=== PATIENT | male | born 1990 | race Caucasian/White ===

== ENCOUNTER → 2016-11-02 | Outpatient (CLI) | payer OTHER ==
[~2016-11-02] MED LIST: CHOL100010 PO; CHOL2000 PO; CLOB1SUS PO; DIVA125C PO; GLYC1TAB5 PO; MTR500 PO; NUTR-25 PO; RBN1 PO; [UNRECOGNIZED DRUG - CODE] PO; miralax PO
[2016-11-02 13:30] LABS: BASO % 0.3 %; BASO ABS # 0.02 K/uL (0-0.2); COMPLETE YES; HEMATOCRIT 46.8 % (42-52); IG% 0.2 %; LYMPH % 39.1 %; LYMPH ABS # 2.28 K/uL (1.2-3.4); MEAN CELL VOLUME 96.5 fL (80-100); MEAN CORPUSCULAR HGB CONC 33.1 g/dl (32-36); MONO % 7.5 %; NEUT % 46.9 %; PLATELET COUNT 151 K/uL (130-400); RED BLOOD COUNT 4.85 M/uL (4.7-6.1); WHITE BLOOD COUNT 5.83 K/uL (4.8-10.8)
[2016-11-02 13:53] LABS: ALB/GLOB RATIO 1.3 (0.9-2); ALKALINE PHOSPHATASE 92 U/L (45-117); ALT/SGPT 23 U/L (12-78); AST/SGOT 11 U/L (15-37); BLOOD UREA NITROGEN 9 mg/dl (7-18); CALCIUM 9.7 mg/dl (8.5-10.1); CARBON DIOXIDE 33 mmol/L (21-32); CHLORIDE 107 mmol/L (98-107); CREATININE 0.66 mg/dl (0.60-1.40); GLUCOSE 91 mg/dl (70-99); POTASSIUM 3.9 mmol/L (3.5-5.1); SODIUM 145 mmol/L (136-145)
== END | disposition home or self-care (01) ==
LOC: C.LABBC 11:57
PROVIDERS: ATTEND Psychiatry & Neurology Neurology
DX: G40.209 Localization-related (focal) (partial) symptomatic epilepsy and epileptic syndromes with complex partial seizures, not intractable, without status epilepticus (principal); G40.211 Localization-related (focal) (partial) symptomatic epilepsy and epileptic syndromes with complex partial seizures, intractable, with status epilepticus

== ENCOUNTER 2016-11-29 17:53 | Inpatient (IN) | payer OTHER ==
[~2016-11-29] VITALS: Ht 167.6 cm; Wt 43.0 kg
[~2016-11-29 17:53] MED LIST changes: -CHOL2000 PO; -CLOB1SUS PO; -MTR500 PO; -RBN1 PO
[2016-11-29] MEDS ORDERED: CLOB1SUS PO (18:19)
[2016-11-29] MEDS ORDERED: RBN1 PO (18:19)
[2016-11-29] MEDS ORDERED: CHOL2000 PO (18:19)
[2016-11-29] MEDS ORDERED: ACETAMINOPHEN 650 MG SUPP PR STA (18:28)
[2016-11-29] MEDS ORDERED: SODIUM CHLORIDE 0.9% 1000ML 1,000 ML IV ONE (18:28)
[2016-11-29] MEDS ORDERED: VANCOMYCIN 1GM/270ML NSS IV STA (18:28)
[2016-11-29] MEDS ORDERED: SODIUM CHLORIDE 0.9% 1000ML 1,000 ML IV SCH (18:30)
[2016-11-29] MEDS ORDERED: ONDANSETRON INJ 2 MG/ML 2 ML VIAL IV STA (18:46)
[2016-11-29 19:26] LABS: BASO % 0.1 %; BASO ABS # 0.01 K/uL (0-0.2); EOS % 0.4 %; HEMATOCRIT 55.8 % (42-52); IG% 0.2 %; LYMPH % 8.8 %; LYMPH ABS # 0.74 K/uL (1.2-3.4); MEAN PLATELET VOLUME 12.9 fL (7.4-10.4); MONO % 19.6 %; NEUT % 70.9 %; PLATELET COUNT 115 K/uL (130-400); RED BLOOD COUNT 5.75 M/uL (4.7-6.1); WHITE BLOOD COUNT 8.45 K/uL (4.8-10.8)
[2016-11-29 19:33] LABS: INR 1.1 (0.9-1.1)
--- NOTE | 2016-11-29 19:42 | DIAGNOSTIC IMAGING REPORT ---
CHEST ONE VIEW PORTABLE CLINICAL HISTORY: Sepsis COMPARISON STUDY: 10/05/2014 FINDINGS: There is a thoracolumbar scoliosis. Spinal rods are visualized. There is a prior stimulator projected over the left medial shoulder region. There is no focal pulmonary consolidation. There are no pleural effusions. There is no failure.[ IMPRESSION: No acute findings. Electronically signed by: Reuben Scott M.D. 11/29/2016 7:41 PM Dictated Date/Time: 11/29/2016 7:40 PM
[2016-11-29] MEDS ORDERED: OPTIRAY 320 IV PRN (19:45)
[2016-11-29 20:01] LABS: ALKALINE PHOSPHATASE 109 U/L (45-117); ALT/SGPT 23 U/L (12-78); BLOOD UREA NITROGEN 18 mg/dl (7-18); BUN/CREATININE RATIO 19.7 (10-20); CALCIUM 9.5 mg/dl (8.5-10.1); CARBON DIOXIDE 30 mmol/L (21-32); CHLORIDE 108 mmol/L (98-107); GLUCOSE 119 mg/dl (70-99); SODIUM 144 mmol/L (136-145)
[2016-11-29] MEDS ORDERED: RASPBERRY SYRUP 5 ML UDP PO STA (20:08)
[2016-11-29] MEDS ORDERED: VANCOMYCIN HCL 250 MG/5 ML SOLN PO STA (20:08)
[2016-11-29 20:17] LABS: COMPLETE YES
[2016-11-29 20:38] LABS: POTASSIUM 4.4 mmol/L (3.5-5.1)
[2016-11-29] MEDS ORDERED: ONDANSETRON INJ 2 MG/ML 2 ML VIAL ONE (21:00)
[2016-11-29] MEDS ORDERED: ONDANSETRON 8 MG/54 ML D5W IV ONE (21:15)
--- NOTE | 2016-11-29 21:26 | DIAGNOSTIC IMAGING REPORT ---
CT ABD/PELVIS IV CONTRAST ONLY CLINICAL HISTORY: Abdominal distention, diarrhea, vomiting, history of cerebral palsy. COMPARISON STUDY: 10/05/2014 TECHNIQUE: Following the IV administration of 71 mL of Optiray-320, CT scan of the abdomen and pelvis was performed from the lung bases to the proximal femurs. Images are reviewed in the axial, sagittal, and coronal planes. IV contrast was administered without complication. A dose lowering technique was utilized adhering to the principles of ALARA. CT DOSE: 420.56 mGy.cm FINDINGS: Lower chest: There are minimal left basilar airspace opacities, infectious/inflammatory versus atelectatic. Liver: The contrast-enhanced liver is normal in size, contour, and attenuation. There is no intrahepatic biliary ductal dilatation. The hepatic veins and portal veins are patent. Gallbladder: Surgically absent Spleen: Normal in size and attenuation. Pancreas: Unremarkable. Adrenal glands: Unremarkable. Kidneys: There is symmetric renal cortical enhancement. The kidneys are normal in size without hydronephrosis. Bowel: There is extensive fecal retention. The rectum is dilated measuring 10 cm in diameter. There is minimal rectal wall thickening. There is extensive stool present throughout the colon. The stomach is distended. Peritoneum: There is no intraperitoneal free air or abdominal ascites. Vasculature: The abdominal aorta is normal in course and caliber. Adenopathy: None. Pelvic viscera: There is undescended right testis. The left testis is not visualized. Skeletal structures: There is a scoliosis. There are posterior spinal rods present. The hips are dysmorphic. There is chronic right-sided hip subluxation. IMPRESSION: 1. Extensive fecal impaction. The rectum is dilated to 10 cm. There is mild associated rectal wall thickening 2. Minimal left basal airspace opacities, atelectatic versus infectious/inflammatory Electronically signed by: Reuben Scott M.D. 11/29/2016 9:25 PM Dictated Date/Time: 11/29/2016 9:18 PM
[2016-11-29 21:59] LABS: MAGNESIUM 2.7 mg/dl (1.8-2.4); THYROID STIMULATING HORMONE 2.64 uIu/ml (0.300-4.500)
[2016-11-29] MEDS ORDERED: HYDROmorphone INJ 0.5 MG/0.5 ML SYR IV PRN (22:30)
[2016-11-29] MEDS ORDERED: ACETAMINOPHEN 325 MG TAB PO PRN (22:30)
[2016-11-29] MEDS ORDERED: KETOROLAC TROMETHAMINE 15 MG/ML VIAL IV. PRN (22:30)
[2016-11-29] MEDS ORDERED: OXYCODONE/ACETAMINOPHEN 5-325 TAB PO PRN (22:30)
[2016-11-29] MEDS ORDERED: ONDANSETRON INJ 2 MG/ML 2 ML VIAL IV PRN (22:30)
[2016-11-29] MEDS ORDERED: PROMETHAZINE HCL INJ 12.5 MG in SODIUM CHLORIDE 0.9% 50ML 50 ML IV PRN (22:30)
[2016-11-29] MEDS ORDERED: ACETAMINOPHEN IV 650 MG in EMPTY BAG 0 ML IV PRN (22:30)
[2016-11-29] MEDS ORDERED: PROMETHAZINE HCL INJ 12.5 MG in SODIUM CHLORIDE 0.9% 50ML 50 ML IV ONE (23:00)
[2016-11-29] MEDS ORDERED: PATIENT'S HEIGHT AND/OR WEIGHT NEEDED SCH (23:15)
[2016-11-29] MEDS: ONFI~ORDER AWAITING ACTION SCH (23:15)
[2016-11-29 23:22] VITALS: BP 98/66; PULSE 124; TEMP 37.3; O2SAT 95; Ht 167.6 cm; Wt 43.0 kg
[2016-11-29] MEDS: METRONIDAZOLE / NSS 500 MG in PREMIXED NSS 100 ML IV SCH (23:42)
[2016-11-29] MEDS: SODIUM CHLORIDE 0.45% 1000ML 1,000 ML IV SCH (23:53)
[2016-11-30] MEDS ORDERED: VALPROATE SOD IV 500 MG in DEXTROSE 5% 50ML 50 ML IV STA (00:07)
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
[2016-11-30] MEDS: SODIUM CHLORIDE 0.45% 1000ML 1,000 ML IV SCH ×5 (05:32→22:14)
[2016-11-30] MEDS: METRONIDAZOLE / NSS 500 MG in PREMIXED NSS 100 ML IV SCH ×3 (05:55→22:14)
[2016-11-30 06:34] LABS: HEMATOCRIT 51.4 % (42-52); MEAN CELL VOLUME 96.3 fL (80-100); MEAN CORPUSCULAR HEMOGLOBIN 30.3 pg (25-34); MEAN CORPUSCULAR HGB CONC 31.5 g/dl (32-36); MEAN PLATELET VOLUME 12.1 fL (7.4-10.4); PLATELET COUNT 127 K/uL (130-400); RED BLOOD COUNT 5.34 M/uL (4.7-6.1); WHITE BLOOD COUNT 6.37 K/uL (4.8-10.8)
[2016-11-30] MEDS ORDERED: ACETAMINOPHEN IV 650 MG in EMPTY BAG 0 ML IV ONE (07:00)
[2016-11-30 07:16] LABS: BASO % 0.2 %; BASO ABS # 0.01 K/uL (0-0.2); COMPLETE YES; EOS % 5.3 %; MONO % 21.8 %; NEUT % 50.7 %
[2016-11-30 07:26] LABS: BLOOD UREA NITROGEN 13 mg/dl (7-18); BUN/CREATININE RATIO 19.1 (10-20); CALCIUM 8.5 mg/dl (8.5-10.1); CARBON DIOXIDE 31 mmol/L (21-32); CHLORIDE 110 mmol/L (98-107); CREATININE 0.67 mg/dl (0.60-1.40); GLUCOSE 102 mg/dl (70-99); POTASSIUM 3.6 mmol/L (3.5-5.1); SODIUM 147 mmol/L (136-145)
[2016-11-30 07:29] VITALS: BP 120/67; PULSE 131; TEMP 37.1; O2SAT 93
[2016-11-30] MEDS: ONFI~ORDER AWAITING ACTION SCH ×2 (08:00)
[2016-11-30] MEDS: DIVALPROEX SODIUM SPRINKLE 125 MG CAP PO SCH (09:00)
[2016-11-30] MEDS: ONDANSETRON INJ 2 MG/ML 2 ML VIAL IV. SCH ×2 (09:00→22:14)
[2016-11-30] MEDS ORDERED: DOCUSATE SODIUM/SENNA 50/8.6MG TAB PO PRN (09:30)
[2016-11-30] MEDS: VALPROATE SOD IV 500 MG in DEXTROSE 5% 50ML 50 ML IV SCH ×2 (10:43→20:28)
[2016-11-30 12:16] LABS: MANUAL MICROSCOPIC REQUIRED? NO; REVIEW REQ? NO; URINE APPEARANCE CLEAR (CLEAR); URINE COLOR ORANGE; URINE EPITHELIAL CELL AUTO >30 /lpf (0-5); URINE NITRITE POS (NEG); URINE PH 5.5 (4.5-7.5); URINE SPECIFIC GRAVITY > 1.045 (1.000-1.030); UROBILINOGEN NEG (NEG); ZZUR CULT IF INDIC CLEAN CATCH NO
[2016-11-30 12:19] LABS: URINE BILIRUBIN NEG (NEG)
--- NOTE | 2016-11-30 13:36 | Progress Note ---
Internal Med Progress Note Date of Service: Nov 30, 2016. Provider Documentation: SUBJECTIVE: Seen and examined at bedside. Could not obtain any information, patient non verbal No family member at bedside. Sleeping comfortably Nausea improving per staff. Has Urinary retention. Afebrile today OBJECTIVE: Vital Signs-as noted below Physical Exam: General Appearance:chronic ill appearing, no apparent distress Head: normocephalic, Atraumatic Eyes: normal inspection, EOMI, PERRL Neck: supple, Trachea midline Respiratory/Chest: Normal breath sounds, CTA Cardiovascular: S1, S2, +Tachycardia, No murmur Abdomen/GI:Soft, +distended, mild tender, Bowel sounds present Extremities/Musculoskelatal:normal inspection, no edema Neurologic/Psych:could not perform neurological exam Skin: normal color, warm Lab data as noted below. ASSESSMENT & PLAN: Sepsis secondary to C.diff colitis Fecal Impaction on CT abd First occurrence of c.diff per family Continue IV fluids Continue IV flagyl. Will switch to PO when tolerates PO Seizure disorder Cerebral palsy/MR Continue home medications Will switch to PO Depakote when able Seizure precautions Urinary Retention: Continue asif for now Plan for voiding trial prior to DC Malnutrition: BMI:15.3 Service Department Manager consulted Thrombocytopenia: Likely secondary to medications No bleeding issues Monitor DVT Px: SCDs. RE thrombocytopenia Code Status: Full code Vital Signs: Date Time Temp Pulse Resp B/P (MAP) Pulse Ox O2 Delivery O2 Flow Rate FiO2 11/30/16 08:00 Room Air 11/30/16 07:29 37.1 131 20 120/67 (84) 93 11/29/16 23:22 37.3 124 18 98/66 95 Room Air 11/29/16 22:12 122 20 108/77 96 11/29/16 20:31 94 Room Air 11/29/16 20:20 37.6 130 22 108/70 94 Room Air 11/29/16 18:17 38.4 11/29/16 17:55 146 26 95/71 90 Room Air Lab Results: Results Past 24 Hours Test 11/29/16 18:25 11/29/16 19:05 11/29/16 20:19 11/29/16 20:24 Range/Units White Blood Count 8.45 4.8-10.8 K/uL Red Blood Count 5.75 4.7-6.1 M/uL Hemoglobin 18.4 14.0-18.0 g/dL Hematocrit 55.8 42-52 % Mean Corpuscular Volume 97.0 80-100 fL Mean Corpuscular Hemoglobin 32.0 25-34 pg Mean Corpuscular Hemoglobin Concent 33.0 32-36 g/dl Platelet Count 115 130-400 K/uL Mean Platelet Volume 12.9 7.4-10.4 fL Neutrophils (%) (Auto) 70.9 % Lymphocytes (%) (Auto) 8.8 % Monocytes (%) (Auto) 19.6 % Eosinophils (%) (Auto) 0.4 % Basophils (%) (Auto) 0.1 % Neutrophils # (Auto) 5.99 1.4-6.5 K/uL Lymphocytes # (Auto) 0.74 1.2-3.4 K/uL Monocytes # (Auto) 1.66 0.11-0.59 K/uL Eosinophils # (Auto) 0.03 0-0.5 K/uL Basophils # (Auto) 0.01 0-0.2 K/uL RDW Standard Deviation 46.3 36.4-46.3 fL RDW Coefficient of Variation 13.0 11.5-14.5 % Immature Granulocyte % (Auto) 0.2 % Immature Granulocyte # (Auto) 0.02 0.00-0.02 K/uL Prothrombin Time 12.0 9.0-12.0 SECONDS Prothromb Time International Ratio 1.1 0.9-1.1 Activated Partial Thromboplast Time 25.4 21.0-31.0 SECONDS Partial Thromboplastin Ratio 1.0 Sodium Level 144 136-145 mmol/L Potassium Level 4.4 3.5-5.1 mmol/L Chloride Level 108 98-107 mmol/L Carbon Dioxide Level 30 21-32 mmol/L Anion Gap 6.0 3-11 mmol/L Blood Urea Nitrogen 18 7-18 mg/dl Creatinine 0.90 0.60-1.40 mg/dl Estimated GFR () 138.1 Estimated GFR (Non- 119.1 BUN/Creatinine Ratio 19.7 10-20 Random Glucose 119 70-99 mg/dl Calcium Level 9.5 8.5-10.1 mg/dl Total Bilirubin 0.4 0.2-1 mg/dl Direct Bilirubin 0.1 0-0.2 mg/dl Aspartate Amino Transf (AST/SGOT) 17 15-37 U/L Alanine Aminotransferase (ALT/SGPT) 23 12-78 U/L Alkaline Phosphatase 109 45-117 U/L Total Protein 7.1 6.4-8.2 gm/dl Albumin 3.7 3.4-5.0 gm/dl Lipase 56 73-393 U/L Procalcitonin 0.23 0-0.5 ng/ml Chemistry Specimen Hemolysis Magnesium Level 2.7 1.8-2.4 mg/dl Thyroid Stimulating Hormone (TSH) 2.640 0.300-4.500 uIu/ml Bedside Lactic Acid Venous 1.97 0.90-1.70 mmol/L Test 11/29/16 22:01 11/30/16 00:00 11/30/16 00:00 11/30/16 06:16 Range/Units Lactic Acid Level 1.9 0.4-2.0 mmol/L Valproic Acid (Depakene) Level 41 67 50-100 mcg/ml Urine Color ORANGE Urine Appearance CLEAR CLEAR Urine pH 5.5 4.5-7.5 Urine Specific [place] > 1.045 1.000-1.030 Urine Protein NEG NEG Urine Glucose (UA) NEG NEG Urine Ketones NEG NEG Urine Occult Blood NEG NEG Urine Nitrite POS NEG Urine Bilirubin NEG NEG Urine Urobilinogen NEG NEG Urine Leukocyte Esterase SMALL NEG Urine WBC (Auto) 1-5 0-5 /hpf Urine RBC (Auto) 0-4 0-4 /hpf Urine Hyaline Casts (Auto) 1-5 0-5 /lpf Urine Epithelial Cells (Auto) >30 0-5 /lpf Urine Bacteria (Auto) NEG NEG White Blood Count 6.37 4.8-10.8 K/uL Red Blood Count 5.34 4.7-6.1 M/uL Hemoglobin 16.2 14.0-18.0 g/dL Hematocrit 51.4 42-52 % Mean Corpuscular Volume 96.3 80-100 fL Mean Corpuscular Hemoglobin 30.3 25-34 pg Mean Corpuscular Hemoglobin Concent 31.5 32-36 g/dl Platelet Count 127 130-400 K/uL Mean Platelet Volume 12.1 7.4-10.4 fL Neutrophils (%) (Auto) 50.7 % Lymphocytes (%) (Auto) 22.0 % Monocytes (%) (Auto) 21.8 % Eosinophils (%) (Auto) 5.3 % Basophils (%) (Auto) 0.2 % Neutrophils # (Auto) 3.23 1.4-6.5 K/uL Lymphocytes # (Auto) 1.40 1.2-3.4 K/uL Monocytes # (Auto) 1.39 0.11-0.59 K/uL Eosinophils # (Auto) 0.34 0-0.5 K/uL Basophils # (Auto) 0.01 0-0.2 K/uL RDW Standard Deviation 46.9 36.4-46.3 fL RDW Coefficient of Variation 13.2 11.5-14.5 % Immature Granulocyte % (Auto) 0.0 % Immature Granulocyte # (Auto) 0.00 0.00-0.02 K/uL Sodium Level 147 136-145 mmol/L Potassium Level 3.6 3.5-5.1 mmol/L Chloride Level 110 98-107 mmol/L Carbon Dioxide Level 31 21-32 mmol/L Anion Gap 6.0 3-11 mmol/L Blood Urea Nitrogen 13 7-18 mg/dl Creatinine 0.67 0.60-1.40 mg/dl Est Creatinine Clear Calc Drug Dose 103.4 ml/min Estimated GFR () > 150.0 Estimated GFR (Non- 134.5 BUN/Creatinine Ratio 19.1 10-20 Random Glucose 102 70-99 mg/dl Calcium Level 8.5 8.5-10.1 mg/dl Microbiology Results 11/29/16 Blood Culture, Received Pending 11/29/16 Blood Culture, Received Pending 11/29/16 C.difficile Toxin B Gene (PCR) - Final, Complete Positive for C. difficile toxin B gene 11/29/16 Shiga Toxin Test - Preliminary, Resulted No E. Coli shiga toxin 1 or shiga tox... 11/29/16 Stool Culture - Preliminary, Resulted NO SALMONELLA ISOLATED TO DATE,...
[2016-11-30 17:17] VITALS: BP 121/74; PULSE 98; TEMP 36.6; O2SAT 94
[2016-11-30] MEDS: CLOBAZAM 2.5 MG/ML PO SCH (20:30)
[2016-11-30] MEDS: RUFINAMIDE 40 MG/ML PO SCH (20:36)
[2016-11-30] MEDS ORDERED: RUFINAMIDE 40 MG/ML PO SCH (21:00)
[2016-11-30 23:53] VITALS: BP 117/72; PULSE 107; TEMP 37.8; O2SAT 93
[2016-12-01 02:00] VITALS: TEMP 37.5
[2016-12-01] MEDS: METRONIDAZOLE / NSS 500 MG in PREMIXED NSS 100 ML IV SCH ×3 (05:49→21:56)
[2016-12-01] MEDS: SODIUM CHLORIDE 0.45% 1000ML 1,000 ML IV SCH ×2 (05:49→16:12)
[2016-12-01 07:24] VITALS: BP 110/64; PULSE 97; TEMP 37.4; O2SAT 95
[2016-12-01] MEDS: VALPROATE SOD IV 500 MG in DEXTROSE 5% 50ML 50 ML IV SCH ×2 (08:28→20:36)
[2016-12-01] MEDS: RUFINAMIDE 40 MG/ML PO SCH ×2 (08:28→19:24)
[2016-12-01] MEDS: CLOBAZAM 2.5 MG/ML PO SCH ×2 (08:28→19:24)
[2016-12-01 08:46] LABS: BLOOD UREA NITROGEN 6 mg/dl (7-18); BUN/CREATININE RATIO 13.3 (10-20); CALCIUM 8.4 mg/dl (8.5-10.1); CARBON DIOXIDE 28 mmol/L (21-32); CHLORIDE 106 mmol/L (98-107); CREATININE 0.46 mg/dl (0.60-1.40); GLUCOSE 82 mg/dl (70-99); MAGNESIUM 1.7 mg/dl (1.8-2.4); POTASSIUM 3.6 mmol/L (3.5-5.1); SODIUM 141 mmol/L (136-145)
[2016-12-01] MEDS ORDERED: RUFINAMIDE 40 MG/ML PO SCH (09:00)
--- NOTE | 2016-12-01 10:48 | Progress Note ---
Internal Med Progress Note Date of Service: Dec 01, 2016. Provider Documentation: SUBJECTIVE: Seen and examined at bedside. Could not obtain any information, patient non verbal No family member at bedside. Alert, awake, lying comfortably Has intermittent fever Takes medication and food only when given by his mother OBJECTIVE: Vital Signs-as noted below Physical Exam: General Appearance:chronic ill appearing, no apparent distress Head: normocephalic, Atraumatic Eyes: normal inspection, EOMI, PERRL Neck: supple, Trachea midline Respiratory/Chest: Normal breath sounds, CTA Cardiovascular: S1, S2, +Tachycardia, No murmur Abdomen/GI:Soft, +distended, non tender, Bowel sounds present Extremities/Musculoskelatal:normal inspection, no edema Neurologic/Psych:could not perform neurological exam Skin: normal color, warm Lab data as noted below. ASSESSMENT & PLAN: Sepsis secondary to C.diff colitis Fecal Impaction on CT abd First occurrence of c.diff per family Continue IV fluids at decreased rate to 75ml/hr Continue IV flagyl. Will switch to PO when tolerates PO better Blood culture: no growth to date Seizure disorder Cerebral palsy/MR Continue home medications Will switch to PO Depakote when able Seizure precautions stable Urinary Retention: Continue asif for now Plan for voiding trial prior to DC Hypomagnesemia: Replace and monitor Malnutrition: BMI:15.3 State Patrol Officer consulted Thrombocytopenia: Likely secondary to medications No bleeding issues Monitor DVT Px: SCDs. RE thrombocytopenia Code Status: Full code Vital Signs: Date Time Temp Pulse Resp B/P (MAP) Pulse Ox O2 Delivery O2 Flow Rate FiO2 12/01/16 08:00 Room Air 12/01/16 07:24 37.4 97 16 110/64 (79) 95 Room Air 12/01/16 02:00 37.5 11/30/16 23:59 Room Air 11/30/16 23:53 37.8 107 18 117/72 (87) 93 Room Air 11/30/16 17:17 36.6 98 18 121/74 (90) 94 Room Air 11/30/16 16:00 Room Air Lab Results: Results Past 24 Hours Test 12/01/16 07:17 Range/Units Sodium Level 141 136-145 mmol/L Potassium Level 3.6 3.5-5.1 mmol/L Chloride Level 106 98-107 mmol/L Carbon Dioxide Level 28 21-32 mmol/L Anion Gap 7.0 3-11 mmol/L Blood Urea Nitrogen 6 7-18 mg/dl Creatinine 0.46 0.60-1.40 mg/dl Est Creatinine Clear Calc Drug Dose 150.6 ml/min Estimated GFR () > 150.0 Estimated GFR (Non- > 150.0 BUN/Creatinine Ratio 13.3 10-20 Random Glucose 82 70-99 mg/dl Calcium Level 8.4 8.5-10.1 mg/dl Magnesium Level 1.7 1.8-2.4 mg/dl
[2016-12-01] MEDS ORDERED: MAGNESIUM SULFATE 1GM / D5W 1 GM in PREMIXED IN D5W 100 ML IV ONE (11:00)
--- NOTE | 2016-12-01 17:26 | EMERGENCY ROOM VISIT NOTE ---
History Report prepared by Mari: René Bob Under the Supervision of: Dr. Alex Heart M.D. First contact with patient: 18:00 Chief Complaint: VOMITING Stated Complaint: VOMITING,DIARRHEA, STOMACH VERY DISTENDED History of Present Illness The patient is a 26 year old white male who presents to the ED with a cc of vomiting and diarrhea. History obtained from the patient's mother. History of MR. Symptoms began today and have persisted. Positive abdominal distension. Negative cough. No known sick contacts. No recent travel. Takes Depakote and Clobazam for seizures, and a medication to control drooling. Vaccinations are up to date. No recent antibiotic usage. Source of History: parent (mother) Onset: Today Quality: other (vomiting and diarrhea) Timing: other (persistent) Associated Symptoms: No cough Note: Positive abdominal distension. Review of Systems ROS limited secondary to MR. Past Medical & Surgical Medical Problems: (1) Cerebral palsy (2) Fecal impaction (3) Hypokalemia (4) Hypomagnesemia (5) MR (mental retardation), severe (6) Pneumonia (7) Seizures (8) Sepsis (9) Vomiting Surgical Problems: (1) History of spinal fusion (2) Status post VNS (vagus nerve stimulator) placement Family History No pertinent family history stated. Social History Smoking Status: Never Smoker Alcohol Use: none Drug Use: none Marital Status: single Housing Status: lives with family Occupation Status: disabled Current/Historical Medications Scheduled Cholecalciferol (Vitamin D3), 1 CAP PO DAILY Clobazam (Onfi), 1 ML PO BID Divalproex Sodium (Depakote Sprinkle), 4 CAP PO BID Enteral Nutrition Formula (Boost Plus), 1 CAN PO TIDM Glycopyrrolate (Glycopyrrolate), 1 TAB PO BID Rufinamide (Banzel), 1,000 MG PO BID Scheduled PRN [miralax], 255 GM PO DAILY PRN for Constipation Allergies Coded Allergies: Fentanyl (Verified Adverse Reaction, Intermediate, Difficulty to awaken, ) Physical Exam Vital Signs Date Time Temp Pulse Resp B/P (MAP) Pulse Ox O2 Delivery O2 Flow Rate FiO2 11/29/16 20:31 94 Room Air 11/29/16 20:20 37.6 130 22 108/70 94 Room Air 11/29/16 18:17 38.4 11/29/16 17:55 146 26 95/71 90 Room Air Physical Exam GENERAL: Non-verbal at baseline. Awake, well-appearing, NAD HENT: Normocephalic, atraumatic. EYES: Normal conjunctiva. Sclera non-icteric. NECK: Supple. No nuchal rigidity. FROM. RESPIRATORY: CTAB, no rhonchi, wheezing, crackles CARDIAC: RRR, no MRG ABDOMEN: Soft, NT, BS+. Distended. MSK: No chest wall TTP, no LE edema. Contractures of the bilateral upper and lower extremities. NEURO: Baseline MR. AO x0. Non-verbal. SKIN: No rash or jaundice noted. Scarring on the back and abdomen consistent with prior surgeries. Medical Decision & Procedures Laboratory Results Test 11/29/16 18:25 11/29/16 19:05 11/29/16 20:19 11/29/16 20:24 Prothrombin Time 12.0 SECONDS (9.0-12.0) Prothromb Time International Ratio 1.1 (0.9-1.1) Activated Partial Thromboplast Time 25.4 SECONDS (21.0-31.0) Partial Thromboplastin Ratio 1.0 Total Bilirubin 0.4 mg/dl (0.2-1) Alanine Aminotransferase (ALT/SGPT) 23 U/L (12-78) Alkaline Phosphatase 109 U/L (45-117) Total Protein 7.1 gm/dl (6.4-8.2) Albumin 3.7 gm/dl (3.4-5.0) Lipase 56 U/L (73-393) Procalcitonin 0.23 ng/ml (0-0.5) Chemistry Specimen Hemolysis Direct Bilirubin 0.1 mg/dl (0-0.2) Aspartate Amino Transf (AST/SGOT) 17 U/L (15-37) Thyroid Stimulating Hormone (TSH) 2.640 uIu/ml (0.300-4.500) Bedside Lactic Acid Venous 1.97 mmol/L (0.90-1.70) Date/Time Source Procedure Growth Status 11/29/16 18:25 Stool C.difficile Toxin B Gene (PCR) - Final Positive for C. difficile toxin B gene Complete Medications Administered Medications (Trade) Dose Ordered Sig/Vy Route Start Time Stop Time Status Last Admin Dose Admin Sodium Chloride 1,000 ml @ 999 mls/hr Q1H1M ONCE IV 11/29/16 18:28 11/29/16 19:28 DC 11/29/16 19:54 999 MLS/HR Vancomycin HCl (Vancomycin 1gm/ 270ml Nss) 1 gm ONE STAT IV 11/29/16 18:28 11/29/16 21:36 DC 11/29/16 18:28 1 GM Sodium Chloride 1,000 ml @ 999 mls/hr Q1H1M IV 11/29/16 18:30 11/29/16 22:55 DC 11/29/16 18:30 999 MLS/HR Acetaminophen (Tylenol Supp) 650 mg NOW STAT IN 11/29/16 18:28 11/29/16 18:38 DC 11/29/16 19:54 650 MG Ondansetron HCl (Zofran Inj) 4 mg NOW STAT IV 11/29/16 18:46 11/29/16 18:50 DC 11/29/16 19:54 4 MG Vancomycin HCl (Vancomycin Oral Soln) 250 mg NOW STAT PO 11/29/16 20:08 11/29/16 20:09 DC 11/29/16 20:57 250 MG Raspberry (Raspberry Syrup 5ml Cup) 5 ml NOW STAT PO 11/29/16 20:08 11/29/16 20:09 DC 11/29/16 20:56 5 ML Ondansetron HCl (Zofran Inj) 4 mg STK-MED ONCE .ROUTE 11/29/16 21:00 11/29/16 21:01 DC 11/29/16 21:00 4 MG ED Course 1807: The patient was evaluated in room B12B. A complete history and physical exam was performed. Medical Decision The patient is a 26 year old white male who presents to the ED with a cc of vomiting and diarrhea. Differential diagnosis includes but is not limited to: UTI, gastroenteritis, pneumonia, and C Diff. Patient was tachycardic with mild hypotension. Patient was ordered 2 L of fluid in addition to broad-spectrum antibiotics empirically. Patient's white count really unremarkable lactate less than 2. Patient likely suffering from dehydration secondary to C. difficile as his C. difficile was positive. Patient was ordered oral vancomycin. I spoke with the hospitalist service who agreed the patient would benefit from further treatment and management as an inpatient. Patient was admitted to the medicine service. Impression Primary Impression: Sepsis Additional Impressions: Tachycardia Dehydration C. difficile diarrhea Scribe Attestation The scribe's documentation has been prepared under my direction and personally reviewed by me in its entirety. I confirm that the note above accurately reflects all work, treatment, procedures, and medical decision making performed by me. Departure Information Referrals No Doctor, Assigned (PCP) Patient Instructions [facility] Problem Qualifiers
[2016-12-01] MEDS ORDERED: NURSING VERBAL MED ORDER ONE (19:15)
[2016-12-02] VITALS: TEMP 36.8
[2016-12-02] MEDS: METRONIDAZOLE / NSS 500 MG in PREMIXED NSS 100 ML IV SCH ×3 (05:46→22:03)
[2016-12-02] MEDS: SODIUM CHLORIDE 0.45% 1000ML 1,000 ML IV SCH ×2 (05:46→18:15)
[2016-12-02 07:27] LABS: COMPLETE YES; EOS % 1.7 %; HEMATOCRIT 42.2 % (42-52); IG% 0.2 %; LYMPH % 29.2 %; LYMPH ABS # 1.91 K/uL (1.2-3.4); MEAN CELL VOLUME 93.2 fL (80-100); MEAN CORPUSCULAR HEMOGLOBIN 29.6 pg (25-34); MEAN CORPUSCULAR HGB CONC 31.8 g/dl (32-36); MEAN PLATELET VOLUME 11.3 fL (7.4-10.4); MONO % 15.5 %; NEUT % 53.4 %; PLATELET COUNT 103 K/uL (130-400); RED BLOOD COUNT 4.53 M/uL (4.7-6.1); WHITE BLOOD COUNT 6.53 K/uL (4.8-10.8)
[2016-12-02 07:39] VITALS: BP 99/59; PULSE 101; TEMP 37.2; O2SAT 95
[2016-12-02 07:51] LABS: BLOOD UREA NITROGEN 4 mg/dl (7-18); BUN/CREATININE RATIO 7.6 (10-20); CALCIUM 8.7 mg/dl (8.5-10.1); CARBON DIOXIDE 29 mmol/L (21-32); CHLORIDE 105 mmol/L (98-107); GLUCOSE 84 mg/dl (70-99); MAGNESIUM 1.7 mg/dl (1.8-2.4); POTASSIUM 3.3 mmol/L (3.5-5.1); SODIUM 140 mmol/L (136-145)
[2016-12-02] MEDS ORDERED: BOOST VANILLA PO SCH ×2 (08:00)
[2016-12-02] MEDS: CLOBAZAM 2.5 MG/ML PO SCH ×2 (08:14→19:18)
[2016-12-02] MEDS: RUFINAMIDE 40 MG/ML PO SCH ×2 (08:14→19:18)
[2016-12-02] MEDS: VALPROATE SOD IV 500 MG in DEXTROSE 5% 50ML 50 ML IV SCH ×2 (08:29→20:46)
[2016-12-02] MEDS: BOOST PLUS VANILLA PO SCH ×4 (11:30→16:14)
[2016-12-02] MEDS ORDERED: POTASSIUM CHLORIDE 10 MEQ TABCR PO ONE (13:00)
--- NOTE | 2016-12-02 13:07 | Progress Note ---
Internal Med Progress Note Date of Service: Dec 02, 2016. Provider Documentation: SUBJECTIVE: Seen and examined at bedside. Could not obtain any information, patient non verbal Seemed to be more comfortable today family at bedside. Fever resolved Abdomen is less distended OBJECTIVE: Vital Signs-as noted below Physical Exam: General Appearance:chronic ill appearing, no apparent distress Head: normocephalic, Atraumatic Eyes: normal inspection, EOMI, PERRL Neck: supple, Trachea midline Respiratory/Chest: Normal breath sounds, CTA Cardiovascular: S1, S2, +Tachycardia, No murmur Abdomen/GI:Soft, non tender, Bowel sounds present Extremities/Musculoskelatal:normal inspection, no edema Neurologic/Psych:could not perform neurological exam Skin: normal color, warm Lab data as noted below. ASSESSMENT & PLAN: Sepsis secondary to C.diff colitis Fecal Impaction on CT abd First occurrence of c.diff per family Continue IV fluids at decreased rate to 75ml/hr Continue IV flagyl. Day 3 Will switch to PO meds tomorrow Blood culture: no growth to date DC rectal tube today Seizure disorder Cerebral palsy/MR Continue home medications Will switch to PO Depakote tomorrow Seizure precautions stable Urinary Retention: Continue asif for now Plan for voiding trial prior to DC Hypomagnesemia/Hypokalemia: Replace and monitor Malnutrition: BMI:15.3 Librarian [employer] consulted Thrombocytopenia: Likely secondary to medications No bleeding issues Monitor DVT Px: SCDs. RE thrombocytopenia Code Status: Full code Vital Signs: Date Time Temp Pulse Resp B/P (MAP) Pulse Ox O2 Delivery O2 Flow Rate FiO2 12/02/16 08:00 Room Air 12/02/16 07:39 37.2 101 20 99/59 (72) 95 12/02/16 00:00 36.8 12/01/16 23:59 Room Air 12/01/16 20:00 Room Air 12/01/16 16:00 Room Air Lab Results: Results Past 24 Hours Test 12/02/16 07:04 Range/Units White Blood Count 6.53 4.8-10.8 K/uL Red Blood Count 4.53 4.7-6.1 M/uL Hemoglobin 13.4 14.0-18.0 g/dL Hematocrit 42.2 42-52 % Mean Corpuscular Volume 93.2 80-100 fL Mean Corpuscular Hemoglobin 29.6 25-34 pg Mean Corpuscular Hemoglobin Concent 31.8 32-36 g/dl Platelet Count 103 130-400 K/uL Mean Platelet Volume 11.3 7.4-10.4 fL Neutrophils (%) (Auto) 53.4 % Lymphocytes (%) (Auto) 29.2 % Monocytes (%) (Auto) 15.5 % Eosinophils (%) (Auto) 1.7 % Basophils (%) (Auto) 0.0 % Neutrophils # (Auto) 3.49 1.4-6.5 K/uL Lymphocytes # (Auto) 1.91 1.2-3.4 K/uL Monocytes # (Auto) 1.01 0.11-0.59 K/uL Eosinophils # (Auto) 0.11 0-0.5 K/uL Basophils # (Auto) 0.00 0-0.2 K/uL RDW Standard Deviation 43.3 36.4-46.3 fL RDW Coefficient of Variation 12.7 11.5-14.5 % Immature Granulocyte % (Auto) 0.2 % Immature Granulocyte # (Auto) 0.01 0.00-0.02 K/uL Sodium Level 140 136-145 mmol/L Potassium Level 3.3 3.5-5.1 mmol/L Chloride Level 105 98-107 mmol/L Carbon Dioxide Level 29 21-32 mmol/L Anion Gap 6.0 3-11 mmol/L Blood Urea Nitrogen 4 7-18 mg/dl Creatinine 0.50 0.60-1.40 mg/dl Est Creatinine Clear Calc Drug Dose 138.6 ml/min Estimated GFR () > 150.0 Estimated GFR (Non- > 150.0 BUN/Creatinine Ratio 7.6 10-20 Random Glucose 84 70-99 mg/dl Calcium Level 8.7 8.5-10.1 mg/dl Magnesium Level 1.7 1.8-2.4 mg/dl
[2016-12-02] MEDS ORDERED: MAGNESIUM SULFATE 1GM / D5W 1 GM in PREMIXED IN D5W 100 ML IV ONE (13:30)
[2016-12-02 14:17] VITALS: BP 112/64; PULSE 67; TEMP 36.9; O2SAT 99
[2016-12-02 22:39] VITALS: BP 91/58; PULSE 91; TEMP 36.9; O2SAT 95
[2016-12-03] MEDS: METRONIDAZOLE / NSS 500 MG in PREMIXED NSS 100 ML IV SCH ×2 (05:45→13:30)
[2016-12-03 07:46] VITALS: BP 99/61; TEMP 36.9; O2SAT 96
[2016-12-03 08:13] LABS: BASO % 0.2 %; BASO ABS # 0.01 K/uL (0-0.2); COMPLETE YES; EOS % 3.8 %; HEMATOCRIT 39.6 % (42-52); IG% 0.2 %; LYMPH % 37.5 %; LYMPH ABS # 2.05 K/uL (1.2-3.4); MEAN CELL VOLUME 93.4 fL (80-100); MEAN CORPUSCULAR HEMOGLOBIN 31.8 pg (25-34); MEAN CORPUSCULAR HGB CONC 34.1 g/dl (32-36); MEAN PLATELET VOLUME 10.9 fL (7.4-10.4); MONO % 9.3 %; PLATELET COUNT 104 K/uL (130-400); RED BLOOD COUNT 4.24 M/uL (4.7-6.1); WHITE BLOOD COUNT 5.47 K/uL (4.8-10.8)
[2016-12-03] MEDS: BOOST PLUS VANILLA PO SCH ×6 (08:19→19:06)
[2016-12-03] MEDS: SODIUM CHLORIDE 0.45% 1000ML 1,000 ML IV SCH (08:19)
[2016-12-03] MEDS: VALPROATE SOD IV 500 MG in DEXTROSE 5% 50ML 50 ML IV SCH (08:20)
[2016-12-03 08:50] LABS: BLOOD UREA NITROGEN 4 mg/dl (7-18); BUN/CREATININE RATIO 8.6 (10-20); CALCIUM 8.6 mg/dl (8.5-10.1); CARBON DIOXIDE 28 mmol/L (21-32); CHLORIDE 108 mmol/L (98-107); CREATININE 0.43 mg/dl (0.60-1.40); GLUCOSE 87 mg/dl (70-99); MAGNESIUM 1.8 mg/dl (1.8-2.4); POTASSIUM 3.3 mmol/L (3.5-5.1); SODIUM 143 mmol/L (136-145)
[2016-12-03] MEDS: RUFINAMIDE 40 MG/ML PO SCH ×2 (09:11→19:07)
[2016-12-03] MEDS: CLOBAZAM 2.5 MG/ML PO SCH ×2 (09:16→19:08)
[2016-12-03] MEDS ORDERED: POTASSIUM CHLORIDE 10 MEQ TABCR PO ONE (15:00)
--- NOTE | 2016-12-03 15:03 | Progress Note ---
Internal Med Progress Note Date of Service: Dec 03, 2016. Provider Documentation: SUBJECTIVE: Seen and examined at bedside. Patient non verbal at baseline comfortably lying in bed Abdomen is less distended OBJECTIVE: Vital Signs-as noted below Physical Exam: General Appearance:chronic ill appearing, no apparent distress Head: normocephalic, Atraumatic Eyes: normal inspection, EOMI, PERRL Neck: supple, Trachea midline Respiratory/Chest: Normal breath sounds, CTA Cardiovascular: S1, S2, +Tachycardia, No murmur Abdomen/GI:Soft, non tender, Bowel sounds present Extremities/Musculoskelatal:normal inspection, no edema Neurologic/Psych:could not perform neurological exam Skin: normal color, warm Lab data as noted below. ASSESSMENT & PLAN: Sepsis secondary to C.diff colitis Fecal Impaction on CT abd First occurrence of c.diff per family DC IV fluids Continue IV flagyl. Day 4 >>.PO flagyl Blood culture: no growth to date Seizure disorder Cerebral palsy/MR Continue home medications Seizure precautions stable Urinary Retention: DC asif voiding trial today Hypomagnesemia/Hypokalemia: Replace and monitor Malnutrition: BMI:15.3 [employer] Application Consultant consulted Chronic Thrombocytopenia: No bleeding issues Monitor Stable DVT Px: SCDs. RE thrombocytopenia Code Status: Full code Disposition: Plan to discharge home tomorrow if stable Vital Signs: Date Time Temp Pulse Resp B/P (MAP) Pulse Ox O2 Delivery O2 Flow Rate FiO2 12/03/16 08:00 Room Air 12/03/16 07:46 36.9 16 99/61 (74) 96 12/02/16 23:59 Room Air 12/02/16 22:39 36.9 91 18 91/58 (69) 95 Nasal Cannula 12/02/16 20:00 Room Air 12/02/16 15:30 Room Air Lab Results: Results Past 24 Hours Test 12/03/16 08:02 Range/Units White Blood Count 5.47 4.8-10.8 K/uL Red Blood Count 4.24 4.7-6.1 M/uL Hemoglobin 13.5 14.0-18.0 g/dL Hematocrit 39.6 42-52 % Mean Corpuscular Volume 93.4 80-100 fL Mean Corpuscular Hemoglobin 31.8 25-34 pg Mean Corpuscular Hemoglobin Concent 34.1 32-36 g/dl Platelet Count 104 130-400 K/uL Mean Platelet Volume 10.9 7.4-10.4 fL Neutrophils (%) (Auto) 49.0 % Lymphocytes (%) (Auto) 37.5 % Monocytes (%) (Auto) 9.3 % Eosinophils (%) (Auto) 3.8 % Basophils (%) (Auto) 0.2 % Neutrophils # (Auto) 2.68 1.4-6.5 K/uL Lymphocytes # (Auto) 2.05 1.2-3.4 K/uL Monocytes # (Auto) 0.51 0.11-0.59 K/uL Eosinophils # (Auto) 0.21 0-0.5 K/uL Basophils # (Auto) 0.01 0-0.2 K/uL RDW Standard Deviation 43.4 36.4-46.3 fL RDW Coefficient of Variation 12.7 11.5-14.5 % Immature Granulocyte % (Auto) 0.2 % Immature Granulocyte # (Auto) 0.01 0.00-0.02 K/uL Sodium Level 143 136-145 mmol/L Potassium Level 3.3 3.5-5.1 mmol/L Chloride Level 108 98-107 mmol/L Carbon Dioxide Level 28 21-32 mmol/L Anion Gap 7.0 3-11 mmol/L Blood Urea Nitrogen 4 7-18 mg/dl Creatinine 0.43 0.60-1.40 mg/dl Est Creatinine Clear Calc Drug Dose 161.1 ml/min Estimated GFR () > 150.0 Estimated GFR (Non- > 150.0 BUN/Creatinine Ratio 8.6 10-20 Random Glucose 87 70-99 mg/dl Calcium Level 8.6 8.5-10.1 mg/dl Magnesium Level 1.8 1.8-2.4 mg/dl
[2016-12-03 15:48] LABS: O&P GIARDIA AG NOT DETECTED (NOT DETECTED)
[2016-12-03] MEDS: METRONIDAZOLE 500 MG TAB PO SCH (19:06)
[2016-12-03] MEDS: DIVALPROEX SODIUM SPRINKLE 125 MG CAP PO SCH (19:08)
[2016-12-04] VITALS: BP 94/67; PULSE 97; TEMP 37.1; O2SAT 91
[2016-12-04 07:42] VITALS: BP 88/55; PULSE 80; TEMP 36.3; O2SAT 91
[2016-12-04] MEDS: METRONIDAZOLE 500 MG TAB PO SCH ×2 (09:27→13:10)
[2016-12-04] MEDS: RUFINAMIDE 40 MG/ML PO SCH (09:27)
[2016-12-04] MEDS: BOOST PLUS VANILLA PO SCH ×4 (09:27→11:28)
[2016-12-04] MEDS: DIVALPROEX SODIUM SPRINKLE 125 MG CAP PO SCH (09:28)
[2016-12-04] MEDS: CLOBAZAM 2.5 MG/ML PO SCH (09:28)
--- NOTE | 2016-12-04 13:44 | Progress Note ---
Internal Med Progress Note Date of Service: Dec 04, 2016. Provider Documentation: SUBJECTIVE: Seen and examined at bedside. Patient non verbal at baseline Doing well Family at bedside comfortably lying in bed no abdominal tenderness Urinary retention resolved No diarrhea OBJECTIVE: Vital Signs-as noted below Physical Exam: General Appearance:chronic ill appearing, no apparent distress Head: normocephalic, Atraumatic Eyes: normal inspection, EOMI, PERRL Neck: supple, Trachea midline Respiratory/Chest: Normal breath sounds, CTA Cardiovascular: S1, S2, No murmur Abdomen/GI:Soft, non tender, Bowel sounds present Extremities/Musculoskelatal:normal inspection, no edema Neurologic/Psych:could not perform neurological exam Skin: normal color, warm Lab data as noted below. ASSESSMENT & PLAN: Sepsis secondary to C.diff colitis Fecal Impaction on CT abd First occurrence of c.diff per family DC IV fluids Continue IV flagyl. Day 4 >>.PO flagyl Blood culture: no growth to date Seizure disorder Cerebral palsy/MR Continue home medications Seizure precautions stable Urinary Retention: DC asif Resolved Hypomagnesemia/Hypokalemia: Replace and monitor Malnutrition: BMI:15.3 [employer]andy Vendor consulted Chronic Thrombocytopenia: No bleeding issues Monitor Stable DVT Px: SCDs. RE thrombocytopenia Code Status: Full code Disposition: Plan to discharge home today Follow up with on 12/06/16 at 11:15AM Complete the antibiotic course as prescribed Seek immediate medical attention if your symptoms reoccur or worsen Vital Signs: Date Time Temp Pulse Resp B/P (MAP) Pulse Ox O2 Delivery O2 Flow Rate FiO2 12/04/16 08:00 Room Air 12/04/16 07:42 36.3 80 16 88/55 (66) 91 Room Air 12/04/16 00:00 37.1 97 18 94/67 (76) 91 Room Air 12/04/16 00:00 Room Air 12/03/16 16:10 Room Air
[2016-12-04] MEDS ORDERED: MTR500 PO (13:48)
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
[2016-12-04 13:56] VITALS: BP 88/55; PULSE 80; TEMP 36.3; O2SAT 91
== END 2016-12-04 15:43 | disposition home or self-care (01) | DRG 872 ==
LOC: C.EDB 17:54 → C.MS2W 21:30 → ENRESERV 21:44 → C.MS2W 12-02 12:22
PROVIDERS: ADMIT Internal Medicine; ATTEND Internal Medicine
DX: A41.89 Other specified sepsis (principal); E46 Unspecified protein-calorie malnutrition; Z68.1 Body mass index [BMI] 19.9 or less, adult; A04.7 Enterocolitis due to Clostridium difficile; G80.1 Spastic diplegic cerebral palsy; K56.41 Fecal impaction; E86.0 Dehydration; R11.2 Nausea with vomiting, unspecified; R33.9 Retention of urine, unspecified; E87.6 Hypokalemia; E83.42 Hypomagnesemia; Y08.89XS Assault by other specified means, sequela; D69.59 Other secondary thrombocytopenia; T50.905A Adverse effect of unspecified drugs, medicaments and biological substances, initial encounter; G40.909 Epilepsy, unspecified, not intractable, without status epilepticus; F79 Unspecified intellectual disabilities; Z98.1 Arthrodesis status; Z62.810 Personal history of physical and sexual abuse in childhood; Z96.89 Presence of other specified functional implants; Z79.899 Other long term (current) drug therapy

== ENCOUNTER 2022-11-07 11:17 | Inpatient (IN) ==
--- NOTE | 2022-11-07 11:31 | Emergency Department Note ---
History of Present Illness General Chief complaint: Constipation Stated complaint: CONSTIPATION Time Seen by Provider: 11/07/22 11:30 History of Present Illness This 32-year-old male patient with a history of CP presents to the emergency department with his mother and brother for evaluation of constipation. The patient is wheelchair-bound, non-verbal, and has a history of constipation. His last BM was about 1 week ago and had only been going small amounts for the past couple of weeks per mom. He was given 1 capful of MiraLAX, Senokot, and a Fleet enema last night without improvement. He is usually on a regimen of MiraLAX and Senokot titrated as needed, but mom does not like to give him a lot of medication. Mom has also been giving him juice to try to get him to go as well. He is still drinking, but not eating much because of the constipation. No nausea or vomiting. Does not seem to be having abdominal pain. No hematochezia or melena when he was still having BMs. Urinating well without pr oblems. No apparent chest pain or SOB. Follows with his family doctor for his constipation and is usually able to control his constipation well. Home Medications Medication Instructions Recorded Confirmed Type glycopyrrolate 1 mg tablet 1 mg PO BID PRN Secretions #60 tabs 01/08/19 11/07/22 History clobazam 2.5 mg/mL oral suspension 2.5 mg PO DAILY 11/07/22 11/07/22 History clobazam 2.5 mg/mL oral suspension 5 mg PO PM 11/07/22 11/07/22 History divalproex 125 mg capsule,delayed See Rx Instructions .Route .COMPLEX 11/07/22 11/07/22 History release sprinkle nutritional supplements 0.09 1 ea PO QID 11/07/22 11/07/22 History gram-0.5 kcal/mL oral liquid (Boost Max) polyethylene glycol 3350 17 4.25 g PO DIRECTED PRN 11/07/22 11/07/22 History gram/dose oral powder (Miralax) Constipation sennosides 8.8 mg/5 mL oral syrup 8.8 mg PO DIRECTED PRN 11/07/22 11/07/22 History Constipation Allergies Allergy/AdvReac Type Severity Reaction Status Date / Time fentanyl AdvReac Intermediate Difficulty Verified 11/07/22 15:22 to awaken Past Med/Surg History Medical History Cerebral palsy MR (mental retardation), severe Quadriplegic cerebral palsy Seizures Surgical History History of spinal fusion Status post VNS (vagus nerve stimulator) placement Social History Smoking Status: Never smoker Hx Alcohol Use: No Hx Substance Use: No Preferred Language: Qatari Communication Ability: Unable Communication Ability Comment: mother as caregiver Beliefs That Will Affect Care: None Current Living Situation: Parent Current Living Situation Comment: adopted current occupational status: disabled Other Information That Helps Us Care for You: No Feels Safe at Home: Yes Assistive Devices: Wheelchair Review of Systems See HPI for pertinent positives & negatives. Physical Exam Vital Signs Vital Signs - 24 hr 11/07/22 11:20 11/07/22 14:29 Temperature 36.8 C Temperature Source Temporal Artery Scan Pulse Rate 96 H Pulse Rate [Finger] 79 Respiratory Rate 20 20 Respiratory Effort / Characteristics Accessory Muscle Use Blood Pressure 100/72 Blood Pressure [Right Arm] 96/50 L Blood Pressure Mean 81 Blood Pressure Mean [Right Arm] 65 Blood Pressure Position [Right Arm] Semi-fowlers Pulse Oximetry 96 94 Oxygen Delivery Method Room Air Room Air Sepsis Recent Fever Within 48 Hours No Sepsis New/Unexplained Change in Mental Status N/A Sepsis Action Taken by Nursing No Action Required VITALS: Vitals are noted on the nurse's note and reviewed by myself. GENERAL: Exam findings consistent with his CP. He is nonverbal. He does respond to stimuli. Non toxic, no acute distress, non-diaphoretic. SKIN: Capillary refill <2 sec. EYES: PERRLA. EOMI. Conjunctivae without injection, sclerae without icterus. NOSE: Patent without discharge. MOUTH: Mucous membranes moist. Uvula midline. Airway patent. NECK: Supple without nuchal rigidity. HEART: Regular rate and rhythm without murmurs gallops or rubs. LUNGS: Clear to auscultation bilaterally without wheezes, rales or rhonchi. No retractions or accessory muscle use. ABDOMEN: Positive bowel sounds x 4 without borborygmi. Abdominal distention present. The patient has a hard masslike lesion in the right side of the abdomen. Difficult to determine whether this is all stool or other type of mass. Dullness to percussion over this area. No hepatosplenomegaly. The patient does not appear tender to palpation on exam on exam. No masses or stool felt in the left side of the abdomen. Mendoza sign negative. No guarding or rebound tenderness. RECTAL EXAM: Permission to perform the exam from mom. Perioperative Educator and mom present for exam. No external lesions noted. No external hemorrhoids. Decreased sphincter tone. Internal hemorrhoids are not enlarged. No masses, tears, fistulas, fissures, abscess, or other lesion noted. Soft to firm stool is felt in the upper portion of the rectal vault. The patient also has leakage of soft loose stool around the large amount of formed stool in the upper portion of the rectal vault. Unable to perform a fecal disimpaction due to how high the stool was in the rectal vault. Stool is brown and Hemoccult negative. Course Administered Medications Ceftriaxone Sodium 1,000 mg/ (Dextrose) 50 mls @ 100 mls/hr IV Q24H [facility]; Protocol Stop: 11/17/22 18:29 Last Admin: 11/07/22 19:49 Dose: 100 mls/hr Documented By: MICHELL Sodium Chloride (Nss 1000ml) 1,000 mls @ 80 mls/hr IV .[id number] SHAHIDA Stop: 11/08/22 06:54 Last Admin: 11/07/22 18:39 Dose: 80 mls/hr Documented By: ESTUARDO Magnesium Hydroxide (Magnesium Hydroxide Susp 30 Ml Udc) 30 ml PO BID SHAHIDA Stop: 12/07/22 20:59 Last Admin: 11/07/22 19:49 Dose: 30 ml Documented By: MICHELL Discontinued Medications Sodium Chloride (Nss 1000ml) 1,000 mls @ 999 mls/hr IV .[id number] STA Stop: 11/07/22 12:39 Last Infusion: 11/07/22 13:43 Dose: 0 mls/hr Documented By: Admin: 11/07/22 12:14 Dose: 999 mls/hr Documented By: KAMLESH Ioversol (Optiray 320 100ml) 94 ml IV ONCE ONE Stop: 11/07/22 13:45 Last Admin: 11/07/22 13:44 Dose: 94 ml Documented By: PHIL Non-Formulary Medication (Nutritional Supplements [Boost Max]) 1 each PO QID SHAHIDA Stop: 12/07/22 18:24 Last Admin: 11/07/22 19:19 Dose: Not Given Documented By: MICHELL Medical Decision Making Differential Diagnosis Differential diagnosis includes functional constipation, fecal impaction, obstruction, volvulus, metabolic abnormality, infection, neurologic, as well as other pathologies. Laboratory Data Attestation: I reviewed the patient's lab results. 11/07/22 11:55 11/07/22 11:55 Lab Results 11/07/22 11/07/22 11/07/22 Range/Units 11:55 11:55 11:55 WBC 8.17 (4.8-10.8) K/ul RBC 4.81 (4.70-6.10) M/uL Hgb 15.6 (14.0-18.0) g/dl Hct 45.3 (42.0-52.0) % MCV 94.2 (80.0-100.0) fL MCH 32.4 (25.0-34.0) pg MCHC 34.4 (32.0-36.0) g/dL RDW Std Deviation 42.4 (36.4-46.3) fL RDW Coeff of Leo 12.2 (11.5-14.5) % Plt Count 111 L (130-400) K/uL MPV 13.0 H (9.4-12.4) fL Immature Gran % (Auto) 0.4 % Neut % (Auto) 67.5 % Lymph % (Auto) 21.2 % [place] % (Auto) 8.3 % Eos % (Auto) 2.1 % Baso % (Auto) 0.5 % Neut # (Auto) 5.52 (1.40-6.50) K/uL Lymph # (Auto) 1.73 (1.2-3.4) K/uL [place] # (Auto) 0.68 H (0.11-0.59) K/uL Eos # (Auto) 0.17 (0-0.50) K/uL Baso # (Auto) 0.04 (0-0.2) K/uL Immature Gran # (Auto) 0.03 (0.01-0.20) K/uL Sodium 142 (136-145) mmol/L Potassium 3.8 (3.5-5.1) mmol/L Chloride 105 (98-107) mmol/L Carbon Dioxide 31 (21-32) mmol/L Anion Gap 6 (3-11) BUN 18 (6-23) mg/dl Creatinine 0.58 L (0.6-1.4) mg/dl Est Cr Clr Drug Dosing Not Reportable Est GFR ( Amer) > 150.0 ml/min Est GFR (Non-Af Amer) 136.8 ml/min BUN/Creatinine Ratio 31.0 H (10-20) Glucose 93 (70-99(Fasting)) mg/dl Calcium 9.4 (8.6-10.3) mg/dl Magnesium 2.1 (1.7-2.4) mg/dl Total Bilirubin 0.4 (0.2-1.0) mg/dl AST 23 (13-39) U/L ALT 26 (7-52) U/L Alkaline Phosphatase 102 (34-104) U/L Total Protein 6.2 (6.0-8.3) gm/dl Albumin 4.2 (3.4-5.0) gm/dl Globulin 2.0 L (2.5-4.0) gm/dl Albumin/Globulin Ratio 2.1 H (0.9-2) Lipase 11 (11-82) U/L TSH 4.359 (0.300-4.500) uIu/ml Urine Color Urine Appearance (Clear) Urine pH (4.5-7.5) Ur Specific [place] (1.000-1.030) Urine Protein (Negative) Urine Glucose (UA) (Negative) Urine Ketones (Negative) Urine Blood (Negative) Urine Nitrite (Negative) Urine Bilirubin (Negative) Urine Urobilinogen (Negative) Ur Leukocyte Esterase (Negative) Urine WBC (Auto) (0-5) /hpf Urine RBC (Auto) (0-4) /hpf U Hyaline Cast (Auto) (0-5) /lpf U Epithel Cells (Auto) (0-5) /lpf Urine Bacteria (Auto) (Negative) Valproic Acid (50-100) mcg/ml SARS-CoV-2, RNA, NAAT (NEGATIVE) 11/07/22 11/07/22 11/07/22 Range/Units 11:55 13:36 13:36 WBC (4.8-10.8) K/ul RBC (4.70-6.10) M/uL Hgb (14.0-18.0) g/dl Hct (42.0-52.0) % MCV (80.0-100.0) fL MCH (25.0-34.0) pg MCHC (32.0-36.0) g/dL RDW Std Deviation (36.4-46.3) fL RDW Coeff of Leo (11.5-14.5) % Plt Count (130-400) K/uL MPV (9.4-12.4) fL Immature Gran % (Auto) % Neut % (Auto) % Lymph % (Auto) % [place] % (Auto) % Eos % (Auto) % Baso % (Auto) % Neut # (Auto) (1.40-6.50) K/uL Lymph # (Auto) (1.2-3.4) K/uL [place] # (Auto) (0.11-0.59) K/uL Eos # (Auto) (0-0.50) K/uL Baso # (Auto) (0-0.2) K/uL Immature Gran # (Auto) (0.01-0.20) K/uL Sodium (136-145) mmol/L Potassium (3.5-5.1) mmol/L Chloride (98-107) mmol/L Carbon Dioxide (21-32) mmol/L Anion Gap (3-11) BUN (6-23) mg/dl Creatinine (0.6-1.4) mg/dl Est Cr Clr Drug Dosing Est GFR ( Amer) ml/min Est GFR (Non-Af Amer) ml/min BUN/Creatinine Ratio (10-20) Glucose (70-99(Fasting)) mg/dl Calcium (8.6-10.3) mg/dl Magnesium (1.7-2.4) mg/dl Total Bilirubin (0.2-1.0) mg/dl AST (13-39) U/L ALT (7-52) U/L Alkaline Phosphatase (34-104) U/L Total Protein (6.0-8.3) gm/dl Albumin (3.4-5.0) gm/dl Globulin (2.5-4.0) gm/dl Albumin/Globulin Ratio (0.9-2) Lipase (11-82) U/L TSH (0.300-4.500) uIu/ml Urine Color Dark Yellow Urine Appearance Cloudy A (Clear) Urine pH 6.5 (4.5-7.5) Ur Specific [place] 1.021 (1.000-1.030) Urine Protein Negative (Negative) Urine Glucose (UA) Negative (Negative) Urine Ketones Negative (Negative) Urine Blood Negative (Negative) Urine Nitrite Negative (Negative) Urine Bilirubin Negative (Negative) Urine Urobilinogen Positive H (Negative) Ur Leukocyte Esterase Trace H (Negative) Urine WBC (Auto) 0 (0-5) /hpf Urine RBC (Auto) 0-4 (0-4) /hpf U Hyaline Cast (Auto) 0 (0-5) /lpf U Epithel Cells (Auto) 0-5 (0-5) /lpf Urine Bacteria (Auto) Negative (Negative) Valproic Acid 55 (50-100) mcg/ml SARS-CoV-2, RNA, NAAT NEGATIVE (NEGATIVE) Imaging Data Radiologist's Impression: Abdomen/Pelvis CT 11/07/22 11:[address] WITH IV CONTRAST CT DOSE: 623.79 mGy.cm HISTORY: right sided abdominal pain/mass, constipation TECHNIQUE: Multiaxial CT images of the abdomen and pelvis were performed following the use of intravenous contrast. A dose lowering technique was utilized adhering to the principles of ALARA. COMPARISON STUDY: Abdomen and pelvis CT 11/29/2016. FINDINGS: The lung bases are clear. No pneumoperitoneum. No pneumatosis. Chronic deformity/subluxation within the right hip. There is also chronic left hip deformity. No acute fractures identified. Extensive posterior fusion hardware seen throughout the thoracic/lumbar spine with bilateral iliac screws. Severe dextroscoliosis of the thoracolumbar spine again noted. There is again noted an undescended right testis located within the right inguinal canal. A normal left testis is not identified with certainty. Cholecystectomy. The liver, pancreas, spleen, and adrenal glands are unremarkable. Normal left kidney. There is mild right hydronephrosis. No ureteral stones identified. This may be secondary to extrinsic compression from the distended rectum. There are few punctate right renal calculi. No definite left renal calculi. Normal caliber abdominal aorta. No retroperitoneal lymphadenopathy. The bladder is displaced along the left side of the pelvis due to the distended rectum. The bladder is mildly distended. Large stool ball seen within the distal sigmoid colon/rectum. This measures 11 cm in diameter and approximately 24 cm in length. This is increased in size from the prior study. There is associated mild to moderate thickening of the distal sigmoid colon and rectum with mild surrounding edema. Therefore, these findings are concerning for a stercoral colitis/proctitis. The remaining colon is filled with gas and a moderate amount well-formed stool is mildly distended. This likely represents an obstructive type pattern from the large rectal stool ball. The small bowel is normal in course and caliber. IMPRESSION: 1. Interval increase in size in the large stool ball within the distal sigmoid colon and rectum which measures 11 cm in diameter and 24 cm in length. There is associated mild to moderate thickening of the distal sigmoid colon and rectal wall which is concerning for a stercoral colitis/proctitis. 2. The remaining colon is filled with gas and a moderate amount of well-formed stool and is mildly dilated. Therefore, this likely represents an obstructive type pattern from the large rectal stool ball. 3. Mild right hydronephrosis. No ureteral stones. This may be secondary to extri nsic compression from the distended rectum. 4. The bladder is distended and displaced to the left side of the pelvis from the distended rectum. 5. Right-sided nephrolithiasis. 6. Undescended right testis located within the right inguinal canal. A normal left testis not identified. This remains unchanged. ACT 112: Negative or not required by law. Electronically signed by: Valerio Darby M.D. 11/07/2022 2:38 PM Chest X-Ray 11/07/22 11:40 XR chest 1V portable CLINICAL HISTORY: adominal pain TECHNIQUE: Single frontal radiograph of the chest was obtained. Comparison: Comparison is made to chest radiograph 11/29/2016 FINDINGS: Neurostimulator is seen. Posterior thoracolumbar fixation hardware is seen with scoliosis. The cardiomediastinal silhouette is normal. The lungs are clear. No evidence of pleural effusion or pneumothorax. IMPRESSION: No acute chest disease. ACT 112: Negative or not required by law. Electronically signed by: Gerardo Young M.D. 11/07/2022 1:07 PM MDM Narrative I examined the patient with the patient's mother at bedside. All history was obtained from the patient's mother due to the patient's intellectual disability and nonverbal status. The patient has a history of chronic constipation, but has not had a bowel movement in the past week. His mom states his abdomen is now distended and feels hard. He is still drinking well, but not really eating much. No nausea or vomiting. No apparent abdominal pain. No fevers or urinary symptoms. The patient has a hard masslike lesion to the right side of the abdomen on exam. Stool felt in the rectal vault, but too high up to perform a fecal disimpaction. There is leakage of soft stool around the fecal impaction. Hemoccult is negative. An IV lock was placed and labs were drawn. He was given 1 L normal saline solution bolus. CBC without leukocytosis or anemia. CMP without significant abnormalities. Lipase was normal. TSH was normal. Magnesium was normal. Cath urine sample negative for UTI. COVID-negative. Valproic acid level 55. Chest x-ray was interpreted by myself and read by radiology as above and showed no acute cardiopulmonary etiology. CT scan of the abdomen and pelvis with IV contrast was reviewed by myself and read by radiology as above and shows interval increase in the size of the large stool ball within the distal sigmoid colon and rectum which measures 11 cm in diameter and 24 cm in length. There is associated mild to moderate thickening of the distal sigmoid colon and rectal wall which is concerning for stercoral or colitis/proctitis. The remaining colon is filled with gas and a moderate amount of well-formed stool and is mildly dilated. Therefore, this likely represents an obstructive type pattern for the large rectal stool ball. Mild right hydronephrosis. No ureteral stones. This may be secondary to extrinsic compression from the distended rectum. The bladder is distended and displaced to the left side of the pelvis from the distended rectum. I had a meaningful discussion about this patient with Dr. Grewal who agrees with my assessment and the treatment plan. The patient was given a milk and molasses enema in the ER. We feel the patient requires admission to confirm the patient has a complete and successful cleanout due to the large size of the ball of stool as well as the associated stercoral proctitis/colitis and hydronephrosis. I spoke with the on-call hospitalist who agreed to admit the patient for further evaluation and treatment. Please refer to their dictation for further details. The patient's care was transferred in stable condition. Impression & Plan Constipation, Quadriplegic cerebral palsy, Seizures, Hydronephrosis, Colitis, MR (mental retardation), severe Discharge Plan Visit Data Chief Complaint: Constipation Stated Complaint: CONSTIPATION ED Provider: Thad Grewal ED Midlevel Provider: Vilma Adams Discharge Problem: Constipation, Quadriplegic cerebral palsy, Seizures, Hydronephrosis, Colitis, MR (mental retardation), severe Patient Disposition: Admitted As Inpatient Condition: Good Discharge Instructions Interventions: ED Discharge Assessment Last Done: 11/07/22 17:56
[2022-11-07] MEDS ORDERED: SODIUM CHLORIDE 0.9% 1000ML 1,000 ML IV STA (11:39)
[2022-11-07 12:18] LABS: Basophils # (auto) 0.04 K/uL (0-0.2); Basophils % (auto) 0.5 %; Eosinophils # (auto) 0.17 K/uL (0-0.50); Eosinophils % (auto) 2.1 %; Hematocrit (blood only) 45.3 % (42.0-52.0); Hemoglobin 15.6 g/dl (14.0-18.0); Immature Granulocytes # (auto) 0.03 K/uL (0.01-0.20); Immature Granulocytes % (auto) 0.4 %; Lymphocytes # (auto) 1.73 K/uL (1.2-3.4); Lymphocytes % (auto) 21.2 %; Mean Corpuscular Hemoglobin 32.4 pg (25.0-34.0); Mean Corpuscular Hgb Conc 34.4 g/dL (32.0-36.0); Mean Corpuscular Volume 94.2 fL (80.0-100.0); Monocytes # (auto) 0.68 K/uL (0.11-0.59); Monocytes % (auto) 8.3 %; Neutrophils # (auto) 5.52 K/uL (1.40-6.50); Neutrophils % (auto) 67.5 %; Platelet Count 111 K/uL (130-400); RDW Coefficient of Variation 12.2 % (11.5-14.5); RDW Standard Deviation 42.4 fL (36.4-46.3); Red Blood Count 4.81 M/uL (4.70-6.10); White Blood Count 8.17 K/ul (4.8-10.8)
[2022-11-07 12:31] LABS: Alanine Aminotransferase 26 U/L (7-52); Albumin Globulin Ratio 2.1 (0.9-2); Albumin Level 4.2 gm/dl (3.4-5.0); Alkaline Phosphatase 102 U/L (34-104); Anion Gap 6 (3-11); Aspartate Aminotransferase 23 U/L (13-39); Bilirubin,Total 0.4 mg/dl (0.2-1.0); Blood Urea Nitrogen 18 mg/dl (6-23); Calcium 9.4 mg/dl (8.6-10.3); Carbon Dioxide 31 mmol/L (21-32); Chloride 105 mmol/L (98-107); Est GFR (African American) > 150.0 ml/min; Est GFR (Non-African American) 136.8 ml/min; Glucose 93 mg/dl (70-99(Fasting)); Lipase 11 U/L (11-82); Magnesium 2.1 mg/dl (1.7-2.4); Potassium 3.8 mmol/L (3.5-5.1); Sodium 142 mmol/L (136-145); Total Protein 6.2 gm/dl (6.0-8.3)
--- NOTE | 2022-11-07 13:09 | XRay Report ---
XR chest 1V portable CLINICAL HISTORY: adominal pain TECHNIQUE: Single frontal radiograph of the chest was obtained. Comparison: Comparison is made to chest radiograph 11/29/2016 FINDINGS: Neurostimulator is seen. Posterior thoracolumbar fixation hardware is seen with scoliosis. The cardio mediastinal silhouette is normal. The lungs are clear. No evidence of pleural effusion or pneumothora x. IMPRESSION: No acute chest disease. ACT 112: Negative or not required by law. Electronically signed by: Gerardo Young M.D. 11/07/2022 1:07 PM
[2022-11-07] MEDS ORDERED: OPTIRAY 320 100ml IV ONE (13:44)
[2022-11-07 13:51] LABS: Appearance Urine Cloudy (Clear); Bacteria Urine Automated Negative (Negative); Bilirubin Urine Negative (Negative); Blood Urine Negative (Negative); Cast Urine Automated 0 /lpf (0-5); Color Urine Dark Yellow; Epithelial Cell Urine Auto 0-5 /lpf (0-5); Glucose Urine UA Negative (Negative); Ketones Urine Negative (Negative); Leukocyte Esterase Urine Trace (Negative); Nitrite Urine Negative (Negative); Protein Urine Negative (Negative); RBC Urine Automated 0-4 /hpf (0-4); Specific Gravity Urine 1.021 (1.000-1.030); Urobilinogen Urine Positive (Negative); WBC Urine Automated 0 /hpf (0-5); pH Urine 6.5 (4.5-7.5)
--- NOTE | 2022-11-07 14:40 | CT Scan Report ---
ABDOMEN AND PELVIS CT WITH IV CONTRAST CT DOSE: 623.79 mGy.cm HISTORY: right sided abdominal pain/mass, constipation TECHNIQUE: Multiaxial CT images of the abdomen and pelvis were performed following the use of intrave nous contrast. A dose lowering technique was utilized adhering to the principles of ALARA. COMPARISON STUDY: Abdomen and pelvis CT 11/29/2016. FINDINGS: The lung bases are clear. No pneumoperitoneum. No pneumatosis. Chronic deformity/subluxatio n within the right hip. There is also chronic left hip deformity. No acute fractures identified. Exte nsive posterior fusion hardware seen throughout the thoracic/lumbar spine with bilateral iliac screws . Severe dextroscoliosis of the thoracolumbar spine again noted. There is again noted an undescended right testis located within the right inguinal canal. A normal left testis is not identified with cer tainty. Cholecystectomy. The liver, pancreas, spleen, and adrenal glands are unremarkable. Normal lef t kidney. There is mild right hydronephrosis. No ureteral stones identified. This may be secondary to extrinsic compression from the distended rectum. There are few punctate right renal calculi. No defi nite left renal calculi. Normal caliber abdominal aorta. No retroperitoneal lymphadenopathy. The blad josi is displaced along the left side of the pelvis due to the distended rectum. The bladder is mildly distended. Large stool ball seen within the distal sigmoid colon/rectum. This measures 11 cm in diam eter and approximately 24 cm in length. This is increased in size from the prior study. There is asso ciated mild to moderate thickening of the distal sigmoid colon and rectum with mild surrounding edema . Therefore, these findings are concerning for a stercoral colitis/proctitis. The remaining colon is filled with gas and a moderate amount well-formed stool is mildly distended. This likely represents a n obstructive type pattern from the large rectal stool ball. The small bowel is normal in course and caliber. IMPRESSION: 1. Interval increase in size in the large stool ball within the distal sigmoid colon and rectum which measures 11 cm in diameter and 24 cm in length. There is associated mild to moderate thickening of t he distal sigmoid colon and rectal wall which is concerning for a stercoral colitis/proctitis. 2. The remaining colon is filled with gas and a moderate amount of well-formed stool and is mildly di lated. Therefore, this likely represents an obstructive type pattern from the large rectal stool ball . 3. Mild right hydronephrosis. No ureteral stones. This may be secondary to extrinsic compression from the distended rectum. 4. The bladder is distended and displaced to the left side of the pelvis from the distended rectum. 5. Right-sided nephrolithiasis. 6. Undescended right testis located within the right inguinal canal. A normal left testis not identif ied. This remains unchanged. ACT 112: Negative or not required by law. Electronically signed by: Valerio Darby M.D. 11/07/2022 2:38 PM
--- NOTE | 2022-11-07 17:00 | History & Physical Report ---
Date of Service November 07, 2022 Assessment & Plan (1) Fecal impaction: (2) Constipation: (3) Colitis: (4) Hydronephrosis: Plan: Patient is 32 y/o M with PMH cerebral palsy, intellectual disability, seizure disorder s/p vagus nerve stimulator presented to ER with mother with complaint of constipation with no BM x [address] abdomen pelvis: 1. Interval increase in size in the large stool ball within the distal sigmoid colon and rectum which measures 11 cm in diameter and 24 cm in length. There is associated mild to moderate thickening of the distal sigmoid colon and rectal wall which is concerning for a stercoral colitis/proctitis. 2. The remaining colon is filled with gas and a moderate amount of well-formed stool and is mildly dilated. Therefore, this likely represents an obstructive type pattern from the large rectal stool ball. 3. Mild right hydronephrosis. No ureteral stones. This may be secondary to extrinsic compression from the distended rectum. 4. The bladder is distended and displaced to the left side of the pelvis from the distended rectum. 5. Right-sided nephrolithiasis. In ER given 1L NSS Will start Rocephin, Flagyl for possible colitis IVF Milk of magnesia twice daily, MiraLAX twice daily, soapsuds enema 3 times daily General surgery consult CBC, BMP in a.m. (5) Quadriplegic cerebral palsy: (6) MR (mental retardation), severe: (7) Seizures: (8) Status post VNS (vagus nerve stimulator) placement: Plan: Seizure precautions Continue home Depakote, clobazam DVT Prophylaxis SCDs Full Code as per discussion with pt's mother Follows with Dr Verdugo for routine care Pt was seen and care coordinated with Dr Patel. See addendum I spent a total of 60 minutes reviewing notes, outpatient records, labs, medication, coordinating, documenting and providing care for this patient excluding time spent in the performance of separately billed services. History of Present Illness Chief Complaint: Constipation Primary Care Provider: Jen Verdugo DO Patient is 32 y/o M with PMH cerebral palsy, intellectual disability, seizure disorder s/p vagus nerve stimulator presented to ER with mother with complaint of constipation. History obtained from mother secondary to patient's underlying intellectual disability. Mother reports chronic constipation. Reports last BM 1 week ago. Recently been trying apple juice, Senokot, Miralax. Yesterday tried 1/3 bottle of magnesium citrate and Fleet enema. Reports very small amount liquid stool with Fleet enema. She has noticed patient's abdomen seems to be larger. At baseline patient with poor oral intake. Needs to be fed with spoon and only drinks out of sippy cup. She reports seems like has had less oral intake past several days. Drinks boost 3-4 times a day. Nonverbal. States patient at baseline mental status. Does not appear more uncomfortable and without noted moaning or crying. States normal amount of wet sanitary pads/briefs. Reports history of fecal impaction several years ago. States has seizures couple of times a week. "Small seizure" symptoms reported as increased blinking and downward turning of head. Also reports intermittent generalized jerking type seizures that are less frequent. Denies noted fever, chills, diaphoresis, melena, hematochezia, noted SOB or cough, rashes, hematuria. Allergies Allergy/AdvReac Type Severity Reaction Status Date / Time fentanyl AdvReac Intermediate Difficulty Verified 11/07/22 15:22 to awaken Home Medications Medication Instructions Recorded Confirmed Type glycopyrrolate 1 mg tablet 1 mg PO BID PRN Secretions #60 tabs 01/08/19 11/07/22 History clobazam 2.5 mg/mL oral suspension 2.5 mg PO DAILY 11/07/22 11/07/22 History clobazam 2.5 mg/mL oral suspension 5 mg PO PM 11/07/22 11/07/22 History divalproex 125 mg capsule,delayed See Rx Instructions .Route .COMPLEX 11/07/22 11/07/22 History release sprinkle nutritional supplements 0.09 1 ea PO QID 11/07/22 11/07/22 History gram-0.5 kcal/mL oral liquid (Boost Max) polyethylene glycol 3350 17 4.25 g PO DIRECTED PRN 11/07/22 11/07/22 History gram/dose oral powder (Miralax) Constipation sennosides 8.8 mg/5 mL oral syrup 8.8 mg PO DIRECTED PRN 11/07/22 11/07/22 History Constipation Past Med/Surg History Medical History Cerebral palsy MR (mental retardation), severe Quadriplegic cerebral palsy Seizures Surgical History History of spinal fusion Status post VNS (vagus nerve stimulator) placement Social History Smoking Status: Never smoker Hx Alcohol Use: No Hx Substance Use: No Preferred Language: Belizean Communication Ability: Unable Communication Ability Comment: mother as caregiver Beliefs That Will Affect Care: None Current Living Situation: Parent Current Living Situation Comment: adopted current occupational status: disabled Other Information That Helps Us Care for You: No Feels Safe at Home: Yes Assistive Devices: Wheelchair Review of Systems Review of Systems: Unobtainable due to cognitive status Physical Exam Physical Exam: General: chronic ill appearing, thin male, currently sleeping in no apparent distress Head: normocephalic, atraumatic Eyes: PERRL, EOM's intact, conjunctiva non-injected, anicteric ENT: normal inspection external ears, nose, mucous membranes moist Neck: supple, trachea midline Lungs: clear, no respiratory distress, no wheezing/rhonchi/rales CV: RRR, no murmur, no pretibial edema Abd: +distended normal BS, +palpable mass right side of abdomen, No apparent tenderness to palpation Ext: no cyanosis, no calf tenderness Neuro: Sleeping upon initial exam, arouses to touch and opens eyes and looks at examiner. +quadriplegia, +bilateral hands, arms, legs contracted, non-verbal Skin: warm, dry Results & Data Results & Data Vital Signs (Past 12 Hours) Vital Signs Temp Pulse Pulse Resp BP BP Pulse Ox 11/07/22 16:58 80 11/07/22 16:50 85 92/65 L 95 11/07/22 14:29 79 20 96/50 L 94 11/07/22 11:20 36.8 C 96 H 20 100/72 96 O2 Del Method 11/07/22 16:58 11/07/22 16:50 Room Air 11/07/22 14:29 Room Air 11/07/22 11:20 Room Air Laboratory Results Short CBC 11/07/22 Range/Units 11:55 WBC 8.17 (4.8-10.8) K/ul Hgb 15.6 (14.0-18.0) g/dl Hct 45.3 (42.0-52.0) % Plt Count 111 L (130-400) K/uL BMP 11/07/22 11:55 Sodium 142 Potassium 3.8 Chloride 105 Carbon Dioxide 31 BUN 18 Creatinine 0.58 L Glucose 93 Calcium 9.4 Liver Function 11/07/22 Range/Units 11:55 Total Bilirubin 0.4 (0.2-1.0) mg/dl AST 23 (13-39) U/L ALT 26 (7-52) U/L Alkaline Phosphatase 102 (34-104) U/L Albumin 4.2 (3.4-5.0) gm/dl Urine 11/07/22 Range/Units 13:36 Urine Color Dark Yellow Urine Appearance Cloudy A (Clear) Urine pH 6.5 (4.5-7.5) Ur Specific [place] 1.021 (1.000-1.030) Urine Protein Negative (Negative) Urine Glucose (UA) Negative (Negative) Diagnostic Findings Abdomen/Pelvis CT 11/07/22 11:[address] WITH IV CONTRAST CT DOSE: 623.79 mGy.cm HISTORY: right sided abdominal pain/mass, constipation TECHNIQUE: Multiaxial CT images of the abdomen and pelvis were performed follo wing the use of intravenous contrast. A dose lowering technique was utilized adhering to the principles of ALARA. COMPARISON STUDY: Abdomen and pelvis CT 11/29/2016. FINDINGS: The lung bases are clear. No pneumoperitoneum. No pneumatosis. Chronic deformity/subluxation within the right hip. There is also chronic left hip deformity. No acute fractures identified. Extensive posterior fusion hardware seen throughout the thoracic/lumbar spine with bilateral iliac screws. Severe dextroscoliosis of the thoracolumbar spine again noted. There is again noted an undescended right testis located within the right inguinal canal. A normal left testis is not identified with certainty. Cholecystectomy. The liver, pancreas, spleen, and adrenal glands are unremarkable. Normal left kidney. There is mild r ight hydronephrosis. No ureteral stones identified. This may be secondary to extrinsic compression from the distended rectum. There are few punctate right renal calculi. No definite left renal calculi. Normal caliber abdominal aorta. No retroperitoneal lymphadenopathy. The bladder is displaced along the left side of the pelvis due to the distended rectum. The bladder is mildly distended. Large stool ball seen within the distal sigmoid colon/rectum. This measures 11 cm in diameter and approximately 24 cm in length. This is increased in size from the prior study. There is associated mild to moderate thickening of the distal sigmoid colon and rectum with mild surrounding edema. Therefore, these findings are concerning for a stercoral colitis/proctitis. The remaining colon is filled with gas and a moderate amount well-formed stool is mildly distended. This likely represents an obstructive type pattern from the large rectal stool ball. The small bowel is normal in course and caliber. IMPRESSION: 1. Interval increase in size in the large stool ball within the distal sigmoid colon and rectum which measures 11 cm in diameter and 24 cm in length. There is associated mild to moderate thickening of the distal sigmoid colon and rectal wall which is concerning for a stercoral colitis/proctitis. 2. The remaining colon is filled with gas and a moderate amount of well-formed stool and is mildly dilated. Therefore, this likely represents an obstructive type pattern from the large rectal stool ball. 3. Mild right hydronephrosis. No ureteral stones. This may be secondary to extrinsic compression from the distended rectum. 4. The bladder is distended and displaced to the left side of the pelvis from the distended rectum. 5. Right-sided nephrolithiasis. 6. Undescended right testis located within the right inguinal canal. A normal left testis not identified. This remains unchanged. ACT 112: Negative or not required by law. Electronically signed by: Valerio Darby M.D. 11/07/2022 2:38 PM Chest X-Ray 11/07/22 11:40 XR chest 1V portable CLINICAL HISTORY: adominal pain TECHNIQUE: Single frontal radiograph of the chest was obtained. Comparison: Comparison is made to chest radiograph 11/29/2016 FINDINGS: Neurostimulator is seen. Posterior thoracolumbar fixation hardware is seen with scoliosis. The cardiomediastinal silhouette is normal. The lungs are clear. No evidence of pleural effusion or pneumothorax. IMPRESSION: No acute chest disease. ACT 112: Negative or not required by law. Electronically signed by: Gerardo Young M.D. 11/07/2022 1:07 PM Supervising Physician Co-Signing Physician Notes Patient seen and examined independently. Discussed with above provider. Patient is a 32-year-old male with past medical history of cerebral palsy, intellectual disability, seizure disorder presented to the ED with constipation for [address] abdomen and pelvis shows increased in size of large stool ball within the distal sigmoid colon and rectum. Also, has finding of stercoral colitis/proctitis. Start aggressive bowel regimen with enema 3 times a day, milk of magnesia and MiraLAX Surgery consulted for possible manual disimpaction. Continue seizure medications.
[2022-11-07] MEDS ORDERED: NUTRITIONAL SUPPLEMENTS PO SCH (18:25)
[2022-11-07] MEDS ORDERED: SODIUM CHLORIDE 0.9% 1000ML 1,000 ML IV SCH (18:25)
[2022-11-07] MEDS ORDERED: ACETAMINOPHEN 325 MG TAB PO PRN (18:25)
[2022-11-07] MEDS ORDERED: [UNRECOGNIZED DRUG - OTHER] PO SCH (18:25)
[2022-11-07] MEDS: MAGNESIUM HYDROXIDE SUSP 30 ML UDC PO SCH (19:49)
[2022-11-07] MEDS: cefTRIAXone SODIUM 1,000 MG in DEXTROSE 5% AD-VAN 50 ML IV SCH (19:49)
--- NOTE | 2022-11-07 20:12 | Surgery Consultation ---
Date of Consultation November 07, 2022 Assessment & Plan (1) Constipation: Patient has been admitted on the hospitalist service. We recommend the following from a surgical perspective: I discussed with the patient's mother the amount of stool burden noted on CT scan. I explained to her that we could continue attempts with enemas. I also discussed with her that the medical service has consulted gastroenterology for further recommendations. I did explain to her that we could attempt manual disimpaction at the bedside as this could potentially relieve some of the stool burden and also cause some stimulation that may assist the patient in having a bowel movement. With the mother's permission and the assistance of nursing staff the patient was placed in a left lateral decubitus position and I attempted to manually disimpact the patient at bedside using appropriate lubrication. As noted on the rectal exam the patient did appear to have decreased sphincter tone and I could palpate a large amount of stool burden in the rectum. I was able to disimpact a moderate amount of stool that was slightly smaller than the size of a baseball. Despite this effort I could still feel a considerable amount of stool in the rectum that I could not reach manually. It should also be noted that there was some blood in the stool that was disimpacted. Following this procedure with the assistance of nursing staff the patient was cleaned and bedding was changed. I explained to the patient's mother that the blood in the stool could be from irritation of his colon from the large stool burden. The patient appeared comfortable and was in no distress at the conclusion of this procedure. We would recommend continued stimulation per rectum with enemas The primary service has counseled gastroenterology we will await their recommendations particular that if they feel that an endoscopic decompression may be required During the entirety of my encounter with the patient he did not have signs of an acute abdomen therefore an emergent surgical procedure is not required Additional recommendations be forthcoming based on his clinical course as unfolds Supervising Physician Co-Signing Physician Notes Patient discussed with WILL Santo, labs and imaging reviewed. Neurogenic constiation with stercoral proctitis, no perforation. Partially disimpacted by WILL, recommend enemas, awati GI recs. History of Present Illness Reason for Consultation: Constipation Attending Physician: Wily Patel MD History of Present Illness This is a 32-year-old male with an underlying history of intellectual disability secondary to cerebral palsy along with seizure disorder who presented to the emergency department with his mother secondary to constipation. It should be noted that due to the previously noted medical problems patient could not provide his history and the history is obtained from discussion with the patient's mother at bedside, nursing staff, and review of records. The patient reportedly has a history of chronic constipation and his last bowel movement was approximately 1 week ago. They have been trying home remedies such as apple juice, Senokot, and MiraLAX. They even tried taking a partial bottle of magnesium citrate along with a fleets enema. Very small amount of liquid stool was able to be obtained with the fleets enema but despite these modalities the patient has not had a significant bowel movement in the above-noted timeframe. Patient's family noted that his abdominal girth seems to be somewhat larger. According to reports the patient did not appear to be un comfortable and was not moaning or crying in pain. As noted above, the patient has a history of chronic constipation. His mother does report however, that he has only been hospitalized 1 time for this issue which was in 2017 had hospitalization in 2017. She notes that during this hospitalization his constipation was relieved with enemas alone. Since arrival to the hospital the patient has had labs and imaging which I independently reviewed. Patient did have a chest x-ray that showed no evidence of pneumonia. A CT scan of the abdomen and pelvis showed the patient had a large stool burden in the distal sigmoid colon measuring approximate 11 cm in diameter and 24 cm in length. This resulted in moderate thickening of the distal sigmoid colon and rectal wall concerning for sterile coral colitis. Proximal to this stool burden the colon was filled with gas and well formed stool and was felt to potentially represent a obstruction type pattern from the stool burden noted in the sigmoid colon. Labs include a CBC her white blood cell count, hemoglobin, and hematocrit were within normal range. Platelet count was 111,000. Chemistry profile showed sodium, potassium, and BUN were normal. Creatinine was nonelevated at 0.58. While in the emergency department and enema was attempted, however nursing reports that only half of the enema could be administered due to the burden of stool in the sigmoid colon/rectum. No manual disimpaction attempts were made. At the time of my encounter with the patient he was resting in bed he did not appear to be uncomfortable or in any distress. Allergies Allergy/AdvReac Type Severity Reaction Status Date / Time fentanyl AdvReac Intermediate Difficulty Verified 11/07/22 15:22 to awaken Home Medications Medication Instructions Recorded Confirmed Type glycopyrrolate 1 mg tablet 1 mg PO BID PRN Secretions #60 tabs 01/08/19 11/07/22 History clobazam 2.5 mg/mL oral suspension 2.5 mg PO DAILY 11/07/22 11/07/22 History clobazam 2.5 mg/mL oral suspension 5 mg PO PM 11/07/22 11/07/22 History divalproex 125 mg capsule,delayed See Rx Instructions .Route .COMPLEX 11/07/22 11/07/22 History release sprinkle nutritional supplements 0.09 1 ea PO QID 11/07/22 11/07/22 History gram-0.5 kcal/mL oral liquid (Boost Max) polyethylene glycol 3350 17 4.25 g PO DIRECTED PRN 11/07/22 11/07/22 History gram/dose oral powder (Miralax) Constipation rufinamide 40 mg/mL oral See Rx Instructions .Route .COMPLEX 11/07/22 11/07/22 History suspension (Banzel) sennosides 8.8 mg/5 mL oral syrup 8.8 mg PO DIRECTED PRN 11/07/22 11/07/22 History Constipation Patient History Medical History Cerebral palsy MR (mental retardation), severe Quadriplegic cerebral palsy Seizures Surgical History History of spinal fusion Status post VNS (vagus nerve stimulator) placement Social History Smoking Status: Never smoker Hx Alcohol Use: No Hx Substance Use: No Preferred Language: Macedonian Communication Ability: Unable Communication Ability Comment: mother as caregiver Beliefs That Will Affect Care: None Current Living Situation: Parent Current Living Situation Comment: adopted current occupational status: disabled Other Information That Helps Us Care for You: No Feels Safe at Home: Yes Assistive Devices: Wheelchair Review of Systems Review of Systems: Unobtainable due to cognitive status Physical Exam Physical Exam: With the mother's permission and nursing commercial fisherman present I performed a rectal exam. The patient appeared to have decreased sphincter tone in the rectum. On digital rectal exam I was able to palpate a large amount of stool. Constitutional: no acute distress Eyes: no conjunctival abnormality Respiratory: Patient's breathing appeared comfortable and was without wheezing. He was not using accessory muscles to aid in respiration. Cardiovascular: Rate/Rhythm: regular rate and regular rhythm Gastrointestinal (Abdomen): Abdomen is soft and nonrigid. Bowel sounds are present. Palpation of the patient's abdomen did not appear to elicit a painful response Results & Data Vital Signs (Past 12 Hours) Vital Signs Temp Pulse Pulse Resp BP BP Pulse Ox 11/07/22 18:26 36.8 C 80 14 97/65 L 95 11/07/22 17:56 11/07/22 16:58 80 11/07/22 16:50 85 92/65 L 95 11/07/22 14:29 79 20 96/50 L 94 11/07/22 11:20 36.8 C 96 H 20 100/72 96 O2 Del Method 11/07/22 18:26 Room Air 11/07/22 17:56 Room Air 11/07/22 16:58 11/07/22 16:50 Room Air 11/07/22 14:29 Room Air 11/07/22 11:20 Room Air PG Care Time/CCT Total # of Minutes Spent Total Time Spent with Patient: Total time spent is greater than 50% in coordination of care (as documented) at patient's floor/unit and/or counseling patient: Coding Level of Care Code 10425 IN/OBS CONSULT LVL 4,60M Diagnoses Constipation K59.00
[2022-11-07] MEDS: metroNIDAZOLE 500 MG/100 ML BAG IV SCH (20:19)
[2022-11-07] MEDS ORDERED: NON-FORMULARY MEDICATION (Clobazam 2.5 mg/mL suspension) PO SCH (21:00)
[2022-11-07] MEDS: DIVALPROEX SODIUM SPRINKLE/DEL-REL 125 MG CAP PO SCH (22:25)
[2022-11-07] MEDS: POLYETHYLENE (MIRALAX) 17 GM PACK PO SCH (22:25)
[2022-11-07] MEDS: RUFINAMIDE 40 MG/ML PO SCH (23:51)
[2022-11-08] MEDS: metroNIDAZOLE 500 MG/100 ML BAG IV SCH ×3 (03:52→20:11)
[2022-11-08 08:32] LABS: Anion Gap 6 (3-11); Calcium 8.6 mg/dl (8.6-10.3); Carbon Dioxide 25 mmol/L (21-32); Chloride 108 mmol/L (98-107); Potassium 3.7 mmol/L (3.5-5.1); Sodium 139 mmol/L (136-145)
[2022-11-08 08:38] LABS: Blood Urea Nitrogen 11 mg/dl (6-23); Creatinine Clr Calc Pharmacy 137.5 ml/min; Est GFR (African American) > 150.0 ml/min; Est GFR (Non-African American) 145.4 ml/min; Glucose 88 mg/dl (70-99(Fasting))
[2022-11-08 08:42] LABS: Hematocrit (blood only) 40.9 % (42.0-52.0); Hemoglobin 13.7 g/dl (14.0-18.0); Mean Corpuscular Hemoglobin 32.4 pg (25.0-34.0); Mean Corpuscular Hgb Conc 33.5 g/dL (32.0-36.0); Mean Corpuscular Volume 96.7 fL (80.0-100.0); Mean Platelet Volume 13.7 fL (9.4-12.4); Platelet Count 94 K/uL (130-400); Platelet Estimate Decreased (Normal); RDW Coefficient of Variation 12.2 % (11.5-14.5); RDW Standard Deviation 43.1 fL (36.4-46.3); Red Blood Count 4.23 M/uL (4.70-6.10); White Blood Count 7.58 K/ul (4.8-10.8)
[2022-11-08] MEDS ORDERED: NON-FORMULARY MEDICATION (Clobazam 2.5 mg/mL suspension) PO SCH (09:00)
[2022-11-08] MEDS: SODIUM CHLORIDE 0.9% 1000ML 1,000 ML IV SCH ×2 (09:11→17:01)
[2022-11-08] MEDS: DIVALPROEX SODIUM SPRINKLE/DEL-REL 125 MG CAP PO SCH ×2 (09:38→20:10)
[2022-11-08] MEDS: RUFINAMIDE 40 MG/ML PO SCH ×2 (09:38→20:08)
[2022-11-08] MEDS: MAGNESIUM HYDROXIDE SUSP 30 ML UDC PO SCH ×2 (09:39→20:13)
[2022-11-08] MEDS: POLYETHYLENE (MIRALAX) 17 GM PACK PO SCH ×2 (09:39→20:09)
--- NOTE | 2022-11-08 11:08 | Gastrointestinal Consultation ---
Date of Consultation November 08, 2022 Assessment & Plan (1) Quadriplegic cerebral palsy: (2) Constipation: Pt is a 32yo male patient w CP, non-verbal who presented w severe constipation and stool impaction concerning for stercoral colitis & proctitis. Small amt of stool were able to be disimpacted by Surgery last night. Lower abd still quite distended and firm on exam. No guarding or signs that he's in pain/discomfort on my exam w palpation today - KUB today - Miralax 17g BID, Milk of Mg 30mL BID - Fleet enema q6hr OK - Unfortunately endoscopic decompression and disimpaction would not be feasible given the large stool ball Supervising Physician Co-Signing Physician Notes Patient seen and examined on 11/08/2022 with STEVO Wick and I agree with her findings and plan of care. Patient is non-verbal with history of cerebral palsy. He has a history of chronic constipation and was admitted with constipation found to have an impacted stool ball on imaging with some stercoral colitis and the remainder of the colon was mildly dilated with stool as well. he was partially disimpacted by general surgery. On exam this afternoon he was laying in an extremely large amount of stool probably equivalent to about 6-7 softballs. He seems to have passed this stool ball after enemas and milk of magnesia was given. His abdomen is soft and non-tender. KUB ordered this AM prior to patient passing large amount of stool this afternoon. Continue with miralax BID and fleets enemas q6 hrs. He has passed an extremely large amount of stool so hopefully things will continue to move now. He may need enemas at home as well to prevent recurrent constipation and fecal impaction. Chio Mejia, DO Gastroenterology and Hepatology History of Present Illness Reason for Consultation: Severe constipation Requesting Physician: Dr. Faizan Leung Attending Physician: Dr. Chio Mejia History of Present Illness Pt is a 32 yo male w PMHx of cerebral palsy, intellectual disability, seizure disorder s/p vagus nerve stimulator who was brought to ED yesterday for constipation. Pt is non verbal, history obtained from chart review as no family are in his room at time of evaluation. Mother reports pt has chronic constipation, last BM 1 week ago. Tried giving him apple juice, Senokot, Miralax, 1/3 bottle of Mg Citrate and Fleet enema. Very small amt of liquid stool w Fleets enema. Abd getting more distended and having poor PO intake. CT abd/pelvis w IV contrast yesterday showed large stool ball in distal sigmoid colon and rectum measuring 11 x 24cm w mild to mod thickening of distal sigmoid and rectal wall concerning for stercoral colitis/proctitis. Remaining colon filled w gas and mod amt of well formed stools, mildly dilated. Bladder distended, displaced to L side of pelvis from distended rectum. Seen by Surgery team last night, stool disimpaction done, and able to get stool smaller than baseball size. Allergies Allergy/AdvReac Type Severity Reaction Status Date / Time fentanyl AdvReac Intermediate Difficulty Verified 11/07/22 15:22 to awaken Home Medications Medication Instructions Recorded Confirmed Type glycopyrrolate 1 mg tablet 1 mg PO BID PRN Secretions #60 tabs 01/08/19 11/07/22 History clobazam 2.5 mg/mL oral suspension 2.5 mg PO DAILY 11/07/22 11/07/22 History clobazam 2.5 mg/mL oral suspension 5 mg PO PM 11/07/22 11/07/22 History divalproex 125 mg capsule,delayed See Rx Instructions .Route .COMPLEX 11/07/22 11/07/22 History release sprinkle nutritional supplements 0.09 1 ea PO QID 11/07/22 11/07/22 History gram-0.5 kcal/mL oral liquid (Boost Max) polyethylene glycol 3350 17 4.25 g PO DIRECTED PRN 11/07/22 11/07/22 History gram/dose oral powder (Miralax) Constipation rufinamide 40 mg/mL oral See Rx Instructions .Route .COMPLEX 11/07/22 11/07/22 History suspension (Banzel) sennosides 8.8 mg/5 mL oral syrup 8.8 mg PO DIRECTED PRN 11/07/22 11/07/22 History Constipation Patient History Medical History Cerebral palsy MR (mental retardation), severe Quadriplegic cerebral palsy Seizures Surgical History History of spinal fusion Status post VNS (vagus nerve stimulator) placement Social History Smoking Status: Never smoker Hx Alcohol Use: No Hx Substance Use: No Preferred Language: Macedonian Communication Ability: Unable Communication Ability Comment: mother as caregiver Beliefs That Will Affect Care: None Current Living Situation: Parent Current Living Situation Comment: adopted current occupational status: disabled Other Information That Helps Us Care for You: No Feels Safe at Home: Yes Assistive Devices: Wheelchair Review of Systems Review of Systems: Unobtainable due to cognitive status Physical Exam Constitutional: + thin and comfortable Eyes: PERRL, conjunctivae normal, anicteric sclerae ENMT: external ear and nose normal, oropharynx normal Respiratory: normal respiratory effort, lungs clear to auscultation Cardiovascular: RRR, no murmur, no edema Gastrointestinal (Abdomen): soft upper abd, distended and firm lower quadrants. BS hypoactive Musculoskeletal: limbs contracted Skin: no rashes, warm and dry no jaundice Psychiatric: A+Ox3, euthymic affect Lymphatic: no lymphedema Results & Data Vital Signs (Past 12 Hours) Vital Signs Temp Pulse Resp BP Pulse Ox O2 Del Method 11/08/22 07:08 36.4 C L 96 H 18 99/63 L 93 Room Air 11/08/22 06:27 36.9 C 86 18 97/61 L 94 Room Air (2) Constipation Constipation type: unspecified constipation type Qualified Code(s): K59.00 - Constipation, unspecified
--- NOTE | 2022-11-08 11:54 | Surgery Progress Note ---
Date of Service November 08, 2022 Assessment & Plan (1) Fecal impaction: Plan: Patient here with constipation and large stool ball in distal sigmoid/rectum c/f stercoral colitis Was partially disimpacted yesterday GI saw and evaluated, planning on ongoing enema's along with miralax and milk of magnesia Abdomen is soft and appears to be non tender Agree with aggressive bowel regime and appreciate GI's recs. kub ordered and read pending No plans for surgical intervention indicated at this time (2) Constipation: Admission and Anticipated Discharge Date Admission Date: November 07, 2022 Supervising Physician Co-Signing Physician Notes Patient seen and examined, agree with above. Patient with cerebral palsy multiple medical problems history of constipation, now with large impaction with partial obstruction. Partial disimpaction yesterday by our PA. Undergoing enemas and oral bowel regimen. Abdomen soft, nontender, mildly distended. No guarding. We will continue with aggressive bowel regimen including regular enemas. No indication for surgery at this time. Subjective Patient is resting in bed. He appears in no distress Physical Exam Physical Exam: awake, resting on side in bed Gastrointestinal (Abdomen): Percussion/Palpation: abdomen soft; abdomen nontender (expresses no obvious signs of tenderness upon palpation), no guarding and abdomen not rigid Results & Data Vital Signs (Past 12 Hours) Vital Signs Temp Pulse Resp BP Pulse Ox O2 Del Method 11/08/22 09:35 Room Air 11/08/22 07:08 36.4 C L 96 H 18 99/63 L 93 Room Air 11/08/22 06:27 36.9 C 86 18 97/61 L 94 Room Air PG Care Time/CCT Total # of Minutes Spent Total Time Spent with Patient: Total time spent is greater than 50% in coordination of care (as documented) at patient's floor/unit and/or counseling patient: Coding Level of Care Code 11763 SUB INP/OBS CARE 05/23MIN Diagnoses Fecal impaction K56.41 Constipation K59.00 Constipation type: unspecified constipation type (2) Constipation Constipation type: unspecified constipation type Qualified Code(s): K59.00 - Constipation, unspecified
[2022-11-08] MEDS: SOD PHOSPHATE/SOD BIPHOSPHATE ENEMA 132 ML BTL PR SCH ×2 (12:36→18:16)
--- NOTE | 2022-11-08 13:36 | XRay Report ---
KUB HISTORY: Acute generalized abdominal pain re-eval constipation/stool impaction COMPARISON: CT 11/07/2022 FINDINGS: Nonobstructive bowel gas pattern. Extensive rectosigmoid fecal retention with large stool b all redemonstrated. No renal calculi. No ureteral calculi. No pneumoperitoneum or pneumatosis. Exten sive spinal fusion hardware again noted with SI joint bolts. Cholecystectomy. No fracture. IMPRESSION: Extensive fecal retention of the rectosigmoid is unchanged compared to yesterday's exam. ACT 112: Negative or not required by law. The above report was generated using voice recognition software. It may contain grammatical, syntax o r spelling errors. Electronically signed by: Rod Oliveira M.D. 11/08/2022 1:35 PM
--- NOTE | 2022-11-08 16:59 | Hospitalist Progress Note ---
Date of Service November 08, 2022 Assessment & Plan (1) Fecal impaction: (2) Constipation: (3) Colitis: (4) Hydronephrosis: Plan: Patient is 32 y/o M with PMH cerebral palsy, intellectual disability, seizure disorder s/p vagus nerve stimulator presented to ER with mother with complaint of constipation with no BM x 1 week Constipation Stercoral colitis/proctitis Fecal impaction --CT abdomen pelvis: Interval increase in size in the large stool ball within the distal sigmoid colon and rectum which measures 11 cm in diameter and 24 cm in length. There is associated mild to moderate thickening of the distal sigmoid colon and rectal wall which is concerning for a stercoral colitis/proctitis. The remaining colon is filled with gas and a moderate amount of well-formed stool and is mildly dilated. Therefore, this likely represents an obstructive type pattern from the large rectal stool ball. Mild right hydronephrosis. No ureteral stones. This may be secondary to extrinsic compression from the distended rectum. The bladder is distended and displaced to the left side of the pelvis from the distended rectum. Right-sided nephrolithiasis. -- Continue bowel regimen Continue PT Not a candidate for endoscopic decompression and disimpaction per GI Appreciate GI, surgery input Empirically on ceftriaxone, Flagyl Had large bowel movement today No surgical intervention indicated at this time per surgery Continue IV fluids Replete Eliquis as needed Liquid diet for now Will repeat KUB tomorrow Obstructive uropathy Mild hydronephrosis on CT as above Likely secondary to significant fecal impaction Bladder scan as needed Continue Mayo for now (5) Quadriplegic cerebral palsy: (6) MR (mental retardation), severe: (7) Seizures: (8) Status post VNS (vagus nerve stimulator) placement: Plan: Seizure precautions Continue home Depakote, clobazam DVT Prophylaxis SCDs CODE STATUS Full Code Admission and Anticipated Discharge Date Admission Date: November 07, 2022 Subjective Patient is seen and examined at bedside No distress on exam Nonverbal at baseline Had large bowel movement after enema per RN BP low Review of Systems Review of Systems: All systems reviewed & are unremarkable except as noted in Subjective Physical Exam Physical Exam: Physical Exam: Vitals signs as noted above General Appearance: Thin, frail, chronically appearing, no apparent distress Head: normocephalic, Atraumatic Eyes: normal inspection, EOMI Neck: supple, Trachea midline Respiratory/Chest: Normal breath sounds, CTA, No accessory muscle use Cardiovascular: S1, S2, No murmur Abdomen/GI:Soft, Non tender, Bowel sounds present Extremities/Musculoskeletal:normal inspection, no edema Neurologic/Psych:Alert, awake, could not perform complete neurological exam. + Quadriplegia, contracted extremities, nonverbal Skin: normal color, warm Results & Data Results & Data Vital Signs (Past 12 Hours) Vital Signs Temp Pulse Resp BP Pulse Ox O2 Del Method 11/08/22 15:03 37 C 85 16 98/63 L 94 Room Air 11/08/22 12:01 88 92/59 L 97 Room Air 11/08/22 09:35 Room Air 11/08/22 07:08 36.4 C L 96 H 18 99/63 L 93 Room Air 11/08/22 06:27 36.9 C 86 18 97/61 L 94 Room Air Laboratory Results Short CBC 11/08/22 Range/Units 07:45 WBC 7.58 (4.8-10.8) K/ul Hgb 13.7 L (14.0-18.0) g/dl Hct 40.9 L (42.0-52.0) % Plt Count 94 L (130-400) K/uL BMP 11/08/22 07:45 Sodium 139 Potassium 3.7 Chloride 108 H Carbon Dioxide 25 BUN 11 Creatinine 0.50 L Glucose 88 Calcium 8.6 (2) Constipation Constipation type: unspecified constipation type Qualified Code(s): K59.00 - Constipation, unspecified (4) Hydronephrosis Hydronephrosis type: other Qualified Code(s): N13.39 - Other hydronephrosis
[2022-11-08] MEDS: cefTRIAXone SODIUM 1,000 MG in DEXTROSE 5% AD-VAN 50 ML IV SCH (18:30)
[2022-11-09] MEDS: SOD PHOSPHATE/SOD BIPHOSPHATE ENEMA 132 ML BTL PR SCH ×4 (00:47→21:29)
[2022-11-09] MEDS: SODIUM CHLORIDE 0.9% 1000ML 1,000 ML IV SCH (01:13)
[2022-11-09] MEDS: metroNIDAZOLE 500 MG/100 ML BAG IV SCH ×3 (04:10→21:24)
[2022-11-09 06:41] LABS: Anion Gap 6 (3-11); BUN Creatinine Ratio 12.8 (10-20); Blood Urea Nitrogen 5 mg/dl (6-23); Calcium 8.3 mg/dl (8.6-10.3); Carbon Dioxide 28 mmol/L (21-32); Chloride 108 mmol/L (98-107); Creatinine Clr Calc Pharmacy 176.3 ml/min; Est GFR (African American) > 150.0 ml/min; Est GFR (Non-African American) > 150.0 ml/min; Glucose 83 mg/dl (70-99(Fasting)); Magnesium 1.7 mg/dl (1.7-2.4); Potassium 2.9 mmol/L (3.5-5.1); Sodium 142 mmol/L (136-145)
--- NOTE | 2022-11-09 07:30 | XRay Report ---
KUB HISTORY: Acute onset abdominal pain with constipation constipation COMPARISON: 11/08/2022 FINDINGS: No destructive bowel gas pattern. Extensive fecal retention in the rectosigmoid appears of mildly improved. Suboptimal exam secondary to positioning. Cystectomy. No renal calculi. No ureteral calculi. No pneumoperitoneum or pneumatosis. Extensive spinal fusion hardware again noted. No fractu re. IMPRESSION: Extensive fecal retention of the rectosigmoid is redemonstrated and appears to have mildly improved f rom yesterday's exam. ACT 112: Negative or not required by law. The above report was generated using voice recognition software. It may contain grammatical, syntax o r spelling errors. Electronically signed by: Rod Oliveira M.D. 11/09/2022 7:29 AM
[2022-11-09] MEDS: RUFINAMIDE 40 MG/ML PO SCH ×2 (08:59→21:27)
[2022-11-09] MEDS: MAGNESIUM HYDROXIDE SUSP 30 ML UDC PO SCH ×2 (08:59→21:27)
[2022-11-09] MEDS: DIVALPROEX SODIUM SPRINKLE/DEL-REL 125 MG CAP PO SCH ×2 (09:00→21:26)
[2022-11-09] MEDS: POLYETHYLENE (MIRALAX) 17 GM PACK PO SCH ×2 (09:00→21:27)
[2022-11-09] MEDS ORDERED: SODIUM CHLORIDE 0.9% 1000ML 1,000 ML IV SCH (09:45)
[2022-11-09] MEDS ORDERED: POTASSIUM CHLORIDE 20 MEQ/15 ML UDC PO ONE (09:45)
[2022-11-09] MEDS ORDERED: MAGNESIUM SULFATE / D5W 1 GM/100 ML BAG IV ONE (09:46)
[2022-11-09] MEDS: NSS + 20MEQ KCL 20 MEQ/1,000 ML BAG IV SCH ×2 (10:39→18:21)
[2022-11-09] MEDS: POTASSIUM CHLORIDE / WTR 10 MEQ/100 ML PLCT IV SCH ×3 (10:39→13:11)
--- NOTE | 2022-11-09 13:44 | Surgery Progress Note ---
Date of Service November 09, 2022 Assessment & Plan (1) Fecal impaction: Plan: Resolving constipation and fecal impaction No surgical intervention indicated at this time Continue enemas and aggressive bowel regimen Surgery will follow peripherally, call with questions or concerns Admission and Anticipated Discharge Date Admission Date: November 08, 2022 Subjective Admitted with significant constipation, surgery consult for disimpaction. He has had multiple bowel movements including 1 large bowel movement yesterday, responding to enemas. Abdomen appears flatter and he appears more comfortable per nursing. Physical Exam Constitutional: WD/WN, vitals as above Gastrointestinal (Abdomen): normal bowel sounds, soft, nontender, no hepatosplenomegaly Inspection/Auscultation: abdomen not distended Results & Data Vital Signs (Past 12 Hours) Vital Signs Temp Pulse Resp BP Pulse Ox O2 Del Method 11/09/22 07:35 36.8 C 81 16 96/63 L 97 Room Air Diagnostic Findings KUB personally viewed and interpreted, still with large stool burden, but improving KUB HISTORY: Acute onset abdominal pain with constipation constipation COMPARISON: 11/08/2022 FINDINGS: No destructive bowel gas pattern. Extensive fecal retention in the rectosigmoid appears of mildly improved. Suboptimal exam secondary to positioning. Cystectomy. No renal calculi. No ureteral calculi. No pneumoperitoneum or pneumatosis. Extensive spinal fusion hardware again noted. No fracture. IMPRESSION: Extensive fecal retention of the rectosigmoid is redemonstrated and appears to have mildly improved from yesterday's exam. PG Care Time/CCT Total # of Minutes Spent Total Time Spent with Patient: Total time spent is greater than 50% in coordination of care (as documented) at patient's floor/unit and/or counseling patient: Coding Level of Care Code 72975 SUB INP/OBS CARE 25MIN Diagnoses Fecal impaction K56.41
--- NOTE | 2022-11-09 15:16 | Hospitalist Progress Note ---
Date of Service November 09, 2022 Assessment & Plan (1) Fecal impaction: (2) Constipation: (3) Colitis: (4) Hydronephrosis: Plan: Patient is 32 y/o M with PMH cerebral palsy, intellectual disability, seizure disorder s/p vagus nerve stimulator presented to ER with mother with complaint of constipation with no BM x 1 week Constipation Stercoral colitis/proctitis Fecal impaction --CT abdomen pelvis: Interval increase in size in the large stool ball within the distal sigmoid colon and rectum which measures 11 cm in diameter and 24 cm in length. There is associated mild to moderate thickening of the distal sigmoid colon and rectal wall which is concerning for a stercoral colitis/proctitis. The remaining colon is filled with gas and a moderate amount of well-formed stool and is mildly dilated. Therefore, this likely represents an obstructive type pattern from the large rectal stool ball. Mild right hydronephrosis. No ureteral stones. This may be secondary to extrinsic compression from the distended rectum. The bladder is distended and displaced to the left side of the pelvis from the distended rectum. Right-sided nephrolithiasis. -- Continue bowel regimen Continue PT Not a candidate for endoscopic decompression and disimpaction per GI Appreciate GI, surgery input Empirically on ceftriaxone, Flagyl No surgical intervention indicated at this time per surgery Continue IV fluids Replete electrolytes as needed KUB this morning shows significant stool burden Continue liquid diet for now Obstructive uropathy Mild hydronephrosis on CT as above Likely secondary to significant fecal impaction Bladder scan as needed Continue Mayo for now Voiding trial prior to discharge Hypokalemia Replete electrolytes as needed (5) 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 baseline (6) MR (mental retardation), severe: Plan: Secondary to above (7) Seizures: (8) Status post VNS (vagus nerve stimulator) placement: Plan: Seizure precautions Continue home Depakote, clobazam DVT Prophylaxis SCDs CODE STATUS Full Code Admission and Anticipated Discharge Date Admission Date: November 08, 2022 Subjective Patient is seen and examined at bedside Nonverbal at baseline Had bowel movement overnight Discussed with patient's family at bedside No distress on exam KUB this morning shows significant stool burden Review of Systems Review of Systems: All systems reviewed & are unremarkable except as noted in Subjective Physical Exam Physical Exam: Physical Exam: Vitals signs as noted above General Appearance: Thin, frail, chronically appearing, no apparent distress Head: normocephalic, Atraumatic Eyes: normal inspection, EOMI Neck: supple, Trachea midline Respiratory/Chest: Normal breath sounds, CTA, No accessory muscle use Cardiovascular: S1, S2, No murmur Abdomen/GI:Soft, Non tender, Bowel sounds present Extremities/Musculoskeletal:normal inspection, no edema Neurologic/Psych:Alert, awake, could not perform complete neurological exam. + Quadriplegia, contracted extremities, nonverbal Skin: normal color, warm Results & Data Results & Data Vital Signs (Past 12 Hours) Vital Signs Temp Pulse Resp BP Pulse Ox O2 Del Method 11/09/22 07:35 36.8 C 81 16 96/63 L 97 Room Air Laboratory Results BMP 11/09/22 05:37 Sodium 142 Potassium 2.9 L D Chloride 108 H Carbon Dioxide 28 BUN 5 L Creatinine 0.39 L Glucose 83 Calcium 8.3 L (2) Constipation Constipation type: unspecified constipation type Qualified Code(s): K59.00 - Constipation, unspecified (4) Hydronephrosis Hydronephrosis type: other Qualified Code(s): N13.39 - Other hydronephrosis
[2022-11-09] MEDS: cefTRIAXone SODIUM 1,000 MG in DEXTROSE 5% AD-VAN 50 ML IV SCH (18:20)
[2022-11-09 21:06] LABS: Anion Gap 8 (3-11); BUN Creatinine Ratio 11.6 (10-20); Blood Urea Nitrogen 5 mg/dl (6-23); Calcium 8.8 mg/dl (8.6-10.3); Carbon Dioxide 24 mmol/L (21-32); Chloride 109 mmol/L (98-107); Creatinine Clr Calc Pharmacy 159.9 ml/min; Est GFR (African American) > 150.0 ml/min; Est GFR (Non-African American) > 150.0 ml/min; Glucose 79 mg/dl (70-99(Fasting)); Potassium 3.4 mmol/L (3.5-5.1); Sodium 141 mmol/L (136-145)
[2022-11-10] MEDS: metroNIDAZOLE 500 MG/100 ML BAG IV SCH ×3 (03:54→20:20)
[2022-11-10 06:34] LABS: Hematocrit (blood only) 37.7 % (42.0-52.0); Hemoglobin 13.2 g/dl (14.0-18.0); Mean Corpuscular Hemoglobin 32.4 pg (25.0-34.0); Mean Corpuscular Volume 92.4 fL (80.0-100.0); Mean Platelet Volume 13.5 fL (9.4-12.4); Platelet Count 96 K/uL (130-400); RDW Coefficient of Variation 11.8 % (11.5-14.5); Red Blood Count 4.08 M/uL (4.70-6.10); White Blood Count 4.79 K/ul (4.8-10.8)
[2022-11-10 06:46] LABS: Anion Gap 6 (3-11); BUN Creatinine Ratio 7.7 (10-20); Blood Urea Nitrogen 3 mg/dl (6-23); Calcium 8.3 mg/dl (8.6-10.3); Carbon Dioxide 27 mmol/L (21-32); Chloride 110 mmol/L (98-107); Creatinine Clr Calc Pharmacy 176.3 ml/min; Est GFR (African American) > 150.0 ml/min; Est GFR (Non-African American) > 150.0 ml/min; Glucose 84 mg/dl (70-99(Fasting)); Magnesium 1.7 mg/dl (1.7-2.4); Sodium 143 mmol/L (136-145)
--- NOTE | 2022-11-10 08:49 | XRay Report ---
KUB HISTORY: constipation COMPARISON: KUB 11/09/2022. FINDINGS: The visualized lung bases are clear. Scoliosis and spinal rods are again noted. Prior joby cystectomy. Chronic deformity again noted within the hips. Moderate fecal retention has improved. Mil dly dilated gas-filled loops of large and small bowel persist. No renal calculi. No ureteral calculi . No pneumoperitoneum or pneumatosis. IMPRESSION: 1. Moderate fecal retention has improved. 2. Mildly dilated gas-filled loops of large and small bowel persist. ACT 112: Negative or not required by law. Electronically signed by: Valerio Darby M.D. 11/10/2022 8:47 AM
[2022-11-10] MEDS ORDERED: NSS + 20MEQ KCL 20 MEQ/1,000 ML BAG IV SCH (09:45)
[2022-11-10] MEDS: MAGNESIUM HYDROXIDE SUSP 30 ML UDC PO SCH ×2 (10:00→20:02)
[2022-11-10] MEDS: POLYETHYLENE (MIRALAX) 17 GM PACK PO SCH ×2 (10:01→20:03)
[2022-11-10] MEDS: DIVALPROEX SODIUM SPRINKLE/DEL-REL 125 MG CAP PO SCH ×2 (10:01→20:03)
[2022-11-10] MEDS: SOD PHOSPHATE/SOD BIPHOSPHATE ENEMA 132 ML BTL PR SCH ×2 (10:19→22:25)
[2022-11-10] MEDS: RUFINAMIDE 40 MG/ML PO SCH ×2 (10:19→20:07)
[2022-11-10] MEDS: POTASSIUM CHLORIDE / WTR 10 MEQ/100 ML PLCT IV SCH ×3 (12:01→15:03)
--- NOTE | 2022-11-10 17:54 | Hospitalist Progress Note ---
Date of Service November 10, 2022 Assessment & Plan (1) Fecal impaction: (2) Constipation: (3) Colitis: (4) Hydronephrosis: Plan: Patient is 32 y/o M with PMH cerebral palsy, intellectual disability, seizure disorder s/p vagus nerve stimulator presented to ER with mother with complaint of constipation with no BM x 1 week Constipation Stercoral colitis/proctitis Fecal impaction --CT abdomen pelvis: Interval increase in size in the large stool ball within the distal sigmoid colon and rectum which measures 11 cm in diameter and 24 cm in length. There is associated mild to moderate thickening of the distal sigmoid colon and rectal wall which is concerning for a stercoral colitis/proctitis. The remaining colon is filled with gas and a moderate amount of well-formed stool and is mildly dilated. Therefore, this likely represents an obstructive type pattern from the large rectal stool ball. Mild right hydronephrosis. No ureteral stones. This may be secondary to extrinsic compression from the distended rectum. The bladder is distended and displaced to the left side of the pelvis from the distended rectum. Right-sided nephrolithiasis. -- Continue bowel regimen Continue PT Not a candidate for endoscopic decompression and disimpaction per GI Appreciate GI, surgery input Empirically on ceftriaxone, Flagyl No surgical intervention indicated at this time per surgery Continue IV fluids Replete electrolytes as needed Continue liquid diet for now KUB today showed improving fecal retention Obstructive uropathy Mild hydronephrosis on CT as above Likely secondary to significant fecal impaction Bladder scan as needed Continue Mayo for now Voiding trial prior to discharge Hypokalemia Replete electrolytes as needed (5) 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 baseline (6) MR (mental retardation), severe: Plan: Secondary to above (7) Seizures: (8) Status post VNS (vagus nerve stimulator) placement: Plan: Seizure precautions Continue home Depakote, clobazam DVT Prophylaxis SCDs CODE STATUS Full Code Admission and Anticipated Discharge Date Admission Date: November 08, 2022 Subjective Patient is seen and examined at bedside Nonverbal at baseline Had 2 BMs today per RN No distress on exam KUB fecal retention improving Review of Systems Review of Systems: All systems reviewed & are unremarkable except as noted in Subjective Physical Exam Physical Exam: Physical Exam: Vitals signs as noted above General Appearance: Thin, frail, chronically appearing, no apparent distress Head: normocephalic, Atraumatic Eyes: normal inspection, EOMI Neck: supple, Trachea midline Respiratory/Chest: Normal breath sounds, CTA, No accessory muscle use Cardiovascular: S1, S2, No murmur Abdomen/GI:Soft, Non tender, Bowel sounds present Extremities/Musculoskeletal:normal inspection, no edema Neurologic/Psych:Alert, awake, could not perform complete neurological exam. + Quadriplegia, contracted extremities, nonverbal Skin: normal color, warm Results & Data Results & Data Vital Signs (Past 12 Hours) Vital Signs Temp Pulse Resp BP Pulse Ox O2 Del Method 11/10/22 15:14 36.3 C L 95 H 16 93/63 L 99 Room Air 11/10/22 07:55 Room Air 11/10/22 07:32 37.0 C 77 16 94/53 L 96 Room Air Laboratory Results Short CBC 11/10/22 Range/Units 05:37 WBC 4.79 L (4.8-10.8) K/ul Hgb 13.2 L (14.0-18.0) g/dl Hct 37.7 L (42.0-52.0) % Plt Count 96 L (130-400) K/uL BMP 11/09/22 11/10/22 20:14 05:37 Sodium 141 143 Potassium 3.4 L 3.0 L Chloride 109 H 110 H Carbon Dioxide 24 27 BUN 5 L 3 L Creatinine 0.43 L 0.39 L Glucose 79 84 Calcium 8.8 8.3 L (2) Constipation Constipation type: unspecified constipation type Qualified Code(s): K59.00 - Constipation, unspecified (4) Hydronephrosis Hydronephrosis type: other Qualified Code(s): N13.39 - Other hydronephrosis
[2022-11-10] MEDS: cefTRIAXone SODIUM 1,000 MG in DEXTROSE 5% AD-VAN 50 ML IV SCH (18:09)
[2022-11-10 19:30] LABS: Anion Gap 9 (3-11); BUN Creatinine Ratio 8.9 (10-20); Blood Urea Nitrogen 4 mg/dl (6-23); Carbon Dioxide 28 mmol/L (21-32); Chloride 110 mmol/L (98-107); Creatinine Clr Calc Pharmacy 152.8 ml/min; Est GFR (African American) > 150.0 ml/min; Est GFR (Non-African American) > 150.0 ml/min; Glucose 91 mg/dl (70-99(Fasting)); Potassium 3.2 mmol/L (3.5-5.1); Sodium 147 mmol/L (136-145)
[2022-11-10] MEDS ORDERED: POTASSIUM CHLORIDE PWD 20 MEQ PACK PO STA (19:54)
[2022-11-10] MEDS ORDERED: SODIUM CHLOR 0.45% + 20MEQ KCL 20 MEQ/1,000 ML BAG IV ONE (19:55)
[2022-11-10] MEDS ORDERED: POTASSIUM CHLORIDE 20 MEQ/15 ML UDC PO SCH (21:00)
[2022-11-10 22:13] VITALS: PULSE 98; O2SAT 96
[2022-11-11] MEDS: metroNIDAZOLE 500 MG/100 ML BAG IV SCH ×2 (04:09→12:00)
[2022-11-11 07:18] VITALS: BP 107/64; TEMP 97.9
[2022-11-11] MEDS: DIVALPROEX SODIUM SPRINKLE/DEL-REL 125 MG CAP PO SCH (08:28)
[2022-11-11] MEDS: POLYETHYLENE (MIRALAX) 17 GM PACK PO SCH (08:28)
[2022-11-11] MEDS: MAGNESIUM HYDROXIDE SUSP 30 ML UDC PO SCH (08:28)
[2022-11-11] MEDS: RUFINAMIDE 40 MG/ML PO SCH (08:56)
[2022-11-11 09:24] LABS: Hematocrit (blood only) 40.4 % (42.0-52.0); Hemoglobin 13.9 g/dl (14.0-18.0); Mean Corpuscular Hemoglobin 32.6 pg (25.0-34.0); Mean Corpuscular Hgb Conc 34.4 g/dL (32.0-36.0); Mean Corpuscular Volume 94.6 fL (80.0-100.0); Mean Platelet Volume 12.4 fL (9.4-12.4); Platelet Count 110 K/uL (130-400); RDW Coefficient of Variation 12.1 % (11.5-14.5); RDW Standard Deviation 41.6 fL (36.4-46.3); Red Blood Count 4.27 M/uL (4.70-6.10); White Blood Count 4.72 K/ul (4.8-10.8)
[2022-11-11 09:39] LABS: Anion Gap 7 (3-11); BUN Creatinine Ratio 7.5 (10-20); Blood Urea Nitrogen 3 mg/dl (6-23); Carbon Dioxide 27 mmol/L (21-32); Chloride 108 mmol/L (98-107); Creatinine Clr Calc Pharmacy 171.9 ml/min; Est GFR (African American) > 150.0 ml/min; Est GFR (Non-African American) > 150.0 ml/min; Glucose 81 mg/dl (70-99(Fasting)); Potassium 3.8 mmol/L (3.5-5.1); Sodium 142 mmol/L (136-145)
--- NOTE | 2022-11-11 11:14 | XRay Report ---
XR KUB/Abdomen 1 view CLINICAL HISTORY: Constipation TECHNIQUE: 1 view of the abdomen was obtained. Comparison: Comparison is made to abdomen radiographs 11/10/2022 FINDINGS: Lung bases are unremarkable. Posterior spinal fixation hardware is seen. No fecal impaction is seen. Mild gaseous distention of the large and small bowel again seen. IMPRESSION: Mild gaseous distention of the large and small bowel is again seen. ACT 112: Negative or not required by law. Electronically signed by: Gerardo Young M.D. 11/11/2022 11:13 AM
--- NOTE | 2022-11-11 12:41 | Hospitalist Progress Note ---
Date of Service November 11, 2022 Assessment & Plan (1) Fecal impaction: (2) Constipation: (3) Colitis: (4) Hydronephrosis: Plan: Patient is 32 y/o M with PMH cerebral palsy, intellectual disability, seizure disorder s/p vagus nerve stimulator presented to ER with mother with complaint of constipation with no BM x 1 week Constipation Stercoral colitis/proctitis Fecal impaction --CT abdomen pelvis: Interval increase in size in the large stool ball within the distal sigmoid colon and rectum which measures 11 cm in diameter and 24 cm in length. There is associated mild to moderate thickening of the distal sigmoid colon and rectal wall which is concerning for a stercoral colitis/proctitis. The remaining colon is filled with gas and a moderate amount of well-formed stool and is mildly dilated. Therefore, this likely represents an obstructive type pattern from the large rectal stool ball. Mild right hydronephrosis. No ureteral stones. This may be secondary to extrinsic compression from the distended rectum. The bladder is distended and displaced to the left side of the pelvis from the distended rectum. Right-sided nephrolithiasis. -- Continue bowel regimen Continue PT Not a candidate for endoscopic decompression and disimpaction per GI Appreciate GI, surgery input Empirically on ceftriaxone, Flagyl--plan to discontinue as no signs of infection No surgical intervention indicated at this time per surgery Received IV fluids Replete electrolytes as needed Repeat KUB showed no fecal impaction today Advance to pured diet Plan to discharge home today Obstructive uropathy Mild hydronephrosis on CT as above Likely secondary to significant fecal impaction Bladder scan as needed Discontinue Mayo Voiding trial prior to discharge Hypokalemia Replete electrolytes as needed Resolved (5) 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 baseline (6) MR (mental retardation), severe: Plan: Secondary to above (7) Seizures: (8) Status post VNS (vagus nerve stimulator) placement: Plan: Seizure precautions Continue home Depakote, clobazam DVT Prophylaxis SCDs CODE STATUS Full Code Disposition Home Admission and Anticipated Discharge Date Admission Date: November 08, 2022 Subjective Patient is seen and examined at bedside Nonverbal at baseline No distress on exam KUB today showed no fecal impaction Discussed with patient's family at bedside Plan to be discharged home Review of Systems Review of Systems: All systems reviewed & are unremarkable except as noted in Subjective Physical Exam Physical Exam: Physical Exam: Vitals signs as noted above General Appearance: Thin, frail, chronically appearing, no apparent distress Head: normocephalic, Atraumatic Eyes: normal inspection, EOMI Neck: supple, Trachea midline Respiratory/Chest: Normal breath sounds, CTA, No accessory muscle use Cardiovascular: S1, S2, No murmur Abdomen/GI:Soft, Non tender, Bowel sounds present Extremities/Musculoskeletal:normal inspection, no edema Neurologic/Psych:Alert, awake, could not perform complete neurological exam. + Quadriplegia, contracted extremities, nonverbal Skin: normal color, warm Results & Data Results & Data Vital Signs (Past 12 Hours) Vital Signs Temp Pulse Resp BP Pulse Ox O2 Del Method 11/11/22 07:49 Room Air 11/11/22 07:14 36.6 C 98 H 14 107/64 96 Room Air Laboratory Results Short CBC 11/11/22 Range/Units 08:55 WBC 4.72 L (4.8-10.8) K/ul Hgb 13.9 L (14.0-18.0) g/dl Hct 40.4 L (42.0-52.0) % Plt Count 110 L (130-400) K/uL BMP 11/10/22 11/11/22 18:58 08:55 Sodium 147 H 142 Potassium 3.2 L 3.8 Chloride 110 H 108 H Carbon Dioxide 28 27 BUN 4 L 3 L Creatinine 0.45 L 0.40 L Glucose 91 81 Calcium 9.0 9.0 (2) Constipation Constipation type: unspecified constipation type Qualified Code(s): K59.00 - Constipation, unspecified (4) Hydronephrosis Hydronephrosis type: other Qualified Code(s): N13.39 - Other hydronephrosis
--- NOTE | 2022-11-11 13:26 | Discharge Summary ---
Date of Service November 11, 2022 Admission HPI Per Admitting Provider Patient is 32 y/o M with PMH cerebral palsy, intellectual disability, seizure disorder s/p vagus nerve stimulator presented to ER with mother with complaint of constipation. History obtained from mother secondary to patient's underlying intellectual disability. Mother reports chronic constipation. Reports last BM 1 week ago. Recently been trying apple juice, Senokot, Miralax. Yesterday tried 1/3 bottle of magnesium citrate and Fleet enema. Reports very small amount liquid stool with Fleet enema. She has noticed patient's abdomen seems to be larger. At baseline patient with poor oral intake. Needs to be fed with spoon and only drinks out of sippy cup. She reports seems like has had less oral intake past several days. Drinks boost 3-4 times a day. Nonverbal. States patient at baseline mental status. Does not appear more uncomfortable and without noted moaning or crying. States normal amount of wet sanitary pads/briefs. Reports history of fecal impaction several years ago. States has seizures couple of times a week. "Small seizure" symptoms reported as increased blinking and downward turning of head. Also reports intermittent generalized jerking type seizures that are less frequent. Denies noted fever, chills, diaphoresis, melena, hematochezia, noted SOB or cough, rashes, hematuria. Admission Exam Per Admitting Provider General: chronic ill appearing, thin male, currently sleeping in no apparent distress Head: normocephalic, atraumatic Eyes: PERRL, EOM's intact, conjunctiva non-injected, anicteric ENT: normal inspection external ears, nose, mucous membranes moist Neck: supple, trachea midline Lungs: clear, no respiratory distress, no wheezing/rhonchi/rales CV: RRR, no murmur, no pretibial edema Abd: +distended normal BS, +palpable mass right side of abdomen, No apparent tenderness to palpation Ext: no cyanosis, no calf tenderness Neuro: Sleeping upon initial exam, arouses to touch and opens eyes and looks at examiner. +quadriplegia, +bilateral hands, arms, legs contracted, non-verbal Skin: warm, dry Principal Diagnosis Fecal impaction Hydronephrosis Stercoral colitis/Proctitis Hypokalemia Discharge Data Allergies Allergy/AdvReac Type Severity Reaction Status Date / Time fentanyl AdvReac Intermediate Difficulty Verified 11/07/22 15:22 to awaken Consultations 11/07/22 15:42 ED Decision to Admit Stat 11/07/22 16:32 Consult General Surgery Routine 11/08/22 08:00 Consult Gastroenterology Routine Procedures Performed Laboratory Results WBC 4.72 K/ul (4.8-10.8) L 11/11/22 08:55 RBC 4.27 M/uL (4.70-6.10) L 11/11/22 08:55 Hgb 13.9 g/dl (14.0-18.0) L 11/11/22 08:55 Hct 40.4 % (42.0-52.0) L 11/11/22 08:55 MCV 94.6 fL (80.0-100.0) 11/11/22 08:55 MCH 32.6 pg (25.0-34.0) 11/11/22 08:55 MCHC 34.4 g/dL (32.0-36.0) 11/11/22 08:55 RDW Std Deviation 41.6 fL (36.4-46.3) 11/11/22 08:55 RDW Coeff of Leo 12.1 % (11.5-14.5) 11/11/22 08:55 Plt Count 110 K/uL (130-400) L 11/11/22 08:55 MPV 12.4 fL (9.4-12.4) 11/11/22 08:55 Immature Gran % (Auto) 0.4 % 11/07/22 11:55 Neut % (Auto) 67.5 % 11/07/22 11:55 Lymph % (Auto) 21.2 % 11/07/22 11:55 Trigg % (Auto) 8.3 % 11/07/22 11:55 Eos % (Auto) 2.1 % 11/07/22 11:55 Baso % (Auto) 0.5 % 11/07/22 11:55 Neut # (Auto) 5.52 K/uL (1.40-6.50) 11/07/22 11:55 Lymph # (Auto) 1.73 K/uL (1.2-3.4) 11/07/22 11:55 Trigg # (Auto) 0.68 K/uL (0.11-0.59) H 11/07/22 11:55 Eos # (Auto) 0.17 K/uL (0-0.50) 11/07/22 11:55 Baso # (Auto) 0.04 K/uL (0-0.2) 11/07/22 11:55 Immature Gran # (Auto) 0.03 K/uL (0.01-0.20) 11/07/22 11:55 Platelet Estimate Decreased (Normal) L 11/08/22 07:45 Sodium 142 mmol/L (136-145) 11/11/22 08:55 Potassium 3.8 mmol/L (3.5-5.1) 11/11/22 08:55 Chloride 108 mmol/L (98-107) H 11/11/22 08:55 Carbon Dioxide 27 mmol/L (21-32) 11/11/22 08:55 Anion Gap 7 (3-11) 11/11/22 08:55 BUN 3 mg/dl (6-23) L 11/11/22 08:55 Creatinine 0.40 mg/dl (0.6-1.4) L 11/11/22 08:55 Est Cr Clr Drug Dosing 171.9 ml/min 11/11/22 08:55 Est GFR ( Amer) > 150.0 ml/min 11/11/22 08:55 Est GFR (Non-Af Amer) > 150.0 ml/min 11/11/22 08:55 BUN/Creatinine Ratio 7.5 (10-20) L 11/11/22 08:55 Glucose 81 mg/dl (70-99(Fasting)) 11/11/22 08:55 Calcium 9.0 mg/dl (8.6-10.3) 11/11/22 08:55 Magnesium 2.0 mg/dl (1.7-2.4) 11/11/22 08:55 Total Bilirubin 0.4 mg/dl (0.2-1.0) 11/07/22 11:55 AST 23 U/L (13-39) 11/07/22 11:55 ALT 26 U/L (7-52) 11/07/22 11:55 Alkaline Phosphatase 102 U/L (34-104) 11/07/22 11:55 Total Protein 6.2 gm/dl (6.0-8.3) 11/07/22 11:55 Albumin 4.2 gm/dl (3.4-5.0) 11/07/22 11:55 Globulin 2.0 gm/dl (2.5-4.0) L 11/07/22 11:55 Albumin/Globulin Ratio 2.1 (0.9-2) H 11/07/22 11:55 Lipase 11 U/L (11-82) 11/07/22 11:55 TSH 4.359 uIu/ml (0.300-4.500) 11/07/22 11:55 Urine Color Dark Yellow 11/07/22 13:36 Urine Appearance Cloudy (Clear) A 11/07/22 13:36 Urine pH 6.5 (4.5-7.5) 11/07/22 13:36 Ur Specific [place] 1.021 (1.000-1.030) 11/07/22 13:36 Urine Protein Negative (Negative) 11/07/22 13:36 Urine Glucose (UA) Negative (Negative) 11/07/22 13:36 Urine Ketones Negative (Negative) 11/07/22 13:36 Urine Blood Negative (Negative) 11/07/22 13:36 Urine Nitrite Negative (Negative) 11/07/22 13:36 Urine Bilirubin Negative (Negative) 11/07/22 13:36 Urine Urobilinogen Positive (Negative) H 11/07/22 13:36 Ur Leukocyte Esterase Trace (Negative) H 11/07/22 13:36 Urine WBC (Auto) 0 /hpf (0-5) 11/07/22 13:36 Urine RBC (Auto) 0-4 /hpf (0-4) 11/07/22 13:36 U Hyaline Cast (Auto) 0 /lpf (0-5) 11/07/22 13:36 U Epithel Cells (Auto) 0-5 /lpf (0-5) 11/07/22 13:36 Urine Bacteria (Auto) Negative (Negative) 11/07/22 13:36 Valproic Acid 55 mcg/ml (50-100) 11/07/22 11:55 SARS-CoV-2, RNA, NAAT NEGATIVE (NEGATIVE) 11/07/22 13:36 Impressions Abdomen/Pelvis CT 11/07/22 11:[address] WITH IV CONTRAST CT DOSE: 623.79 mGy.cm HISTORY: right sided abdominal pain/mass, constipation TECHNIQUE: Multiaxial CT images of the abdomen and pelvis were performed following the use of intravenous contrast. A dose lowering technique was utilized adhering to the principles of ALARA. COMPARISON STUDY: Abdomen and pelvis CT 11/29/2016. FINDINGS: The lung bases are clear. No pneumoperitoneum. No pneumatosis. Chronic deformity/subluxation within the right hip. There is also chronic left hip deformity. No acute fractures identified. Extensive posterior fusion hardware seen throughout the thoracic/lumbar spine with bilateral iliac screws. Severe dextroscoliosis of the thoracolumbar spine again noted. There is again noted an undescended right testis located within the right inguinal canal. A normal left testis is not identified with certainty. Cholecystectomy. The liver, pancreas, spleen, and adrenal glands are unremarkable. Normal left kidney. There is mild right hydronephrosis. No ureteral stones identified. This may be secondary to extrinsic compression from the distended rectum. There are few punctate right renal calculi. No definite left renal calculi. Normal caliber abdominal aorta. No retroperitoneal lymphadenopathy. The bladder is displaced along the left side of the pelvis due to the distended rectum. The bladder is mildly distended. Large stool ball seen within the distal sigmoid colon/rectum. This measures 11 cm in diameter and approximately 24 cm in length. This is increased in size from the prior study. There is associated mild to moderate thickening of the distal sigmoid colon and rectum with mild surrounding edema. Therefore, these findings are concerning for a stercoral colitis/proctitis. The remaining colon is filled with gas and a moderate amount well-formed stool is mildly distended. This likely represents an obstructive type pattern from the large rectal stool ball. The small bowel is normal in course and caliber. IMPRESSION: 1. Interval increase in size in the large stool ball within the distal sigmoid colon and rectum which measures 11 cm in diameter and 24 cm in length. There is associated mild to moderate thickening of the distal sigmoid colon and rectal wall which is concerning for a stercoral colitis/proctitis. 2. The remaining colon is filled with gas and a moderate amount of well-formed stool and is mildly dilated. Therefore, this likely represents an obstructive type pattern from the large rectal stool ball. 3. Mild right hydronephrosis. No ureteral stones. This may be secondary to extrinsic compression from the distended rectum. 4. The bladder is distended and displaced to the left side of the pelvis from the distended rectum. 5. Right-sided nephrolithiasis. 6. Undescended right testis located within the right inguinal canal. A normal left testis not identified. This remains unchanged. ACT 112: Negative or not required by law. Electronically signed by: Valerio Darby M.D. 11/07/2022 2:38 PM Chest X-Ray 11/07/22 11:40 XR chest 1V portable CLINICAL HISTORY: adominal pain TECHNIQUE: Single frontal radiograph of the chest was obtained. Comparison: Comparison is made to chest radiograph 11/29/2016 FINDINGS: Neurostimulator is seen. Posterior thoracolumbar fixation hardware is seen with scoliosis. The cardiomediastinal silhouette is normal. The lungs are clear. No evidence of pleural effusion or pneumothorax. IMPRESSION: No acute chest disease. ACT 112: Negative or not required by law. Electronically signed by: Gerardo Young M.D. 11/07/2022 1:07 PM KUB X-Ray 11/11/22 07:00 XR KUB/Abdomen 1 view CLINICAL HISTORY: Constipation TECHNIQUE: 1 view of the abdomen was obtained. Comparison: Comparison is made to abdomen radiographs 11/10/2022 FINDINGS: Lung bases are unremarkable. Posterior spinal fixation hardware is seen. No fecal impaction is seen. Mild gaseous distention of the large and small bowel again seen. IMPRESSION: Mild gaseous distention of the large and small bowel is again seen. ACT 112: Negative or not required by law. Electronically signed by: Gerardo Young M.D. 11/11/2022 11:13 AM Ordered Studies 11/07/22 11:39 CT abd pelvis IV con only Stat Hospital Course (1) Fecal impaction: (2) Constipation: (3) Colitis: (4) Hydronephrosis: Patient is 32 y/o M with H cerebral palsy, intellectual disability, seizure disorder s/p vagus nerve stimulator presented to ER with mother with complaint of constipation with no BM x 1 week Constipation Stercoral colitis/proctitis Fecal impaction --CT abdomen pelvis: Interval increase in size in the large stool ball within the distal sigmoid colon and rectum which measures 11 cm in diameter and 24 cm in length. There is associated mild to moderate thickening of the distal sigmoid colon and rectal wall which is concerning for a stercoral colitis/proctitis. The remaining colon is filled with gas and a moderate amount of well-formed stool and is mildly dilated. Therefore, this likely represents an obstructive type pattern from the large rectal stool ball. Mild right hydronephrosis. No ureteral stones. This may be secondary to extrinsic compression from the distended rectum. The bladder is distended and displaced to the left side of the pelvis from the distended rectum. Right-sided nephrolithiasis. -- Continue bowel regimen Continue PT Not a candidate for endoscopic decompression and disimpaction per GI Appreciate GI, surgery input Empirically on ceftriaxone, Flagyl--plan to discontinue as no signs of infection No surgical intervention indicated at this time per surgery Received IV fluids Replete electrolytes as needed Repeat KUB showed no fecal impaction today Advance to pured diet Plan to discharge home today Obstructive uropathy Mild hydronephrosis on CT as above Likely secondary to significant fecal impaction Bladder scan as needed Discontinue Mayo Voiding trial prior to discharge Hypokalemia Replete electrolytes as needed Resolved (5) Quadriplegic cerebral palsy: Spastic quadriplegic cerebral palsy At baseline (6) MR (mental retardation), severe: Secondary to above (7) Seizures: (8) Status post VNS (vagus nerve stimulator) placement: Seizure precautions Continue home Depakote, clobazam DVT Prophylaxis SCDs CODE STATUS Full Code Disposition Home Total Time Total Time Spent Total Time Spent (In Minutes): 50 minutes Discharge Plan Discharge Items Patient Disposition: Home - Self-Care Reason For Visit: CONSTIPATION Discharge Diagnosis: Fecal impaction Hydronephrosis Stercoral colitis/Proctitis Hypokalemia Condition on Discharge: Good Activity: Per Instructions section Non-emergency contact: Primary Care Provider Call non-emergency contact if: you have any medication questions, your symptoms worsen, your pain is concerning for you and you have a fever Follow-up/Referrals: Jen Verdugo, [Primary Care Provider] - (Date & Time 11/15/2022 10:20 [facility] Diet: Regular Diet Texture: Pureed (blended smooth) Addtl Attending Provider Instructions: Follow-up with your primary care physician on 11/15/2022 10:20 AM as scheduled --Consider following with your urologist if you continue to have urinary incontinence. Seek immediate medical attention if your symptoms reoccur or worsen Please take all medications as instructed on discharge list below. Please call if you have any questions or problems. You can reach a [facility] hospitalist on duty at [facility] 24 hours a day by calling [phone] Pending Studies at Discharge: No Stand-Alone Forms: My [facility], Smoking Cessation Medications and DC Order Prescriptions: Continued glycopyrrolate 1 mg tablet 1 mg PO BID PRN (Reason: Secretions) Qty: 60 sennosides [Senokot] 8.8 mg/5 mL Syrup 8.8 mg PO DIRECTED PRN (Reason: Constipation) polyethylene glycol 3350 [Miralax] 17 gram/dose Powder 4.25 g PO DIRECTED PRN (Reason: Constipation) Rx Instructions: PER PT'S MOTHER "TAKES ALMOST EVERY DAY, 1/4 OF CAP". divalproex 125 mg capsule, delayed rel sprinkle See Rx Instructions .ROUTE .COMPLEX Rx Instructions: TAKES 250 MG QAM, THEN 500 MG QPM. clobazam 2.5 mg/mL suspension 2.5 mg PO DAILY Rx Instructions: GIVE 2.5MG/1ML in the morning and 5 MG/2 mL in the evening Boost Max 0.09 gram- 0.5 kcal/mL Liquid 1 ea PO QID Rx Instructions: Boost High Calorie. 3-4 times daily clobazam 2.5 mg/mL suspension 5 mg PO PM rufinamide [Banzel] 40 mg/mL suspension See Rx Instructions .ROUTE .COMPLEX Rx Instructions: see directions Discharge Orders: Discharge Order (Routine); Ordered 11/11/22 Ordered By: Faizan Leung Admission Data Admit Date/Time: 11/08/22 17:05 Attending Provider: Faizan Leung Admit Provider: Faizan Leung Primary Care Provider: Jen Verdugo Other Providers: Hilton Hutchins ; Wily Patel ; Yaritza Becerra ; Tenzin Gonzáles ; Irena Schmitt ; Cyndy Bond ; Karime Hair ; Jerrica Bowden ; Nam Tadeo ; Rainer Childress ; Charito Das ; Pete Bernal ; Nicolas Goldstein ; Maura Turner ; Moriah Pierre ; Sydnee Gupta ; Aneta Rosado ; Andrew Orta ; Nixon Peralta ; Osbaldo Estevez ; Chio Mejia ; Josiah Carlin Jr
== END 2022-11-11 14:51 | disposition home or self-care (01) | DRG 388 ==
LOC: 3E 11:17 → ED 11:17 → SUATTDRO 16:31 → 3E 17:56

== ENCOUNTER 2023-01-26 09:50 | Inpatient (IN) ==
[2023-01-26] MEDS ORDERED: SODIUM CHLORIDE 0.9% 1,000 ML IV ONE (10:13)
--- NOTE | 2023-01-26 10:18 | Emergency Department Note ---
Impression & Plan Cellulitis, Cerebral palsy, Postoperative infection ED Provider Note NAME: NANNETTE UBRR AGE: 32 SEX: M : 1990 ARRIVES VIA: Walk-In INFORMANT: Patient ED PROVIDER(S): Maico Gu DO CHIEF COMPLAINT: black stuff out of nose HPI: Patient is a 32-year-old male who presents the ER with a past medical history of CP, seizures with both mom and brother at bedside who presents to the ER for black drainage out of the right nare. Mom notes that earlier today he had a temp of 100.4 but has not had any fever since then. She notes that he has been a little congested. No cough. No Tylenol or Motrin. No vomiting. Eating and drinking normally. Entire history is obtained from mother who was present at bedside secondary to patient having CP and mentally delayed. ADDITIONAL HISTORY OBTAINED: Per HPI Chronic Medical/Social Conditions Affecting Care: Per HPI PAST MEDICAL HISTORY:See Below PAST SURGICAL HISTORY:See Below FAMILY HISTORY:See Below SOCIAL HISTORY:See Below HOME MEDICATIONS:See Below ALLERGIES:See Below VITALS:See Below PHYSICAL EXAMINATION: GENERAL: Sitting up in bed, alert, no distress, nontoxic EYE EXAM: normal conjunctiva. PERRL and EOM's grossly intact. OROPHARYNX: Difficult to visualize posterior pharynx but dry mucous membranes NECK: supple, no nuchal rigidity, no adenopathy, non-tender NOSE: Dried black material in the right nare. Left nare is clean. No active bleeding LUNGS: Clear to auscultation. Normal chest wall mechanics HEART: Tachycardic, S1 normal and S2 normal ABDOMEN: abdomen soft, non-tender, normo-active bowel sounds, no masses, no rebound or guarding. UPPER EXTREMITIES: upper extremities are grossly normal. LOWER EXTREMITIES: No pitting edema. NEURO EXAM: Awake alert moving his eyes around with contractures of the upper extremities MEDICAL DECISION MAKING: Patient is a 32-year-old male who is nonverbal with a history of quadriplegic CP who recently had a vagus nerve stimulator placed. Mom brought him in today as he had a fever and had some black stuff coming out of his nose. Upon arrival he was found to be slightly hypotensive and tachycardic. IVs were established blood work was obtained. External records reviewed. Labs show no significant leukocytosis or anemia. BMP along with LFTs bilirubin and lipase was unremarkable. UA was clean. Valproic was normal. Viral panel was negative. Chest x-ray unremarkable. Vagal nerve stimulator pocket appears to be infected as it is erythematous and I discussed case with Dr. Stroud from general surgery who evaluated and recommended admission. Patient was given Rocephin and vancomycin. Updated at bedside and discussed with family. Discussed with [facility] for further evaluation management treatment. Patient's blood pressures generally run low in the low 100s but while here in the ER they were in the lower 80s. He was given 30 cc/kg bolus and pressures came up slightly into the 90s. Heart rate remained fairly tachycardic in the 110s. External Records Reviewed: Patient had a recent visit to neurology Dr. Marcelino Watts as patient has seizure disorder Consults/Care Managements Discussions: Per [facility] Triage Nursing notes reviewed. Limited review of prior medical records performed Vital Signs: reviewed and remarkable for no significant abnormalities Differential diagnosis: Differential diagnosis: Etiologies such as viral syndrome, otitis, pharyngitis, pneumonia, influenza, meningitis, urinary tract infection, sepsis, bacteremia, as well as others were entertained. ER treatment provided: See below Diagnostics interpreted by me include EKG and cardiac monitoring as listed below: -Cardiac Monitoring: An order was placed for continuous cardiac monitoring. The monitor shows a rate of 110 with sinus rhythm. -ECG: none -Laboratory studies:Interpreted by me as stated above in [facility] and shown below. Imaging studies: Xrays: As interpreted by me: Portable AP upright 1 view of the chest shows no focal CTs show: none Procedures:none Critical Care: I have personally spent 33 minutes of critical care time in the direct management of this patient. This includes bedside care, interpretation of diagnostic studies, and testing, discussion with consultants, patient, and family members, and other required patient management activities. This 33 minutes is in excess of all separately billable procedures. Past Med/Surg History Medical History Adopted Back problem MR (mental retardation), severe Quadriplegic cerebral palsy Seizures most recent 12/03/22 Per records- "small seizures" couple times a week (consist of blinking and downward turning of the head); intermittent generalized jerking type seizures less frequent Surgical History History of orchiectomy Left History of spinal fusion Hx of myringotomy w/tubes, multiple times S/P cholecystectomy Status post placement of VNS (vagus nerve stimulation) device (2016) Battery change, Dr. Obrien Status post VNS (vagus nerve stimulator) placement (2004) Status post VNS (vagus nerve stimulator) placement (12/20/22) Vagus Nerve Stimulator Generator Replacement(Left) - Patel Obrien MD, FACS Social History Smoking Status: Never smoker Second Hand Exposure: No; Do You Dip or Chew Tobacco: No; Hx Alcohol Use: No Hx Substance Use: No Preferred Language: Montenegrin Communication Ability: Impaired Communication Ability Comment: pt is nonverbal [employer] Required: No Beliefs That Will Affect Care: None marital status: Single Current Living Situation: Parent and Family Current Living Situation Comment: adopted current occupational status: disabled How many Children do You have: 0 Feels Safe at Home: Yes Diet: regular Diet Comment: Pureed Assistive Devices: Mechanical Lift, Wheelchair and Other Allergies Allergies Allergy/AdvReac Type Severity Reaction Status Date / Time fentanyl AdvReac Intermediate Difficulty Verified 01/25/23 09:36 to awaken Home Meds Home Medications Medication Instructions Recorded Confirmed glycopyrrolate 1 mg tablet 1 mg PO BID PRN Secretions #60 tabs 01/08/19 01/26/23 divalproex 125 mg capsule,delayed 250 - 500 mg PO UD 11/07/22 01/26/23 release sprinkle nutritional supplements 0.09 1 ea PO QID 11/07/22 01/26/23 gram-0.5 kcal/mL oral liquid (Boost Max) polyethylene glycol 3350 17 4.25 g PO UD PRN Constipation 11/07/22 01/26/23 gram/dose oral powder (Miralax) rufinamide 40 mg/mL oral 35 mg PO BID 11/07/22 01/26/23 suspension (Banzel) sennosides 8.8 mg/5 mL oral syrup 8.8 mg PO UD PRN Constipation 11/07/22 01/26/23 Previous Rx's Medication Instructions Recorded clobazam 2.5 mg/mL oral suspension 2.5 mg PO UD #120 mL 01/25/23 Results & Data (ED) Vital Signs Vital Signs - 24 hr 01/26/23 10:04 01/26/23 10:50 01/26/23 12:04 Temperature 36.7 C Temperature Source Temporal Artery Scan Pulse Rate 117 H 112 H Pulse Rate from SpO2 Sensor Respiratory Rate 22 Respiratory Effort / Characteristics Non-Labored Respiratory Depth Normal Respiratory Pattern Regular Blood Pressure 87/58 L Blood Pressure Mean 67 Pulse Oximetry 95 96 Oxygen Delivery Method Room Air Room Air Sepsis Recent Fever Within 48 Hours Yes Sepsis New/Unexplained Change in Mental Status No Sepsis Action Taken by Nursing Physician Notified 01/26/23 10:42 01/26/23 10:55 01/26/23 10:55 Temperature Temperature Source Pulse Rate 115 H 107 H Pulse Rate from SpO2 Sensor Respiratory Rate 22 25 H Respiratory Effort / Characteristics Respiratory Depth Respiratory Pattern Blood Pressure 99/64 L Blood Pressure Mean 76 Pulse Oximetry Oxygen Delivery Method Sepsis Recent Fever Within 48 Hours Sepsis New/Unexplained Change in Mental Status Sepsis Action Taken by Nursing 01/26/23 11:00 01/26/23 11:00 01/26/23 11:30 Temperature Temperature Source Pulse Rate 105 H 117 H Pulse Rate from SpO2 Sensor 119 H Respiratory Rate 30 H 24 Respiratory Effort / Characteristics Respiratory Depth Respiratory Pattern Blood Pressure 89/72 L Blood Pressure Mean 74 Pulse Oximetry 99 Oxygen Delivery Method Sepsis Recent Fever Within 48 Hours Sepsis New/Unexplained Change in Mental Status Sepsis Action Taken by Nursing 01/26/23 12:00 01/26/23 12:30 01/26/23 13:00 Temperature Temperature Source Pulse Rate 115 H 112 H 112 H Pulse Rate from SpO2 Sensor 114 H 113 H 112 H Respiratory Rate 21 15 22 Respiratory Effort / Characteristics Respiratory Depth Respiratory Pattern Blood Pressure Blood Pressure Mean Pulse Oximetry 100 92 97 Oxygen Delivery Method Sepsis Recent Fever Within 48 Hours Sepsis New/Unexplained Change in Mental Status Sepsis Action Taken by Nursing 01/26/23 13:01 01/26/23 13:01 Temperature Temperature Source Pulse Rate 114 H Pulse Rate from SpO2 Sensor 114 H Respiratory Rate 29 H Respiratory Effort / Characteristics Respiratory Depth Respiratory Pattern Blood Pressure 85/55 L Blood Pressure Mean 66 Pulse Oximetry 95 Oxygen Delivery Method Sepsis Recent Fever Within 48 Hours Sepsis New/Unexplained Change in Mental Status Sepsis Action Taken by Nursing Laboratory Data 01/26/23 10:49 01/26/23 10:49 Lab Results 01/26/23 01/26/23 01/26/23 Range/Units 10:49 10:49 10:49 WBC 10.74 (4.8-10.8) K/ul RBC 4.96 (4.70-6.10) M/uL Hgb 16.0 (14.0-18.0) g/dl Hct 47.7 (42.0-52.0) % MCV 96.2 (80.0-100.0) fL MCH 32.3 (25.0-34.0) pg MCHC 33.5 (32.0-36.0) g/dL RDW Std Deviation 45.1 (36.4-46.3) fL RDW Coeff of Leo 12.9 (11.5-14.5) % Plt Count 121 L (130-400) K/uL MPV 12.5 H (9.4-12.4) fL Immature Gran % (Auto) 0.5 % Neut % (Auto) 82.2 % Lymph % (Auto) 9.2 % [place] % (Auto) 7.4 % Eos % (Auto) 0.3 % Baso % (Auto) 0.4 % Neut # (Auto) 8.83 H (1.40-6.50) K/uL Lymph # (Auto) 0.99 L (1.20-3.40) K/uL [place] # (Auto) 0.80 H (0.11-0.59) K/uL Eos # (Auto) 0.03 (0.00-0.50) K/uL Baso # (Auto) 0.04 (0.00-0.20) K/uL Immature Gran # (Auto) 0.05 (0.01-0.20) K/uL Sodium 142 (136-145) mmol/L Potassium 4.0 (3.5-5.1) mmol/L Chloride 104 (98-107) mmol/L Carbon Dioxide 31 (21-32) mmol/L Anion Gap 7 (3-11) BUN 18 (6-23) mg/dl Creatinine 0.72 (0.6-1.4) mg/dl Est Cr Clr Drug Dosing Not Reportable Est GFR ( Amer) 145.1 ml/min Est GFR (Non-Af Amer) 125.2 ml/min BUN/Creatinine Ratio 25.0 H (10-20) Glucose 100 H (70-99(Fasting)) mg/dl Lactate (0.4-2.0) mmol/L Calcium 9.7 (8.6-10.3) mg/dl Total Bilirubin 0.5 (0.2-1.0) mg/dl AST 24 (13-39) U/L ALT 26 (7-52) U/L Alkaline Phosphatase 108 H (34-104) U/L Total Protein 6.9 (6.0-8.3) gm/dl Albumin 4.5 (3.4-5.0) gm/dl Globulin 2.4 L (2.5-4.0) gm/dl Albumin/Globulin Ratio 1.9 (0.9-2) Lipase 12 (11-82) U/L Urine Color Urine Appearance (Clear) Urine pH (4.5-7.5) Ur Specific Wallace (1.000-1.030) Urine Protein (Negative) Urine Glucose (UA) (Negative) Urine Ketones (Negative) Urine Blood (Negative) Urine Nitrite (Negative) Urine Bilirubin (Negative) Urine Urobilinogen (Negative) Ur Leukocyte Esterase (Negative) Valproic Acid 91 (50-100) mcg/ml Adenovirus (PCR) (NotDetected) B. pertussis DNA (PCR) (NotDetected) B.parapertussis DNA PCR (NotDetected) C. pneumoniae DNA (PCR) (NotDetected) Coronavirus OC43 (PCR) (NotDetected) Coronavirus HKU1 (PCR) (NotDetected) Coronavirus 229E (PCR) (NotDetected) SARS-CoV-2 (PCR) (NotDetected) Coronavirus NL63 (PCR) (NotDetected) Human Metapneumovir PCR (NotDetected) Influenza Type A (PCR) (NotDetected) Influenza Type B (PCR) (NotDetected) M. pneumoniae (PCR) (NotDetected) Parainfluenza 1 (PCR) (NotDetected) Parainfluenza 2 (PCR) (NotDetected) Parainfluenza 3 (PCR) (NotDetected) Parainfluenza 4 (PCR) (NotDetected) RSV (PCR) (NotDetected) Entero/Rhino (PCR) (NotDetected) 01/26/23 01/26/23 01/26/23 Range/Units 10:58 11:00 12:23 WBC (4.8-10.8) K/ul RBC (4.70-6.10) M/uL Hgb (14.0-18.0) g/dl Hct (42.0-52.0) % MCV (80.0-100.0) fL MCH (25.0-34.0) pg MCHC (32.0-36.0) g/dL RDW Std Deviation (36.4-46.3) fL RDW Coeff of Leo (11.5-14.5) % Plt Count (130-400) K/uL MPV (9.4-12.4) fL Immature Gran % (Auto) % Neut % (Auto) % Lymph % (Auto) % [place] % (Auto) % Eos % (Auto) % Baso % (Auto) % Neut # (Auto) (1.40-6.50) K/uL Lymph # (Auto) (1.20-3.40) K/uL [place] # (Auto) (0.11-0.59) K/uL Eos # (Auto) (0.00-0.50) K/uL Baso # (Auto) (0.00-0.20) K/uL Immature Gran # (Auto) (0.01-0.20) K/uL Sodium (136-145) mmol/L Potassium (3.5-5.1) mmol/L Chloride (98-107) mmol/L Carbon Dioxide (21-32) mmol/L Anion Gap (3-11) BUN (6-23) mg/dl Creatinine (0.6-1.4) mg/dl Est Cr Clr Drug Dosing Est GFR ( Amer) ml/min Est GFR (Non-Af Amer) ml/min BUN/Creatinine Ratio (10-20) Glucose (70-99(Fasting)) mg/dl Lactate 1.3 (0.4-2.0) mmol/L Calcium (8.6-10.3) mg/dl Total Bilirubin (0.2-1.0) mg/dl AST (13-39) U/L ALT (7-52) U/L Alkaline Phosphatase (34-104) U/L Total Protein (6.0-8.3) gm/dl Albumin (3.4-5.0) gm/dl Globulin (2.5-4.0) gm/dl Albumin/Globulin Ratio (0.9-2) Lipase (11-82) U/L Urine Color Yellow Urine Appearance Clear (Clear) Urine pH 7.0 (4.5-7.5) Ur Specific Wallace 1.022 (1.000-1.030) Urine Protein Negative (Negative) Urine Glucose (UA) Negative (Negative) Urine Ketones Negative (Negative) Urine Blood Negative (Negative) Urine Nitrite Negative (Negative) Urine Bilirubin Negative (Negative) Urine Urobilinogen Negative (Negative) Ur Leukocyte Esterase Negative (Negative) Valproic Acid (50-100) mcg/ml Adenovirus (PCR) Not Detected (NotDetected) B. pertussis DNA (PCR) Not Detected (NotDetected) B.parapertussis DNA PCR Not Detected (NotDetected) C. pneumoniae DNA (PCR) Not Detected (NotDetected) Coronavirus OC43 (PCR) Not Detected (NotDetected) Coronavirus HKU1 (PCR) Not Detected (NotDetected) Coronavirus 229E (PCR) Not Detected (NotDetected) SARS-CoV-2 (PCR) Not Detected (NotDetected) Coronavirus NL63 (PCR) Not Detected (NotDetected) Human Metapneumovir PCR Not Detected (NotDetected) Influenza Type A (PCR) Not Detected (NotDetected) Influenza Type B (PCR) Not Detected (NotDetected) M. pneumoniae (PCR) Not Detected (NotDetected) Parainfluenza 1 (PCR) Not Detected (NotDetected) Parainfluenza 2 (PCR) Not Detected (NotDetected) Parainfluenza 3 (PCR) Not Detected (NotDetected) Parainfluenza 4 (PCR) Not Detected (NotDetected) RSV (PCR) Not Detected (NotDetected) Entero/Rhino (PCR) Not Detected (NotDetected) Administered Medications Discontinued Medications Sodium Chloride (Nss) 1,000 mls @ 999 mls/hr IV .[id number] ONE Stop: 01/26/23 11:13 Last Infusion: 01/26/23 12:57 Dose: 0 mls/hr Documented By: Admin: 01/26/23 10:50 Dose: 999 mls/hr Documented By: AM Ceftriaxone Sodium (Rocephin) 2,000 mg in 70 mls @ 140 mls/hr IV NOW STA Stop: 01/26/23 12:22 Last Admin: 01/26/23 12:58 Dose: 140 mls/hr Documented By: AM Imaging Data Radiologist's Impression: Chest X-Ray 01/26/23 10:15 XR chest 1V portable CLINICAL HISTORY: Fever. COMPARISON STUDY: Chest radiograph November 07, 2022. FINDINGS: Stimulator device is noted as well as partially imaged scoliosis hardware. Gaseous distention of the stomach is noted. There is no pneumothorax or pleural effusion. Exam is compromised given difficulty positioning. No consolidation is identified. There is subtle interstitial thickening. Cardiomediastinal silhouette is stable. IMPRESSION: 1. No consolidation to suggest pneumonia. 2. Subtle interstitial thickening. This likely technical. An infectious process could appear similar but is considered less likely. ACT 112: Negative or not required by law. Electronically signed by: Shahriar Fuentes M.D. 01/26/2023 10:41 AM Discharge Plan Visit Data Chief Complaint: Nasal Injury/Pain Stated Complaint: BLACK STUFF COMING OUT OF NOSE ED Provider: Maico Gu Discharge Problem: Cellulitis, Cerebral palsy, Postoperative infection Forms Stand Alone Forms: [facility] Prescriptions Prescriptions: No Action clobazam 2.5 mg/mL suspension 2.5 mg PO UD Qty: 120 3RF Rx Instructions: 2.5 mg orally; GIVE 2.5MG/1ML in the morning and 5 MG/2 mL in the evening. glycopyrrolate 1 mg tablet 1 mg PO BID PRN (Reason: Secretions) Qty: 60 sennosides 8.8 mg/5 mL Syrup 8.8 mg PO UD PRN (Reason: Constipation) polyethylene glycol 3350 [Miralax] 17 gram/dose Powder 4.25 g PO UD PRN (Reason: Constipation) Rx Instructions: PER PT'S MOTHER "TAKES ALMOST EVERY DAY, 1/4 OF CAP". divalproex 125 mg capsule, delayed rel sprinkle 250 - 500 mg PO UD Rx Instructions: TAKES 250 MG QAM, THEN 500 MG QPM. Boost Max 0.09 gram- 0.5 kcal/mL Liquid 1 ea PO QID Rx Instructions: Boost High Calorie. 3-4 times daily rufinamide [Banzel] 40 mg/mL suspension 35 mg PO BID Rx Instructions: see directions Referrals Referrals: Jen Verdugo DO [Primary Care Provider] -
--- NOTE | 2023-01-26 10:43 | XRay Report ---
XR chest 1V portable CLINICAL HISTORY: Fever. COMPARISON STUDY: Chest radiograph November 07, 2022. FINDINGS: Stimulator device is noted as well as partially imaged scoliosis hardware. Gaseous distenti on of the stomach is noted. There is no pneumothorax or pleural effusion. Exam is compromised given d ifficulty positioning. No consolidation is identified. There is subtle interstitial thickening. Cardi omediastinal silhouette is stable. IMPRESSION: 1. No consolidation to suggest pneumonia. 2. Subtle interstitial thickening. This likely technical. An infectious process could appear similar but is considered less likely. ACT 112: Negative or not required by law. Electronically signed by: Shahriar Fuentes M.D. 01/26/2023 10:41 AM
[2023-01-26 11:26] LABS: Appearance Urine Clear (Clear); Bilirubin Urine Negative (Negative); Blood Urine Negative (Negative); Color Urine Yellow; Glucose Urine UA Negative (Negative); Ketones Urine Negative (Negative); Leukocyte Esterase Urine Negative (Negative); Nitrite Urine Negative (Negative); Protein Urine Negative (Negative); Specific Gravity Urine 1.022 (1.000-1.030); Urobilinogen Urine Negative (Negative)
[2023-01-26 11:33] LABS: Basophils # (auto) 0.04 K/uL (0.00-0.20); Basophils % (auto) 0.4 %; Eosinophils # (auto) 0.03 K/uL (0.00-0.50); Eosinophils % (auto) 0.3 %; Hematocrit (blood only) 47.7 % (42.0-52.0); Immature Granulocytes # (auto) 0.05 K/uL (0.01-0.20); Immature Granulocytes % (auto) 0.5 %; Lymphocytes # (auto) 0.99 K/uL (1.20-3.40); Lymphocytes % (auto) 9.2 %; Mean Corpuscular Hemoglobin 32.3 pg (25.0-34.0); Mean Corpuscular Hgb Conc 33.5 g/dL (32.0-36.0); Mean Corpuscular Volume 96.2 fL (80.0-100.0); Mean Platelet Volume 12.5 fL (9.4-12.4); Monocytes % (auto) 7.4 %; Neutrophils # (auto) 8.83 K/uL (1.40-6.50); Neutrophils % (auto) 82.2 %; Platelet Count 121 K/uL (130-400); RDW Coefficient of Variation 12.9 % (11.5-14.5); RDW Standard Deviation 45.1 fL (36.4-46.3); Red Blood Count 4.96 M/uL (4.70-6.10); White Blood Count 10.74 K/ul (4.8-10.8)
[2023-01-26 11:42] LABS: Alanine Aminotransferase 26 U/L (7-52); Albumin Globulin Ratio 1.9 (0.9-2); Albumin Level 4.5 gm/dl (3.4-5.0); Alkaline Phosphatase 108 U/L (34-104); Anion Gap 7 (3-11); Aspartate Aminotransferase 24 U/L (13-39); Bilirubin,Total 0.5 mg/dl (0.2-1.0); Blood Urea Nitrogen 18 mg/dl (6-23); Calcium 9.7 mg/dl (8.6-10.3); Carbon Dioxide 31 mmol/L (21-32); Chloride 104 mmol/L (98-107); Est GFR (African American) 145.1 ml/min; Est GFR (Non-African American) 125.2 ml/min; Globulin 2.4 gm/dl (2.5-4.0); Glucose 100 mg/dl (70-99(Fasting)); Lipase 12 U/L (11-82); Sodium 142 mmol/L (136-145); Total Protein 6.9 gm/dl (6.0-8.3)
[2023-01-26] MEDS ORDERED: cefTRIAXone SODIUM 2,000 MG/70 ML BAG IV STA (11:53)
[2023-01-26 12:15] LABS: Adenovirus PCR Not Detected (NotDetected); Bordetella parapertussis PCR Not Detected (NotDetected); Bordetella pertussis PCR Not Detected (NotDetected); Chlamydia pneumoniae PCR Not Detected (NotDetected); Coronavirus 229E PCR Not Detected (NotDetected); Coronavirus CoV-2 (COVID19)PCR Not Detected (NotDetected); Coronavirus HKU1 PCR Not Detected (NotDetected); Coronavirus NL63 PCR Not Detected (NotDetected); Coronavirus OC43PCR Not Detected (NotDetected); Human Metapneumovirus PCR Not Detected (NotDetected); Influenza A PCR Not Detected (NotDetected); Influenza B PCR Not Detected (NotDetected); Mycoplasma pneumoniae PCR Not Detected (NotDetected); Parainfluenza Virus 1 PCR Not Detected (NotDetected); Parainfluenza Virus 2 PCR Not Detected (NotDetected); Parainfluenza Virus 3 PCR Not Detected (NotDetected); Parainfluenza Virus 4 PCR Not Detected (NotDetected); Respiratory Syncytial VirusPCR Not Detected (NotDetected); Rhinovirus/Enterovirus PCR Not Detected (NotDetected)
--- NOTE | 2023-01-26 12:24 | Surgery Consultation ---
Date of Consultation January 26, 2023 Assessment & Plan (1) Status post VNS (vagus nerve stimulator) placement: Plan He has spreading erythema from the stimulator pocket, status post battery change [address] Obrien. He will be admitted to the medicine service. He will be placed on IV antibiotics. We will continue to follow. We will discuss this with Dr. Obrien on Saturday. History of Present Illness Requesting Physician: Maico Gu MD Attending Physician: Maico Gu MD History of Present Illness 32-year-old with CP and mental delay as well as seizure disorder presents to the ER with nasal congestion as well as redness and pain on his left chest. He has a vagal nerve stimulator which is in a pocket on his left chest wall. Recently the battery was replaced by Dr. Obrien in the end of November. His mother notes redness and discomfort at the area starting yesterday. Allergies Allergy/AdvReac Type Severity Reaction Status Date / Time fentanyl AdvReac Intermediate Difficulty Verified 01/25/23 09:36 to awaken Home Medications Medication Instructions Recorded Confirmed Type glycopyrrolate 1 mg tablet 1 mg PO BID PRN Secretions #60 tabs 01/08/19 01/26/23 History divalproex 125 mg capsule,delayed 250 - 500 mg PO UD 11/07/22 01/26/23 History release sprinkle nutritional supplements 0.09 1 ea PO QID 11/07/22 01/26/23 History gram-0.5 kcal/mL oral liquid (Boost Max) polyethylene glycol 3350 17 4.25 g PO UD PRN Constipation 11/07/22 01/26/23 History gram/dose oral powder (Miralax) rufinamide 40 mg/mL oral 35 mg PO BID 11/07/22 01/26/23 History suspension (Banzel) sennosides 8.8 mg/5 mL oral syrup 8.8 mg PO UD PRN Constipation 11/07/22 01/26/23 History clobazam 2.5 mg/mL oral suspension 2.5 mg PO UD #120 mL 01/25/23 01/26/23 Rx Patient History Medical History Adopted Back problem MR (mental retardation), severe Quadriplegic cerebral palsy Seizures most recent 12/03/22 Per records- "small seizures" couple times a week (consist of blinking and downward turning of the head); intermittent generalized jerking type seizures less frequent Surgical History History of orchiectomy Left History of spinal fusion Hx of myringotomy w/tubes, multiple times S/P cholecystectomy Status post placement of VNS (vagus nerve stimulation) device (2016) Battery change, Dr. Obrien Status post VNS (vagus nerve stimulator) placement (2004) Status post VNS (vagus nerve stimulator) placement (12/20/22) Vagus Nerve Stimulator Generator Replacement(Left) - Patel Obrien MD, FACS Social History Smoking Status: Never smoker Second Hand Exposure: No; Do You Dip or Chew Tobacco: No; Hx Alcohol Use: No Hx Substance Use: No Preferred Language: Czech Communication Ability: Impaired Communication Ability Comment: pt is nonverbal Certified Rehabilitation Counselor Required: No Beliefs That Will Affect Care: None marital status: Single Current Living Situation: Parent and Family Current Living Situation Comment: adopted current occupational status: disabled How many Children do You have: 0 Feels Safe at Home: Yes Diet: regular Diet Comment: Pureed Assistive Devices: Mechanical Lift, Wheelchair and Other Review of Systems Review of Systems: Unobtainable due to mental health condition Physical Exam Constitutional: WD/WN, vitals as above Eyes: PERRL, conjunctivae normal, anicteric sclerae Neck: trachea midline, no thyromegaly Respiratory: normal respiratory effort; no respiratory distress and no labored breathing Cardiovascular: Rate/Rhythm: regular rhythm and + tachycardic Chest (Breasts): Additional Comments: Left upper chest wall well-healed incision, erythema and edema, tender to palpation extending approximately 6 cm around the stimulator pocket. No induration/fluctuance; no drainage Skin: no rashes, warm and dry Results & Data Vital Signs (Past 12 Hours) Vital Signs Temp Pulse Resp BP Pulse Ox O2 Del Method 01/26/23 12:04 112 H 01/26/23 10:50 96 Room Air 01/26/23 10:04 36.7 C 117 H 22 87/58 L 95 Room Air Laboratory Results 01/26/23 01/26/23 01/26/23 Range/Units 11:00 10:58 10:49 WBC (4.8-10.8) K/ul RBC (4.70-6.10) M/uL Hgb (14.0-18.0) g/dl Hct (42.0-52.0) % MCV (80.0-100.0) fL MCH (25.0-34.0) pg MCHC (32.0-36.0) g/dL RDW Std Deviation (36.4-46.3) fL RDW Coeff of Leo (11.5-14.5) % Plt Count (130-400) K/uL MPV (9.4-12.4) fL Immature Gran % (Auto) % Neut % (Auto) % Lymph % (Auto) % [place] % (Auto) % Eos % (Auto) % Baso % (Auto) % Neut # (Auto) (1.40-6.50) K/uL Lymph # (Auto) (1.20-3.40) K/uL [place] # (Auto) (0.11-0.59) K/uL Eos # (Auto) (0.00-0.50) K/uL Baso # (Auto) (0.00-0.20) K/uL Immature Gran # (Auto) (0.01-0.20) K/uL Sodium (136-145) mmol/L Potassium (3.5-5.1) mmol/L Chloride (98-107) mmol/L Carbon Dioxide (21-32) mmol/L Anion Gap (3-11) BUN (6-23) mg/dl Creatinine (0.6-1.4) mg/dl Est Cr Clr Drug Dosing Est GFR ( Amer) ml/min Est GFR (Non-Af Amer) ml/min BUN/Creatinine Ratio (10-20) Glucose (70-99(Fasting)) mg/dl Calcium (8.6-10.3) mg/dl Total Bilirubin (0.2-1.0) mg/dl AST (13-39) U/L ALT (7-52) U/L Alkaline Phosphatase (34-104) U/L Total Protein (6.0-8.3) gm/dl Albumin (3.4-5.0) gm/dl Globulin (2.5-4.0) gm/dl Albumin/Globulin Ratio (0.9-2) Lipase (11-82) U/L Urine Color Yellow Urine Appearance Clear (Clear) Urine pH 7.0 (4.5-7.5) Ur Specific [place] 1.022 (1.000-1.030) Urine Protein Negative (Negative) Urine Glucose (UA) Negative (Negative) Urine Ketones Negative (Negative) Urine Blood Negative (Negative) Urine Nitrite Negative (Negative) Urine Bilirubin Negative (Negative) Urine Urobilinogen Negative (Negative) Ur Leukocyte Esterase Negative (Negative) Valproic Acid Pending Adenovirus (PCR) Not Detected (NotDetected) B. pertussis DNA (PCR) Not Detected (NotDetected) B.parapertussis DNA PCR Not Detected (NotDetected) C. pneumoniae DNA (PCR) Not Detected (NotDetected) Coronavirus OC43 (PCR) Not Detected (NotDetected) Coronavirus HKU1 (PCR) Not Detected (NotDetected) Coronavirus 229E (PCR) Not Detected (NotDetected) SARS-CoV-2 (PCR) Not Detected (NotDetected) Coronavirus NL63 (PCR) Not Detected (NotDetected) Human Metapneumovir PCR Not Detected (NotDetected) Influenza Type A (PCR) Not Detected (NotDetected) Influenza Type B (PCR) Not Detected (NotDetected) M. pneumoniae (PCR) Not Detected (NotDetected) Parainfluenza 1 (PCR) Not Detected (NotDetected) Parainfluenza 2 (PCR) Not Detected (NotDetected) Parainfluenza 3 (PCR) Not Detected (NotDetected) Parainfluenza 4 (PCR) Not Detected (NotDetected) RSV (PCR) Not Detected (NotDetected) Entero/Rhino (PCR) Not Detected (NotDetected) 01/26/23 01/26/23 Range/Units 10:49 10:49 WBC 10.74 (4.8-10.8) K/ul RBC 4.96 (4.70-6.10) M/uL Hgb 16.0 (14.0-18.0) g/dl Hct 47.7 (42.0-52.0) % MCV 96.2 (80.0-100.0) fL MCH 32.3 (25.0-34.0) pg MCHC 33.5 (32.0-36.0) g/dL RDW Std Deviation 45.1 (36.4-46.3) fL RDW Coeff of Leo 12.9 (11.5-14.5) % Plt Count 121 L (130-400) K/uL MPV 12.5 H (9.4-12.4) fL Immature Gran % (Auto) 0.5 % Neut % (Auto) 82.2 % Lymph % (Auto) 9.2 % [place] % (Auto) 7.4 % Eos % (Auto) 0.3 % Baso % (Auto) 0.4 % Neut # (Auto) 8.83 H (1.40-6.50) K/uL Lymph # (Auto) 0.99 L (1.20-3.40) K/uL [place] # (Auto) 0.80 H (0.11-0.59) K/uL Eos # (Auto) 0.03 (0.00-0.50) K/uL Baso # (Auto) 0.04 (0.00-0.20) K/uL Immature Gran # (Auto) 0.05 (0.01-0.20) K/uL Sodium 142 (136-145) mmol/L Potassium 4.0 (3.5-5.1) mmol/L Chloride 104 (98-107) mmol/L Carbon Dioxide 31 (21-32) mmol/L Anion Gap 7 (3-11) BUN 18 (6-23) mg/dl Creatinine 0.72 (0.6-1.4) mg/dl Est Cr Clr Drug Dosing Not Reportable Est GFR ( Amer) 145.1 ml/min Est GFR (Non-Af Amer) 125.2 ml/min BUN/Creatinine Ratio 25.0 H (10-20) Glucose 100 H (70-99(Fasting)) mg/dl Calcium 9.7 (8.6-10.3) mg/dl Total Bilirubin 0.5 (0.2-1.0) mg/dl AST 24 (13-39) U/L ALT 26 (7-52) U/L Alkaline Phosphatase 108 H (34-104) U/L Total Protein 6.9 (6.0-8.3) gm/dl Albumin 4.5 (3.4-5.0) gm/dl Globulin 2.4 L (2.5-4.0) gm/dl Albumin/Globulin Ratio 1.9 (0.9-2) Lipase 12 (11-82) U/L Urine Color Urine Appearance (Clear) Urine pH (4.5-7.5) Ur Specific [place] (1.000-1.030) Urine Protein (Negative) Urine Glucose (UA) (Negative) Urine Ketones (Negative) Urine Blood (Negative) Urine Nitrite (Negative) Urine Bilirubin (Negative) Urine Urobilinogen (Negative) Ur Leukocyte Esterase (Negative) Valproic Acid Adenovirus (PCR) (NotDetected) B. pertussis DNA (PCR) (NotDetected) B.parapertussis DNA PCR (NotDetected) C. pneumoniae DNA (PCR) (NotDetected) Coronavirus OC43 (PCR) (NotDetected) Coronavirus HKU1 (PCR) (NotDetected) Coronavirus 229E (PCR) (NotDetected) SARS-CoV-2 (PCR) (NotDetected) Coronavirus NL63 (PCR) (NotDetected) Human Metapneumovir PCR (NotDetected) Influenza Type A (PCR) (NotDetected) Influenza Type B (PCR) (NotDetected) M. pneumoniae (PCR) (NotDetected) Parainfluenza 1 (PCR) (NotDetected) Parainfluenza 2 (PCR) (NotDetected) Parainfluenza 3 (PCR) (NotDetected) Parainfluenza 4 (PCR) (NotDetected) RSV (PCR) (NotDetected) Entero/Rhino (PCR) (NotDetected)
[2023-01-26] MEDS ORDERED: VANCOMYCIN HCL 1,000 MG in SODIUM CHLORIDE 0.9% 500 ML IV ONE (13:47)
[2023-01-26] MEDS ORDERED: SODIUM CHLORIDE 0.9% 500 ML IV ONE (13:47)
[2023-01-26] MEDS ORDERED: VANCOMYCIN CONSULT ACTIVE PRN (13:47)
[2023-01-26] MEDS: CEFEPIME 1,000 MG in SYRINGE 0 ML IV SCH ×2 (15:15→22:34)
--- NOTE | 2023-01-26 15:27 | History & Physical Report ---
Date of Service January 26, 2023 Assessment & Plan (1) Sepsis: Plan: This is a 32 y/o male with a history of quadriplegic cerebral palsy, intellectual disability, seizure d/o s/p vagus nerve stimulator, and chronic constipation who presented to the ED today after he had some black liquid drain from his right nose this morning as well as with a fever of 100.4 and decreased responsiveness. Work-up in the ED revealed tachycardia, hypotension, and tachypnea as well as evidence of erythema, warmth and swelling over his VNS, of which the battery was changed last month. Pt was seen by surgery due to concern for infection of the device pocket as the source of the pt's sepsis. Surgery has recommended admission for IV antibiotics and continued monitoring to help determine if procedural intervention is indicated so medicine was consult for admission. Pt did meet sepsis criteria in the ED so he was given 1500 cc fluid bolus with improvement in BP to baseline systolic of 90s to low 100s. Broad- spectrum antibiotics with Rocephin and vancomycin were also started. Blood cultures are pending. Outpatient neuro notes were reviewed. - Admit to PCU - Continue broad spectrum IV antibiotics but will change Rocephin to cefepime to include coverage for Pseudomonas. Continue Vancomycin. Await blood cultures - Monitor erythema, swelling of left upper chest - borders marked in the ED - CT of the chest with contrast ordered to help determine depth of infection and rule out underlying abscess or fluid collection - With infection/sepsis, pt at increased risk for breakthrough seizures so will add seizure precautions, prn Ativan, and change divalproex to IV until pt consistently taking oral intake. Continue other home medications. - Continue IVF at 80 cc/hr for now - Pureed regular diet as tolerated - consider nutrition eval, uses Boost 3- 4x/day at home (2) Cellulitis: (3) Status post VNS (vagus nerve stimulator) placement: (4) Seizures: (5) Quadriplegic cerebral palsy: Plan Pt seen and evaluated with supervising physician, Dr. Patel. Plan of care discussed and as outlined above. Code Status: Full code DVT Prophylaxis: SubQ heparin for now Dania Ley PA-C History of Present Illness Chief Complaint: "black liquid from his nose" this morning Primary Care Provider: Jen Verdugo, DO This is a 32 y/o male with a history of quadriplegic cerebral palsy, intellectual disability, seizure d/o s/p vagus nerve stimulator, and chronic constipation who presented to the ED today after he had some black liquid drain from his right nose this morning. History is obtained from his mother since pt is non-verbal. Per his mother, pt was in his usual state of health yesterday - saw neuro yesterday for routine f/u and his VNS numbers were adjusted. Of note, pt had that battery for the VNS changed last month by Dr. Obrien so this change in settings was to return to what they were prior to the procedure. Today, he was on his side when his mother noticed black liquid that came from his right nostril. He was also noted to have a fever of 100.4F and was less responsive to stimuli than usual so she brought him to the ED for evaluation. In the ED, the area overlying the VNS was noted to be swollen, erythematous, and warm so surgery was consulted to evaluate the patient. They recommended admission for IV antibiotics, close monitoring, and potential procedure depending on how patient responds to treatment. Allergies Allergy/AdvReac Type Severity Reaction Status Date / Time fentanyl AdvReac Intermediate Difficulty Verified 01/25/23 09:36 to awaken Home Medications Medication Instructions Recorded Confirmed Type glycopyrrolate 1 mg tablet 1 mg PO BID PRN Secretions #60 tabs 01/08/19 01/26/23 History divalproex 125 mg capsule,delayed 250 - 500 mg PO UD 11/07/22 01/26/23 History release sprinkle nutritional supplements 0.09 1 ea PO QID 11/07/22 01/26/23 History gram-0.5 kcal/mL oral liquid (Boost Max) polyethylene glycol 3350 17 4.25 g PO UD PRN Constipation 11/07/22 01/26/23 History gram/dose oral powder (Miralax) rufinamide 40 mg/mL oral 35 mg PO QAM 11/07/22 01/26/23 History suspension (Banzel) sennosides 8.8 mg/5 mL oral syrup 8.8 mg PO BID PRN Constipation 11/07/22 01/26/23 History clobazam 2.5 mg/mL oral suspension 2.5 mg PO UD #120 mL 01/25/23 01/26/23 Rx rufinamide 40 mg/mL oral 30 mg PO QPM 01/26/23 01/26/23 History suspension (Banzel) Past Med/Surg History Medical History Adopted Back problem Chronic constipation MR (mental retardation), severe Osteoporosis Quadriplegic cerebral palsy Seizures most recent 12/03/22 Per records- "small seizures" couple times a week (consist of blinking and downward turning of the head); intermittent generalized jerking type seizures less frequent Sialorrhea Surgical History History of orchiectomy Left History of spinal fusion Hx of myringotomy w/tubes, multiple times S/P cholecystectomy Status post placement of VNS (vagus nerve stimulation) device (2016) Battery change, Dr. Obrien Status post VNS (vagus nerve stimulator) placement (2004) Status post VNS (vagus nerve stimulator) placement (12/20/22) Vagus Nerve Stimulator Generator Replacement(Left) - Patel Obrien MD, FACS Family History Other Family history unknown Social History Smoking Status: Never smoker Second Hand Exposure: No; Do You Dip or Chew Tobacco: No; Hx Alcohol Use: No Hx Substance Use: No Preferred Language: Faroese Communication Ability: Impaired Communication Ability Comment: pt is nonverbal Industrial Servicer Required: No Beliefs That Will Affect Care: None marital status: Single Current Living Situation: Parent Current Living Situation Comment: adopted current occupational status: disabled How many Children do You have: 0 Other Information That Helps Us Care for You: No Feels Safe at Home: Yes Diet: regular Diet Comment: Pureed Assistive Devices: Wheelchair Review of Systems Review of Systems: Unobtainable due to cognitive status Physical Exam Constitutional: + thin and + frail appearing drowsy but arousable non-verbal Eyes: + anicteric sclerae Respiratory: no respiratory distress and no labored breathing Auscultation: lungs clear to auscultation bilaterally Cardiovascular: Rate/Rhythm: regular rhythm and + tachycardic Vessels: dorsalis pedis pulses present Extremities: no pedal edema Gastrointestinal (Abdomen): Inspection/Auscultation: normal bowel sounds Percussion/Palpation: abdomen soft Musculoskeletal: contracted extremities Skin: left upper chest wall with erythema, warmth, and swelling over the VNS - margins of erythema have been marked by the ED Neurologic: quadriplegia - limited neuro exam Results & Data Results & Data Vital Signs (Past 12 Hours) Vital Signs Temp Pulse Pulse Resp BP BP Pulse Ox 01/26/23 15:06 102 H 16 92/60 L 98 01/26/23 13:01 85/55 L 01/26/23 13:01 114 H 29 H 95 01/26/23 13:00 112 H 22 97 01/26/23 12:30 112 H 15 92 01/26/23 12:00 115 H 21 100 01/26/23 11:30 117 H 24 99 01/26/23 11:00 105 H 30 H 01/26/23 11:00 89/72 L 01/26/23 10:55 99/64 L 01/26/23 10:55 107 H 25 H 01/26/23 10:42 115 H 22 01/26/23 12:04 112 H 01/26/23 10:50 96 01/26/23 10:04 36.7 C 117 H 22 87/58 L 95 O2 Del Method 01/26/23 15:06 Room Air 01/26/23 13:01 01/26/23 13:01 01/26/23 13:00 01/26/23 12:30 01/26/23 12:00 01/26/23 11:30 01/26/23 11:00 01/26/23 11:00 01/26/23 10:55 01/26/23 10:55 01/26/23 10:42 01/26/23 12:04 01/26/23 10:50 Room Air 01/26/23 10:04 Room Air Laboratory Results Laboratory Results - last 24 hr 01/26/23 01/26/23 01/26/23 10:49 10:49 10:49 WBC 10.74 RBC 4.96 Hgb 16.0 Hct 47.7 MCV 96.2 MCH 32.3 MCHC 33.5 RDW Std Deviation 45.1 RDW Coeff of Leo 12.9 Plt Count 121 L MPV 12.5 H Immature Gran % (Auto) 0.5 Neut % (Auto) 82.2 Lymph % (Auto) 9.2 [place] % (Auto) 7.4 Eos % (Auto) 0.3 Baso % (Auto) 0.4 Neut # (Auto) 8.83 H Lymph # (Auto) 0.99 L [place] # (Auto) 0.80 H Eos # (Auto) 0.03 Baso # (Auto) 0.04 Immature Gran # (Auto) 0.05 Sodium 142 Potassium 4.0 Chloride 104 Carbon Dioxide 31 Anion Gap 7 BUN 18 Creatinine 0.72 Est Cr Clr Drug Dosing Not Reportable Est GFR ( Amer) 145.1 Est GFR (Non-Af Amer) 125.2 BUN/Creatinine Ratio 25.0 H Glucose 100 H Lactate Calcium 9.7 Total Bilirubin 0.5 AST 24 ALT 26 Alkaline Phosphatase 108 H Total Protein 6.9 Albumin 4.5 Globulin 2.4 L Albumin/Globulin Ratio 1.9 Lipase 12 Urine Color Urine Appearance Urine pH Ur Specific [place] Urine Protein Urine Glucose (UA) Urine Ketones Urine Blood Urine Nitrite Urine Bilirubin Urine Urobilinogen Ur Leukocyte Esterase Valproic Acid 91 Adenovirus (PCR) B. pertussis DNA (PCR) B.parapertussis DNA PCR C. pneumoniae DNA (PCR) Coronavirus OC43 (PCR) Coronavirus HKU1 (PCR) Coronavirus 229E (PCR) SARS-CoV-2 (PCR) Coronavirus NL63 (PCR) Human Metapneumovir PCR Influenza Type A (PCR) Influenza Type B (PCR) M. pneumoniae (PCR) Parainfluenza 1 (PCR) Parainfluenza 2 (PCR) Parainfluenza 3 (PCR) Parainfluenza 4 (PCR) RSV (PCR) Entero/Rhino (PCR) 01/26/23 01/26/23 01/26/23 10:58 11:00 12:23 WBC RBC Hgb Hct MCV MCH MCHC RDW Std Deviation RDW Coeff of Leo Plt Count MPV Immature Gran % (Auto) Neut % (Auto) Lymph % (Auto) [place] % (Auto) Eos % (Auto) Baso % (Auto) Neut # (Auto) Lymph # (Auto) [place] # (Auto) Eos # (Auto) Baso # (Auto) Immature Gran # (Auto) Sodium Potassium Chloride Carbon Dioxide Anion Gap BUN Creatinine Est Cr Clr Drug Dosing Est GFR ( Amer) Est GFR (Non-Af Amer) BUN/Creatinine Ratio Glucose Lactate 1.3 Calcium Total Bilirubin AST ALT Alkaline Phosphatase Total Protein Albumin Globulin Albumin/Globulin Ratio Lipase Urine Color Yellow Urine Appearance Clear Urine pH 7.0 Ur Specific [place] 1.022 Urine Protein Negative Urine Glucose (UA) Negative Urine Ketones Negative Urine Blood Negative Urine Nitrite Negative Urine Bilirubin Negative Urine Urobilinogen Negative Ur Leukocyte Esterase Negative Valproic Acid Adenovirus (PCR) Not Detected B. pertussis DNA (PCR) Not Detected B.parapertussis DNA PCR Not Detected C. pneumoniae DNA (PCR) Not Detected Coronavirus OC43 (PCR) Not Detected Coronavirus HKU1 (PCR) Not Detected Coronavirus 229E (PCR) Not Detected SARS-CoV-2 (PCR) Not Detected Coronavirus NL63 (PCR) Not Detected Human Metapneumovir PCR Not Detected Influenza Type A (PCR) Not Detected Influenza Type B (PCR) Not Detected M. pneumoniae (PCR) Not Detected Parainfluenza 1 (PCR) Not Detected Parainfluenza 2 (PCR) Not Detected Parainfluenza 3 (PCR) Not Detected Parainfluenza 4 (PCR) Not Detected RSV (PCR) Not Detected Entero/Rhino (PCR) Not Detected Diagnostic Findings Chest X-Ray 01/26/23 10:15 XR chest 1V portable CLINICAL HISTORY: Fever. COMPARISON STUDY: Chest radiograph November 07, 2022. FINDINGS: Stimulator device is noted as well as partially imaged scoliosis hardware. Gaseous distention of the stomach is noted. There is no pneumothorax or pleural effusion. Exam is compromised given difficulty positioning. No consolidation is identified. There is subtle interstitial thickening. Cardiomediastinal silhouette is stable. IMPRESSION: 1. No consolidation to suggest pneumonia. 2. Subtle interstitial thickening. This likely technical. An infectious process could appear similar but is considered less likely. ACT 112: Negative or not required by law. Electronically signed by: Shahriar Fuentes M.D. 01/26/2023 10:41 AM Medications Administered Vancomycin HCl 1,000 mg/ (Sodium Chloride) 520 mls @ 200 mls/hr IV NOW ONE Stop: 01/26/23 16:22 Last Admin: 01/26/23 14:43 Dose: 200 mls/hr Documented By: AM Cefepime HCl 1,000 mg/ Syringe 10 mls @ 5 mls/min IV Q8H [facility]; Protocol Stop: 02/02/23 14:59 Last Admin: 01/26/23 15:15 Dose: 5 mls/min Documented By: BRYCE Discontinued Medications Sodium Chloride (Nss) 1,000 mls @ 999 mls/hr IV .[id number] ONE Stop: 01/26/23 11:13 Last Infusion: 01/26/23 12:57 Dose: 0 mls/hr Documented By: Admin: 01/26/23 10:50 Dose: 999 mls/hr Documented By: AM Ceftriaxone Sodium (Rocephin) 2,000 mg in 70 mls @ 140 mls/hr IV NOW STA Stop: 01/26/23 12:22 Last Infusion: 01/26/23 14:59 Dose: 0 mls/hr Documented By: Admin: 01/26/23 12:58 Dose: 140 mls/hr Documented By: AM Sodium Chloride (Nss) 500 mls @ 999 mls/hr IV .Q31M ONE Stop: 01/26/23 14:17 Last Admin: 01/26/23 15:22 Dose: 999 mls/hr Documented By: BRYCE Supervising Physician Co-Signing Physician Notes Patient seen and examined independently. Discussed with above provider. 32-year-old male with history of quadriplegic cerebral palsy, seizure disorder with vagus nerve stimulator placed in 2004; recent battery change in December 20, 2022. He presents with decreased responsiveness, fever and erythema, warmth and swelling over VNS battery site. CT chest with contrast shows abscess. Cover with daptomycin and cefepime for cellulitis/abscess Obtain blood culture IV fluids, pain medication Await surgery's plan regarding I&D.
[2023-01-26] MEDS ORDERED: LORazepam 2 MG/1 ML VIAL IV PRN (16:10)
[2023-01-26] MEDS ORDERED: OPTIRAY 320 100ml IV ONE (16:27)
--- NOTE | 2023-01-26 16:42 | CT Scan Report ---
CT OF THE CHEST WITH IV CONTRAST CLINICAL HISTORY: VNS pocket infection - r/o abscess COMPARISON STUDY: Chest radiograph November 07, 2022 and January 26, 2023. TECHNIQUE: Following IV administration of 90 mL of Optiray, helical axial images of the chest were o btained. Sagittal and coronal reconstructions were viewed as well as maximal intensity projections o n an independent 3-D workstation. Automated exposure control was utilized for the study. A dose low ering technique was utilized adhering to the principles of ALARA. CT DOSE: 293.09 mGy.cm FINDINGS: A vagus nerve stimulator is noted. There is a rim-enhancing fluid collection along the inf erior aspect of the battery pack which measures 3.6 x 1.4 cm. There is moderate adjacent inflammation which involves the left upper chest and left lower neck. Inflammation extends along the lead for the stimulator. Inflammation adjacent to the left pectoralis muscles is noted as well as the left sterno cleidomastoid. Inflammation adjacent to the left sternocleidomastoid muscle. No bony destruction. No additional fluid collections are present. There is no soft tissue gas. Scoliosis hardware is incident ally noted. Cardiac size is normal. There is no pericardial effusion. No pneumothorax or pleural effu eleonora is present. Scattered alveolar opacities within the right lung are present. Left lung is clear. There is no cavitation. There is no thoracic lymphadenopathy. No fractures within the bony thorax are noted. The gallbladder is surgically absent. Visualized portions of the upper abdomen are unremarkab le. IMPRESSION: 1. Vague nerve stimulator in place. Rim-enhancing fluid collection surrounding the inferior aspect of the battery pack suggestive of an abscess. Moderate associated inflammation of the left upper chest wall and lower neck extends along the stimulator lead. This suggests associated cellulitis. Associate d infectious myositis involving the inferior left sternocleidomastoid and pectoralis major muscles wo uld be difficult to exclude. Inflammation adjacent to the left sternoclavicular joint without clear e vidence for involvement of this joint. 2. Right lung alveolar opacities suggestive of an infectious process such as bronchopneumonia. ACT 112: Negative or not required by law. Electronically signed by: Shahriar Fuentes M.D. 01/26/2023 4:40 PM
[2023-01-26] MEDS ORDERED: [UNRECOGNIZED DRUG - OTHER] PO SCH (17:33)
[2023-01-26] MEDS ORDERED: SENNOSIDES 8.8 MG/5 ML UDC PO PRN (17:33)
[2023-01-26] MEDS ORDERED: POLYETHYLENE (MIRALAX) 17 GM PACK PO PRN (17:33)
[2023-01-26] MEDS ORDERED: NUTRITIONAL SUPPLEMENTS PO SCH (17:33)
[2023-01-26] MEDS ORDERED: GLYCOPYRROLATE 1 MG TAB PO PRN (17:33)
[2023-01-26] MEDS: SODIUM CHLORIDE 0.9% 1,000 ML IV SCH (18:04)
[2023-01-26] MEDS ORDERED: RUFINAMIDE 40 MG/ML PO SCH (21:00)
[2023-01-26] MEDS: VALPROATE SOD 500 MG in DEXTROSE 5% 50 ML IV SCH (21:23)
[2023-01-26] MEDS: HEPARIN SOD 5,000 UNIT/0.5 ML VIAL SQ SCH (21:23)
[2023-01-26] MEDS: DAPTOmycin 275 MG in SYRINGE 0 ML IV SCH (21:23)
[2023-01-26] MEDS: ACETAMINOPHEN 1,000 MG/100 ML VIAL IV PRN (23:44)
[2023-01-27] MEDS: CEFEPIME 1,000 MG in SYRINGE 0 ML IV SCH ×3 (05:55→22:20)
[2023-01-27 06:37] LABS: A calco-baum cmplx NotReported Not Detected (NotDetected); Bact fragilis Not Reported Not Detected (NotDetected); C auris Not Reported Not Detected (NotDetected); Calbicans Not Reported Not Detected (NotDetected); Candida glabrata Not Reported Not Detected (NotDetected); Candida krusei Not Reported Not Detected (NotDetected); Cneoformans/gatti Not Reported Not Detected (NotDetected); Cparapsilosis Not Reported Not Detected (NotDetected); E cloacae compx Not Reported Not Detected (NotDetected); Efaecalis Not Reported Not Detected (NotDetected); Efaecium Not Reported Not Detected (NotDetected); Enterobacterales Not Reported Not Detected (NotDetected); Escherichia coli Not Reported Not Detected (NotDetected); H influenzae Not Reported Not Detected (NotDetected); K aerogenes Not Reported Not Detected (NotDetected); Koxytoca Not Reported Not Detected (NotDetected); Kpneumoniae grp Not Reported Not Detected (NotDetected); Lmonocyt Not Reported Not Detected (NotDetected); N meningitidis Not Reported Not Detected (NotDetected); P aeruginosa Not Reported Not Detected (NotDetected); Proteus spp Not Reported Not Detected (NotDetected); Salmonella spp Not Reported Not Detected (NotDetected); Smarcescens Not Reported Not Detected (NotDetected); Staph lugdunensis Not Reported Not Detected (NotDetected); Staph spp. Not Reported DETECTED (NotDetected); Staphaureus Not Reported Not Detected (NotDetected); Staphepi Not Reported DETECTED (NotDetected); Staphylococcus spp. DETECTED (NotDetected); Stenmaltophilia Not Reported Not Detected (NotDetected); Strep agal(GrpB) Not Reported Not Detected (NotDetected); Strep pneum Not Reported Not Detected (NotDetected); Strep pyog (GrpA) Not Reported Not Detected (NotDetected); Strep spp Not Reported Not Detected (NotDetected); mecAC Resistant Gene Not Detected (NotDetected)
[2023-01-27 06:43] LABS: Staphylococcus epidermidis DETECTED (NotDetected)
[2023-01-27] MEDS: SODIUM CHLORIDE 0.9% 1,000 ML IV SCH ×2 (06:43→22:50)
[2023-01-27 07:36] LABS: Basophils # (auto) 0.05 K/uL (0.00-0.20); Basophils % (auto) 0.4 %; Eosinophils # (auto) 0.08 K/uL (0.00-0.50); Eosinophils % (auto) 0.7 %; Hematocrit (blood only) 38.7 % (42.0-52.0); Hemoglobin 13.4 g/dl (14.0-18.0); Immature Granulocytes # (auto) 0.03 K/uL (0.01-0.20); Immature Granulocytes % (auto) 0.3 %; Lymphocytes # (auto) 2.52 K/uL (1.20-3.40); Lymphocytes % (auto) 21.1 %; Mean Corpuscular Hemoglobin 32.7 pg (25.0-34.0); Mean Corpuscular Hgb Conc 34.6 g/dL (32.0-36.0); Mean Corpuscular Volume 94.4 fL (80.0-100.0); Mean Platelet Volume 12.8 fL (9.4-12.4); Monocytes # (auto) 0.96 K/uL (0.11-0.59); Neutrophils # (auto) 8.31 K/uL (1.40-6.50); Neutrophils % (auto) 69.5 %; Platelet Count 87 K/uL (130-400); RDW Coefficient of Variation 12.8 % (11.5-14.5); RDW Standard Deviation 44.1 fL (36.4-46.3); White Blood Count 11.95 K/ul (4.8-10.8)
[2023-01-27] MEDS: VALPROATE SOD 250 MG in DEXTROSE 5% 50 ML IV SCH (07:55)
[2023-01-27] MEDS: HEPARIN SOD 5,000 UNIT/0.5 ML VIAL SQ SCH ×2 (07:56→22:23)
[2023-01-27 07:58] LABS: Alanine Aminotransferase 17 U/L (7-52); Albumin Globulin Ratio 1.8 (0.9-2); Albumin Level 3.4 gm/dl (3.4-5.0); Alkaline Phosphatase 74 U/L (34-104); Anion Gap 6 (3-11); Aspartate Aminotransferase 18 U/L (13-39); BUN Creatinine Ratio 21.3 (10-20); Bilirubin,Total 0.6 mg/dl (0.2-1.0); Blood Urea Nitrogen 10 mg/dl (6-23); Calcium 8.5 mg/dl (8.6-10.3); Carbon Dioxide 26 mmol/L (21-32); Chloride 110 mmol/L (98-107); Creatinine Clr Calc Pharmacy 153.1 ml/min; Est GFR (African American) > 150.0 ml/min; Est GFR (Non-African American) 149.2 ml/min; Globulin 1.9 gm/dl (2.5-4.0); Glucose 83 mg/dl (70-99(Fasting)); Potassium 3.2 mmol/L (3.5-5.1); Sodium 142 mmol/L (136-145); Total Protein 5.3 gm/dl (6.0-8.3)
[2023-01-27] MEDS ORDERED: SODIUM CHLORIDE 0.9% 1,000 ML IV ONE (08:24)
[2023-01-27] MEDS ORDERED: POTASSIUM CHLORIDE CRTAB 20 MEQ TABCR PO ONE (08:25)
[2023-01-27] MEDS ORDERED: POTASSIUM CHLORIDE 20 MEQ/15 ML UDC PO ONE (10:55)
--- NOTE | 2023-01-27 10:56 | Hospitalist Progress Note ---
Date of Service January 27, 2023 Assessment & Plan (1) Sepsis: (2) Gram-positive cocci bacteremia: (3) Abscess: (4) Cellulitis: (5) Bronchopneumonia: (6) Status post VNS (vagus nerve stimulator) placement: (7) Seizures: (8) Quadriplegic cerebral palsy: Plan This is a 32 y/o male with a history of quadriplegic cerebral palsy, intellectual disability, seizure d/o s/p vagus nerve stimulator, and chronic constipation who presented to the ED yesterday after he had some black liquid drain from his right nose this morning as well as with a fever of 100.4 and decreased responsiveness. Work-up in the ED revealed tachycardia, hypotension, and tachypnea as well as evidence of erythema, warmth and swelling over his VNS, of which the battery was changed last month. Pt was seen by surgery due to concern for infection of the device pocket as the source of the pt's sepsis. Surgery recommended admission for IV antibiotics and continued monitoring to help determine if procedural intervention is indicated so medicine was consult for admission. Pt did meet sepsis criteria in the ED so he was given 1500 cc fluid bolus with improvement in BP to baseline systolic of 90s to low 100s. Broad-spectrum antibiotics with Rocephin and vancomycin were also started. Blood cultures are pending. Outpatient neuro notes were reviewed. CT chest 1. Vague nerve stimulator in place. Rim-enhancing fluid collection surrounding the inferior aspect of the battery pack suggestive of an abscess. Moderate associated inflammation of the left upper chest wall and lower neck extends along the stimulator lead. This suggests associated cellulitis. Associated infectious myositis involving the inferior left sternocleidomastoid and pectoralis major muscles would be difficult to exclude. Inflammation adjacent to the left sternoclavicular joint without clear evidence for involvement of this joint. 2. Right lung alveolar opacities suggestive of an infectious process such as bronchopneumonia. Sepsis due to gram-positive bacteremia from abscess/cellulitis of VNS pocket and bronchopneumonia -Patient had battery change of VNS on 12/20/[address] Obrien and now has infection of the pocket site -Labs and CT reviewed as above - Blood cultures shows gram-positive cocci. Follow-up repeat blood cultures culture clearance of bacteremia, consider echo for vegetations and ID eval once more info available. - Continue empiric Dapto and cefepime pending final culture results, continue IVF - Monitor erythema, swelling of left upper chest - borders marked in the ED - CT of the chest with contrast ordered to help determine depth of infection and rule out underlying abscess or fluid collection - Pureed regular diet as tolerated - consider nutrition eval, uses Boost 3- 4x/day at home Hypotension-due to above. Will give 1 L fluid bolus. Continue IVF and continue empiric antibiotics. Consider midodrine if still low BP. Hypokalemia-repleted, recheck in a.m. Seizure disorder-continue IV valproic acid, change to p.o. when able to take p.o. consistently Quadriplegia Code Status: Full code DVT Prophylaxis: Subcu heparin Disposition: Pending medical stability-currently septic with bacteremia and abscess Updated mother at bedside Admission and Anticipated Discharge Date Admission Date: January 26, 2023 Subjective Patient was seen and examined at bedside in presence of mother. Patient is nonverbal and does not respond, however her mother states he looks comfortable and his cellulitis/abscess site has improved from yesterday. No fever. Review of Systems Review of Systems: Unobtainable due to cognitive status Physical Exam Physical Exam: General: Awake, alert, not in distress, on room air HEENT: JOSE C, MMM Chest: Left upper chest wall with erythema, warmth and swelling over VNS. Clear breath sounds bilaterally, no wheezes or crackles CVS: Tachycardic, normal heart sounds, no murmur Abdomen: Soft, non tender, not distended, normal bowel sounds Neuro: Awake, alert, nonverbal. Quadriplegic Extremities: Contracted extremities Results & Data Results & Data Vital Signs (Past 12 Hours) Vital Signs Temp Pulse Pulse Resp BP Pulse Ox O2 Del Method 01/27/23 07:57 37.4 C 102 H 16 85/58 L 97 Room Air 01/27/23 07:36 36.6 C 99 H 18 95/66 L 95 Room Air 01/27/23 03:20 36.4 C L 91 H 18 103/60 92 Room Air 01/27/23 00:27 37.8 C H 01/26/23 23:06 38.1 C H 107 H 18 94/66 L 96 Room Air Laboratory Results Short CBC 01/26/23 01/27/23 Range/Units 10:49 06:58 WBC 10.74 11.95 H (4.8-10.8) K/ul Hgb 16.0 13.4 L (14.0-18.0) g/dl Hct 47.7 38.7 L (42.0-52.0) % Plt Count 121 L 87 L (130-400) K/uL BMP 01/26/23 01/27/23 10:49 06:58 Sodium 142 142 Potassium 4.0 3.2 L Chloride 104 110 H Carbon Dioxide 31 26 BUN 18 10 Creatinine 0.72 0.47 L Glucose 100 H 83 Calcium 9.7 8.5 L Liver Function 01/26/23 01/27/23 Range/Units 10:49 06:58 Total Bilirubin 0.5 0.6 (0.2-1.0) mg/dl AST 24 18 (13-39) U/L ALT 26 17 (7-52) U/L Alkaline Phosphatase 108 H 74 (34-104) U/L Albumin 4.5 3.4 (3.4-5.0) gm/dl Urine 01/26/23 Range/Units 11:00 Urine Color Yellow Urine Appearance Clear (Clear) Urine pH 7.0 (4.5-7.5) Ur Specific Home 1.022 (1.000-1.030) Urine Protein Negative (Negative) Urine Glucose (UA) Negative (Negative) Medications Administered Current Inpatient Medications Glycopyrrolate (Glycopyrrolate 1 Mg Tab) 1 mg PO BID PRN PRN Reason: Secretions Stop: 02/25/23 17:32 Heparin Sodium (Porcine) (Heparin Sod 5,000 Unit/0.5 Ml Vial) 5,000 units SQ Q12 [facility] Stop: 02/25/23 20:59 Last Admin: 01/27/23 07:56 Dose: 5,000 units Cefepime HCl 1,000 mg/ Syringe 10 mls @ 5 mls/min IV Q8H [facility]; Protocol Stop: 02/02/23 14:59 Last Admin: 01/27/23 05:55 Dose: 5 mls/min Sodium Chloride (Nss) 1,000 mls @ 80 mls/hr IV .[id number] [facility] Stop: 02/25/23 17:32 Last Admin: 01/27/23 06:43 Dose: 80 mls/hr Valproic Acid 500 mg/ Dextrose 55 mls @ 55 mls/hr IV HS [facility] Stop: 02/25/23 20:59 Last Infusion: 01/26/23 22:33 Dose: Infused Valproic Acid 250 mg/ Dextrose 52.5 mls @ 55 mls/hr IV QAM [facility] Stop: 02/26/23 08:59 Last Infusion: 01/27/23 09:10 Dose: Infused Daptomycin 275 mg/ Syringe 5.5 mls @ 2.75 mls/min IV Q24H [facility]; Protocol Stop: 02/02/23 21:59 Last Admin: 01/26/23 21:23 Dose: 2.75 mls/min Acetaminophen (Ofirmev) 1,000 mg in 100 mls @ 400 mls/hr IV Q8H PRN PRN Reason: Pain or Fever Stop: 01/29/23 23:11 Last Infusion: 01/27/23 00:04 Dose: Infused Lorazepam (Lorazepam 2 Mg/1 Ml Vial) 2 mg IV Q4H PRN PRN Reason: seizure Stop: 02/25/23 16:09 Miscellaneous (Clobazam: Order Awaiting Action) 1 each N/A QS [facility] Stop: 02/26/23 07:59 Last Admin: 01/27/23 09:08 Dose: Not Given Miscellaneous (Banzel: Order Awaiting Action) 1 each N/A QS [facility] Stop: 02/26/23 07:59 Last Admin: 01/27/23 09:08 Dose: Not Given Polyethylene Glycol (Polyethylene (Miralax) 17 Gm Pack) 4.25 gm PO DAILY PRN PRN Reason: Constipation Stop: 02/25/23 17:32 Sennosides (Sennosides 8.8 Mg/5 Ml Udc) 8.8 mg PO BID PRN PRN Reason: Constipation Stop: 02/25/23 17:32
[2023-01-27] MEDS ORDERED: POTASSIUM CHLORIDE / WTR 10 MEQ/100 ML PLCT IV ONE (12:19)
--- NOTE | 2023-01-27 13:03 | Surgery Progress Note ---
Date of Service January 27, 2023 Assessment & Plan (1) Status post VNS (vagus nerve stimulator) placement: Plan He has spreading erythema from the stimulator pocket, status post battery change [address] Obrien. Continue IV antibiotics. He may require removal of the stimulator, as he has positive blood cultures. We will continue to follow. We will discuss this with Dr. Obrien on Saturday. Admission and Anticipated Discharge Date Admission Date: January 26, 2023 Subjective Does not appear to be in discomfort. No fevers. No significant changes. Physical Exam Physical Exam: AFVSS NAD, A&O x3 Left chest wall stimulator pocket with erythema, no induration/fluctuance Less erythema than previous Results & Data Vital Signs (Past 12 Hours) Vital Signs Temp Pulse Pulse Pulse Resp BP Pulse Ox 01/27/23 11:38 36.9 C 113 H 16 114/76 95 01/27/23 08:00 100 H 01/27/23 07:57 37.4 C 102 H 16 85/58 L 97 01/27/23 07:36 36.6 C 99 H 18 95/66 L 95 01/27/23 03:20 36.4 C L 91 H 18 103/60 92 O2 Del Method 01/27/23 11:38 Room Air 01/27/23 08:00 01/27/23 07:57 Room Air 01/27/23 07:36 Room Air 01/27/23 03:20 Room Air
[2023-01-27] MEDS: CLOBAZAM PO SCH ×2 (14:35→22:25)
[2023-01-27] MEDS: PATIENT'S OWN CONTROLLED MED 1 PO SCH ×2 (14:35→22:25)
[2023-01-27] MEDS: ACETAMINOPHEN 1,000 MG/100 ML VIAL IV PRN ×2 (15:50→22:20)
[2023-01-27] MEDS: DAPTOmycin 275 MG in SYRINGE 0 ML IV SCH (22:20)
[2023-01-27] MEDS: BANZEL PO SCH (22:22)
[2023-01-27] MEDS: VALPROATE SOD 500 MG in DEXTROSE 5% 50 ML IV SCH (22:26)
[2023-01-28 06:54] LABS: Basophils # (auto) 0.04 K/uL (0.00-0.20); Basophils % (auto) 0.4 %; Eosinophils # (auto) 0.03 K/uL (0.00-0.50); Eosinophils % (auto) 0.3 %; Hematocrit (blood only) 37.5 % (42.0-52.0); Hemoglobin 13.1 g/dl (14.0-18.0); Immature Granulocytes # (auto) 0.05 K/uL (0.01-0.20); Immature Granulocytes % (auto) 0.5 %; Lymphocytes # (auto) 1.87 K/uL (1.20-3.40); Lymphocytes % (auto) 19.6 %; Mean Corpuscular Hemoglobin 32.3 pg (25.0-34.0); Mean Corpuscular Hgb Conc 34.9 g/dL (32.0-36.0); Mean Corpuscular Volume 92.6 fL (80.0-100.0); Mean Platelet Volume 12.7 fL (9.4-12.4); Monocytes # (auto) 0.73 K/uL (0.11-0.59); Monocytes % (auto) 7.6 %; Neutrophils # (auto) 6.84 K/uL (1.40-6.50); Neutrophils % (auto) 71.6 %; Platelet Count 92 K/uL (130-400); RDW Coefficient of Variation 12.6 % (11.5-14.5); RDW Standard Deviation 42.2 fL (36.4-46.3); Red Blood Count 4.05 M/uL (4.70-6.10); White Blood Count 9.56 K/ul (4.8-10.8)
[2023-01-28 07:20] LABS: Alanine Aminotransferase 18 U/L (7-52); Albumin Globulin Ratio 1.6 (0.9-2); Albumin Level 3.4 gm/dl (3.4-5.0); Alkaline Phosphatase 70 U/L (34-104); Anion Gap 7 (3-11); Aspartate Aminotransferase 21 U/L (13-39); BUN Creatinine Ratio 15.8 (10-20); Bilirubin,Total 0.5 mg/dl (0.2-1.0); Blood Urea Nitrogen 6 mg/dl (6-23); Calcium 8.6 mg/dl (8.6-10.3); Carbon Dioxide 25 mmol/L (21-32); Chloride 108 mmol/L (98-107); Creatinine Clr Calc Pharmacy 190.2 ml/min; Est GFR (African American) > 150.0 ml/min; Est GFR (Non-African American) > 150.0 ml/min; Globulin 2.1 gm/dl (2.5-4.0); Glucose 79 mg/dl (70-99(Fasting)); Magnesium 1.7 mg/dl (1.7-2.4); Phosphorus 2.2 mg/dl (2.5-4.9); Sodium 140 mmol/L (136-145); Total Protein 5.5 gm/dl (6.0-8.3)
[2023-01-28] MEDS: VALPROATE SOD 250 MG in DEXTROSE 5% 50 ML IV SCH (08:07)
[2023-01-28] MEDS: CEFEPIME 1,000 MG in SYRINGE 0 ML IV SCH ×3 (08:07→22:27)
--- NOTE | 2023-01-28 08:10 | Hospitalist Progress Note ---
Date of Service January 28, 2023 Assessment & Plan (1) Sepsis: (2) Gram-positive cocci bacteremia: (3) Abscess: (4) Cellulitis: (5) Bronchopneumonia: (6) Status post VNS (vagus nerve stimulator) placement: (7) Seizures: (8) Quadriplegic cerebral palsy: Plan 32yoM with a history of quadriplegic cerebral palsy, intellectual disability, seizures, s/p vagus nerve stimulator, and chronic constipation admitted with sepsis in the setting of an infected vagus nerve stimulator and bronchopneumonia. Sepsis with gram-positive bacteremia in the setting of abscess/cellulitis of VNS pocket and bronchopneumonia Presented with fever, lethargy and black liquid drainage from the right nostril. In the ED, tachycardic, hypotensive, and tachypneic with evidence of erythema, warmth and swelling over his vagal nerve stimulator Patient had battery change of Vagal nerve stimulator on 12/20/[address] Obrien Given 1500 cc fluid bolus with improvement in BP to baseline CT chest concerning for cellulitis and abscess near the recently replaced vagus nerve stimulator and bronchopneumonia. MRSA nares negative Blood cultures grew gram-positive cocci in one bottle, repeat blood cultures pending. ID consult placed, consider echo for vegetations Continue empiric Dapto and cefepime pending final culture results, continue IVF Monitor erythema, swelling of left upper chest - borders marked in the ED General Surgery consulted, appreciate recs -planning battery removal in the OR with Dr. Obrien on 01/29 Hypokalemia Pt refusing PO supplements Continue with IV repletion as needed Monitor with AM labs Hypotension Currently resolved Continue to monitor Seizure disorder Continue IV valproic acid Change to p.o. when able to take p.o. consistently Quadriplegia Cerebral palsy Stable Diet: Pureed regular diet as tolerated - consider nutrition eval, uses Boost 3- 4x/day at home Code Status: Full code DVT Prophylaxis: Subcu heparin Disposition: Pending medical stability-will go home after d/c Admission and Anticipated Discharge Date Admission Date: January 26, 2023 Subjective Pt seen this AM. Mother is at bedside. She states that he looks better, was more pale before. Pt nonverbal but alert. Review of Systems Review of Systems: Unobtainable due to mental health condition Physical Exam Physical Exam: General: Alert. No acute distress Psych: could not be determined Neuro: nonverbal HEENT: oropharynx open CV: RRR Resp: no increased effort of breathing Abdomen: Soft, nontender, nondistended. Extremities: No edema in lower extremities bilaterally. Results & Data Results & Data Vital Signs (Past 12 Hours) Vital Signs Temp Pulse Resp BP Pulse Ox O2 Del Method 01/28/23 07:35 36.4 C L 96 H 16 100/62 95 Room Air 01/28/23 03:58 36.8 C 97 H 16 100/68 94 Room Air 01/27/23 23:30 36.4 C 123 H 18 115/74 93 Room Air 01/27/23 22:41 37.8 C H
[2023-01-28] MEDS ORDERED: POTASSIUM PHOS 3 MMOL/1 ML INFUSION IV STA (08:26)
[2023-01-28] MEDS: BANZEL PO SCH ×3 (08:30→21:19)
[2023-01-28] MEDS: CLOBAZAM PO SCH ×2 (08:30→21:19)
[2023-01-28] MEDS: HEPARIN SOD 5,000 UNIT/0.5 ML VIAL SQ SCH ×2 (08:31→21:19)
[2023-01-28] MEDS: PATIENT'S OWN CONTROLLED MED 1 PO SCH ×2 (08:40→21:20)
[2023-01-28] MEDS ORDERED: POTASSIUM PHOSPHATE 15 MMOL in SODIUM CHLORIDE 0.9% 250 ML IV ONE (08:45)
--- NOTE | 2023-01-28 10:54 | Surgery Consultation ---
Date of Consultation January 28, 2023 Assessment & Plan (1) Status post VNS (vagus nerve stimulator) placement: This is a 32y M with a PMH of quadriplegic cerebral palsy, seizures, MR who presents to the [facility] ED on 01/26/23 apparently with complaints of low grade temps and dark nasal discharge. Majority of HPI obtained from chart review as patient is non-verbal and no family in the room upon my examination. In the ER the patient was found to have fevers and concern for redness over the area of his vagal nerve stimulator. The battery was replaced on 12/20/[address] A [address] chest was obtained that revealed a "vagus nerve stimulator in place, with a rim-enhancing fluid collection surrounding the inferior aspect of the battery pack suggestive of an abscess. Moderate associated inflammation of the left upper chest wall and lower neck extends along the stimulator lead. This suggests associated cellulitis. Associated infectious myositis involving the inferior left sternocleidomastoid and pectoralis major muscles would be difficult to exclude." Patient has been intermittently febrile during his admission. Also found to have + blood cx on 01/26 show +coag staph. We have been consulted for recommendations given concern for surgical site infection related to battery placement. Today WBC 9.8. Last temp recorded was 38C yesterday around 4:30pm. Currently vitals are stable and no fevers this AM. On examination the L chest incision is well healed. Overlying the incision in the upper left chest there is an area of surrounding erythema, warmth, fluctuance, and mild tenderness. Given CT scan findings and concern for infection the battery will likely require surgical removal. Pending our schedules and we may be able to perform this tomorrow early evening vs saturday AM. We will make patient NPO at midnight in the event we are able to coordinate removal for tomorrow. For now continue IV abx, f/u on repeat cultures, and we will follow along. Supervising Physician Co-Signing Physician Notes This unfortunate 32-year-old gentleman underwent a generator change on a VNS system approximately a month ago presented with an abscess on the generator site The patient has contractions his left upper extremity is adducted his head always falls towards 1 on top of the anterior chest generator site The pocket area in the left anterior chest with a very significant fluctuance the incision had healed well and the initial generator was placed almost underneath the clavicle therefore the leads just go across the clavicle and entrance generator We will take the patient to surgery today to remove the generator hopefully we can salvage the leads otherwise they may be needed to be removed also but has a potential complication of being scarred and around the vagus nerve and extracting it may cause significant dysphagia We will make those decisions once we explore the area definitely the generator needs to come out likely prolonged course of antibiotics depending on a clinical picture and reimplant new generator plus or minus leads We will discuss with the family History of Present Illness Attending Physician: Lin Amador MD History of Present Illness This is a 32y M with a PMH of quadriplegic cerebral palsy, seizures, MR who presents to the [facility] ED on 01/26/23 apparently with complaints of low grade temps and dark nasal discharge. Majority of HPI obtained from chart review as patient is non-verbal and no family in the room upon my examination. Of note patient was found to have fevers and concern for redness over the area of his vagal nerve stimulator. The batteru was replaced on 12/20/[address] A [address] chest was obtained that revealed a "vagus nerve stimulator in place, with a rim- enhancing fluid collection surrounding the inferior aspect of the battery pack suggestive of an abscess. Moderate associated inflammation of the left upper chest wall and lower neck extends along the stimulator lead. This suggests associated cellulitis. Associated infectious myositis involving the inferior left sternocleidomastoid and pectoralis major muscles would be difficult to exclude." Patient has been intermittently febrile during his admission. Also found to have + blood cx on 01/26 show +coag staph. We have been consulted for recommendations given concern for surgical site infection related to battery placement. Allergies Allergy/AdvReac Type Severity Reaction Status Date / Time fentanyl AdvReac Intermediate Difficulty Verified 01/25/23 09:36 to awaken Home Medications Medication Instructions Recorded Confirmed Type glycopyrrolate 1 mg tablet 1 mg PO BID PRN Secretions #60 tabs 01/08/19 01/26/23 History divalproex 125 mg capsule,delayed 250 - 500 mg PO UD 11/07/22 01/26/23 History release sprinkle nutritional supplements 0.09 1 ea PO QID 11/07/22 01/26/23 History gram-0.5 kcal/mL oral liquid (Boost Max) polyethylene glycol 3350 17 4.25 g PO UD PRN Constipation 11/07/22 01/26/23 History gram/dose oral powder (Miralax) rufinamide 40 mg/mL oral 35 mg PO QAM 11/07/22 01/26/23 History suspension (Banzel) sennosides 8.8 mg/5 mL oral syrup 8.8 mg PO BID PRN Constipation 11/07/22 01/26/23 History clobazam 2.5 mg/mL oral suspension 2.5 mg PO UD #120 mL 01/25/23 01/26/23 Rx rufinamide 40 mg/mL oral 30 mg PO QPM 01/26/23 01/26/23 History suspension (Banzel) Patient History Medical History Adopted Back problem Chronic constipation MR (mental retardation), severe Osteoporosis Quadriplegic cerebral palsy Seizures most recent 12/03/22 Per records- "small seizures" couple times a week (consist of blinking and downward turning of the head); intermittent generalized jerking type seizures less frequent Sialorrhea Surgical History History of orchiectomy Left History of spinal fusion Hx of myringotomy w/tubes, multiple times S/P cholecystectomy Status post placement of VNS (vagus nerve stimulation) device (2016) Battery change, Dr. 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 appears in no distress Chest (Breasts): Additional Comments: L chest incision well healed. there is an area of surrounding erythema, warmth, fluctuance, and swelling over the incision Results & Data Vital Signs (Past 12 Hours) Vital Signs Temp Pulse Resp BP Pulse Ox O2 Del Method 01/28/23 08:00 Room Air 01/28/23 07:35 36.4 C L 96 H 16 100/62 95 Room Air 01/28/23 03:58 36.8 C 97 H 16 100/68 94 Room Air 01/27/23 23:30 36.4 C 123 H 18 115/74 93 Room Air 01/27/23 22:41 37.[address] H Diagnostic Findings CT OF THE CHEST WITH IV CONTRAST CLINICAL HISTORY: VNS pocket infection - r/o abscess COMPARISON STUDY: Chest radiograph November 07, 2022 and January 26, 2023. TECHNIQUE: Following IV administration of 90 mL of Optiray, helical axial images of the chest were obtained. Sagittal and coronal reconstructions were viewed as well as maximal intensity projections on an independent 3-D workstation. Automated exposure control was utilized for the study. A dose lowering technique was utilized adhering to the principles of ALARA CT DOSE: 293.09 mGy.cm FINDINGS: A vagus nerve stimulator is noted. There is a rim-enhancing fluid collection along the inferior aspect of the battery pack which measures 3.6 x 1.4 cm. There is moderate adjacent inflammation which involves the left upper chest and left lower neck. Inflammation extends along the lead for the stimulator. Inflammation adjacent to the left pectoralis muscles is noted as well as the left sternocleidomastoid. Inflammation adjacent to the left sternocleidomastoid muscle. No bony destruction. No additional fluid collections are present. There is no soft tissue gas. Scoliosis hardware is incidentally noted. Cardiac size is normal. There is no pericardial effusion. No pneumothorax or pleural effusion is present. Scattered alveolar opacities within the right lung are present. Left lung is clear. There is no cavitation. There is no thoracic lymphadenopathy. No fractures within the bony thorax are noted. The gallbladder is surgically absent. Visualized portions of the upper abdomen are unremarkable. IMPRESSION: 1. Vague nerve stimulator in place. Rim-enhancing fluid collection surrounding the inferior aspect of the battery pack suggestive of an abscess. Moderate associated inflammation of the left upper chest wall and lower neck extends along the stimulator lead. This suggests associated cellulitis. Associated infectious myositis involving the inferior left sternocleidomastoid and pectoralis major muscles would be difficult to exclude. Inflammation adjacent to the left sternoclavicular joint without clear evidence for involvement of this joint. 2. Right lung alveolar opacities suggestive of an infectious process such as bronchopneumonia. ACT 112: Negative or not required by law. Electronically signed by: Shahriar Fuentes M.D. 01/26/2023 4:40 PM PG Care Time/CCT Total # of Minutes Spent Total Time Spent with Patient: Total time spent is greater than 50% in coordination of care (as documented) at patient's floor/unit and/or counseling patient: Coding Level of Care Code None Diagnoses Status post VNS (vagus nerve stimulator) placement Z96.89
[2023-01-28] MEDS: SODIUM CHLORIDE 0.9% 1,000 ML IV SCH ×2 (11:36→23:21)
[2023-01-28] MEDS: POTASSIUM CHLORIDE / WTR 10 MEQ/100 ML PLCT IV SCH ×4 (12:37→16:24)
--- NOTE | 2023-01-28 15:26 | Infectious Disease Consult ---
Date of Service January 28, 2023 Telehealth Information I performed this visit using a real-time telehealth connection between my location and the patients location ([facility]). After connecting through interactive tele-video, patient was identified by name and date of and/or wristband check.Patient (or authorized healthcare industrial relations representative) was informed that this was a telemedicine visit and it was being conducted confidentially over secure lines. My office door was closed and no o ne else was present in the room with me.Patient (or authorized healthcare industrial relations representative) provided consent to proceed with the visit, expressed an understanding of privacy and security of the telemedicine visit, and gave permission to have a hospital industrial relations representative in the room in order to assist with the visit and to conduct portions of the visit, as needed. I informed the patient (or authorized healthcare industrial relations representative) that I reviewed their record and presented the opportunity for them to ask any questions regarding the visit today. The patient agreed to participate. 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 If the OR cultures grow the same SNA, the bacteremia may be real. It seems reasoable to provide broad spectrum abx for now to r/o nosocomial pathogens as the patient had the generator replacement in November. More than 50% of [id number] visit was spent counseling and coordinating care pertaining to the patient's infection diagnosis, additional work-up, and treatment option(s) as well as potential adverse events of the treatment. History of Present Illness History of Present Illness This 32 y/o male, quadriplegic due to CP, w/ hx of intellectual disability, seizure d/o s/p vagus nerve stimulator (generator replacement on 12/20/22), and chronic constipation, presented to [facility] on 01/26/23 for black liquid drain from R nose w/ fever and decreased responsiveness. He was found to have GPC bacteremia w/ abscess/cellulitis over VNS pocket area. CT showed findings consistent w/ cellulitis and abscess near the recently replaced VNS. Fever was noted on admission. Currently on cefepime and daptomycin iv. Allergies Allergy/AdvReac Type Severity Reaction Status Date / Time fentanyl AdvReac Intermediate Difficulty Verified 01/25/23 09:36 to awaken Home Medications Medication Instructions Recorded Confirmed Type glycopyrrolate 1 mg tablet 1 mg PO BID PRN Secretions #60 tabs 01/08/19 01/26/23 History divalproex 125 mg capsule,delayed 250 - 500 mg PO UD 11/07/22 01/26/23 History release sprinkle nutritional supplements 0.09 1 ea PO QID 11/07/22 01/26/23 History gram-0.5 kcal/mL oral liquid (Boost Max) polyethylene glycol 3350 17 4.25 g PO UD PRN Constipation 11/07/22 01/26/23 History gram/dose oral powder (Miralax) rufinamide 40 mg/mL oral 35 mg PO QAM 11/07/22 01/26/23 History suspension (Banzel) sennosides 8.8 mg/5 mL oral syrup 8.8 mg PO BID PRN Constipation 11/07/22 01/26/23 History clobazam 2.5 mg/mL oral suspension 2.5 mg PO UD #120 mL 01/25/23 01/26/23 Rx rufinamide 40 mg/mL oral 30 mg PO QPM 01/26/23 01/26/23 History suspension (Banzel) Patient History Medical History Adopted Back problem Chronic constipation MR (mental retardation), severe Osteoporosis Quadriplegic cerebral palsy Seizures most recent 12/03/22 Per records- "small seizures" couple times a week (consist of blinking and downward turning of the head); intermittent generalized jerking type seizures less frequent Sialorrhea Surgical History History of orchiectomy Left History of spinal fusion Hx of myringotomy w/tubes, multiple times S/P cholecystectomy Status post placement of VNS (vagus nerve stimulation) device (2016) Battery change, Dr. Obrien Status post VNS (vagus nerve stimulator) placement (2004) Status post VNS (vagus nerve stimulator) placement (12/20/22) Vagus Nerve Stimulator Generator Replacement(Left) - Patel Obrien MD, FACS Family History Other Family history unknown Social History Smoking Status: Never smoker Second Hand Exposure: No; Do You Dip or Chew Tobacco: No; Hx Alcohol Use: No Hx Substance Use: No Preferred Language: Ethiopian Communication Ability: Impaired Communication Ability Comment: pt is nonverbal Front Desk Manager Required: No Beliefs That Will Affect Care: None marital status: Single Current Living Situation: Parent Current Living Situation Comment: adopted current occupational status: disabled How many Children do You have: 0 Other Information That Helps Us Care for You: No Feels Safe at Home: Yes Diet: regular Diet Comment: Pureed Assistive Devices: Wheelchair Review of Systems The patient is nonverbal at baseline w/ severe intellectual disability. Physical Exam Gen: no acute distress Skin: erythema around the incision on L chest, no obvious drainage but swelling. The nurse at bedside reports warmth to touch and fluctuance. Results & Data Vital Signs (Past 12 Hours) Vital Signs Temp Pulse Pulse Resp BP Pulse Ox O2 Del Method 01/28/23 13:29 36.8 C 01/28/23 07:22 85 01/28/23 12:18 36.6 C 101 H 16 115/76 94 Room Air 01/28/23 08:00 Room Air 01/28/23 07:35 36.4 C L 96 H 16 100/62 95 Room Air 01/28/23 03:58 36.8 C 97 H 16 100/68 94 Room Air Laboratory Results WBC 9.56K H 13.1 Plt 121K ->-> 92K Blood cx (01/26): SNA (2 of 4, the same set) Blood cx (01/28): NGTD Diagnostic Findings CT chest (01/27/12): 1. Vague nerve stimulator in place. Rim-enhancing fluid collection surrounding the inferior aspect of the battery pack suggestive of an abscess. Moderate associated inflammation of the left upper chest wall and lower neck extends along the stimulator lead. This suggests associated cellulitis. Associated infectious myositis involving the inferior left sternocleidomastoid and pectoralis major muscles would be difficult to exclude. Inflammation adjacent to the left sternoclavicular joint without clear evidence for involvement of this joint. 2. Right lung alveolar opacities suggestive of an infectious process such as bronchopneumonia. Medications Administered Cefepime and daptomycin iv
[2023-01-28] MEDS ORDERED: VANCOMYCIN CONSULT ACTIVE PRN (15:39)
[2023-01-28] MEDS ORDERED: VANCOMYCIN HCL 750 MG in SODIUM CHLORIDE 0.9% 500 ML IV SCH (15:45)
[2023-01-28] MEDS: ACETAMINOPHEN 1,000 MG/100 ML VIAL IV PRN (15:57)
[2023-01-28] MEDS ORDERED: VANCOMYCIN HCL 1,250 MG in SODIUM CHLORIDE 0.9% 250 ML IV ONE (16:00)
--- NOTE | 2023-01-28 18:25 | Pharmacy Report ---
Pharmacy Vanc AUC Short Note - Date of Service January 28, 2023 - Assessment & Plan Assessment 32 year old M receiving vancomycin for treatment of bacteremia. Day #1 of antimicrobial therapy: 01/26/23 Plan Vancomycin * Load: Vancomycin 1,250 mg IV once on 01/28/23 at 1722 * Maintenance: Vancomycin 1,500 mg IV q12h starting 01/29/23 at 0200. * AUC/BRANDON is the preferred PK/PD target for vancomycin * AUC guided dosing is effective and associated with decreased risk of nephrotoxicity compared to traditional trough targets * Trough level of 13.8 mcg/mL is predicted to achieve target AUC/BRANDON of 400-600 mg/L.hr and may be associated with a 9% risk of nephrotoxicity * Trough or random level ordered for: 01/30/23 at 1200 Pharmacy will continue to follow and will adjust dose/frequency as necessary. Thank you.
[2023-01-28] MEDS ORDERED: Nursing to Pharmacy Communication SCH (18:30)
[2023-01-28] MEDS: VALPROATE SOD 500 MG in DEXTROSE 5% 50 ML IV SCH (21:19)
[2023-01-29] MEDS ORDERED: VANCOMYCIN HCL 1,500 MG in SODIUM CHLORIDE 0.9% 500 ML IV SCH (02:00)
[2023-01-29] MEDS: CEFEPIME 1,000 MG in SYRINGE 0 ML IV SCH ×3 (06:03→23:04)
[2023-01-29 06:36] LABS: Basophils # (auto) 0.03 K/uL (0.00-0.20); Basophils % (auto) 0.4 %; Eosinophils # (auto) 0.04 K/uL (0.00-0.50); Eosinophils % (auto) 0.5 %; Hematocrit (blood only) 36.2 % (42.0-52.0); Hemoglobin 12.8 g/dl (14.0-18.0); Immature Granulocytes # (auto) 0.04 K/uL (0.01-0.20); Immature Granulocytes % (auto) 0.5 %; Lymphocytes # (auto) 1.61 K/uL (1.20-3.40); Lymphocytes % (auto) 21.4 %; Mean Corpuscular Hemoglobin 32.1 pg (25.0-34.0); Mean Corpuscular Hgb Conc 35.4 g/dL (32.0-36.0); Mean Corpuscular Volume 90.7 fL (80.0-100.0); Mean Platelet Volume 12.7 fL (9.4-12.4); Monocytes # (auto) 0.55 K/uL (0.11-0.59); Monocytes % (auto) 7.3 %; Neutrophils # (auto) 5.26 K/uL (1.40-6.50); Neutrophils % (auto) 69.9 %; Platelet Count 88 K/uL (130-400); RDW Coefficient of Variation 12.3 % (11.5-14.5); RDW Standard Deviation 40.8 fL (36.4-46.3); Red Blood Count 3.99 M/uL (4.70-6.10); White Blood Count 7.53 K/ul (4.8-10.8)
[2023-01-29 06:59] LABS: Alanine Aminotransferase 17 U/L (7-52); Albumin Globulin Ratio 1.6 (0.9-2); Albumin Level 3.3 gm/dl (3.4-5.0); Alkaline Phosphatase 80 U/L (34-104); Anion Gap 8 (3-11); Aspartate Aminotransferase 20 U/L (13-39); BUN Creatinine Ratio 13.8 (10-20); Bilirubin,Total 0.5 mg/dl (0.2-1.0); Blood Urea Nitrogen 4 mg/dl (6-23); Calcium 8.4 mg/dl (8.6-10.3); Carbon Dioxide 27 mmol/L (21-32); Chloride 106 mmol/L (98-107); Creatinine Clr Calc Pharmacy 248.7 ml/min; Est GFR (African American) > 150.0 ml/min; Est GFR (Non-African American) > 150.0 ml/min; Globulin 2.1 gm/dl (2.5-4.0); Glucose 79 mg/dl (70-99(Fasting)); Magnesium 1.6 mg/dl (1.7-2.4); Phosphorus 1.8 mg/dl (2.5-4.9); Potassium 3.1 mmol/L (3.5-5.1); Sodium 141 mmol/L (136-145); Total Protein 5.4 gm/dl (6.0-8.3)
--- NOTE | 2023-01-29 07:47 | Anesthesiology Consultation ---
Date of Service January 29, 2023 Assessment & Plan Chart Review Chart Review: data entry clerk initiated History Surgery Operation Date: 01/29/23 07:00 Proposed Procedures p Removal of Vagus Nerve Stimulator Battery - Patel Obrien MD, FACS Height/Weight Height: 5 ft 6 in Weight: 47.2 kg Allergies Allergy/AdvReac Type Severity Reaction Status Date / Time fentanyl AdvReac Intermediate Difficulty Verified 01/25/23 09:36 to awaken Medications Home Medications Medication Instructions Recorded Confirmed Last Taken glycopyrrolate 1 mg tablet 1 mg PO BID PRN Secretions #60 tabs 01/08/19 01/26/23 01/26/23 divalproex 125 mg capsule,delayed 250 - 500 mg PO UD 11/07/22 01/26/23 01/26/23 release sprinkle nutritional supplements 0.09 1 ea PO QID 11/07/22 01/26/23 12/19/22 21:00 gram-0.5 kcal/mL oral liquid (Boost Max) polyethylene glycol 3350 17 4.25 g PO UD PRN Constipation 11/07/22 01/26/23 12/19/22 08:00 gram/dose oral powder (Miralax) rufinamide 40 mg/mL oral 35 mg PO QAM 11/07/22 01/26/23 01/26/23 suspension (Banzel) sennosides 8.8 mg/5 mL oral syrup 8.8 mg PO BID PRN Constipation 11/07/22 01/26/23 12/18/22 08:00 clobazam 2.5 mg/mL oral suspension 2.5 mg PO UD #120 mL 01/25/23 01/26/23 01/26/23 rufinamide 40 mg/mL oral 30 mg PO QPM 01/26/23 01/26/23 01/25/23 suspension (Banzel) Active Medications Generic Name Dose Route Start Last Admin Trade Name Freq PRN Reason Stop Dose Admin Clobazam 1 each 01/27/23 12:30 01/28/23 08:30 Clobazam Suspension PO 02/26/23 12:29 1 each DAILY SHAHIDA Administration Clobazam 1 each 01/27/23 21:00 01/28/23 21:19 Clobazam Suspension PO 02/26/23 20:59 1 each HS SHAHIDA Administration Heparin Sodium (Porcine) 5,000 units 01/26/23 21:00 01/28/23 21:19 Heparin Sod 5,000 Unit/0.5 Ml Vial SQ 02/25/23 20:59 5,000 units Q12 SHAHIDA Administration Cefepime HCl 1,000 mg/ Syringe 10 mls @ 5 mls/min 01/26/23 15:00 01/29/23 06:03 IV 02/02/23 14:59 5 mls/min Q8H SHAHIDA Administration Protocol Sodium Chloride 1,000 mls @ 80 mls/hr 01/26/23 17:33 01/28/23 23:21 Nss IV 02/25/23 17:32 80 mls/hr .[id number] SHAHIDA Administration Valproic Acid 500 mg/ Dextrose 55 mls @ 55 mls/hr 01/26/23 21:00 01/28/23 22:19 IV 02/25/23 20:59 Infused HS SHAHIDA Infusion Valproic Acid 250 mg/ Dextrose 52.5 mls @ 55 mls/hr 01/27/23 09:00 01/28/23 09:05 IV 02/26/23 08:59 Infused QAM SHAHIDA Infusion Acetaminophen 1,000 mg in 100 mls @ 400 mls/hr 01/26/23 23:12 01/28/23 16:15 Ofirmev IV 01/29/23 23:11 Infused Q8H PRN Infusion Pain or Fever Vancomycin HCl 1,500 mg/ 530 mls @ 200 mls/hr 01/29/23 02:00 01/29/23 04:46 Sodium Chloride IV 02/12/23 01:59 Infused Q12H SHAHIDA Infusion Non-Formulary Medication 1 each 01/27/23 12:30 01/28/23 21:20 Patient's Own Controlled Med 1 PO 02/10/23 12:29 Not Given BID SHAHIDA Banzel: Non- 1 each 01/28/23 09:00 01/28/23 10:38 Formulary Patient's PO 02/27/23 08:59 35 mg Own Med DAILY SHAHIDA Administration Banzel: Non- 1 each 01/27/23 21:00 01/28/23 21:19 Formulary Patient's PO 02/26/23 20:59 30 mg Own Med HS SHAHIDA Administration Past Medical History Medical History Adopted Back problem Chronic constipation MR (mental retardation), severe Osteoporosis Quadriplegic cerebral palsy Seizures most recent 12/03/22 Per records- "small seizures" couple times a week (consist of blinking and downward turning of the head); intermittent generalized jerking type seizures less frequent Sialorrhea Past Family History Family History Other Family history unknown Past Surgical History Surgical History History of orchiectomy Left History of spinal fusion Hx of myringotomy w/tubes, multiple times S/P cholecystectomy Status post placement of VNS (vagus nerve stimulation) device (2016) Battery change, Dr. Obrien Status post VNS (vagus nerve stimulator) placement (2004) Status post VNS (vagus nerve stimulator) placement (12/20/22) Vagus Nerve Stimulator Generator Replacement(Left) - Patel Obrien MD, FACS Social History Smoking Status: Never smoker Do You Dip or Chew Tobacco: No Hx Alcohol Use: No Hx Substance Use: No substance use type: does not use Physical Exam Vital Signs Last Vital Signs Temp 99.5 F 01/29/23 03:42 Pulse 113 H 01/29/23 03:42 Resp 18 01/29/23 03:42 BP 110/71 01/29/23 03:42 Pulse Ox 94 01/29/23 03:42 O2 Del Method Room Air 01/29/23 03:42 Testing Laboratory Results 01/29/23 05:46 01/29/23 05:46 Urine Color Yellow 01/26/23 11:00 Urine Appearance Clear (Clear) 01/26/23 11:00 Urine pH 7.0 (4.5-7.5) 01/26/23 11:00 Ur Specific [place] 1.022 (1.000-1.030) 01/26/23 11:00 Urine Protein Negative (Negative) 01/26/23 11:00 Urine Glucose (UA) Negative (Negative) 01/26/23 11:00 Urine Ketones Negative (Negative) 01/26/23 11:00 Urine Nitrite Negative (Negative) 01/26/23 11:00 Ur Leukocyte Esterase Negative (Negative) 01/26/23 11:00 01/28/23 06:02 Aerobic Blood Culture - Preliminary Blood No growth in Aerobic bottle after 24 hours. Anaerobic Blood Culture - Preliminary No growth in Anaerobic bottle after 24 hours. 01/28/23 06:15 Aerobic Blood Culture - Preliminary Blood No growth in Aerobic bottle after 24 hours. Anaerobic Blood Culture - Preliminary No growth in Anaerobic bottle after 24 hours. 01/26/23 12:23 Aerobic Blood Culture - Preliminary Blood No growth in Aerobic bottle after 48 hours. Anaerobic Blood Culture - Preliminary No growth in Anaerobic bottle after 48 hours. 01/26/23 12:27 Aerobic Blood Culture - Final Blood Coag neg staph not lugdunensis Anaerobic Blood Culture - Final Coag neg staph not lugdunensis Chest X-Ray Date: 01/26/23 IMPRESSION: 1. No consolidation to suggest pneumonia. 2. Subtle interstitial thickening. This likely technical. An infectious process could appear similar but is considered less likely.
--- NOTE | 2023-01-29 08:46 | Hospitalist Progress Note ---
Date of Service January 29, 2023 Assessment & Plan (1) Sepsis: (2) Gram-positive cocci bacteremia: (3) Abscess: (4) Cellulitis: (5) Bronchopneumonia: (6) Status post VNS (vagus nerve stimulator) placement: (7) Seizures: (8) Quadriplegic cerebral palsy: Plan 32yoM with a history of quadriplegic cerebral palsy, intellectual disability, seizures, s/p vagus nerve stimulator, and chronic constipation admitted with sepsis in the setting of an infected vagus nerve stimulator and bronchopneumonia. Sepsis with gram-positive bacteremia in the setting of abscess/cellulitis of VNS pocket and bronchopneumonia Presented with fever, lethargy and black liquid drainage from the right nostril. In the ED, tachycardic, hypotensive, and tachypneic with evidence of erythema, warmth and swelling over his vagal nerve stimulator Patient had battery change of Vagal nerve stimulator on 12/20/[address] Obrien Given 1500 cc fluid bolus with improvement in BP to baseline CT chest concerning for cellulitis and abscess near the recently replaced vagus nerve stimulator and bronchopneumonia. MRSA nares negative Original blood cultures grew gram-positive cocci in one bottle, repeat blood cultures x2 with NGTD. ID consult placed, consider echo for vegetations- appreciate recs -recommending switching Dapto to Vancomycin and continuing Cefepime -duration and narrowing of abx based on culture results from surgery Continue IVF Monitor erythema, swelling of left upper chest - borders marked in the ED General Surgery consulted, appreciate recs -vagus nerve stimulator removal in the OR with Dr. Obrien today, chest wound Cx samples pending Electrolyte disturbances Hypokalemia Pt refusing PO supplements Continue with IV repletion as needed Monitor with AM labs Hypotension Currently resolved Continue to monitor Seizure disorder Continue IV valproic acid Change to p.o. when able to take p.o. consistently Quadriplegia Cerebral palsy Stable Diet: Pureed regular diet as tolerated - consider nutrition eval, uses Boost 3- 4x/day at home Code Status: Full code DVT Prophylaxis: Subcu heparin Disposition: Pending medical stability-will go home after d/c Admission and Anticipated Discharge Date Admission Date: January 26, 2023 Subjective Pt seen this AM before surgery. No family at bedside. Was awake. Nonverbal. Review of Systems Review of Systems: Unobtainable due to cognitive status Physical Exam Physical Exam: General: Alert. No acute distress Psych: could not be determined Neuro: nonverbal HEENT: oropharynx open Chest: erythematous left chest wall area over stimulator CV: RRR Resp: no increased effort of breathing Abdomen: Soft, nontender, nondistended. Extremities: No edema in lower extremities bilaterally. Results & Data Results & Data Vital Signs (Past 12 Hours) Vital Signs Temp Pulse Pulse Resp BP Pulse Ox O2 Del Method 01/29/23 08:35 Room Air 01/29/23 07:53 37.0 C 106 H 18 105/71 99 Room Air 01/29/23 03:42 37.5 C 113 H 18 110/71 94 Room Air 01/29/23 00:20 Room Air 01/28/23 23:38 101 H 01/28/23 23:15 37.4 C 110 H 20 109/79 99 Room Air
[2023-01-29] MEDS ORDERED: POTASSIUM PHOS 3 MMOL/1 ML INFUSION IV STA (08:47)
[2023-01-29] MEDS ORDERED: POTASSIUM PHOSPHATE 21 MMOL in SODIUM CHLORIDE 0.9% 500 ML IV ONE (09:15)
[2023-01-29] MEDS: POTASSIUM CHLORIDE / WTR 10 MEQ/100 ML PLCT IV SCH ×3 (09:38→13:56)
[2023-01-29] MEDS: CLOBAZAM PO SCH ×2 (11:19→22:19)
[2023-01-29] MEDS: HEPARIN SOD 5,000 UNIT/0.5 ML VIAL SQ SCH ×2 (11:19→21:28)
[2023-01-29] MEDS: MAGNESIUM OXIDE 400 MG TAB PO SCH ×2 (11:19→21:52)
[2023-01-29] MEDS: PATIENT'S OWN CONTROLLED MED 1 PO SCH (11:20)
[2023-01-29] MEDS: BANZEL PO SCH ×2 (11:20→21:52)
[2023-01-29] MEDS: POT PHOSPHATE MONOBASIC W/ SOD TAB PO SCH ×4 (11:20→21:52)
[2023-01-29] MEDS: VALPROATE SOD 250 MG in DEXTROSE 5% 50 ML IV SCH (11:30)
[2023-01-29] MEDS: NSS + 20MEQ KCL 20 MEQ/1,000 ML BAG IV SCH (11:31)
[2023-01-29] MEDS ORDERED: ROCURONIUM BROMIDE 10 MG/ML 5 ML VIAL IV ONE (15:14)
[2023-01-29] MEDS ORDERED: LIDOCAINE 2% 2 ML VIAL/AMP(20MG/ML) INFIL ONE (15:14)
[2023-01-29] MEDS ORDERED: PROPOFOL IV EMULSION 10 MG/ML 20 ML VIAL IV ONE (15:14)
[2023-01-29] MEDS ORDERED: DEXAMETHASONE SOD INJ 4 MG/ML VIAL ONE (15:15)
[2023-01-29] MEDS ORDERED: ONDANSETRON INJ 2 MG/ML 2 ML VIAL ONE (15:15)
[2023-01-29] MEDS ORDERED: MIDAZOLAM HCL 1 MG/ML 2ML VIAL ONE (15:16)
[2023-01-29] MEDS ORDERED: fentaNYL citrate PF 100 MCG/2 ML VIAL ONE (15:16)
[2023-01-29] MEDS ORDERED: GLYCOPYRROLATE 0.2 MG/ML VIAL ONE (15:16)
[2023-01-29] MEDS ORDERED: SUGAMMADEX SODIUM 200 MG/2 ML VIAL IV ONE (15:17)
[2023-01-29] MEDS ORDERED: LIDOCAINE 1% LOCAL 20 ML VIAL ONE (15:57)
[2023-01-29] MEDS ORDERED: KETAMINE 50 MG/5 ML SYRINGE ONE (15:59)
--- NOTE | 2023-01-29 17:41 | Post Operative Brief Note ---
Immediate Post Op Note v1 Date of Surgery January 29, 2023 Pre & Post Diagnosis Operation Date: 01/29/23 07:00 Pre-Op Diagnosis: Sepsis, Vagus Nerve Stimulator Pocket Infection Post-Op Diagnosis: Sepsis, Vagus Nerve Stimulator Pocket Infection I identified the patient and participated in the time-out.: Yes Procedure Operation Date: 01/29/23 07:00 Actual Procedures p Explantation of Vagus Nerve Stimulator and Leads(Not Applicable) - Patel Obrien MD, FACS Surgeon Patel Obrien MD, FACS Logistics Associate Annika SOLIS Estimated Blood Loss 50 Findings Consistent with Post-Op Diagnosis Drains [place] Drain (0.25 inch) and Other (condom catheter present upon arrival to operating room)
[2023-01-29] MEDS ORDERED: VANCOMYCIN CONSULT ACTIVE PRN (18:47)
--- NOTE | 2023-01-29 18:50 | Anesthesiology Progress Note ---
Date of Service January 29, 2023 Anesthesia Post Procedure Vital Signs Vital Signs: Temp Pulse Pulse Pulse Resp BP BP 01/29/23 18:44 36.5 C 96 H 20 01/29/23 18:20 36.2 C L 100 H 21 117/79 01/29/23 18:10 91 H 12 122/83 01/29/23 18:02 36.1 C L 94 H 22 120/83 01/29/23 15:58 36.3 C L 103 H 18 123/84 01/29/23 15:00 81 01/29/23 15:00 36.8 C 01/29/23 10:48 36.8 C 91 H 18 107/72 01/29/23 08:35 01/29/23 07:53 37.0 C 106 H 18 105/71 01/29/23 03:42 37.5 C 113 H 18 110/71 01/29/23 00:20 01/28/23 23:38 101 H 01/28/23 23:15 37.4 C 110 H 20 109/79 01/28/23 18:58 36.6 C 89 18 110/72 Pulse Ox O2 Del Method O2 Flow Rate 01/29/23 18:44 94 Room Air 01/29/23 18:20 96 Room Air 01/29/23 18:10 96 Oxymask 4 01/29/23 18:02 96 Oxymask 4 01/29/23 15:58 97 Room Air 01/29/23 15:00 01/29/23 15:00 01/29/23 10:48 97 Room Air 01/29/23 08:35 Room Air 01/29/23 07:53 99 Room Air 01/29/23 03:42 94 Room Air 01/29/23 00:20 Room Air 01/28/23 23:38 01/28/23 23:15 99 Room Air 01/28/23 18:58 99 Room Air Transfer of Care Handoff Completed per policy Notes Mental Status: alert / awake / arousable Patient Amnestic to Procedure: Yes Nausea / Vomiting: adequately controlled Pain: adequately controlled Airway Patency, RR, SpO2: stable & adequate BP & HR: stable & adequate Hydration State: stable & adequate Anesthetic Complications: no major complications apparent and Pt Satisfied with anesthetic care
[2023-01-29] MEDS ORDERED: VANCOMYCIN HCL 750 MG in SODIUM CHLORIDE 0.9% 500 ML IV SCH (19:00)
[2023-01-29] MEDS: VANCOMYCIN HCL 1,000 MG in SODIUM CHLORIDE 0.9% 250 ML IV SCH (21:17)
[2023-01-29] MEDS ORDERED: CLOBAZAM PO ONE (22:15)
[2023-01-29] MEDS: VALPROATE SOD 500 MG in DEXTROSE 5% 50 ML IV SCH (23:12)
[2023-01-30] MEDS: NSS + 20MEQ KCL 20 MEQ/1,000 ML BAG IV SCH ×2 (02:29→15:10)
[2023-01-30] MEDS ORDERED: LORazepam 2 MG/1 ML VIAL IV STA (04:32)
[2023-01-30] MEDS: CEFEPIME 1,000 MG in SYRINGE 0 ML IV SCH ×3 (06:03→22:07)
[2023-01-30] MEDS: VANCOMYCIN HCL 1,000 MG in SODIUM CHLORIDE 0.9% 250 ML IV SCH ×3 (06:03→21:37)
[2023-01-30 06:24] LABS: Basophils # (auto) 0.02 K/uL (0.00-0.20); Basophils % (auto) 0.3 %; Hematocrit (blood only) 37.6 % (42.0-52.0); Immature Granulocytes # (auto) 0.02 K/uL (0.01-0.20); Immature Granulocytes % (auto) 0.3 %; Lymphocytes # (auto) 1.78 K/uL (1.20-3.40); Lymphocytes % (auto) 26.6 %; Mean Corpuscular Hemoglobin 32.3 pg (25.0-34.0); Mean Corpuscular Hgb Conc 34.6 g/dL (32.0-36.0); Mean Corpuscular Volume 93.3 fL (80.0-100.0); Mean Platelet Volume 12.7 fL (9.4-12.4); Monocytes # (auto) 0.39 K/uL (0.11-0.59); Monocytes % (auto) 5.8 %; Neutrophils # (auto) 4.47 K/uL (1.40-6.50); Platelet Count 119 K/uL (130-400); RDW Coefficient of Variation 12.2 % (11.5-14.5); RDW Standard Deviation 42.4 fL (36.4-46.3); Red Blood Count 4.03 M/uL (4.70-6.10); White Blood Count 6.68 K/ul (4.8-10.8)
[2023-01-30 06:39] LABS: Alanine Aminotransferase 29 U/L (7-52); Albumin Globulin Ratio 1.5 (0.9-2); Albumin Level 3.3 gm/dl (3.4-5.0); Alkaline Phosphatase 112 U/L (34-104); Anion Gap 10 (3-11); Aspartate Aminotransferase 29 U/L (13-39); Bilirubin,Total 0.4 mg/dl (0.2-1.0); Blood Urea Nitrogen 7 mg/dl (6-23); Calcium 8.8 mg/dl (8.6-10.3); Carbon Dioxide 26 mmol/L (21-32); Chloride 102 mmol/L (98-107); Est GFR (African American) > 150.0 ml/min; Est GFR (Non-African American) > 150.0 ml/min; Globulin 2.2 gm/dl (2.5-4.0); Glucose 83 mg/dl (70-99(Fasting)); Magnesium 1.7 mg/dl (1.7-2.4); Phosphorus 3.6 mg/dl (2.5-4.9); Potassium 4.4 mmol/L (3.5-5.1); Sodium 138 mmol/L (136-145); Total Protein 5.5 gm/dl (6.0-8.3)
[2023-01-30] MEDS ORDERED: ACETAMINOPHEN 1,000 MG/100 ML VIAL IV PRN (07:19)
--- NOTE | 2023-01-30 08:07 | Surgery Progress Note ---
Date of Service January 30, 2023 Assessment & Plan (1) Infection/inflammation-neural device: Plan: POD 1 vagus nerve stimulator removal Area covered with gauze and tape, saturated in yellow/reddish colored fluid clean dry gauze replaced with medipore tape, two sutured areas and [place] noted WBC 6.6 continue IV antbx Admission and Anticipated Discharge Date Admission Date: January 26, 2023 Supervising Physician Co-Signing Physician Notes Operative site inspected the erythema and cellulitis both along the lead and the generator pocket have resolved his sutures are intact we will reapply dry causing as needed may be able to take the [place] drain from the generator pocket out in a day or 2 depending how much drainage Physical Exam Physical Exam: patient non-verbal, resting in bed Results & Data Vital Signs (Past 12 Hours) Vital Signs Temp Pulse Pulse Pulse Resp BP Pulse Ox 01/30/23 08:00 96.4 F L 56 L 15 106/87 97 01/30/23 07:34 01/30/23 03:37 97.4 F L 63 18 119/77 95 01/29/23 22:00 93 H 01/29/23 23:35 98.2 F 97 H 20 132/86 94 O2 Del Method 01/30/23 08:00 Room Air 01/30/23 07:34 Room Air 01/30/23 03:37 Room Air 01/29/23 22:00 01/29/23 23:35 Room Air PG Care Time/CCT Total # of Minutes Spent Total Time Spent with Patient: Total time spent is greater than 50% in coordination of care (as documented) at patient's floor/unit and/or counseling patient: Coding Level of Care Code 57932 Post Operative Follow-Up Diagnoses Infection/inflammation-neural device T85.738A
--- NOTE | 2023-01-30 08:59 | Operative Report ---
PG Post Operative Report Pre & Post Diagnosis Operation Date: 01/29/23 07:00 Pre-Op Diagnosis: Sepsis, Vagus Nerve Stimulator Pocket Infection Post-Op Diagnosis: Sepsis, Vagus Nerve Stimulator Pocket Infection I identified the patient and participated in the time-out.: Yes Procedure Operation Date: 01/29/23 07:00 Actual Procedures p Explantation of Vagus Nerve Stimulator and Leads(Not Applicable) - Patel Obrien MD, FACS Indication for surgery this unfortunate 32-year-old man has a vagal nerve stimulator for significant number of years the battery been changed a few times we last changed his battery approximately a month or so ago and he came in with presented as an infected generator pocket was started and appropriate the biotics and the patient was taken to surgery today for explantation of vagus nerve stimulator with the lead extraction approximately 99% of the lead removed Of note the patient the initial incision number years ago was right underneath the clavicle and the patient tends to have his left upper extremity adducted and placed underneath his head which is constantly tilted towards the left shoulder area and as the mother is said constantly drools over that area which weathered the pocket that been in the generator recited The patient in the supine position general endotracheal anesthesia was probably positioned making sure due to significant contracture of the lower extremity and upper extremity they were padded appropriately systemic antibiotics on board the left neck and chest and left upper arm was prepped Betadine solution properly draped a timeout was had patient identified an incision was made through the old incision which we recited on top of a significant amount of cellulitis and fluctuance once entered we immediately encountered white purulent material and cultures were taken x2 we then enlarged the incision sufficiently to clean out all the significant amount of purulent material the generator was easily appreciated and was extracted out from the pocket and the lead was inspected there was a point towards the clavicular area and sternocleidal area and had a tract that was not encompassed with fibrous tissue indicating that the infection is and involve the lead up to that insertion into the subcutaneous tissue going to the neck. We at this point made an incision through the old scar which was transverse incision midway between the angle of the mandible and the clavicle deepened through subcutaneous tissue moderate amount of scar tissue as expected was freed we then were able to identify one of the white bolsters there is normally used to tack down the leads on the subcutaneous and sternocleidal muscle were able to free that up did not identify 2 other bolsters until we were able to go down to the lead that changed in caliber of being smaller indicating that down to the vagus nerve we tried to dissect that area out but scar tissue was quite significant therefore at this time I elected to cut the lead leaving the fine filament that was wrapped on the vagus I used one of the bolsters to tack down this part of the lead that we intentionally left down to the sternocleidal muscle and medial aspect that we would use this eventually to replace vagal nerve system and would be able to identify hopefully the dissection would be much less once the inflammation and recited the lead and the generator was removed and sent for cultures the area was irrigated copiously the inflammatory changes in the skin and subcutaneous tissue with moderate amount of oozing was controlled electrocautery we then placed 1/4 inch Bowler drain in the generator pocket through a stab wound well inferior to the incision attached to skin edge with 2-0 silk we then closed the pocket with few interrupted 2-0 Vicryl and nylon interrupted vertical mattress x3 to approximate the skin the neck incision was closed in the same where leaving the skin open and interrupted sutures x3 to approximate the skin edge and dressing was applied procedure was tolerated well by the patient estimate blood loss 35 cc Addendum Yanci Contreras physician civil engineering assistant was present throughout the case and helped the retraction exposure and wound closure I spoke with Shiva's mother in the waiting area Surgeon Patel Obrien MD, FACS Print Finishing Worker Annika SOLIS Estimated Blood Loss 50 Findings Consistent with Post-Op Diagnosis Purulent material generator pocket extending to the leads to into the neck Specimens Generator with 99% attached lead Drains Quarter inch Bowler in the generator pocket Complications None Indications Infected vagal nerve stimulating system Description of Procedure merda I attest to the content of the Intraoperative Record and any orders documented therein. Any exceptions are noted below.
[2023-01-30] MEDS: HEPARIN SOD 5,000 UNIT/0.5 ML VIAL SQ SCH ×2 (09:29→21:37)
[2023-01-30] MEDS: CLOBAZAM PO SCH (09:29)
[2023-01-30] MEDS: BANZEL PO SCH ×2 (09:32→21:37)
[2023-01-30] MEDS: VALPROATE SOD 250 MG in DEXTROSE 5% 50 ML IV SCH (09:32)
[2023-01-30] MEDS: MAGNESIUM OXIDE 400 MG TAB PO SCH ×2 (09:57→20:55)
[2023-01-30] MEDS: POT PHOSPHATE MONOBASIC W/ SOD TAB PO SCH ×4 (09:57→20:55)
[2023-01-30] MEDS: PATIENT'S OWN CONTROLLED MED 1 PO SCH (10:06)
--- NOTE | 2023-01-30 10:06 | Pharmacy Report ---
Pharmacy PK ABX Note - Date of Service January 30, 2023 - Assessment and Plan Assessment 32 year old M receiving vancomycin/cefepime for cellulitis/infected vagus nerve stimulator with abscess. POD #1 removal of vagus nerve stimulator, OR cultures pending. 1 set of blood cultures with coag negative staph from 01/26. repeat cultures have been negative. Will dose with levels given patient's quadriplegic status and low SCr, GFR gets capped with AUC/BRANDON dosing program, also concern for overestimating clearance. Random level obtained prior to steady state, and was >12 hours since previous dose d/t patient being in OR, was subsequently subtherapeutic. Will adjust dose to q8H dosing, monitor closely for accumulation. Plan Vancomycin * Change regimen to 1000 mg q8H * Trough level ordered for: 01/31 @0530 Pharmacy will continue to follow and will adjust dose/frequency as necessary. Thank you. Pharmacy has transitioned to AUC monitoring for vancomycin. AUC/BRANDON is the preferred PK/PD target and is associated with decreased risk of nephrotoxicity c ompared to traditional trough targets.
--- NOTE | 2023-01-30 10:57 | Hospitalist Progress Note ---
Date of Service January 30, 2023 Assessment & Plan (1) Sepsis: (2) Gram-positive cocci bacteremia: (3) Abscess: (4) Cellulitis: (5) Bronchopneumonia: (6) Status post VNS (vagus nerve stimulator) placement: (7) Seizures: (8) Quadriplegic cerebral palsy: Plan 32yoM with a history of quadriplegic cerebral palsy, intellectual disability, seizures, s/p vagus nerve stimulator, and chronic constipation admitted with sepsis in the setting of an infected vagus nerve stimulator pocket and bronchopneumonia. Sepsis with gram-positive bacteremia in the setting of abscess/cellulitis of VNS pocket and bronchopneumonia Presented with fever, lethargy and black liquid drainage from the right nostril. In the ED, tachycardic, hypotensive, and tachypneic with evidence of erythema, warmth and swelling over his vagal nerve stimulator Patient had battery change of Vagal nerve stimulator on 12/20/2022 by General Surgery Given 1500 cc fluid bolus with improvement in BP to baseline CT chest concerning for cellulitis and abscess near the recently replaced vagus nerve stimulator and bronchopneumonia. MRSA nares negative Original blood cultures grew gram-positive cocci in one bottle, repeat blood cultures x2 with NGTD. ID consult placed, consider echo for vegetations- appreciate recs -recommending switching Dapto to Vancomycin and continuing Cefepime -duration and narrowing of abx based on culture results from surgery Continue IVF General Surgery consulted, appreciate recs -vagus nerve stimulator removal in the OR with Dr. Obrien on 01/29, chest wound Cx samples currently growing a staph species Electrolyte disturbances Hypokalemia Hypomagnesemia Hypophosphatemia Pt refusing PO supplements Continue with IV repletion as needed Monitor with AM labs Hypotension Currently resolved Continue to monitor Seizure disorder Continue IV valproic acid Change to p.o. when able to take p.o. consistently Quadriplegia Cerebral palsy Stable Diet: Pureed regular diet as tolerated, uses Boost 3-4x/day at home Code Status: Full code DVT Prophylaxis: heparin SQ Disposition: Pending medical stability-will go home after d/c with family Admission and Anticipated Discharge Date Admission Date: January 26, 2023 Subjective Pt seen this AM. Mother not at bedside. Alert and awake. Review of Systems Review of Systems: Unobtainable due to cognitive status Physical Exam Physical Exam: General: Alert. No acute distress Psych: could not be determined Neuro: nonverbal HEENT: oropharynx open Chest:chest wall covered with clean bandages CV: RRR Resp: no increased effort of breathing Abdomen: Soft, nontender, nondistended. Extremities: No edema in lower extremities bilaterally. Results & Data Results & Data Vital Signs (Past 12 Hours) Vital Signs Temp Pulse Pulse Pulse Resp BP Pulse Ox 01/30/23 08:00 89 01/30/23 08:00 35.8 C L 56 L 15 106/87 97 01/30/23 07:34 01/30/23 03:37 36.3 C L 63 18 119/77 95 01/29/23 23:35 36.8 C 97 H 20 132/86 94 O2 Del Method 01/30/23 08:00 01/30/23 08:00 Room Air 01/30/23 07:34 Room Air 01/30/23 03:37 Room Air 01/29/23 23:35 Room Air
[2023-01-30] MEDS ORDERED: VANCOMYCIN LEVEL ONE (11:30)
[2023-01-30] MEDS: ACETAMINOPHEN 10MG/ML Custom 650 MG in EMPTY BAG 0 ML IV PRN (17:18)
[2023-01-30] MEDS: VALPROATE SOD 500 MG in DEXTROSE 5% 50 ML IV SCH (19:27)
[2023-01-30] MEDS: MAGNESIUM SULFATE / D5W 1 GM/100 ML BAG IV SCH ×2 (20:48→22:17)
[2023-01-31] MEDS: CEFEPIME 1,000 MG in SYRINGE 0 ML IV SCH ×4 (03:57→20:28)
[2023-01-31] MEDS ORDERED: VANCOMYCIN LEVEL ONE (05:30)
[2023-01-31] MEDS: VANCOMYCIN HCL 1,000 MG in SODIUM CHLORIDE 0.9% 250 ML IV SCH ×3 (06:00→22:23)
[2023-01-31 06:12] LABS: Hematocrit (blood only) 36.4 % (42.0-52.0); Hemoglobin 12.4 g/dl (14.0-18.0); Mean Corpuscular Hemoglobin 32.1 pg (25.0-34.0); Mean Corpuscular Hgb Conc 34.1 g/dL (32.0-36.0); Mean Corpuscular Volume 94.3 fL (80.0-100.0); Mean Platelet Volume 12.4 fL (9.4-12.4); Platelet Count 118 K/uL (130-400); RDW Coefficient of Variation 12.1 % (11.5-14.5); RDW Standard Deviation 41.5 fL (36.4-46.3); Red Blood Count 3.86 M/uL (4.70-6.10); White Blood Count 4.25 K/ul (4.8-10.8)
[2023-01-31 06:22] LABS: Alanine Aminotransferase 33 U/L (7-52); Albumin Globulin Ratio 1.7 (0.9-2); Albumin Level 3.3 gm/dl (3.4-5.0); Alkaline Phosphatase 98 U/L (34-104); Anion Gap 8 (3-11); Aspartate Aminotransferase 31 U/L (13-39); BUN Creatinine Ratio 13.3 (10-20); Bilirubin,Total 0.4 mg/dl (0.2-1.0); Blood Urea Nitrogen 4 mg/dl (6-23); Calcium 8.4 mg/dl (8.6-10.3); Carbon Dioxide 29 mmol/L (21-32); Chloride 101 mmol/L (98-107); Est GFR (African American) > 150.0 ml/min; Est GFR (Non-African American) > 150.0 ml/min; Glucose 76 mg/dl (70-99(Fasting)); Phosphorus 2.7 mg/dl (2.5-4.9); Potassium 3.9 mmol/L (3.5-5.1); Sodium 138 mmol/L (136-145); Total Protein 5.3 gm/dl (6.0-8.3)
[2023-01-31 07:18] LABS: Basophils # (auto) 0.04 K/uL (0.00-0.20); Basophils % (auto) 0.9 %; Eosinophils # (auto) 0.17 K/uL (0.00-0.50); Immature Granulocytes # (auto) 0.02 K/uL (0.01-0.20); Immature Granulocytes % (auto) 0.5 %; Lymphocytes # (auto) 2.46 K/uL (1.20-3.40); Lymphocytes % (auto) 57.9 %; Monocytes # (auto) 0.37 K/uL (0.11-0.59); Monocytes % (auto) 8.7 %; Neutrophils # (auto) 1.19 K/uL (1.40-6.50)
[2023-01-31] MEDS: NSS + 20MEQ KCL 20 MEQ/1,000 ML BAG IV SCH ×3 (07:27→22:20)
[2023-01-31] MEDS: POT PHOSPHATE MONOBASIC W/ SOD TAB PO SCH ×4 (07:28→20:11)
[2023-01-31] MEDS: MAGNESIUM OXIDE 400 MG TAB PO SCH ×2 (07:29→20:10)
[2023-01-31] MEDS: VALPROATE SOD 250 MG in DEXTROSE 5% 50 ML IV SCH (07:29)
[2023-01-31] MEDS: HEPARIN SOD 5,000 UNIT/0.5 ML VIAL SQ SCH ×2 (07:29→20:29)
[2023-01-31] MEDS: BANZEL PO SCH (07:31)
[2023-01-31] MEDS: CLOBAZAM PO SCH (07:49)
[2023-01-31] MEDS: RUFINAMIDE 40 MG/ML PO SCH ×2 (08:40→20:05)
--- NOTE | 2023-01-31 10:08 | Pharmacy Report ---
Pharmacy PK ABX Note - Date of Service January 31, 2023 - Assessment and Plan Assessment 01/31: * Chest culture updated to MSSA, additional two chest cultures with staph spp. and pin-point growth. Repeat blood cultures from 01/28 remain negative. Trough this morning 14.1. Will continue current dose. Possible de-escalation, ID following 01/30 32 year old M receiving vancomycin/cefepime for cellulitis/infected vagus nerve stimulator with abscess. POD #1 removal of vagus nerve stimulator, OR cultures pending. 1 set of blood cultures with coag negative staph from 01/26. repeat cultures have been negative. Will dose with levels given patient's quadriplegic status and low SCr, GFR gets capped with AUC/BRANDON dosing program, also concern for overestimating clearance. Random level obtained prior to steady state, and was >12 hours since previous dose d/t patient being in OR, was subsequently subtherapeutic. Will adjust dose to q8H dosing, monitor closely for accumulation. Plan Vancomycin * Continue regimen to 1000 mg q8H * Trough level ordered for: 02/01 @1330 if continued Pharmacy will continue to follow and will adjust dose/frequency as necessary. Thank you. Pharmacy has transitioned to AUC monitoring for vancomycin. AUC/BRANDON is the preferred PK/PD target and is associated with decreased risk of nephrotoxicity compared to traditional trough targets.
--- NOTE | 2023-01-31 10:43 | Neurology Consultation ---
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 I have recommended increasing his Banzel dosage to 1400 mg twice daily. (The maximum dosage for Banzel is 3200 mg/day.) Unfortunately, I expect this patient to continue to have occasional seizures in spite of treatment with antiseizure medications. He typically experiences breakthrough staring spells, and occasional generalized tonic-clonic seizures. If a larger dosage of Banzel is not effective, there is room to increase his dosage of Depakote. Clobazam was recently added at his last appointment in our office. There is room to increase the dosage of this medication as well if necessary. Patient may follow-up in our neurology practice in the next 2 to 3 weeks. History of Present Illness Reason for Consultation: Seizure, question regarding Banzel dosage Requesting Physician: Lin Amador MD Attending Physician: Lin Amador MD History of Present Illness The patient is a 32-year-old male who is known to our neurology practice. He has a history of refractory seizures, Kol[place] Gestalt syndrome, cerebral palsy, intellectual disability, spastic quadriplegia. His seizures have been refractory to treatment with multiple antiseizure medications, he also has a vagal nerve stimulator that was initially implanted in November 2004. His seizures have been characterized as drop attacks, generalized tonic-clonic seizures, and myoclonic seizures. He was last seen in our office on January 25, 2023. He has continued to have occasional breakthrough seizures, usually staring episodes, with a staring episode occurring in the evening on January 24. He has also had 2 generalized tonic-clonic seizures since he had a VNS battery change on December 20, 2022. Clobazam was added to his medication regimen at his last appointment. He presented to the emergency department on January 26, 2023 with fever, sepsis, concern for infection involving the recently replaced VNS device. He has been treated with broad-spectrum antimicrobials and has also been evaluated by infectious disease. His VNS device was explanted on January 30, 2023 with evidence of infection at time of surgery. He apparently had a witnessed seizure episode last night, his mother was at bedside at that time, 2 brief seizures lasting about 2 seconds. It was noted that his Banzel dosage had been incorrectly entered as 35 mg twice daily, rather than 35 mL. Neurology has been consulted for clarification regarding his correct Banzel dosage. It is not entirely clear when the medication reconciliation error may have occurred. However, I see that a dosage of 35 mg twice daily may have been placed in [employer], after his last evaluation in our office on November 20, 2022. I did confirm with pharmacy that he received the listed, small dosage of this medication during this current hospitalization. The maximum dosage of Banzel is 3200 mg/day. Allergies Allergy/AdvReac Type Severity Reaction Status Date / Time fentanyl AdvReac Intermediate Difficulty Verified 01/25/23 09:36 to awaken Home Medications Medication Instructions Recorded Confirmed Type glycopyrrolate 1 mg tablet 1 mg PO BID PRN Secretions #60 tabs 01/08/19 01/26/23 History divalproex 125 mg capsule,delayed 250 - 500 mg PO UD 11/07/22 01/26/23 History release sprinkle nutritional supplements 0.09 1 ea PO QID 11/07/22 01/26/23 History gram-0.5 kcal/mL oral liquid (Boost Max) polyethylene glycol 3350 17 4.25 g PO UD PRN Constipation 11/07/22 01/26/23 History gram/dose oral powder (Miralax) sennosides 8.8 mg/5 mL oral syrup 8.8 mg PO BID PRN Constipation 11/07/22 01/26/23 History clobazam 2.5 mg/mL oral suspension 2.5 mg PO UD #120 mL 01/25/23 01/26/23 Rx rufinamide 40 mg/mL oral 1,400 mg PO BID 01/31/23 01/31/23 History suspension (Banzel) Patient History Medical History (Updated 01/31/23 @ 11:10 by Marcelino Watts MD) Adopted Back problem Chronic constipation MR (mental retardation), severe Osteoporosis Quadriplegic cerebral palsy Seizures most recent 12/03/22 Per records- "small seizures" couple times a week (consist of blinking and downward turning of the head); intermittent generalized jerking type seizures less frequent Sialorrhea Surgical History (Updated 01/30/23 @ 15:33 by Angella Watson, ZULY) History of orchiectomy Left History of spinal fusion History of surgery (01/29/23) Explantation of Vagus Nerve Stimulator and Leads(Not Applicable) - Ptael Obrien MD, FACS Hx of myringotomy w/tubes, multiple times S/P cholecystectomy Status post placement of VNS (vagus nerve stimulation) device (2016) Battery change, Dr. Obrien Status post VNS (vagus nerve stimulator) placement (2004) Status post VNS (vagus nerve stimulator) placement (12/20/22) Vagus Nerve Stimulator Generator Replacement(Left) - Patel Obrien MD, FACS Family History Other Family history unknown Social History Smoking Status: Never smoker Second Hand Exposure: No; Do You Dip or Chew Tobacco: No; Hx Alcohol Use: No Hx Substance Use: No Preferred Language: Egyptian Communication Ability: Impaired Communication Ability Comment: pt is nonverbal Competitive Shopper Required: No Beliefs That Will Affect Care: None marital status: Single Current Living Situation: Parent Current Living Situation Comment: adopted current occupational status: disabled How many Children do You have: 0 Other Information That Helps Us Care for You: No Feels Safe at Home: Yes Diet: regular Diet Comment: Pureed Assistive Devices: Mechanical Lift and Wheelchair Review of Systems Review of Systems: Unobtainable due to cognitive status Exam (Neuro) Constitutional: + thin, + behavioral limitations and + frail appearing Eyes: normal visual travis by confrontation, PERRL and EOM intact bilaterally (Left esotropia noted) Neurologic: Oriented to:: negative Person, Place or Time Attention: negative Span Intact or Concentration Intact Speech Fluency: Verbal Skills Limited (Nonverbal) Cranial Nerves: Normal II, III, IV, , V and VII Motor Strength: Quadripelgia Hypertonicity: Arms and Legs Muscle Bulk/Involuntary Movements: No Involuntary Movements and Muscle Atrophy Sensation: Light Touch Intact and Pain/Temperature Intact (Withdraws to light touch and noxious stimulation) Coordination: Finger-Nose Abnormal and Heel- Starkey Abnormal Deep Tendon Reflexes: Rt Biceps: 2+, Lt Biceps: 2+, Rt Patellar: 2+ and Lt Patellar: 2+ Special Tests: negative Babinski Present (Plantars flexor bilaterally) Results & Data Vital Signs (Past 12 Hours) Vital Signs Temp Pulse Resp BP Pulse Ox O2 Del Method 01/31/23 08:00 36.7 C 77 16 97/59 L 97 Room Air 01/31/23 03:29 36.8 C 64 14 109/65 95 Room Air 01/30/23 22:43 36.8 C 102 H 17 113/79 96 Room Air Laboratory Results WBC 4.25, hemoglobin 12.4, hematocrit 36.4, platelet count 118, sodium 138, potassium 3.9, BUN 4, creatinine 0.30, glucose 76, magnesium 2.0, AST 31, ALT 33, valproic acid level yesterday 56 Coding Level of Care Code 56654 INT INP/OBS CARE 3/75MIN Diagnoses Seizures R56.9 Quadriplegic cerebral palsy G80.8 [place]-Gastaut syndrome G40.812 Infection/inflammation-neural device T85.738A Time Spent (min) 80
--- NOTE | 2023-01-31 12:52 | Hospitalist Progress Note ---
Date of Service January 31, 2023 Assessment & Plan (1) Sepsis: (2) Gram-positive cocci bacteremia: (3) Abscess: (4) Cellulitis: (5) Bronchopneumonia: (6) Status post VNS (vagus nerve stimulator) placement: (7) Seizures: (8) Quadriplegic cerebral palsy: Plan 32yoM with a history of quadriplegic cerebral palsy, intellectual disability, seizures, s/p vagus nerve stimulator, and chronic constipation admitted with sepsis in the setting of an infected vagus nerve stimulator pocket and bronchopneumonia. Sepsis with gram-positive bacteremia in the setting of abscess/cellulitis of VNS pocket and bronchopneumonia Presented with fever, lethargy and black liquid drainage from the right nostril. In the ED, tachycardic, hypotensive, and tachypneic with evidence of erythema, warmth and swelling over his vagal nerve stimulator Patient had battery change of Vagal nerve stimulator on 12/20/2022 by General Surgery Given 1500 cc fluid bolus with improvement in BP to baseline CT chest concerning for cellulitis and abscess near the recently replaced vagus nerve stimulator and bronchopneumonia. MRSA nares negative Original blood cultures grew gram-positive cocci in one bottle, repeat blood cultures x2 with NGTD. ID consult placed- appreciate recs -recommending switching Dapto to Vancomycin and continuing Cefepime -duration and narrowing of abx based on culture results from surgery- ID re- consulted as culture results now available Continue IVF General Surgery consulted, appreciate recs -vagus nerve stimulator removal in the OR with Dr. Obrien on 01/29, chest wound Cx samples currently growing a staph species Electrolyte disturbances Hypokalemia Hypomagnesemia Hypophosphatemia Pt refusing PO supplements Continue with IV repletion as needed Monitor with AM labs Hypotension Currently resolved Continue to monitor Seizure disorder Continue IV valproic acid Change to p.o. when able to take p.o. consistently Quadriplegia Cerebral palsy Stable Diet: Pureed regular diet as tolerated, uses Boost 3-4x/day at home Code Status: Full code DVT Prophylaxis: heparin SQ Disposition: Pending medical stability-will go home after d/c with family Admission and Anticipated Discharge Date Admission Date: January 26, 2023 Subjective Pt seen this AM. Mother at bedside. Alert and awake. Had breakthrough seizures requiring administration of Ativan. Notified by pharmacy that there had been a medication error related to one of his seizure medications. Review of Systems Review of Systems: Unobtainable due to cognitive status Physical Exam Physical Exam: General: Alert. No acute distress Psych: could not be determined Neuro: nonverbal HEENT: oropharynx open Chest:chest wall covered with clean bandages CV: RRR Resp: no increased effort of breathing Abdomen: Soft, nontender, nondistended. Extremities: No edema in lower extremities bilaterally. Results & Data Results & Data Vital Signs (Past 12 Hours) Vital Signs Temp Pulse Resp BP Pulse Ox O2 Del Method 01/31/23 11:50 36.8 C 84 16 129/84 96 Room Air 01/31/23 08:00 36.7 C 77 16 97/59 L 97 Room Air 01/31/23 03:29 36.8 C 64 14 109/65 95 Room Air
--- NOTE | 2023-01-31 13:42 | Surgery Progress Note ---
Date of Service January 31, 2023 Assessment & Plan (1) Infection/inflammation-neural device: Plan: POD 2 vagus nerve stimulator removal Area covered with gauze, abd pad, and tape, minimal amount of bloody drainage note clean dry gauze replaced with ABD and medipore tape, two sutured areas and Nikia noted Possible removal of nikia tomorrow Will continue to monitor. Admission and Anticipated Discharge Date Admission Date: January 26, 2023 Subjective Patient resting in bed Physical Exam Physical Exam: patient non-verbal, resting in bed Constitutional: comfortable; no acute distress Results & Data Vital Signs (Past 12 Hours) Vital Signs Temp Pulse Resp BP Pulse Ox O2 Del Method 01/31/23 11:50 98.2 F 84 16 129/84 96 Room Air 01/31/23 08:00 98.1 F 77 16 97/59 L 97 Room Air 01/31/23 03:29 98.3 F 64 14 109/65 95 Room Air PG Care Time/CCT Total # of Minutes Spent Total Time Spent with Patient: Total time spent is greater than 50% in coordination of care (as documented) at patient's floor/unit and/or counseling patient: Coding Level of Care Code 66712 Post Operative Follow-Up Diagnoses Infection/inflammation-neural device T85.738A
[2023-01-31] MEDS: VALPROATE SOD 500 MG in DEXTROSE 5% 50 ML IV SCH (20:30)
[2023-01-31] MEDS ORDERED: RUFINAMIDE 40 MG/ML PO SCH (21:00)
[2023-02-01] MEDS: CEFEPIME 1,000 MG in SYRINGE 0 ML IV SCH ×2 (03:53→09:03)
[2023-02-01] MEDS: VANCOMYCIN HCL 1,000 MG in SODIUM CHLORIDE 0.9% 250 ML IV SCH (06:15)
[2023-02-01 06:23] LABS: Hematocrit (blood only) 37.4 % (42.0-52.0); Hemoglobin 12.9 g/dl (14.0-18.0); Mean Corpuscular Hemoglobin 32.3 pg (25.0-34.0); Mean Corpuscular Hgb Conc 34.5 g/dL (32.0-36.0); Mean Corpuscular Volume 93.7 fL (80.0-100.0); Mean Platelet Volume 11.7 fL (9.4-12.4); Platelet Count 145 K/uL (130-400); RDW Coefficient of Variation 12.1 % (11.5-14.5); RDW Standard Deviation 41.9 fL (36.4-46.3); Red Blood Count 3.99 M/uL (4.70-6.10); White Blood Count 4.85 K/ul (4.8-10.8)
[2023-02-01 06:44] LABS: Alanine Aminotransferase 33 U/L (7-52); Albumin Globulin Ratio 1.7 (0.9-2); Albumin Level 3.4 gm/dl (3.4-5.0); Alkaline Phosphatase 96 U/L (34-104); Anion Gap 8 (3-11); Aspartate Aminotransferase 24 U/L (13-39); BUN Creatinine Ratio 8.6 (10-20); Bilirubin,Total 0.4 mg/dl (0.2-1.0); Blood Urea Nitrogen 3 mg/dl (6-23); Calcium 8.8 mg/dl (8.6-10.3); Carbon Dioxide 26 mmol/L (21-32); Chloride 103 mmol/L (98-107); Est GFR (African American) > 150.0 ml/min; Est GFR (Non-African American) > 150.0 ml/min; Glucose 79 mg/dl (70-99(Fasting)); Magnesium 1.8 mg/dl (1.7-2.4); Phosphorus 3.3 mg/dl (2.5-4.9); Potassium 4.3 mmol/L (3.5-5.1); Sodium 137 mmol/L (136-145); Total Protein 5.4 gm/dl (6.0-8.3)
[2023-02-01 07:14] LABS: Basophils # (auto) 0.07 K/uL (0.00-0.20); Basophils % (auto) 1.4 %; Eosinophils # (auto) 0.16 K/uL (0.00-0.50); Eosinophils % (auto) 3.3 %; Immature Granulocytes # (auto) 0.12 K/uL (0.01-0.20); Immature Granulocytes % (auto) 2.5 %; Lymphocytes # (auto) 2.65 K/uL (1.20-3.40); Lymphocytes % (auto) 54.6 %; Monocytes # (auto) 0.45 K/uL (0.11-0.59); Monocytes % (auto) 9.3 %; Neutrophils % (auto) 28.9 %
[2023-02-01] MEDS ORDERED: RUFINAMIDE 40 MG/ML PO SCH (09:00)
[2023-02-01] MEDS: CLOBAZAM PO SCH (09:03)
[2023-02-01] MEDS: MAGNESIUM OXIDE 400 MG TAB PO SCH ×2 (09:04→09:39)
[2023-02-01] MEDS: HEPARIN SOD 5,000 UNIT/0.5 ML VIAL SQ SCH ×2 (09:04→20:50)
[2023-02-01] MEDS: POT PHOSPHATE MONOBASIC W/ SOD TAB PO SCH ×2 (09:04→09:39)
[2023-02-01] MEDS: RUFINAMIDE 40 MG/ML PO SCH ×2 (09:05→20:50)
[2023-02-01] MEDS: VALPROATE SOD 250 MG in DEXTROSE 5% 50 ML IV SCH (09:05)
--- NOTE | 2023-02-01 09:33 | Infectious Disease Progress Nt ---
Date of Service February 01, 2023 Telehealth Information I performed this visit using a real-time telehealth connection between my location and the patients location ([facility]). After connecting through interactive tele-video, patient was identified by name and date of and/or wristband check.Patient (or authorized healthcare sales representative wire rope) was informed that this was a telemedicine visit and it was being conducted confidentially over secure lines. My office door was closed and no o ne else was present in the room with me.Patient (or authorized healthcare sales representative wire rope) provided consent to proceed with the visit, expressed an understanding of privacy and security of the telemedicine visit, and gave permission to have a hospital sales representative wire rope in the room in order to assist with the visit and to conduct portions of the visit, as needed. I informed the patient (or authorized healthcare sales representative wire rope) that I reviewed their record and presented the opportunity for them to ask any questions regarding the visit today. The patient agreed to participate. Assessment & Plan (1) Abscess: (2) Infection/inflammation-neural device: (3) Cellulitis: Plan Wound cultures growing MSSA would recommend treating for 2 weeks from removal of stimulator .If there are concerns for bone involvement would treat for 6 weeks .He has HW in close proximity and may require suppressive therapy if there is concern for HW involvement Results & Data Vital Signs (Past 12 Hours) Vital Signs Temp Pulse Pulse Pulse Resp BP Pulse Ox 02/01/23 08:00 36.8 C 100 H 16 102/63 97 02/01/23 02:50 36.5 C 80 18 90/57 L 97 01/31/23 22:00 98 H 01/31/23 22:50 36.7 C 108 H 18 93/59 L 96 O2 Del Method 02/01/23 08:00 Room Air 02/01/23 02:50 Room Air 01/31/23 22:00 01/31/23 22:50 Room Air
[2023-02-01] MEDS: NSS + 20MEQ KCL 20 MEQ/1,000 ML BAG IV SCH ×2 (12:45→23:42)
--- NOTE | 2023-02-01 13:15 | Surgery Progress Note ---
Date of Service February 01, 2023 Assessment & Plan (1) Infection/inflammation-neural device: Plan: POD 3 Patient is sitting up in chair, mother at side Dressing removed , Huntington drain removed Dry gauze, ABD pad and medipore tape reapplied Patient to continue antibiotics per ID recommendations Plan for patient to be seen in general surgical office in 1 week for suture removal Plan to replace VNS system in 6 weeks Thank you for allowing us to participate in the care of this patient. Admission and Anticipated Discharge Date Admission Date: January 26, 2023 Subjective Patient sitting up in chair Mother at side Physical Exam Physical Exam: awake Skin: left side chest two sutured areas with nikia drain Results & Data Vital Signs (Past 12 Hours) Vital Signs Temp Pulse Pulse Resp BP Pulse Ox O2 Del Method 02/01/23 08:00 98.2 F 100 H 16 102/63 97 Room Air 02/01/23 02:50 97.7 F 80 18 90/57 L 97 Room Air PG Care Time/CCT Total # of Minutes Spent Total Time Spent with Patient: Total time spent is greater than 50% in coordination of care (as documented) at patient's floor/unit and/or counseling patient: Coding Level of Care Code 89341 Post Operative Follow-Up Diagnoses Infection/inflammation-neural device T85.738A
[2023-02-01] MEDS ORDERED: VANCOMYCIN LEVEL ONE (13:30)
[2023-02-01] MEDS: ceFAZolin 2000MG 2,000 MG/15 ML SYR IV SCH ×2 (15:40→23:44)
--- NOTE | 2023-02-01 16:51 | Hospitalist Progress Note ---
Date of Service February 01, 2023 Assessment & Plan (1) Sepsis: (2) Gram-positive cocci bacteremia: (3) Abscess: (4) Cellulitis: (5) Bronchopneumonia: (6) Status post VNS (vagus nerve stimulator) placement: (7) Seizures: (8) Quadriplegic cerebral palsy: Plan 32yoM with a history of quadriplegic cerebral palsy, intellectual disability, seizures, s/p vagus nerve stimulator, and chronic constipation admitted with sepsis in the setting of an infected vagus nerve stimulator pocket and bronchopneumonia. Sepsis with gram-positive bacteremia in the setting of abscess/cellulitis of VNS pocket and bronchopneumonia Presented with fever, lethargy and black liquid drainage from the right nostril. In the ED, tachycardic, hypotensive, and tachypneic with evidence of erythema, warmth and swelling over his vagal nerve stimulator Patient had battery change of Vagal nerve stimulator on 12/20/2022 by General Surgery Given 1500 cc fluid bolus with improvement in BP to baseline CT chest concerning for cellulitis and abscess near the recently replaced vagus nerve stimulator as well as bronchopneumonia. MRSA nares negative Original blood cultures grew gram-positive cocci in one bottle, repeat blood cultures x2 with NGTD. ID consult placed- appreciate recs -originally recommended Vancomycin and Cefepime -Surgical sample cultures growing staph, recommending Ancef 2g q8h for 2 weeks from removal of stimulator treatment to end on 02/12 in -Consider 6 weeks of treatment if concern for bone involvement -If concern for nearby hardware involvement, may require suppressive therapy -s/p vagus nerve stimulator removal on 01/29. Two week treatment course to end 02/12. General Surgery consulted, appreciate recs -vagus nerve stimulator removal in the OR with Dr. Obrien on 01/29 -chest wound Cx samples currently growing a staph species, on Ancef as noted above -will defer to Surgery to determine whether concern for bone involvement or Hardware infection which will determine whether abx course needs to be extended/need for suppressive therapy- appreciate recs -Advising that pt stable for discharge from surgical standpoint, will need follow up with Dr. Obrien scheduled in office 1 week from discharge Continue IVF w K+ Electrolyte disturbances Hypokalemia Hypomagnesemia Hypophosphatemia Pt refusing PO supplements Continue with IV repletion as needed Monitor with AM labs Hypotension Currently resolved Continue to monitor Seizure disorder Continue IV valproic acid Change to p.o. when able to take p.o. consistently Quadriplegia Cerebral palsy Stable Diet: Pureed regular diet as tolerated, uses Boost 3-4x/day at home Code Status: Full code DVT Prophylaxis: heparin SQ Disposition: will go home with family, mom requesting discharge on Sunday 02/04, will need IV abx , US guided peripheral IV ordered Admission and Anticipated Discharge Date Admission Date: January 26, 2023 Subjective Pt seen in the AM. Was sleeping resting comfortably. Mother not at bedside. Review of Systems Review of Systems: Unobtainable due to mental health condition Physical Exam Physical Exam: General: Sleeping. No acute distress Psych: could not be determined Neuro: nonverbal HEENT: oropharynx closed Chest:chest wall covered with clean bandages CV: RRR Resp: no increased effort of breathing Abdomen: Soft, nontender, nondistended. Extremities: No edema in lower extremities bilaterally. Results & Data Results & Data Vital Signs (Past 12 Hours) Vital Signs Temp Pulse Resp BP Pulse Ox O2 Del Method 02/01/23 11:00 36.8 C 98 H 16 115/60 96 Room Air 02/01/23 08:00 36.8 C 100 H 16 102/63 97 Room Air
[2023-02-01] MEDS: VALPROATE SOD 500 MG in DEXTROSE 5% 50 ML IV SCH (20:51)
[2023-02-02] MEDS: ACETAMINOPHEN 10MG/ML Custom 650 MG in EMPTY BAG 0 ML IV PRN (00:52)
[2023-02-02] MEDS: ceFAZolin 2000MG 2,000 MG/15 ML SYR IV SCH ×3 (06:26→23:09)
[2023-02-02 06:33] LABS: Hematocrit (blood only) 38.4 % (42.0-52.0); Hemoglobin 12.7 g/dl (14.0-18.0); Mean Corpuscular Hemoglobin 31.7 pg (25.0-34.0); Mean Corpuscular Hgb Conc 33.1 g/dL (32.0-36.0); Mean Corpuscular Volume 95.8 fL (80.0-100.0); Mean Platelet Volume 11.6 fL (9.4-12.4); Platelet Count 143 K/uL (130-400); RDW Coefficient of Variation 12.3 % (11.5-14.5); RDW Standard Deviation 42.6 fL (36.4-46.3); Red Blood Count 4.01 M/uL (4.70-6.10); White Blood Count 4.84 K/ul (4.8-10.8)
[2023-02-02 06:50] LABS: Alanine Aminotransferase 33 U/L (7-52); Albumin Globulin Ratio 1.6 (0.9-2); Albumin Level 3.3 gm/dl (3.4-5.0); Alkaline Phosphatase 92 U/L (34-104); Anion Gap 8 (3-11); Aspartate Aminotransferase 27 U/L (13-39); BUN Creatinine Ratio 5.3 (10-20); Bilirubin,Total 0.3 mg/dl (0.2-1.0); Blood Urea Nitrogen 2 mg/dl (6-23); Calcium 8.8 mg/dl (8.6-10.3); Carbon Dioxide 28 mmol/L (21-32); Chloride 102 mmol/L (98-107); Creatinine Clr Calc Pharmacy 178.1 ml/min; Est GFR (African American) > 150.0 ml/min; Est GFR (Non-African American) > 150.0 ml/min; Globulin 2.1 gm/dl (2.5-4.0); Glucose 72 mg/dl (70-99(Fasting)); Magnesium 1.8 mg/dl (1.7-2.4); Phosphorus 3.6 mg/dl (2.5-4.9); Potassium 4.2 mmol/L (3.5-5.1); Sodium 138 mmol/L (136-145); Total Protein 5.4 gm/dl (6.0-8.3)
[2023-02-02 06:51] LABS: Basophils # (auto) 0.07 K/uL (0.00-0.20); Basophils % (auto) 1.4 %; Eosinophils # (auto) 0.19 K/uL (0.00-0.50); Eosinophils % (auto) 3.9 %; Immature Granulocytes # (auto) 0.17 K/uL (0.01-0.20); Immature Granulocytes % (auto) 3.5 %; Lymphocytes # (auto) 3.07 K/uL (1.20-3.40); Lymphocytes % (auto) 63.4 %; Monocytes # (auto) 0.35 K/uL (0.11-0.59); Monocytes % (auto) 7.2 %; Neutrophils # (auto) 0.99 K/uL (1.40-6.50); Neutrophils % (auto) 20.6 %
[2023-02-02] MEDS: CLOBAZAM PO SCH (09:18)
[2023-02-02] MEDS: HEPARIN SOD 5,000 UNIT/0.5 ML VIAL SQ SCH ×2 (09:18→21:01)
[2023-02-02] MEDS: RUFINAMIDE 40 MG/ML PO SCH ×2 (09:18→20:29)
[2023-02-02] MEDS: VALPROATE SOD 250 MG in DEXTROSE 5% 50 ML IV SCH (09:19)
--- NOTE | 2023-02-02 10:00 | Hospitalist Progress Note ---
Date of Service February 02, 2023 Assessment & Plan (1) Sepsis: (2) Gram-positive cocci bacteremia: (3) Abscess: (4) Cellulitis: (5) Bronchopneumonia: (6) Status post VNS (vagus nerve stimulator) placement: (7) Seizures: (8) Quadriplegic cerebral palsy: Plan 32yoM with a history of quadriplegic cerebral palsy, intellectual disability, seizures, s/p vagus nerve stimulator, and chronic constipation admitted with sepsis in the setting of an infected vagus nerve stimulator pocket and bronchopneumonia. Sepsis with gram-positive bacteremia in the setting of abscess/cellulitis of VNS pocket and bronchopneumonia Presented with fever, lethargy and black liquid drainage from the right nostril. In the ED, tachycardic, hypotensive, and tachypneic with evidence of erythema, warmth and swelling over his vagal nerve stimulator Patient had battery change of Vagal nerve stimulator on 12/20/2022 by General Surgery Given 1500 cc fluid bolus with improvement in BP to baseline CT chest concerning for cellulitis and abscess near the recently replaced vagus nerve stimulator as well as bronchopneumonia. MRSA nares negative Original blood cultures grew gram-positive cocci in one bottle, repeat blood cultures x2 with NGTD. ID consult placed- appreciate recs -originally recommended Vancomycin and Cefepime -Surgical sample cultures growing staph, recommending Ancef 2g q8h for 2 weeks from removal of stimulator treatment to end on 02/12 in -Consider 6 weeks of treatment if concern for bone involvement -If concern for nearby hardware involvement, may require suppressive therapy -s/p vagus nerve stimulator removal on 01/29. Two week treatment course to end 02/12. General Surgery consulted, appreciate recs -vagus nerve stimulator removal in the OR with Dr. Obrien on 01/29 -chest wound Cx samples currently growing a staph species, on Ancef as noted above -will defer to Surgery to determine whether concern for bone involvement or Hardware infection which will determine whether abx course needs to be extended/need for suppressive therapy- appreciate recs -Advising that pt stable for discharge from surgical standpoint, will need follow up with Dr. Obrien scheduled in office 1 week from discharge Continue IVF w K+ Electrolyte disturbances Hypokalemia Hypomagnesemia Hypophosphatemia Pt refusing PO supplements Continue with IV repletion as needed Monitor with AM labs Hypotension Currently resolved Continue to monitor Seizure disorder Continue IV valproic acid Change to p.o. when able to take p.o. consistently Quadriplegia Cerebral palsy Stable Diet: Pureed regular diet as tolerated, uses Boost 3-4x/day at home Code Status: Full code DVT Prophylaxis: heparin SQ Disposition: will go home with family, mom requesting discharge on Sunday 02/04, will need IV abx , US guided peripheral IV ordered Admission and Anticipated Discharge Date Admission Date: January 26, 2023 Subjective Pt seen with mother at bedside. Was awake. Mom states that he is looking better. Review of Systems Review of Systems: Unobtainable due to mental health condition Physical Exam Physical Exam: General: Awake. No acute distress Psych: could not be determined Neuro: nonverbal HEENT: atraumatic Chest:chest wall covered with clean bandages CV: RRR Resp: no increased effort of breathing Abdomen: Soft, nontender, nondistended. Extremities: No edema in lower extremities bilaterally. Results & Data Results & Data Vital Signs (Past 12 Hours) Vital Signs Temp Pulse Pulse Resp BP BP Pulse Ox 02/02/23 08:13 36.2 C L 86 16 89/74 L 97 02/02/23 03:57 35.9 C L 98 H 18 102/68 96 02/02/23 00:05 36.4 C L 90 16 102/63 95 O2 Del Method 02/02/23 08:13 Room Air 02/02/23 03:57 Room Air 02/02/23 00:05 Room Air
[2023-02-02] MEDS: NSS + 20MEQ KCL 20 MEQ/1,000 ML BAG IV SCH (16:22)
[2023-02-02] MEDS: VALPROATE SOD 500 MG in DEXTROSE 5% 50 ML IV SCH (20:57)
[2023-02-03] MEDS: ACETAMINOPHEN 10MG/ML Custom 650 MG in EMPTY BAG 0 ML IV PRN (00:25)
[2023-02-03] MEDS: NSS + 20MEQ KCL 20 MEQ/1,000 ML BAG IV SCH ×2 (05:06→15:43)
[2023-02-03 07:40] LABS: Hematocrit (blood only) 37.9 % (42.0-52.0); Mean Corpuscular Hemoglobin 32.1 pg (25.0-34.0); Mean Corpuscular Hgb Conc 34.3 g/dL (32.0-36.0); Mean Corpuscular Volume 93.6 fL (80.0-100.0); Mean Platelet Volume 11.3 fL (9.4-12.4); Platelet Count 185 K/uL (130-400); RDW Coefficient of Variation 12.6 % (11.5-14.5); RDW Standard Deviation 42.9 fL (36.4-46.3); Red Blood Count 4.05 M/uL (4.70-6.10); White Blood Count 4.23 K/ul (4.8-10.8)
[2023-02-03 08:03] LABS: Basophils # (auto) 0.06 K/uL (0.00-0.20); Basophils % (auto) 1.4 %; Eosinophils % (auto) 4.7 %; Immature Granulocytes # (auto) 0.12 K/uL (0.01-0.20); Immature Granulocytes % (auto) 2.8 %; Lymphocytes # (auto) 2.33 K/uL (1.20-3.40); Lymphocytes % (auto) 55.1 %; Monocytes % (auto) 9.5 %; Neutrophils # (auto) 1.12 K/uL (1.40-6.50); Neutrophils % (auto) 26.5 %
[2023-02-03 08:08] LABS: Alanine Aminotransferase 24 U/L (7-52); Albumin Globulin Ratio 1.8 (0.9-2); Albumin Level 3.6 gm/dl (3.4-5.0); Alkaline Phosphatase 94 U/L (34-104); Anion Gap 10 (3-11); Aspartate Aminotransferase 21 U/L (13-39); Bilirubin,Total 0.3 mg/dl (0.2-1.0); Blood Urea Nitrogen < 2 mg/dl (6-23); Calcium 9.1 mg/dl (8.6-10.3); Carbon Dioxide 26 mmol/L (21-32); Chloride 102 mmol/L (98-107); Creatinine Clr Calc Pharmacy 168.4 ml/min; Est GFR (African American) > 150.0 ml/min; Est GFR (Non-African American) > 150.0 ml/min; Glucose 73 mg/dl (70-99(Fasting)); Magnesium 1.7 mg/dl (1.7-2.4); Phosphorus 3.4 mg/dl (2.5-4.9); Potassium 4.1 mmol/L (3.5-5.1); Sodium 138 mmol/L (136-145); Total Protein 5.6 gm/dl (6.0-8.3)
[2023-02-03] MEDS: ceFAZolin 2000MG 2,000 MG/15 ML SYR IV SCH ×3 (09:13→22:50)
[2023-02-03] MEDS: HEPARIN SOD 5,000 UNIT/0.5 ML VIAL SQ SCH ×2 (09:28→20:11)
[2023-02-03] MEDS: VALPROATE SOD 250 MG in DEXTROSE 5% 50 ML IV SCH (09:28)
[2023-02-03] MEDS: RUFINAMIDE 40 MG/ML PO SCH ×2 (09:54→20:02)
[2023-02-03] MEDS: CLOBAZAM PO SCH (09:54)
--- NOTE | 2023-02-03 12:43 | Hospitalist Progress Note ---
Date of Service February 03, 2023 Assessment & Plan (1) Sepsis: (2) Gram-positive cocci bacteremia: (3) Abscess: (4) Cellulitis: (5) Bronchopneumonia: (6) Status post VNS (vagus nerve stimulator) placement: (7) Seizures: (8) Quadriplegic cerebral palsy: Plan 32yoM with a history of quadriplegic cerebral palsy, intellectual disability, seizures, s/p vagus nerve stimulator, and chronic constipation admitted with sepsis in the setting of an infected vagus nerve stimulator pocket and bronchopneumonia. Sepsis with gram-positive bacteremia in the setting of abscess/cellulitis of VNS pocket and bronchopneumonia Presented with fever, lethargy and black liquid drainage from the right nostril. In the ED, tachycardic, hypotensive, and tachypneic with evidence of erythema, warmth and swelling over his vagal nerve stimulator Patient had battery change of Vagal nerve stimulator on 12/20/2022 by General Surgery Given 1500 cc fluid bolus with improvement in BP to baseline CT chest concerning for cellulitis and abscess near the recently replaced vagus nerve stimulator as well as bronchopneumonia. MRSA nares negative Original blood cultures grew gram-positive cocci in one bottle, repeat blood cultures x2 with NGTD. ID consult placed- appreciate recs -originally recommended Vancomycin and Cefepime -Surgical sample cultures growing staph, recommending Ancef 2g q8h for 2 weeks from removal of stimulator treatment to end on 02/12 -Consider 6 weeks of treatment if concern for bone involvement -If concern for nearby hardware involvement, may require suppressive therapy -s/p vagus nerve stimulator removal on 01/29. Two week treatment course to end 02/12. General Surgery consulted, appreciate recs -vagus nerve stimulator removal in the OR with Dr. Obrien on 01/29 -chest wound Cx samples currently growing staph species, on Ancef as noted above. Appreciate ID recs -will defer to Surgery to determine whether concern for bone involvement or Hardware infection which will determine whether abx course needs to be extended/need for suppressive therapy- appreciate recs -Advising that pt stable for discharge from surgical standpoint, will need follow up with Dr. Obrien scheduled in office 1 week from discharge Continue IVF w K+ Electrolyte disturbances Hypokalemia Hypomagnesemia Hypophosphatemia Pt refusing PO supplements Continue with IV repletion as needed Monitor with AM labs Hypotension Currently resolved Continue to monitor Seizure disorder Continue IV valproic acid Change to p.o. when able to take p.o. consistently Quadriplegia Cerebral palsy Stable Diet: Pureed regular diet as tolerated, uses Boost 3-4x/day at home Code Status: Full code DVT Prophylaxis: heparin SQ Disposition: will go home with family, mom requesting discharge on Sunday 02/04, will need IV abx , US guided peripheral IV ordered Admission and Anticipated Discharge Date Admission Date: January 26, 2023 Subjective Pt seen with mother at bedside. Was awake. Mom states that he is looking better, stable. No further seizures Review of Systems Review of Systems: All systems reviewed & are unremarkable except as noted in Subjective Physical Exam Physical Exam: General: Awake. No acute distress Psych: could not be determined Neuro: nonverbal HEENT: atraumatic CV: RRR Resp: no increased effort of breathing Abdomen: Soft, nontender, nondistended. Extremities: No edema in lower extremities bilaterally. Results & Data Results & Data Vital Signs (Past 12 Hours) Vital Signs Temp Pulse Pulse Resp BP BP Pulse Ox 02/03/23 08:00 82 02/03/23 08:00 02/03/23 07:54 36.5 C 102 H 18 99/74 L 96 02/03/23 04:20 99/72 L 02/03/23 03:42 36.7 C 78 16 87/64 L 96 O2 Del Method 02/03/23 08:00 02/03/23 08:00 Room Air 02/03/23 07:54 Room Air 02/03/23 04:20 02/03/23 03:42 Room Air
[2023-02-03] MEDS: VALPROATE SOD 500 MG in DEXTROSE 5% 50 ML IV SCH (20:08)
--- NOTE | 2023-02-04 02:16 | Communication Note ---
Date of Service: February 04, 2023 Made aware by RN of patient emesis and hacking cough symptoms. Concern for aspiration as per RN. No respiratory distress or obvious belly discomfort. BP 116/77, Heart rate 120s as per RN temperature 35.8 Chest x-ray as per my interpretation atelectasis, interstitial infiltrates similar to January 26, 2023 imaging Serum lipase noted to be 1000 AP Aspiration pneumonitis possible sepsis Emesis possible pancreatitis CS Unasyn in place of Cefazolin for now N.p.o. except meds Aspiration precautions BEEF BREAKER eval IVF CT abdomen pelvis May need GI eval pending CT results Will relay to AM provider.
[2023-02-04] MEDS: NSS + 20MEQ KCL 20 MEQ/1,000 ML BAG IV SCH (02:29)
[2023-02-04] MEDS: MAGNESIUM SULFATE / D5W 1 GM/100 ML BAG IV SCH ×2 (02:30→04:13)
[2023-02-04] MEDS: AMPICILLIN/SULBACTAM SOD 3,000 MG in SODIUM CHLOR 0.9% MINI-B 100 ML IV SCH ×2 (03:10→09:31)
[2023-02-04 03:30] LABS: Basophils # (auto) 0.07 K/uL (0.00-0.20); Basophils % (auto) 0.8 %; Eosinophils # (auto) 0.15 K/uL (0.00-0.50); Eosinophils % (auto) 1.6 %; Hematocrit (blood only) 44.2 % (42.0-52.0); Hemoglobin 14.7 g/dl (14.0-18.0); Immature Granulocytes # (auto) 0.15 K/uL (0.01-0.20); Immature Granulocytes % (auto) 1.6 %; Lymphocytes # (auto) 2.66 K/uL (1.20-3.40); Lymphocytes % (auto) 28.9 %; Mean Corpuscular Hemoglobin 31.9 pg (25.0-34.0); Mean Corpuscular Hgb Conc 33.3 g/dL (32.0-36.0); Mean Corpuscular Volume 95.9 fL (80.0-100.0); Mean Platelet Volume 12.2 fL (9.4-12.4); Monocytes # (auto) 0.92 K/uL (0.11-0.59); Neutrophils # (auto) 5.24 K/uL (1.40-6.50); Neutrophils % (auto) 57.1 %; Platelet Count 204 K/uL (130-400); RDW Coefficient of Variation 13.1 % (11.5-14.5); RDW Standard Deviation 44.8 fL (36.4-46.3); Red Blood Count 4.61 M/uL (4.70-6.10); White Blood Count 9.19 K/ul (4.8-10.8)
[2023-02-04 03:33] LABS: Anion Gap 12 (3-11); BUN Creatinine Ratio 8.2 (10-20); Blood Urea Nitrogen 4 mg/dl (6-23); Calcium 9.5 mg/dl (8.6-10.3); Carbon Dioxide 27 mmol/L (21-32); Chloride 102 mmol/L (98-107); Creatinine Clr Calc Pharmacy 134.1 ml/min; Est GFR (African American) > 150.0 ml/min; Est GFR (Non-African American) 146.6 ml/min; Glucose 100 mg/dl (70-99(Fasting)); Potassium 3.7 mmol/L (3.5-5.1); Sodium 141 mmol/L (136-145)
[2023-02-04 03:45] LABS: Alanine Aminotransferase 18 U/L (7-52); Albumin Globulin Ratio 1.7 (0.9-2); Albumin Level 3.8 gm/dl (3.4-5.0); Alkaline Phosphatase 106 U/L (34-104); Aspartate Aminotransferase 18 U/L (13-39); Bilirubin,Total 0.3 mg/dl (0.2-1.0); Globulin 2.3 gm/dl (2.5-4.0); Thyroid Stimulating Hormone 5.973 uIu/ml (0.300-4.500); Total Protein 6.1 gm/dl (6.0-8.3)
[2023-02-04 03:54] LABS: Lipase 1040 U/L (11-82)
[2023-02-04 04:21] LABS: T4 Free Thyroxine 1.03 ng/dl (0.61-1.60)
[2023-02-04] MEDS ORDERED: LACTATED RINGER'S 1,000 ML IV SCH (04:30)
[2023-02-04] MEDS ORDERED: LACTATED RINGER'S 1,000 ML IV ONE (04:39)
[2023-02-04] MEDS ORDERED: OPTIRAY 320 100ml IV ONE (04:54)
[2023-02-04] MEDS: POTASSIUM CHLORIDE / WTR 10 MEQ/100 ML PLCT IV SCH ×3 (05:06→07:17)
--- NOTE | 2023-02-04 06:59 | CT Scan Report ---
CT OF THE ABDOMEN AND PELVIS WITH CONTRAST CLINICAL HISTORY: Emesis. COMPARISON STUDY: CT of the abdomen and pelvis November 07, 2022 and KUB November 11, 2022. TECHNIQUE: Following IV administration of 91 mL of Optiray, axial images of the abdomen and pelvis we re obtained from the lung bases to the proximal femurs. Images were reviewed in the axial, sagittal, and coronal planes. IV contrast was administered without complication. Automated exposure control wa s utilized for the study. A dose lowering technique was utilized adhering to the principles of ALARA . CT DOSE: 383.09 mGy.cm FINDINGS: This exam is compromised by streak artifact from the scoliosis hardware. Chronic deformity of the hips is incidentally noted. Ground glass opacity within the left lower lobe favors atelectasis . Circumferential wall thickening of the esophagus is noted. The stomach is significantly distended. No pneumatosis, free air or portal venous gas is present. There is no biliary ductal dilatation statu s post cholecystectomy. The liver, spleen, adrenal glands, kidneys and pancreas are unremarkable. The re is no hydronephrosis. There is no evidence for a bowel obstruction. A large amount of stool within the rectum is noted. This is decreased when compared to CT of November 07, 2022. There is mild perirecta l stranding. Right testis is within the right inguinal canal. This was shown on prior exam. Left test is is not identified. Major vasculature is grossly patent. There is no lymphadenopathy. No fluid connie ections are identified. IMPRESSION: 1. Circumferential esophageal wall thickening. This may reflect esophagitis. Significantly distended stomach. 2. Large amount of stool within the rectum. Perirectal stranding. The findings raise the possibility of stercoral colitis. 3. No bowel obstruction. ACT 112: Negative or not required by law. Electronically signed by: Shahriar Fuentes M.D. 02/04/2023 6:57 AM
[2023-02-04] MEDS: LACTATED RINGER'S 1,000 ML IV SCH ×4 (07:16→21:24)
--- NOTE | 2023-02-04 07:22 | XRay Report ---
XR chest 1V portable CLINICAL HISTORY: Cough. COMPARISON STUDY: Chest radiograph and chest CT January 26, 2023. FINDINGS: Scoliosis hardware is incidentally noted. Cardiomediastinal silhouette is stable. Pulmonary vascularity is normal. No consolidation is identified. Lung volumes are managed, unchanged. Gaseous distention of the stomach is noted. There are cholecystectomy clips. IMPRESSION: 1. No acute cardiopulmonary findings. 2. Gaseous distention of the stomach. ACT 112: Negative or not required by law. Electronically signed by: Shahriar Fuentes M.D. 02/04/2023 7:21 AM
--- NOTE | 2023-02-04 08:00 | Hospitalist Progress Note ---
Date of Service February 04, 2023 Assessment & Plan (1) Sepsis: (2) Gram-positive cocci bacteremia: (3) Abscess: (4) Cellulitis: (5) Bronchopneumonia: (6) Status post VNS (vagus nerve stimulator) placement: (7) Seizures: (8) Quadriplegic cerebral palsy: Plan 32yoM with a history of quadriplegic cerebral palsy, intellectual disability, seizures, s/p vagus nerve stimulator, and chronic constipation admitted with sepsis in the setting of an infected vagus nerve stimulator pocket and bronchopneumonia. Sepsis with gram-positive bacteremia in the setting of abscess/cellulitis of VNS pocket and bronchopneumonia Presented with fever, lethargy and black liquid drainage from the right nostril. In the ED, tachycardic, hypotensive, and tachypneic with evidence of erythema, warmth and swelling over his vagal nerve stimulator Patient had battery change of Vagal nerve stimulator on 12/20/2022 by General Surgery Given 1500 cc fluid bolus with improvement in BP to baseline CT chest concerning for cellulitis and abscess near the recently replaced vagus nerve stimulator as well as bronchopneumonia. MRSA nares negative Original blood cultures grew gram-positive cocci in one bottle, repeat blood cultures x2 with NGTD. ID consult placed- appreciate recs -originally recommended Vancomycin and Cefepime -Surgical sample cultures growing staph, recommending Ancef 2g q8h for 2 weeks from removal of stimulator treatment to end on 02/12. -Consider 6 weeks of treatment if concern for bone involvement -If concern for nearby hardware involvement, may require suppressive therapy General Surgery consulted, appreciate recs -vagus nerve stimulator removal in the OR with Dr. Obrien on 01/29 -chest wound Cx samples currently growing staph species, on Ancef as noted above. Appreciate ID recs -will defer to Surgery to determine whether concern for bone involvement or Hardware infection which will determine whether abx course needs to be extended/need for suppressive therapy- appreciate recs -Advising that pt stable for discharge from surgical standpoint, will need follow up with Dr. Obrien scheduled in office 1 week from discharge Continue IVF w K+ 02/04- multiple episodes of emesis concerning for fecal material, concern for aspiration. CT abd/pelvis concerning for esophagitis, significantly distended stomach, large amount of stool within the rectum, perirectal stranding. The findings raise the possibility of stercoral colitis, No bowel obstruction. GI consult, enema by GI, Unasyn broadened to Zosyn, ID [id number] with Zosyn. Electrolyte disturbances Hypokalemia Hypomagnesemia Hypophosphatemia Pt refusing PO supplements Continue with IV repletion as needed Monitor with AM labs Hypotension Currently resolved Continue to monitor Seizure disorder Continue IV valproic acid Continue Banzel doses With increased Banzel doses, no further seizures. Appreciate Neurology recs Quadriplegia Cerebral palsy Stable Diet: currently NPO with fluids Code Status: Full code DVT Prophylaxis: heparin SQ Disposition: will go home with family, will need IV abx , US guided peripheral IV ordered (if less than Admission and Anticipated Discharge Date Admission Date: January 26, 2023 Subjective Pt seen with nursing at bedside. Was sleeping. Had episodes of emesis, concern that it had fecal material and that he had aspirated. Noted that he had prior episodes overnight. Review of Systems Review of Systems: Unobtainable due to mental health condition Physical Exam Physical Exam: General: Sleeping No acute distress Psych: could not be determined Neuro: nonverbal HEENT: atraumatic CV: RRR Resp: no increased effort of breathing Abdomen: Soft, nontender, nondistended on exam Extremities: No edema in lower extremities bilaterally. Results & Data Results & Data Vital Signs (Past 12 Hours) Vital Signs Temp Pulse Pulse Resp BP Pulse Ox O2 Del Method 02/04/23 04:35 36.4 C L 116 H 18 105/75 97 Room Air 02/04/23 01:56 116/77 95 Room Air 02/03/23 22:17 108 H 02/03/23 23:29 35.8 C L 117 H 18 110/74 94 Room Air
[2023-02-04] MEDS ORDERED: bisacodyL 10 MG SUPP PR STA (09:20)
--- NOTE | 2023-02-04 09:22 | Gastrointestinal Consultation ---
Date of Consultation February 04, 2023 Assessment & Plan (1) Chronic constipation: Plan Suspect recent vomiting likely secondary to constipation/poor GI motility secondary to being non mobile, effect of meds and hospitalization. Suspect esophageal wall thickening secondary to esophagitis - possibly from recent vomiting, vs chronic esophagitis secondary to chronic reflux. Lipase was normal last week and is now elevated at 1040. He does not seem tender on exam and no CT evidence of pancreatitis, LFTs and bile ducts are normal - unsure if this represents clinic pancreatitis but would provide IV hydration. He does not seem distended on exam at this time - he did pass a BM last evening and vomited a large amt this morning. - would hold po for now (until has passed several BMs) - emycin x 48 yrs to promote gastric motility - IV hydration - tap water enema followed by Dulcolax suppository x 2 this shift. - PPI for possible esophagitis - will continue to follow. History of Present Illness Reason for Consultation: CT results- colitis, distended stomach Requesting Physician: Dr. Amador Attending Physician: Lin Amador MD History of Present Illness Mr. Shiva Bauer is a 32 yr old male pt of Dr. Kartik de a hx of CP, intellectual disability, seizure disorder who was brought to the ED on 01/26 for fever, change in mental status. He is being tx for sepsis thought secondary to cellulitis/abscess near the recently replaced vagus nerve stimulator and pneumonia. Staff suspects that he aspirated when vomiting. GI is consulted today because he vomited a large amt of brown emesis, CT was completed showing distal esophageal wall thickening, distended stomach and large amt of stool in the rectum. Lipase is also elevated >1000. He is also known to our group as we were consulted in October for constipation/stercoral colitis. His bowel regime at home has been Sennnosides and Miralax, both prn. Allergies Allergy/AdvReac Type Severity Reaction Status Date / Time fentanyl AdvReac Intermediate Difficulty Verified 01/25/23 09:36 to awaken Home Medications Medication Instructions Recorded Confirmed Type glycopyrrolate 1 mg tablet 1 mg PO BID PRN Secretions #60 tabs 01/08/19 01/26/23 History divalproex 125 mg capsule,delayed 250 - 500 mg PO UD 11/07/22 01/26/23 History release sprinkle nutritional supplements 0.09 1 ea PO QID 11/07/22 01/26/23 History gram-0.5 kcal/mL oral liquid (Boost Max) polyethylene glycol 3350 17 4.25 g PO UD PRN Constipation 11/07/22 01/26/23 History gram/dose oral powder (Miralax) sennosides 8.8 mg/5 mL oral syrup 8.8 mg PO BID PRN Constipation 11/07/22 01/26/23 History clobazam 2.5 mg/mL oral suspension 2.5 mg PO UD #120 mL 01/25/23 01/26/23 Rx rufinamide 40 mg/mL oral 1,400 mg PO BID 01/31/23 01/31/23 History suspension (Banzel) Patient History Medical History (Updated 01/31/23 @ 11:10 by Marcelino Watts MD) Adopted Back problem Chronic constipation MR (mental retardation), severe Osteoporosis Quadriplegic cerebral palsy Seizures most recent 12/03/22 Per records- "small seizures" couple times a week (consist of blinking and downward turning of the head); intermittent generalized jerking type seizures less frequent Sialorrhea Surgical History (Updated 01/30/23 @ 15:33 by Angella Watson, ZULY) History of orchiectomy Left History of spinal fusion History of surgery (01/29/23) Explantation of Vagus Nerve Stimulator and Leads(Not Applicable) - Patel Obrien MD, FACS Hx of myringotomy w/tubes, multiple times S/P cholecystectomy Status post placement of VNS (vagus nerve stimulation) device (2016) Battery change, Dr. Obrien Status post VNS (vagus nerve stimulator) placement (2004) Status post VNS (vagus nerve stimulator) placement (12/20/22) Vagus Nerve Stimulator Generator Replacement(Left) - Patel Obrien MD, FACS Family History Other Family history unknown Social History Smoking Status: Never smoker Second Hand Exposure: No; Do You Dip or Chew Tobacco: No; Hx Alcohol Use: No Hx Substance Use: No Preferred Language: Wallisian Communication Ability: Impaired Communication Ability Comment: pt is nonverbal Security And Compliance Project Manager Required: No Beliefs That Will Affect Care: None marital status: Single Current Living Situation: Parent Current Living Situation Comment: adopted current occupational status: disabled How many Children do You have: 0 Other Information That Helps Us Care for You: No Feels Safe at Home: Yes Diet: regular Diet Comment: Pureed Assistive Devices: Mechanical Lift and Wheelchair Review of Systems Review of Systems: He is non verbal and not able to provide a ROS Physical Exam Constitutional: Awake, appears comfortable. Eyes: PERRL, conjunctivae normal, anicteric sclerae ENMT: external ear and nose normal, oropharynx normal Neck: trachea midline, no thyromegaly Respiratory: normal respiratory effort, lungs clear to auscultation Cardiovascular: RRR, no murmur, no edema Gastrointestinal (Abdomen): Abd is soft, non distended, BS are active. Musculoskeletal: contractures Skin: pale, no rashes Lymphatic: no cervical or axillary lymphadenopathy Results & Data Vital Signs (Past 12 Hours) Vital Signs Temp Pulse Pulse Resp BP Pulse Ox O2 Del Method 02/04/23 08:04 35.9 C L 118 H 18 119/87 96 Room Air 02/04/23 04:35 36.4 C L 116 H 18 105/75 97 Room Air 02/04/23 01:56 116/77 95 Room Air 02/03/23 22:17 108 H 02/03/23 23:29 35.8 C L 117 H 18 110/74 94 Room Air Laboratory Results WBC 9, Hb 14, Hct 44, Plts 204, Na 141, K 3.7, Cl 102, CO2 27, BN 4, Cr 0.4, glucose 100 Lipase 1040. LFTs normal Diagnostic Findings CTAP w IV today: 1. Circumferential esophageal wall thickening. This may reflect esophagitis. Significantly distended stomach. 2. Large amount of stool within the rectum. Perirectal stranding. The findings raise the possibility of stercoral colitis. 3. No bowel obstruction.
[2023-02-04] MEDS: CLOBAZAM PO SCH (09:24)
[2023-02-04] MEDS: POLYETHYLENE (MIRALAX) 17 GM PACK PO SCH (09:24)
[2023-02-04] MEDS: RUFINAMIDE 40 MG/ML PO SCH ×2 (09:25→21:17)
[2023-02-04] MEDS: VALPROATE SOD 250 MG in DEXTROSE 5% 50 ML IV SCH (09:31)
[2023-02-04] MEDS: HEPARIN SOD 5,000 UNIT/0.5 ML VIAL SQ SCH ×2 (09:32→20:18)
[2023-02-04] MEDS ORDERED: bisacodyL 10 MG SUPP PR ONE (12:00)
[2023-02-04] MEDS ORDERED: PIPER/TAZO 4.5g in D5W MINI-B 100 ML IV ONE (13:00)
[2023-02-04] MEDS: ERYTHROMYCIN 250 MG in SODIUM CHLORIDE 0.9% 250 ML IV SCH ×3 (13:17→23:16)
[2023-02-04] MEDS ORDERED: PROMETHAZINE HCL 25 MG in SODIUM CHLORIDE 0.9% 50 ML IV PRN (16:22)
[2023-02-04] MEDS: PIPERACILLIN/TAZOBACTAM 4.5 GM in DEXTROSE 5% MINI-B 100 ML IV SCH (17:17)
[2023-02-04] MEDS: VALPROATE SOD 500 MG in DEXTROSE 5% 50 ML IV SCH (21:25)
[2023-02-05] MEDS: PIPERACILLIN/TAZOBACTAM 4.5 GM in DEXTROSE 5% MINI-B 100 ML IV SCH ×3 (01:16→18:02)
[2023-02-05] MEDS: LACTATED RINGER'S 1,000 ML IV SCH ×4 (02:37→21:07)
[2023-02-05] MEDS: ERYTHROMYCIN 250 MG in SODIUM CHLORIDE 0.9% 250 ML IV SCH (06:15)
[2023-02-05 06:43] LABS: Basophils # (auto) 0.04 K/uL (0.00-0.20); Basophils % (auto) 0.4 %; Eosinophils # (auto) 0.03 K/uL (0.00-0.50); Eosinophils % (auto) 0.3 %; Hemoglobin 12.2 g/dl (14.0-18.0); Immature Granulocytes # (auto) 0.05 K/uL (0.01-0.20); Immature Granulocytes % (auto) 0.5 %; Lymphocytes # (auto) 2.39 K/uL (1.20-3.40); Lymphocytes % (auto) 24.7 %; Mean Corpuscular Hemoglobin 32.2 pg (25.0-34.0); Mean Corpuscular Hgb Conc 33.9 g/dL (32.0-36.0); Mean Platelet Volume 11.2 fL (9.4-12.4); Monocytes # (auto) 1.07 K/uL (0.11-0.59); Monocytes % (auto) 11.1 %; Neutrophils # (auto) 6.08 K/uL (1.40-6.50); Platelet Count 190 K/uL (130-400); RDW Coefficient of Variation 13.4 % (11.5-14.5); RDW Standard Deviation 45.5 fL (36.4-46.3); Red Blood Count 3.79 M/uL (4.70-6.10); White Blood Count 9.66 K/ul (4.8-10.8)
[2023-02-05 07:40] LABS: Alanine Aminotransferase 11 U/L (7-52); Albumin Globulin Ratio 1.7 (0.9-2); Alkaline Phosphatase 73 U/L (34-104); Anion Gap 7 (3-11); Aspartate Aminotransferase 12 U/L (13-39); Bilirubin,Total 0.3 mg/dl (0.2-1.0); Blood Urea Nitrogen < 2 mg/dl (6-23); Calcium 8.6 mg/dl (8.6-10.3); Carbon Dioxide 30 mmol/L (21-32); Chloride 104 mmol/L (98-107); Creatinine Clr Calc Pharmacy 193.7 ml/min; Est GFR (African American) > 150.0 ml/min; Est GFR (Non-African American) > 150.0 ml/min; Globulin 1.8 gm/dl (2.5-4.0); Glucose 97 mg/dl (70-99(Fasting)); Magnesium 1.5 mg/dl (1.7-2.4); Phosphorus 3.3 mg/dl (2.5-4.9); Potassium 3.5 mmol/L (3.5-5.1); Sodium 141 mmol/L (136-145); Total Protein 4.8 gm/dl (6.0-8.3)
--- NOTE | 2023-02-05 09:03 | Gastroenterology Progress Note ---
Date of Service February 05, 2023 Assessment & Plan (1) Chronic constipation: Plan DC emycin. No GI contraindication to taking meds, foods, liquids po. per nursing, mom says he always gets constipated in the hospital setting but at home has been passing BMs regularly. Would encourage more liberal use of laxatives on any hospital admission but will keep dc bowel regime the same: miralax daily prn, dulcolax daily prn. GI will sign off. Call if questions. Admission and Anticipated Discharge Date Admission Date: January 26, 2023 Supervising Physician Co-Signing Physician Notes Attg: Large BM overnight, symptoms resolved. Recommendations as above. Subjective After large BMs yesterday, stopped vomiting (most recent just after large BMs). Pt awake/alert today. Review of Systems Review of Systems: Unable to obtain ROS from pt. Nursing tells me his mom was in yesterday and says he looks much better - back to himself Physical Exam Eyes: PERRL, conjunctivae normal, anicteric sclerae ENMT: external ear and nose normal, oropharynx normal Neck: trachea midline, no thyromegaly Respiratory: normal respiratory effort, lungs clear to auscultation Cardiovascular: RRR, no murmur, no edema Gastrointestinal (Abdomen): No distention - much improved from yesterday . Skin: no jaundice, no rashes. Has a dressing over the coccyx and a dressing over the RIGOBERTO chest. Neurologic: awake, alert, reactive; non verbal Psychiatric: no evidence of agitation/discomfort Lymphatic: no cervical or axillary lymphadenopathy Results & Data Vital Signs (Past 12 Hours) Vital Signs Temp Pulse Pulse Resp BP Pulse Ox O2 Del Method 02/05/23 08:47 36.3 C L 99 H 16 90/56 L 96 Room Air 02/05/23 03:35 37.7 C H 109 H 16 106/70 Room Air 02/05/23 00:05 37.9 C H 114 H 16 124/69 96 Room Air 02/04/23 23:41 114 H Laboratory Results WBC 9.6, Hb 12.2, Hct 36, Plts 190, Na 141, K 3.5, Cl 104, CO2 30, BUN 2, Cr 0.34, glucose 97 Diagnostic Findings CTAP w contrast 01/26/23: 1. Circumferential esophageal wall thickening. This may reflect esophagitis. Significantly distended stomach. 2. Large amount of stool within the rectum. Perirectal stranding. The findings raise the possibility of stercoral colitis. 3. No bowel obstruction.
[2023-02-05] MEDS: VALPROATE SOD 250 MG in DEXTROSE 5% 50 ML IV SCH (09:05)
[2023-02-05] MEDS: POLYETHYLENE (MIRALAX) 17 GM PACK PO SCH (09:05)
[2023-02-05] MEDS: CLOBAZAM PO SCH (09:05)
[2023-02-05] MEDS: HEPARIN SOD 5,000 UNIT/0.5 ML VIAL SQ SCH ×2 (09:06→21:16)
[2023-02-05] MEDS: RUFINAMIDE 40 MG/ML PO SCH ×2 (09:06→21:16)
--- NOTE | 2023-02-05 12:56 | Hospitalist Progress Note ---
Date of Service February 05, 2023 Assessment & Plan (1) Sepsis: (2) Gram-positive cocci bacteremia: (3) Abscess: (4) Cellulitis: (5) Bronchopneumonia: (6) Status post VNS (vagus nerve stimulator) placement: (7) Seizures: (8) Quadriplegic cerebral palsy: Plan 32yoM with a history of quadriplegic cerebral palsy, intellectual disability, seizures, s/p vagus nerve stimulator, and chronic constipation admitted with sepsis in the setting of an infected vagus nerve stimulator pocket and bronchopneumonia. Sepsis with gram-positive bacteremia in the setting of abscess/cellulitis of VNS pocket and bronchopneumonia Presented with fever, lethargy and black liquid drainage from the right nostril. In the ED, tachycardic, hypotensive, and tachypneic with evidence of erythema, warmth and swelling over his vagal nerve stimulator Patient had battery change of Vagal nerve stimulator on 12/20/2022 by General Surgery Given 1500 cc fluid bolus with improvement in BP to baseline CT chest concerning for cellulitis and abscess near the recently replaced vagus nerve stimulator as well as bronchopneumonia. MRSA nares negative Original blood cultures grew gram-positive cocci in one bottle, repeat blood cultures x2 with NGTD. ID consult placed- appreciate recs -originally recommended Vancomycin and Cefepime -Surgical sample cultures growing staph, recommending Ancef 2g q8h for 2 weeks from removal of stimulator treatment to end on 02/12. -Consider 6 weeks of treatment if concern for bone involvement -If concern for nearby hardware involvement, may require suppressive therapy General Surgery consulted, appreciate recs -vagus nerve stimulator removal in the OR with Dr. Obrien on 01/29 -chest wound Cx samples currently growing staph species, on Ancef as noted above. Appreciate ID recs -will defer to Surgery to determine whether concern for bone involvement or Hardware infection which will determine whether abx course needs to be extended/need for suppressive therapy- appreciate recs -Advising that pt stable for discharge from surgical standpoint, will need follow up with Dr. Obrien scheduled in office 1 week from discharge Continue IVF w K+ 02/04- multiple episodes of emesis concerning for fecal material, concern for aspiration. CT abd/pelvis concerning for esophagitis, significantly distended stomach, large amount of stool within the rectum, perirectal stranding. The findings raise the possibility of stercoral colitis, No bowel obstruction. GI consult, enema by GI, Unasyn broadened to Zosyn, ID [id number] with Zosyn. 02/05 Pt stable but persistently tachycardic, wbc currently normal but trending back up. Repeat blood Cx x 2 with NGTD. Discussion with mother that can consider d/c once back to baseline. Will need IV meds for discharge reassessed- consider Zosyn Electrolyte disturbances Hypokalemia Hypomagnesemia Hypophosphatemia Pt refusing PO supplements Continue with IV repletion as needed Monitor with AM labs Hypotension Currently resolved Continue to monitor Seizure disorder Continue IV valproic acid Continue Banzel doses With increased Banzel doses, no further seizures. Appreciate Neurology recs Quadriplegia Cerebral palsy Stable Diet: cback on diet Code Status: Full code DVT Prophylaxis: heparin SQ Disposition: will go home with family, will need IV abx , US guided peripheral IV ordered (if less than 2 weeks), will likely need PICC Admission and Anticipated Discharge Date Admission Date: January 26, 2023 Subjective Pt seen this AM with mom at bedside. Mom asking about d/c plans. Notes that he frequently gets contsipated. Review of Systems Review of Systems: Unobtainable due to cognitive status Physical Exam Physical Exam: General: Sleeping No acute distress Psych: could not be determined Neuro: nonverbal HEENT: atraumatic CV: RRR Resp: no increased effort of breathing Abdomen: Soft, nontender, nondistended on exam Extremities: No edema in lower extremities bilaterally. Results & Data Results & Data Vital Signs (Past 12 Hours) Vital Signs Temp Pulse Resp BP Pulse Ox O2 Del Method 02/05/23 11:35 36.9 C 105 H 17 98/70 L 95 Room Air 02/05/23 08:47 36.3 C L 99 H 16 90/56 L 96 Room Air 02/05/23 03:35 37.7 C H 109 H 16 106/70 Room Air
[2023-02-05] MEDS: VALPROATE SOD 500 MG in DEXTROSE 5% 50 ML IV SCH (21:17)
[2023-02-05] MEDS: MAGNESIUM SULFATE / D5W 1 GM/100 ML BAG IV SCH (23:04)
[2023-02-05] MEDS: POTASSIUM CHLORIDE / WTR 10 MEQ/100 ML PLCT IV SCH (23:26)
[2023-02-06] MEDS: POTASSIUM CHLORIDE / WTR 10 MEQ/100 ML PLCT IV SCH ×4 (00:26→03:26)
[2023-02-06] MEDS: MAGNESIUM SULFATE / D5W 1 GM/100 ML BAG IV SCH (01:04)
[2023-02-06] MEDS: PIPERACILLIN/TAZOBACTAM 4.5 GM in DEXTROSE 5% MINI-B 100 ML IV SCH ×3 (03:55→17:32)
[2023-02-06] MEDS: LACTATED RINGER'S 1,000 ML IV SCH ×3 (05:07→20:58)
[2023-02-06 06:57] LABS: Alanine Aminotransferase 14 U/L (7-52); Albumin Globulin Ratio 1.6 (0.9-2); Albumin Level 3.5 gm/dl (3.4-5.0); Alkaline Phosphatase 83 U/L (34-104); Anion Gap 8 (3-11); Aspartate Aminotransferase 16 U/L (13-39); Bilirubin,Total 0.4 mg/dl (0.2-1.0); Blood Urea Nitrogen < 2 mg/dl (6-23); Calcium 8.9 mg/dl (8.6-10.3); Carbon Dioxide 27 mmol/L (21-32); Chloride 102 mmol/L (98-107); Creatinine Clr Calc Pharmacy 181.1 ml/min; Est GFR (African American) > 150.0 ml/min; Est GFR (Non-African American) > 150.0 ml/min; Globulin 2.2 gm/dl (2.5-4.0); Glucose 94 mg/dl (70-99(Fasting)); Magnesium 2.1 mg/dl (1.7-2.4); Phosphorus 3.1 mg/dl (2.5-4.9); Potassium 4.4 mmol/L (3.5-5.1); Sodium 137 mmol/L (136-145); Total Protein 5.7 gm/dl (6.0-8.3)
[2023-02-06 07:45] LABS: Basophils # (auto) 0.04 K/uL (0.00-0.20); Basophils % (auto) 0.5 %; Eosinophils # (auto) 0.03 K/uL (0.00-0.50); Eosinophils % (auto) 0.4 %; Hemoglobin 12.3 g/dl (14.0-18.0); Immature Granulocytes # (auto) 0.05 K/uL (0.01-0.20); Immature Granulocytes % (auto) 0.6 %; Lymphocytes % (auto) 25.1 %; Mean Corpuscular Hemoglobin 32.3 pg (25.0-34.0); Mean Corpuscular Hgb Conc 34.2 g/dL (32.0-36.0); Mean Corpuscular Volume 94.5 fL (80.0-100.0); Mean Platelet Volume 10.9 fL (9.4-12.4); Monocytes # (auto) 0.59 K/uL (0.11-0.59); Monocytes % (auto) 7.1 %; Neutrophils # (auto) 5.54 K/uL (1.40-6.50); Neutrophils % (auto) 66.3 %; Platelet Count 213 K/uL (130-400); RDW Coefficient of Variation 13.5 % (11.5-14.5); RDW Standard Deviation 46.6 fL (36.4-46.3); Red Blood Count 3.81 M/uL (4.70-6.10); White Blood Count 8.35 K/ul (4.8-10.8)
[2023-02-06] MEDS: VALPROATE SOD 250 MG in DEXTROSE 5% 50 ML IV SCH (08:03)
[2023-02-06] MEDS: CLOBAZAM PO SCH (08:05)
[2023-02-06] MEDS: POLYETHYLENE (MIRALAX) 17 GM PACK PO SCH (08:06)
[2023-02-06] MEDS: HEPARIN SOD 5,000 UNIT/0.5 ML VIAL SQ SCH ×2 (08:07→20:26)
[2023-02-06] MEDS: RUFINAMIDE 40 MG/ML PO SCH ×2 (08:11→20:27)
[2023-02-06] MEDS ORDERED: GLYCERIN ADULT 12 SUPP/BOX SUPP PR PRN (09:05)
--- NOTE | 2023-02-06 09:06 | Hospitalist Progress Note ---
Date of Service February 06, 2023 Assessment & Plan (1) Sepsis: (2) Gram-positive cocci bacteremia: (3) Abscess: (4) Cellulitis: (5) Bronchopneumonia: (6) Status post VNS (vagus nerve stimulator) placement: (7) Seizures: (8) Quadriplegic cerebral palsy: Plan 32yoM with a history of quadriplegic cerebral palsy, intellectual disability, seizures, s/p vagus nerve stimulator, and chronic constipation admitted with sepsis in the setting of an infected vagus nerve stimulator pocket and bronchopneumonia. Sepsis with gram-positive bacteremia in the setting of abscess/cellulitis of VNS pocket and bronchopneumonia Presented with fever, lethargy and black liquid drainage from the right nostril. In the ED, tachycardic, hypotensive, and tachypneic with evidence of erythema, warmth and swelling over his vagal nerve stimulator Patient had battery change of Vagal nerve stimulator on 12/20/2022 by General Surgery Given 1500 cc fluid bolus with improvement in BP to baseline CT chest concerning for cellulitis and abscess near the recently replaced vagus nerve stimulator as well as bronchopneumonia. MRSA nares negative Original blood cultures grew gram-positive cocci in one bottle, repeat blood cultures x2 with NGTD. ID consult placed- appreciate recs -originally recommended Vancomycin and Cefepime -Surgical sample cultures growing staph, recommending Ancef 2g q8h for 2 weeks from removal of stimulator treatment to end on 02/12. -Consider 6 weeks of treatment if concern for bone involvement -If concern for nearby hardware involvement, may require suppressive therapy General Surgery consulted, appreciate recs -vagus nerve stimulator removal in the OR with Dr. Obrien on 01/29 -chest wound Cx samples currently growing staph species, on Ancef as noted above. Appreciate ID recs -will defer to Surgery to determine whether concern for bone involvement or Hardware infection which will determine whether abx course needs to be extended/need for suppressive therapy- appreciate recs -Advising that pt stable for discharge from surgical standpoint, will need follow up with Dr. Obrien scheduled in office 1 week from discharge Continue IVF w K+ 02/04- multiple episodes of emesis concerning for fecal material, concern for aspiration. CT abd/pelvis concerning for esophagitis, significantly distended stomach, large amount of stool within the rectum, perirectal stranding. The findings raise the possibility of stercoral colitis, No bowel obstruction. GI consult, enema by GI, Unasyn broadened to Zosyn, ID [id number] with Zosyn. 02/05 Pt stable but persistently tachycardic, wbc currently normal but trending back up. Repeat blood Cx x 2 with NGTD. Discussion with mother that can consider d/c once back to baseline. Will need IV meds for discharge reassessed- consider Zosyn 02/06: stable with persistent tachycardia, possibly related to removal of vagal nerve stimulator? sinus rhythm. Consider cardiology consultation. No evidence of GI infection. Adjust Zosyn back to Ancef per ID recs. Electrolyte disturbances Hypokalemia Hypomagnesemia Hypophosphatemia replaced and doing well, monitor daily Hypotension Currently resolved Continue to monitor Seizure disorder Continue IV valproic acid Continue Banzel doses With increased Banzel doses per Neurology, no further seizures. Quadriplegia Cerebral palsy chronic, Stable Diet: pureed, best when mom feeds Code Status: Full code DVT Prophylaxis: heparin SQ Disposition: will go home with family, will need IV Ancef per ID , US guided peripheral IV in place. Home Health ordered and can start Saturday. Mother was updated on this plan with RN and Case management. I spent a total [id number] coordinating, documenting, and providing care for this patient excluding time spent in the performance of separately billed services Leticia Smith DO [facility] Hospitalist Admission and Anticipated Discharge Date Admission Date: January 26, 2023 Subjective 32-year-old quadriplegic cerebral palsy patient with intellectual disability and history of seizures was admitted in the setting of infected vagal nerve stimulator pocket and bronchopneumonia. He presented with sepsis and is been resuscitated. He is improved on antibiotics. He is successfully had bowel movements and is tolerating a pured diet, preferably fed by his mother. Antibiotics adjusted back from Zosyn to Ancef for continued treatment of skin infection. Review of systems cannot be assessed as patient is nonverbal. Physical Exam Physical Exam: CONSTITUTIONAL: thin, frail, retracted limbs, bedbound, no acute distress, vitals as above, generally well-appearing EYES: normal conjunctivae, no scleral icterus, ENT: external ear and nose normal, MMM NECK: trachea midline RESPIRATORY: clear to auscultation bilaterally, no crackles, rales or wheezes, normal respiratory effort CARDIOVASCULAR: regular rate and rhythm, S1 and 2 heard without murmurs, gallops or rubs, no JVD, no peripheral edema CHEST: incision site on left anterior chest is covered with dressing which is c/d/i GASTROINTESTINAL: normal bowel sounds, soft, nontender, no guarding MUSCULOSKELETAL: bedbound with generalized weakness-at baseline. SKIN: warm and dry NEUROLOGIC: CN 2-12 grossly intact, at baseline mental status PSYCHIATRIC: nonverbal , unable to assess Results & Data Results & Data Vital Signs (Past 12 Hours) Vital Signs Temp Pulse Pulse Resp BP Pulse Ox O2 Del Method 02/06/23 07:47 37.4 C 98 H 16 112/65 95 Room Air 02/06/23 03:38 36.6 C 123 H 18 100/79 94 Room Air 02/05/23 22:01 111 H 02/05/23 22:35 37.0 C 114 H 20 104/76 93 Room Air Laboratory Results Short CBC 02/06/23 02/06/23 Range/Units 06:08 07:31 WBC Cancelled 8.35 Hgb Cancelled 12.3 L Hct Cancelled 36.0 L Plt Count Cancelled 213 BMP 02/06/23 06:08 Sodium 137 Potassium 4.4 D Chloride 102 Carbon Dioxide 27 BUN < 2 L Creatinine 0.34 L Glucose 94 Calcium 8.9 Liver Function 02/06/23 Range/Units 06:08 Total Bilirubin 0.4 (0.2-1.0) mg/dl AST 16 (13-39) U/L ALT 14 (7-52) U/L Alkaline Phosphatase 83 (34-104) U/L Albumin 3.5 (3.4-5.0) gm/dl Medications Administered Current Inpatient Medications Clobazam (Clobazam Suspension) 1 each PO DAILY [facility]IDA Stop: 03/01/23 08:59 Last Admin: 02/06/23 08:05 Dose: 1 each Clobazam (Clobazam) 1 each PO HS [facility]IDA Stop: 03/01/23 19:14 Last Admin: 02/05/23 21:23 Dose: 1 each Glycerin (Glycerin Adult 12 Supp/Box Supp) 1 supp OR DAILY PRN PRN Reason: Constipation Stop: 03/08/23 09:04 Glycopyrrolate (Glycopyrrolate 1 Mg Tab) 1 mg PO BID PRN PRN Reason: Secretions Stop: 02/25/23 17:32 Heparin Sodium (Porcine) (Heparin Sod 5,000 Unit/0.5 Ml Vial) 5,000 units SQ Q12 SHAHIDA Stop: 02/25/23 20:59 Last Admin: 02/06/23 08:07 Dose: 5,000 units Valproic Acid 250 mg/ Dextrose 52.5 mls @ 55 mls/hr IV QAM [facility] Stop: 02/26/23 08:59 Last Admin: 02/06/23 08:03 Dose: 55 mls/hr Acetaminophen 650 mg/ EMPTY (BAG) 65 mls @ 260 mls/hr IV Q8H PRN; Protocol PRN Reason: MILD PAIN (SCALE 1,2,3) Stop: 03/01/23 09:27 Last Infusion: 02/03/23 00:40 Dose: Infused Valproic Acid 500 mg/ Dextrose 55 mls @ 55 mls/hr IV HS [facility] Stop: 03/01/23 19:14 Last Infusion: 02/05/23 22:17 Dose: Infused Lactated Ringer's (Lr) 1,000 mls @ 125 mls/hr IV .Q8H [facility] Stop: 03/06/23 06:29 Last Admin: 02/06/23 05:07 Dose: 125 mls/hr Piperacillin Sod/Tazobactam (Sod 4.5 gm/ Dextrose) 100 mls @ 25 mls/hr IV Q8H [facility]AHIDA; Protocol Stop: 02/11/23 17:59 Last Infusion: 02/06/23 07:57 Dose: Infused Promethazine HCl 25 mg/ Sodium (Chloride) 51 mls @ 204 mls/hr IV Q6H PRN PRN Reason: Nausea And Vomiting Stop: 03/06/23 16:21 Lorazepam (Lorazepam 2 Mg/1 Ml Vial) 2 mg IV Q4H PRN PRN Reason: seizure Stop: 02/25/23 16:09 Last Admin: 01/31/23 10:45 Dose: 2 mg Polyethylene Glycol (Polyethylene (Miralax) 17 Gm Pack) 4.25 gm PO DAILY [facility] Stop: 03/06/23 08:59 Last Admin: 02/06/23 08:06 Dose: 4.25 gm Rufinamide (Rufinamide 40 Mg/Ml) 1,400 mg PO DAILY [facility] Stop: 03/02/23 08:59 Last Admin: 02/06/23 08:11 Dose: 1,400 mg Rufinamide (Rufinamide 40 Mg/Ml) 1,400 mg PO HS [facility] Stop: 03/02/23 20:59 Last Admin: 02/05/23 21:16 Dose: 1,400 mg Sennosides (Sennosides 8.8 Mg/5 Ml Udc) 8.8 mg PO BID PRN PRN Reason: Constipation Stop: 02/25/23 17:32
[2023-02-06] MEDS: VALPROATE SOD 500 MG in DEXTROSE 5% 50 ML IV SCH (20:30)
[2023-02-06] MEDS: ceFAZolin 2000MG 2,000 MG/15 ML SYR IV SCH (20:58)
[2023-02-07] MEDS: LACTATED RINGER'S 1,000 ML IV SCH ×3 (05:56→20:55)
[2023-02-07] MEDS: ceFAZolin 2000MG 2,000 MG/15 ML SYR IV SCH ×3 (05:56→21:07)
[2023-02-07 06:07] LABS: Basophils # (auto) 0.05 K/uL (0.00-0.20); Basophils % (auto) 0.7 %; Eosinophils # (auto) 0.09 K/uL (0.00-0.50); Eosinophils % (auto) 1.2 %; Hemoglobin 12.6 g/dl (14.0-18.0); Immature Granulocytes # (auto) 0.03 K/uL (0.01-0.20); Immature Granulocytes % (auto) 0.4 %; Lymphocytes # (auto) 2.42 K/uL (1.20-3.40); Lymphocytes % (auto) 32.1 %; Mean Corpuscular Hemoglobin 32.1 pg (25.0-34.0); Mean Corpuscular Hgb Conc 33.2 g/dL (32.0-36.0); Mean Corpuscular Volume 96.7 fL (80.0-100.0); Monocytes # (auto) 0.65 K/uL (0.11-0.59); Monocytes % (auto) 8.6 %; Neutrophils # (auto) 4.31 K/uL (1.40-6.50); Platelet Count 222 K/uL (130-400); RDW Coefficient of Variation 13.4 % (11.5-14.5); RDW Standard Deviation 47.3 fL (36.4-46.3); Red Blood Count 3.93 M/uL (4.70-6.10); White Blood Count 7.55 K/ul (4.8-10.8)
[2023-02-07 06:26] LABS: Alanine Aminotransferase 9 U/L (7-52); Albumin Globulin Ratio 1.7 (0.9-2); Albumin Level 3.3 gm/dl (3.4-5.0); Alkaline Phosphatase 81 U/L (34-104); Anion Gap 8 (3-11); Aspartate Aminotransferase 11 U/L (13-39); Bilirubin,Total 0.3 mg/dl (0.2-1.0); Blood Urea Nitrogen < 2 mg/dl (6-23); Carbon Dioxide 28 mmol/L (21-32); Chloride 104 mmol/L (98-107); Creatinine Clr Calc Pharmacy 160.4 ml/min; Est GFR (African American) > 150.0 ml/min; Est GFR (Non-African American) > 150.0 ml/min; Glucose 96 mg/dl (70-99(Fasting)); Magnesium 1.8 mg/dl (1.7-2.4); Phosphorus 3.8 mg/dl (2.5-4.9); Potassium 3.6 mmol/L (3.5-5.1); Sodium 140 mmol/L (136-145); Total Protein 5.3 gm/dl (6.0-8.3)
--- NOTE | 2023-02-07 07:56 | Neurology Progress Note ---
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 The patient was on VNS for seizures (since November 2004) and had a battery replacement December 20, 2022. His VNS device was removed this hospitalization because of infection. He previously tried: Zonegran, Dilantin, Lamictal, Topamax, Keppra, Xanax, and ketogenic diet (good outcome with diet). He has had side effects with higher doses of depakote and banzel. He tried baclofen for spasticity, but had side effects. Currently he is taking Depakote 250 mg in the morning and 500 mg at night and clobazam (started January 25) 2.5 mg in the morning and 5 mg at night. Prior to this admission, he was on Banzel 40 milligrams/mL, 35 mL in the morning and 30 mL at night. This made a total dose of 1400 mg in the morning and 1200 mg at night. This hospitalization he was admitted for sepsis/infection and had increased seizure activity Unfortunately, this hospitalization he was given 35 mg of Banzel in the morning and 30 mg at night. This error was caught and he was put back on proper dose of Banzel January 31, but increased , by Dr. Watts, to the current dose of 1400 mg twice daily. Since increasing Banzel to the current dose over the last week he is not had any seizures. However, he is had decreased appetite, increased vomiting, and severe constipation. History suggests that the patient has frequent constipation. I wonder if the large jump in Banzel January 31 has created tachycardia and increased GI side effects (which it is known to do). Banzel was also noted to shortened QT interval but the patient currently has a QT interval of 405 (which is normal) Recommendations: 1. Continue valproic acid at 250 mg in the morning and 500 mg at night IV. This can be converted back to p.o. Depakote 250 mg in the morning and 500 mg at night, when able. 2. Continue clobazam 2.5 mg in the morning and 5 mg at night. 3. Think it is reasonable, since it has been an entire week, to keep the Banzel at 1400 mg twice daily knowing that the side effects will fade over the next week or 2. If the medication is lowered new order to mitigate side effects and then gradually increased up to the current dose over the next couple of weeks, there is increased risk of recurrent seizure. 4. Otherwise, there is no indication for any other neurologic testing or treatment at this time. 5. Follow-up with Dr. Watts (or neurology PA) 2-3 weeks after discharge. Overall, I spent a total of 50 minutes with this case including review of records, evaluation the patient at bedside, report generation, and discussion of the case with RN at bedside and Dr. Smith, including differential diagnosis treatment options. Admission and Anticipated Discharge Date Admission Date: January 26, 2023 Subjective Nursing reports no seizure activity in the last few days. The patient has not vomited over the last 2 days. He does have decreased appetite in his difficult for the nurses to feed him. CBC and Chem profile were stable. Blood pressure is 114/77 and afebrile Results & Data Vital Signs (Past 12 Hours) Vital Signs Temp Pulse Pulse Resp BP BP Pulse Ox 02/07/23 07:52 37.0 C 112 H 15 99/77 L 93 02/07/23 03:22 37.5 C 116 H 18 114/77 93 02/06/23 23:25 98 H O2 Del Method 02/07/23 07:52 Room Air 02/07/23 03:22 Room Air 02/06/23 23:25 Exam (Neuro) Physical Exam: Patient is awake and making some eye contact at times. He makes some noises but no words. He will not follow one-step commands. He has no obvious facial droop and tongue is midline. He resists movement in all 4 limbs. He has advanced spastic quadriparesis. I see no abnormal involuntary movements. PG Care Time/CCT Total # of Minutes Spent Total Time Spent with Patient: Total time spent is greater than 50% in coordination of care (as documented) at patient's floor/unit and/or counseling patient: Coding Level of Care Code 90643 SUB INP/OBS CARE 3/50MIN Diagnoses Seizures R56.9 Quadriplegic cerebral palsy G80.8 Kolton-Gastaut syndrome G40.812 Infection/inflammation-neural device T85.738A Time Spent (min) 50
[2023-02-07] MEDS: CLOBAZAM PO SCH (10:48)
[2023-02-07] MEDS: POLYETHYLENE (MIRALAX) 17 GM PACK PO SCH (10:48)
[2023-02-07] MEDS: HEPARIN SOD 5,000 UNIT/0.5 ML VIAL SQ SCH ×2 (10:48→20:58)
[2023-02-07] MEDS: VALPROATE SOD 250 MG in DEXTROSE 5% 50 ML IV SCH (10:50)
[2023-02-07] MEDS: RUFINAMIDE 40 MG/ML PO SCH ×2 (10:51→19:53)
--- NOTE | 2023-02-07 12:53 | Hospitalist Progress Note ---
Date of Service February 07, 2023 Assessment & Plan (1) Sepsis: (2) Gram-positive cocci bacteremia: (3) Abscess: (4) Cellulitis: (5) Bronchopneumonia: (6) Status post VNS (vagus nerve stimulator) placement: (7) Seizures: (8) Quadriplegic cerebral palsy: Plan 32yoM with a history of quadriplegic cerebral palsy, intellectual disability, seizures, s/p vagus nerve stimulator, and chronic constipation admitted with sepsis in the setting of an infected vagus nerve stimulator pocket and bronchopneumonia Sepsis with gram-positive bacteremia in the setting of abscess/cellulitis of VNS pocket and bronchopneumonia Presented with fever, lethargy and black liquid drainage from the right nostril. In the ED, tachycardic, hypotensive, and tachypneic with evidence of erythema, warmth and swelling over his vagal nerve stimulator Patient had battery change of Vagal nerve stimulator on 12/20/2022 by General Surgery Given 1500 cc fluid bolus with improvement in BP to baseline CT chest concerning for cellulitis and abscess near the recently replaced vagus nerve stimulator as well as bronchopneumonia. MRSA nares negative Original blood cultures grew gram-positive cocci in one bottle, repeat blood cultures x2 with NGTD. ID consult placed- appreciate recs -originally recommended Vancomycin and Cefepime -Surgical sample cultures growing staph, recommending Ancef 2g q8h for 2 weeks from removal of stimulator treatment to end on 02/12. -Consider 6 weeks of treatment if concern for bone involvement -If concern for nearby hardware involvement, may require suppressive therapy General Surgery consulted, appreciate recs -vagus nerve stimulator removal in the OR with Dr. Obrien on 01/29 -chest wound Cx samples currently growing staph species, on Ancef as noted above. Appreciate ID recs -will defer to Surgery to determine whether concern for bone involvement or Hardware infection which will determine whether abx course needs to be extended/need for suppressive therapy- appreciate recs -Advising that pt stable for discharge from surgical standpoint, will need follow up with Dr. Obrien scheduled in office 1 week from discharge Continue IVF w K+ 02/04- multiple episodes of emesis concerning for fecal material, concern for aspiration. CT abd/pelvis concerning for esophagitis, significantly distended stomach, large amount of stool within the rectum, perirectal stranding. The findings raise the possibility of stercoral colitis, No bowel obstruction. GI consult, enema by GI, Unasyn broadened to Zosyn, ID [id number] with Zosyn. 02/05 Pt stable but persistently tachycardic, wbc currently normal but trending back up. Repeat blood Cx x 2 with NGTD. Discussion with mother that can consider d/c once back to baseline. Will need IV meds for discharge reassessed- consider Zosyn 02/06: stable with persistent tachycardia, possibly related to removal of vagal nerve stimulator? sinus rhythm. Consider cardiology consultation. No evidence of GI infection. Adjust Zosyn back to Ancef per ID recs. 02/07: pt stable. Per Neurology tachycardia, episode of severe constipation possibly related to rapid uptitration to current dose of Banzal after medication was incorrectly lowered. However, per Neurology anticipate tachycardia to resolve in a few weeks. Anticipate discharge in the early AM. Electrolyte disturbances Hypokalemia Hypomagnesemia Hypophosphatemia replaced and doing well, monitor daily Hypotension Currently resolved Continue to monitor Seizure disorder Continue IV valproic acid Continue Banzel doses With increased Banzel doses per Neurology, no further seizures. Quadriplegia Cerebral palsy chronic, Stable Diet: pureed, best when mom feeds Code Status: Full code DVT Prophylaxis: heparin SQ Disposition: will go home with family, will need IV Ancef per ID , US guided peripheral IV in place. Home Health ordered and can start Saturday. Mother was updated on this plan with RN and Case management. Admission and Anticipated Discharge Date Admission Date: January 26, 2023 Subjective Pt seen in the AM. Mother not at bedside. Was resting comfortably. Review of Systems Review of Systems: Unobtainable due to mental health condition Physical Exam Physical Exam: General: Awake, no acute distress Psych: could not be determined Neuro: nonverbal HEENT: atraumatic CV: RRR Resp: no increased effort of breathing Abdomen: Soft, nontender, nondistended on exam Extremities: No edema in lower extremities bilaterally. Results & Data Results & Data Vital Signs (Past 12 Hours) Vital Signs Temp Pulse Pulse Resp BP BP Pulse Ox 02/07/23 08:00 96 H 02/07/23 07:52 37.0 C 112 H 15 99/77 L 93 02/07/23 03:22 37.5 C 116 H 18 114/77 93 O2 Del Method 02/07/23 08:00 02/07/23 07:52 Room Air 02/07/23 03:22 Room Air
--- NOTE | 2023-02-07 12:57 | Electrocardiogram Report ---
Test Reason : Blood Pressure : / mmHG Vent. Rate : 108 BPM Atrial Rate : 108 BPM P-R Int : 122 ms QRS Dur : 064 ms QT Int : 298 ms P-R-T Axes : 056 043 055 degrees QTc Int : 399 ms Poor data quality, interpretation may be adversely affected Sinus tachycardia Left atrial enlargement Nonspecific ST abnormality Abnormal ECG When compared with ECG of 05-SEP-2014 13:35, Significant changes have occurred Confirmed by Mahad Castaneda ([id number]) on 02/07/2023 12:57:08 PM Referred By: REFERRED SELF Confirmed By:Mahad Castaneda
[2023-02-07] MEDS: VALPROATE SOD 500 MG in DEXTROSE 5% 50 ML IV SCH (20:56)
[2023-02-08] MEDS: LACTATED RINGER'S 1,000 ML IV SCH (04:39)
[2023-02-08] MEDS: ceFAZolin 2000MG 2,000 MG/15 ML SYR IV SCH (06:11)
[2023-02-08 06:21] LABS: Basophils # (auto) 0.02 K/uL (0.00-0.20); Basophils % (auto) 0.4 %; Eosinophils # (auto) 0.09 K/uL (0.00-0.50); Eosinophils % (auto) 1.6 %; Hematocrit (blood only) 37.3 % (42.0-52.0); Hemoglobin 12.5 g/dl (14.0-18.0); Immature Granulocytes # (auto) 0.04 K/uL (0.01-0.20); Immature Granulocytes % (auto) 0.7 %; Lymphocytes # (auto) 2.46 K/uL (1.20-3.40); Lymphocytes % (auto) 44.2 %; Mean Corpuscular Hemoglobin 32.2 pg (25.0-34.0); Mean Corpuscular Hgb Conc 33.5 g/dL (32.0-36.0); Mean Corpuscular Volume 96.1 fL (80.0-100.0); Monocytes # (auto) 0.49 K/uL (0.11-0.59); Monocytes % (auto) 8.8 %; Neutrophils # (auto) 2.46 K/uL (1.40-6.50); Neutrophils % (auto) 44.3 %; Platelet Count 179 K/uL (130-400); RDW Coefficient of Variation 13.2 % (11.5-14.5); RDW Standard Deviation 46.4 fL (36.4-46.3); Red Blood Count 3.88 M/uL (4.70-6.10); White Blood Count 5.56 K/ul (4.8-10.8)
[2023-02-08 06:28] LABS: Alanine Aminotransferase 5 U/L (7-52); Albumin Globulin Ratio 1.6 (0.9-2); Albumin Level 3.1 gm/dl (3.4-5.0); Alkaline Phosphatase 77 U/L (34-104); Anion Gap 6 (3-11); Aspartate Aminotransferase 9 U/L (13-39); Bilirubin,Total 0.3 mg/dl (0.2-1.0); Blood Urea Nitrogen < 2 mg/dl (6-23); Calcium 9.1 mg/dl (8.6-10.3); Carbon Dioxide 29 mmol/L (21-32); Chloride 104 mmol/L (98-107); Creatinine Clr Calc Pharmacy 176.7 ml/min; Est GFR (African American) > 150.0 ml/min; Est GFR (Non-African American) > 150.0 ml/min; Glucose 86 mg/dl (70-99(Fasting)); Magnesium 1.7 mg/dl (1.7-2.4); Phosphorus 3.5 mg/dl (2.5-4.9); Potassium 3.9 mmol/L (3.5-5.1); Sodium 139 mmol/L (136-145); Total Protein 5.1 gm/dl (6.0-8.3)
[2023-02-08] MEDS: HEPARIN SOD 5,000 UNIT/0.5 ML VIAL SQ SCH (08:53)
[2023-02-08] MEDS: DIVALPROEX DELAY RELEASE 250 MG TABEC PO SCH ×2 (08:59→10:13)
[2023-02-08] MEDS: CLOBAZAM PO SCH (08:59)
[2023-02-08] MEDS: POLYETHYLENE (MIRALAX) 17 GM PACK PO SCH (08:59)
[2023-02-08] MEDS: RUFINAMIDE 40 MG/ML PO SCH (09:00)
[2023-02-08] MEDS ORDERED: DIVALPROEX SODIUM SPRINKLE/DEL-REL 125 MG CAP PO SCH ×2 (09:30→21:00)
--- NOTE | 2023-02-08 10:19 | Discharge Summary ---
Discharge Summary Date of Service February 08, 2023 Notes For Next Care Provider Medication Changes From Visit Ancef 2gm IV q8 Banzal 1400mg BID Admission HPI Per Admitting Provider This is a 32 y/o male with a history of quadriplegic cerebral palsy, intellectual disability, seizure d/o s/p vagus nerve stimulator, and chronic constipation who presented to the ED today after he had some black liquid drain from his right nose this morning. History is obtained from his mother since pt is non-verbal. Per his mother, pt was in his usual state of health yesterday - saw neuro yesterday for routine f/u and his VNS numbers were adjusted. Of note, pt had that battery for the VNS changed last month by Dr. Obrien so this change in settings was to return to what they were prior to the procedure. Today, he was on his side when his mother noticed black liquid that came from his right nostril. He was also noted to have a fever of 100.4F and was less responsive to stimuli than usual so she brought him to the ED for evaluation. In the ED, the area overlying the VNS was noted to be swollen, erythematous, and warm so surgery was consulted to evaluate the patient. They recommended admission for IV antibiotics, close monitoring, and potential procedure depending on how patient responds to treatment. Principal Dx & Hospital Course #1 = Principal Diagnosis (1) Sepsis: (2) Gram-positive cocci bacteremia: (3) Abscess: (4) Cellulitis: (5) Bronchopneumonia: (6) Status post VNS (vagus nerve stimulator) placement: (7) Seizures: (8) Quadriplegic cerebral palsy: Plan 32yoM with a history of quadriplegic cerebral palsy, intellectual disability, seizures, s/p vagus nerve stimulator, and chronic constipation admitted with sepsis in the setting of an infected vagus nerve stimulator pocket and bronchopneumonia Sepsis with gram-positive bacteremia in the setting of abscess/cellulitis of VNS pocket and bronchopneumonia Presented with fever, lethargy and black liquid drainage from the right nostril. In the ED, tachycardic, hypotensive, and tachypneic with evidence of erythema, warmth and swelling over his vagal nerve stimulator Patient had battery change of Vagal nerve stimulator on 12/20/2022 by General Surgery Given 1500 cc fluid bolus with improvement in BP to baseline CT chest concerning for cellulitis and abscess near the recently replaced vagus nerve stimulator as well as bronchopneumonia. MRSA nares negative Original blood cultures grew gram-positive cocci in one bottle, repeat blood cultures x2 with NGTD. ID consult placed- appreciate recs -originally recommended Vancomycin and Cefepime -Surgical sample cultures growing staph, recommending Ancef 2g q8h for 2 weeks from removal of stimulator treatment to end on 02/12. -Consider 6 weeks of treatment if concern for bone involvement -If concern for nearby hardware involvement, may require suppressive therapy General Surgery consulted, appreciate recs -vagus nerve stimulator removal in the OR with Dr. Obrien on 01/29 -chest wound Cx samples currently growing staph species, on Ancef as noted above. Appreciate ID recs -will defer to Surgery to determine whether concern for bone involvement or Hardware infection which will determine whether abx course needs to be extended/need for suppressive therapy- appreciate recs -Advising that pt stable for discharge from surgical standpoint, will need follow up with Dr. Obrien scheduled in office 1 week from discharge Continue IVF w K+ 02/04- multiple episodes of emesis concerning for fecal material, concern for aspiration. CT abd/pelvis concerning for esophagitis, significantly distended stomach, large amount of stool within the rectum, perirectal stranding. The findings raise the possibility of stercoral colitis, No bowel obstruction. GI consult, enema by GI, Unasyn broadened to Zosyn, ID [id number] with Zosyn. 02/05 Pt stable but persistently tachycardic, wbc currently normal but trending back up. Repeat blood Cx x 2 with NGTD. Discussion with mother that can consider d/c once back to baseline. Will need IV meds for discharge reassessed- consider Zosyn 02/06: stable with persistent tachycardia, possibly related to removal of vagal nerve stimulator? sinus rhythm. Consider cardiology consultation. No evidence of GI infection. Adjust Zosyn back to Ancef per ID recs. 02/07: pt stable. Per Neurology tachycardia, episode of severe constipation possibly related to rapid uptitration to current dose of Banzal after medication was incorrectly lowered. However, per Neurology anticipate tachycardia to resolve in a few weeks. Anticipate discharge in the early AM. Electrolyte disturbances Hypokalemia Hypomagnesemia Hypophosphatemia replaced and doing well, monitor daily Hypotension Currently resolved Continue to monitor Seizure disorder Continue IV valproic acid Continue Banzel doses With increased Banzel doses per Neurology, no further seizures. Quadriplegia Cerebral palsy chronic, Stable Diet: pureed, best when mom feeds Code Status: Full code DVT Prophylaxis: heparin SQ Disposition: will go home with family, will need IV Ancef per ID , US guided peripheral IV in place. Home Health ordered and can start Saturday. Mother was updated on this plan with RN and Case management. Discharge Exam CONSTITUTIONAL: thin, frail, retracted limbs, bedbound, no acute distress, vitals as above, generally well-appearing EYES: normal conjunctivae, no scleral icterus, ENT: external ear and nose normal, MMM NECK: trachea midline RESPIRATORY: clear to auscultation bilaterally, no crackles, rales or wheezes, normal respiratory effort CARDIOVASCULAR: regular rate and rhythm, S1 and 2 heard without murmurs, gallops or rubs, no JVD, no peripheral edema CHEST: incision site on left anterior chest is covered with dressing which is c/d/i GASTROINTESTINAL: normal bowel sounds, soft, nontender, no guarding MUSCULOSKELETAL: bedbound with generalized weakness-at baseline. SKIN: warm and dry NEUROLOGIC: CN 2-12 grossly intact, at baseline mental status PSYCHIATRIC: nonverbal , unable to assess Updated Medication List Medication Instructions Recorded Confirmed Type glycopyrrolate 1 mg tablet 1 mg PO BID PRN Secretions #60 tabs 01/08/19 01/26/23 History divalproex 125 mg capsule,delayed 250 - 500 mg PO UD 11/07/22 01/26/23 History release sprinkle nutritional supplements 0.09 1 ea PO QID 11/07/22 01/26/23 History gram-0.5 kcal/mL oral liquid (Boost Max) polyethylene glycol 3350 17 4.25 g PO UD PRN Constipation 11/07/22 01/26/23 History gram/dose oral powder (Miralax) sennosides 8.8 mg/5 mL oral syrup 8.8 mg PO BID PRN Constipation 11/07/22 01/26/23 History clobazam 2.5 mg/mL oral suspension 2.5 mg PO UD #120 mL 01/25/23 01/26/23 Rx rufinamide 40 mg/mL oral 1,400 mg PO QAM 01/31/23 02/07/23 History suspension (Banzel) rufinamide 40 mg/mL oral 1,200 mg PO HS 02/07/23 02/07/23 History suspension (Banzel) cefazolin 1 gram solution for 2 g IM Q8H #16 ea 02/08/23 Rx injection Hospital Stay Data Consultations 01/26/23 12:03 Consult General Surgery Stat 01/26/23 13:47 ED Decision to Admit Stat 01/28/23 09:46 Consult Infectious Diseases Routine 01/31/23 08:19 Consult Neurology Routine 02/01/23 02:01 Consult Infectious Diseases Routine 02/04/23 07:40 Consult Gastroenterology Routine Procedures Performed Operation Date: 01/29/23 07:00 Actual Procedures p Explantation of Vagus Nerve Stimulator and Leads(Not Applicable) - Patel Obrien MD, FACS Diagnostic Imagining Performed 01/26/23 15:00 CT chest diagnostic w con Urgent 02/04/23 04:21 CT Abd and Pelvis [CT abd pelvis IV con only] Stat Pending Results Patient Have Any Pending Studies at Discharge: No Discharge Instructions Given to Patient (Per Discharging Provider) Please take all medications as instructed on discharge list below. Please contact Dr. Obrien's office to schedule a post operative followp in 3-4 weeks. A one week follow-up with your primary care provider is recommended after discharge to ensure you are doing well after returning home. Please continue with the increased amount of Banzal and followup with your neurologist in the next few weeks. It was a pleasure taking care of you! Please call if you have any questions or problems. You can reach a [facility] hospitalist on duty at [facility] 24 hours a day by calling [phone]. Take care of yourself. Leticia Smith, [facility] Hospitalist
[2023-02-08] MEDS ORDERED: DIVALPROEX DELAY RELEASE 500 MG TAB PO SCH (21:00)
== END 2023-02-08 11:28 | disposition home health service (06) | DRG 40 ==
LOC: ED 09:50 → SUATTDRO 14:26 → 2E 14:26

== ENCOUNTER 2024-06-30 20:56 | Inpatient (IN) ==
--- NOTE | 2024-06-30 21:42 | Emergency Department Note ---
History of Present Illness General Chief complaint: Cough Stated complaint: TIGHT COUGH, FEVER Time Seen by Provider: 06/30/24 21:30 History of Present Illness This is a 34-year-old male presenting to the emergency department for evaluation of breathing difficulty. Patient is accompanied by caregivers who provide the history as patient is a quadriplegic with cerebral palsy. The patient was at his day program today when he began coughing. When patient returned home he had fever and cough. Family is concerned that the fever may be as high as 103 or 104 Fahrenheit. Patient was able to tolerate some liquid Tylenol before coming to the ER. He is not eating and drinking like normal this evening. History is limited from the patient due to his chronic medical disease. Home Medications Medication Instructions Recorded Confirmed Type glycopyrrolate 1 mg tablet 1 mg PO BID Secretions #60 tabs 01/08/19 07/01/24 History (Robinul) nutritional supplements 0.09 1 ea PO QID 11/07/22 07/01/24 History gram-0.5 kcal/mL oral liquid (Boost Max) polyethylene glycol 3350 17 4.25 g PO UD PRN Constipation 11/07/22 07/01/24 History gram/dose oral powder (Miralax) sennosides 8.8 mg/5 mL oral syrup 8.8 mg PO BID PRN Constipation 11/07/22 07/01/24 History (senna) clobazam 2.5 mg/mL oral suspension 2.5 mg PO UD #120 mL 02/20/24 07/01/24 Rx divalproex 125 mg capsule,delayed See Rx Instructions .Route 02/20/24 07/01/24 Rx release sprinkle .COMPLEX #180 caps rufinamide 40 mg/mL oral 1,400 mg (35 mL) PO BID #2,100 mL 02/20/24 07/01/24 Rx suspension (Banzel) Allergies Allergy/AdvReac Type Severity Reaction Status Date / Time fentanyl AdvReac Intermediate Difficult Verified 07/01/24 00:07 to awaken Past Med/Surg History Problem List (Updated 07/01/24 @ 01:37 by STEVO Marley) Hypovolemia Pneumonia (Acute) Coronavirus infection (Acute) RSV infection (Acute) Influenza A (H1N1) (Acute) Sepsis (Acute) Epilepsy Infection/inflammation-neural device Gram-positive cocci bacteremia Bronchopneumonia Abscess Sepsis Postoperative infection (Acute) Cellulitis (Acute) Encounter for pre-operative examination Status post placement of VNS (vagus nerve stimulation) device (2017) Battery change, Dr. Obrien Status post VNS (vagus nerve stimulator) placement Colitis (Acute) Hydronephrosis (Acute) Constipation (Acute) Poor appetite Status post VNS (vagus nerve stimulator) placement (Chronic 2004) Cerebral palsy (Chronic) Chronic constipation Seizures (Chronic) Most recent 05/24/23, Per records- "small seizures" couple times a week (consist of blinking and downward turning of the head); intermittent generalized jerking type seizures less frequent MR (mental retardation), severe (Chronic) Quadriplegic cerebral palsy (Acute) Medical History Hx of sepsis [place] admission 01/2023, vagus nerve stimulator removed d/t infection Kolton-Gastaut syndrome Sialorrhea Osteoporosis Adopted Back problem Surgical History Status post VNS (vagus nerve stimulator) placement (06/13/23) Vagal Nerve Stimulator Placement - Patel Obrien MD, FACS H/O oral surgery Gum surgery and teeth cleaned under anesthesia History of surgery Removal of Vagus Nerve Stimulator and leads (01/29/23): Grade 2 view with Glidescope #3, ETT 7.0 at [facility] Status post VNS (vagus nerve stimulator) placement Left Vagus Nerve Stimulator Generator Replacement (11/2022) Hx of myringotomy w/tubes, multiple times S/P cholecystectomy History of orchiectomy Left Family History Other Family history unknown Social History Smoking Status: Never smoker Second Hand Exposure: No; Do You Dip or Chew Tobacco: No; Hx Alcohol Use: No Hx Substance Use: No Preferred Language: Macedonian Communication Ability: Impaired Communication Ability Comment: unable to speak Swimming Coach Required: No Beliefs That Will Affect Care: None marital status: Single Current Living Situation: Parent Current Living Situation Comment: adopted current occupational status: disabled How many Children do You have: 0 Feels Safe at Home: Yes Safety Concerns: Feels Safe At This Time Diet: regular Diet Comment: Pureed Assistive Devices: Hospital Bed, Mechanical Lift and Wheelchair Review of Systems A total of 10 systems reviewed and were otherwise negative Physical Exam Vital Signs Vital Signs - 24 hr 06/30/24 21:10 06/30/24 21:54 06/30/24 22:25 Temperature 36.9 C 39.5 C H Temperature Source Temporal Artery Scan Rectal Pulse Rate 128 H 127 H Pulse Rate [Apical] 130 H Pulse Rhythm [Apical] Pulse Strength [Apical] Respiratory Rate 19 23 Respiratory Effort / Characteristics Non-Labored Spontaneous Spontaneous Respiratory Depth Normal Respiratory Pattern Regular Blood Pressure 86/56 L Blood Pressure [Right Arm] 91/64 L Blood Pressure Mean 66 Blood Pressure Mean [Right Arm] 73 Blood Pressure Position [Right Arm] Pulse Oximetry 100 96 Oxygen Delivery Method Room Air Room Air Oxygen Flow Rate Sepsis Recent Fever Within 48 Hours Yes Sepsis New/Unexplained Change in Mental Status N/A Sepsis Action Taken by Nursing No Action Required Oxygen Flow Rate - Titration Pulse Oximetry Post Tiitration 06/30/24 22:27 06/30/24 23:30 06/30/24 23:39 Temperature Temperature Source Pulse Rate 130 H Pulse Rate [Apical] 119 H Pulse Rhythm [Apical] Regular Pulse Strength [Apical] Normal Respiratory Rate 18 Respiratory Effort / Characteristics Non-Labored Spontaneous Respiratory Depth Normal Respiratory Pattern Regular Blood Pressure Blood Pressure [Right Arm] 84/40 L Blood Pressure Mean Blood Pressure Mean [Right Arm] 54 Blood Pressure Position [Right Arm] Semi-fowlers Pulse Oximetry 96 94 88 L Oxygen Delivery Method Room Air Nasal Cannula Room Air Oxygen Flow Rate 2 Sepsis Recent Fever Within 48 Hours Sepsis New/Unexplained Change in Mental Status Sepsis Action Taken by Nursing Oxygen Flow Rate - Titration 2 Pulse Oximetry Post Tiitration 94 07/01/24 00:03 07/01/24 00:03 07/01/24 00:52 Temperature 39 C H 39 C H Temperature Source Rectal Rectal Pulse Rate Pulse Rate [Apical] 94 H Pulse Rhythm [Apical] Regular Pulse Strength [Apical] Normal Respiratory Rate 20 Respiratory Effort / Characteristics Non-Labored Spontaneous Respiratory Depth Normal Respiratory Pattern Regular Blood Pressure Blood Pressure [Right Arm] 90/45 L Blood Pressure Mean Blood Pressure Mean [Right Arm] 60 Blood Pressure Position [Right Arm] Semi-fowlers Pulse Oximetry 92 Oxygen Delivery Method Nasal Cannula Oxygen Flow Rate 2 Sepsis Recent Fever Within 48 Hours Sepsis New/Unexplained Change in Mental Status Sepsis Action Taken by Nursing Oxygen Flow Rate - Titration Pulse Oximetry Post Tiitration 07/01/24 01:08 07/01/24 01:18 Temperature Temperature Source Pulse Rate Pulse Rate [Apical] 101 H 99 H Pulse Rhythm [Apical] Regular Regular Pulse Strength [Apical] Normal Normal Respiratory Rate 18 26 H Respiratory Effort / Characteristics Non-Labored Spontaneous Non-Labored Spontaneous Respiratory Depth Normal Normal Respiratory Pattern Regular Regular Blood Pressure Blood Pressure [Right Arm] 82/35 L 95/40 L Blood Pressure Mean Blood Pressure Mean [Right Arm] 50 58 Blood Pressure Position [Right Arm] Semi-fowlers Semi-fowlers Pulse Oximetry 90 92 Oxygen Delivery Method Nasal Cannula Nasal Cannula Oxygen Flow Rate 2 Sepsis Recent Fever Within 48 Hours Sepsis New/Unexplained Change in Mental Status Sepsis Action Taken by Nursing Oxygen Flow Rate - Titration Pulse Oximetry Post Tiitration VITALS: Vitals are noted on the nurse's note and reviewed by myself. Vital signs with tachycardia and hypotension GENERAL: White pale male who is laying on his right side. He is pleasant and cooperative. HEAD: Normocephalic atraumatic. NECK: Supple without nuchal rigidity. No lymphadenopathy. No thyromegaly. Cervical spine is nontender. HEART: Tachycardic rate LUNGS: Generally clear throughout with some lower rhonchi bilaterally ABDOMEN: Positive normal bowel sounds x 4. Soft, nontender, without masses or organomegaly. No guarding or rebound tenderness. MUSCULOSKELETAL: No muscle atrophy, erythema, or edema noted. SKIN: The skin was without rashes, erythema, edema, or bruising. Capillary refill less than 2 seconds. Course Administered Medications Norepinephrine Bitartrate (Levophed/D5w) 4 mg in 250 mls @ 8.119 mls/hr IV .Q24H [facility]; Protocol Stop: 07/31/24 00:59 Last Titration: 07/01/24 01:22 Dose: 0.07 mcg/kg/min, 11.4 mls/hr Documented By: IDD Co-signed By: JULIANNA Admin: 07/01/24 01:06 Dose: 0.05 mcg/kg/min, 8.1 mls/hr Documented By: IDD Co-signed By: SUSIE Discontinued Medications Sodium Chloride (Nss) 1,000 mls @ 999 mls/hr IV .Q1H1M SHAHIDA Stop: 06/30/24 22:45 Last Infusion: 06/30/24 23:47 Dose: Infused Documented By: Admin: 06/30/24 22:45 Dose: 999 mls/hr Documented By: MED Acetaminophen (Ofirmev) 1,000 mg in 100 mls @ 400 mls/hr IV NOW STA Stop: 06/30/24 22:36 Last Infusion: 06/30/24 23:35 Dose: Infused Documented By: Admin: 06/30/24 22:47 Dose: 400 mls/hr Documented By: MED Sodium Chloride (Nss) 500 mls @ 999 mls/hr IV .Q31M ONE Stop: 06/30/24 23:42 Last Infusion: 07/01/24 00:23 Dose: Infused Documented By: Admin: 06/30/24 23:35 Dose: 999 mls/hr Documented By: IDD Piperacillin Sod/Tazobactam Sod (Zosyn) 4.5 gm in 100 mls @ 200 mls/hr IV NOW ONE; Protocol Stop: 06/30/24 23:49 Last Infusion: 07/01/24 00:52 Dose: Infused Documented By: Admin: 07/01/24 00:17 Dose: 200 mls/hr Documented By: IDD Sodium Chloride (Nss) 500 mls @ 999 mls/hr IV .Q31M ONE Stop: 07/01/24 00:32 Last Infusion: 07/01/24 00:52 Dose: Infused Documented By: Admin: 07/01/24 00:18 Dose: 999 mls/hr Documented By: IDD Doxycycline Hyclate 100 mg/ (Dextrose) 100 mls @ 50 mls/hr IV NOW STA Stop: 07/01/24 02:02 Last Admin: 07/01/24 00:33 Dose: 50 mls/hr Documented By: IDD Sodium Chloride (Nss) 500 mls @ 999 mls/hr IV .Q31M ONE Stop: 07/01/24 01:20 Last Infusion: 07/01/24 01:42 Dose: Infused Documented By: Admin: 07/01/24 00:59 Dose: 999 mls/hr Documented By: IDD Ketorolac Tromethamine (Ketorolac Tromethamine 15 Mg/Ml Vial) 15 mg IV NOW STA Stop: 06/30/24 22:23 Last Admin: 06/30/24 22:42 Dose: 15 mg Documented By: MED Medical Decision Making Differential Diagnosis Differential diagnosis: Etiologies such as viral syndrome, otitis, pharyngitis, pneumonia, influenza, meningitis, urinary tract infection, septic arthritis, soft tissue infectious process, intra-abdominal process, sepsis, bacteremia, as well as others were entertained. Laboratory Data 06/30/24 22:08 06/30/24 22:08 Lab Results 06/30/24 06/30/24 07/01/24 Range/Units 21:56 22:08 00:22 WBC 4.41 L (4.8-10.8) K/ul RBC 4.34 L (4.70-6.10) M/uL Hgb 13.5 L (14.0-18.0) g/dl Hct 41.5 L (42.0-52.0) % MCV 95.6 (80.0-100.0) fL MCH 31.1 (25.0-34.0) pg MCHC 32.5 (32.0-36.0) g/dL RDW Std Deviation 42.6 (36.4-46.3) fL RDW Coeff of Leo 12.2 (11.5-14.5) % Plt Count 188 (130-400) K/uL MPV 11.8 (9.4-12.4) fL Immature Gran % (Auto) 0.7 % Neut % (Auto) 75.2 % Lymph % (Auto) 12.7 % Kern % (Auto) 9.8 % Eos % (Auto) 1.1 % Baso % (Auto) 0.5 % Neut # (Auto) 3.32 (1.40-6.50) K/uL Lymph # (Auto) 0.56 L (1.20-3.40) K/uL Kern # (Auto) 0.43 (0.11-0.59) K/uL Eos # (Auto) 0.05 (0.00-0.50) K/uL Baso # (Auto) 0.02 (0.00-0.20) K/uL Immature Gran # (Auto) 0.03 (0.01-0.20) K/uL VBG pH 7.43 H (7.36-7.41) VBG pCO2 45 (38-50) mmHg VBG pO2 29 mmHg VBG HCO3 30 mmol/L VBG O2 Saturation < 60.0 % VBG Base Excess 4.8 mEq/L Sodium 140 (136-145) mmol/L Potassium 3.8 (3.5-5.1) mmol/L Chloride 104 (98-107) mmol/L Carbon Dioxide 28 (21-32) mmol/L Anion Gap 8 (3-11) BUN 13 (6-23) mg/dl Creatinine 0.67 (0.6-1.4) mg/dl Est Cr Clr Drug Dosing Not Reportable eGFR 127.22 BUN/Creatinine Ratio 19.4 (10-20) Glucose 86 (70-99(Fasting)) mg/dl Lactate 1.8 (0.4-2.0) mmol/L Calcium 9.6 (8.6-10.3) mg/dl Magnesium 2.1 (1.7-2.4) mg/dl Total Bilirubin 0.4 (0.2-1.0) mg/dl Direct Bilirubin 0.1 (0-0.2) mg/dl AST 21 (13-39) U/L ALT 20 (7-52) U/L Alkaline Phosphatase 113 H (34-104) U/L Troponin I High Sens 2.8 (0-20) pg/ml Total Protein 6.8 (6.0-8.3) gm/dl Albumin 3.8 (3.4-5.0) gm/dl Procalcitonin 0.14 (0-0.5) ng/ml Nasal Influ A H1 2008 PCR DETECTED A (NotDetected) Nasal Screen MRSA (PCR) Negative (Negative) Adenovirus (PCR) Not Detected (NotDetected) B. pertussis DNA (PCR) Not Detected (NotDetected) B.parapertussis DNA PCR Not Detected (NotDetected) C. pneumoniae DNA (PCR) Not Detected (NotDetected) Coronavirus OC43 (PCR) Not Detected (NotDetected) Coronavirus HKU1 (PCR) Not Detected (NotDetected) Coronavirus 229E (PCR) Not Detected (NotDetected) SARS-CoV-2 (PCR) Not Detected (NotDetected) Coronavirus NL63 (PCR) DETECTED A (NotDetected) Human Metapneumovir PCR Not Detected (NotDetected) Influenza Type B (PCR) Not Detected (NotDetected) M. pneumoniae (PCR) Not Detected (NotDetected) Parainfluenza 1 (PCR) Not Detected (NotDetected) Parainfluenza 2 (PCR) Not Detected (NotDetected) Parainfluenza 3 (PCR) Not Detected (NotDetected) Parainfluenza 4 (PCR) Not Detected (NotDetected) RSV (PCR) DETECTED A (NotDetected) Entero/Rhino (PCR) Not Detected (NotDetected) Imaging Data Radiologist's Impression: Chest X-Ray 06/30/24 21:36 Exam(s): XR CXR 1 VIEW EXAM: XR Chest, 1 View CLINICAL HISTORY: Sepsis. TECHNIQUE: Frontal view of the chest. COMPARISON: Portable chest single view 02/04/2023 FINDINGS: Lungs: Subsegmental right perihilar changes extending into the central right midlung zone with reticulonodular interstitial findings are more prominent from the previous examination. Pleural space: Unremarkable. No pneumothorax. No large pleural effusion. Heart: Unremarkable. No cardiomegaly. Mediastinum: No significant abnormality identified. The trachea is midline. Bones/joints: Extensive surgical hardware throughout the thoracic spine, stable. No acute osseous abnormality. Tubes, lines and devices: A stimulator generator overlies the left heart border. The stimulator lead extends to the left cervical region consistent with neurostimulator. IMPRESSION: Subsegmental right perihilar changes extending into the central right midlung zone with reticulonodular interstitial findings are more prominent from the previous examination. Differential consideration includes reactive airways disease with atelectasis; however, favor subsegmental pneumonia, to include viral etiologies. No pleural effusion or pneumothorax. Electronically signed by: Ruben Morejon MD 06/30/24 23:30 PM MDM Narrative Physical exam and history were performed. Nursing notes, EMR, and Medication List were personally reviewed. No social concerns were identified as barriers to patients care. Patient appears to have fever and cough symptoms bringing him to the ER. Patient vital signs are concerning as he is hypotensive and tachycardic with fever. Patient was evaluated immediately on arrival to his room. IV access was established and labs were obtained. Blood cultures were gathered. Patient arrives via wheelchair and initially a weight was not available, and he was given an initial 1500 mL saline bolus. He was given IV Tylenol and IV Toradol. Case was discussed with my attending, Dr. Soria, who remained involved in care decision making. An order was placed for continuous cardiac monitoring. The monitor shows a rate of 109 with sinus tachycardia rhythm. Patient's blood work is as above and was reviewed. He does not have a significant elevated white blood cell count. He is slightly anemic at 13.5. VBG is slightly alkalotic at 7.43. BUN and creatinine are preserved. Glucose 86. Initial lactic is negative. Transaminases not significantly elevated. Urine was ordered, however not provided at the time of this dictation. Viral swabs did return POSITIVE for 3 viral infections. He has influenza A, RSV, and coronavirus NL 63. Chest x-ray was performed and reviewed by myself and radiology suggesting a right sided pneumonia, which would correlate with his symptoms. Patient was reevaluated multiple times. Despite fluid bolus and medication here in the ER patient continues to deteriorate. His vital signs have progressively gotten worse, and he is maintaining a pressure of roughly 70/40. Additional fluids were provided. Patient was also given IV Zosyn and IV doxycycline. Ultimately escalation of care is necessary for the patient. Case was discussed with the on-call [facility] hospitalist, who will admit the patient. Shortly after discussing with the hospitalist, patient continued to decline, and Dr. Soria started the patient on Levophed. This did help normalize some of the vital signs. After significant hydration his temperature has returned to normal. He is requiring oxygen supplementation via nasal cannula. Patient will be admitted to the ICU for further management. The chart was completed utilizing [employer] Speech Voice Recognition Software. Grammatical errors, random word insertions, pronoun errors, and incomplete sentences are an occasional consequence of this system due to software limitations, ambient noise, and hardware issues. Any formal questions or concerns about the content, text, or information contained within the body of this dictation should be directly addressed to the provider for clarification. Impression & Plan Sepsis, Quadriplegic cerebral palsy, Influenza A (H1N1), RSV infection, Coronavirus infection, Pneumonia Discharge Plan Visit Data Chief Complaint: Cough Stated Complaint: TIGHT COUGH, FEVER ED Provider: Glenn Soria ED Midlevel Provider: Rob Bodwen Discharge Problem: Sepsis, Quadriplegic cerebral palsy, Influenza A (H1N1), RSV infection, Coronavirus infection, Pneumonia Patient Disposition: Admitted As Inpatient Discharge Instructions Interventions: ED Discharge Assessment Last Done: 07/01/24 02:05
[2024-06-30 22:18] LABS: Base Excess VBG 4.8 mEq/L; HCO3 VBG 30 mmol/L; Oxygen Saturation VBG < 60.0 %; PCO2 VBG 45 mmHg (38-50); PO2 VBG 29 mmHg; pH VBG 7.43 (7.36-7.41)
[2024-06-30 22:38] LABS: Basophils # (auto) 0.02 K/uL (0.00-0.20); Basophils % (auto) 0.5 %; Eosinophils # (auto) 0.05 K/uL (0.00-0.50); Eosinophils % (auto) 1.1 %; Hematocrit (blood only) 41.5 % (42.0-52.0); Hemoglobin 13.5 g/dl (14.0-18.0); Immature Granulocytes # (auto) 0.03 K/uL (0.01-0.20); Immature Granulocytes % (auto) 0.7 %; Lymphocytes # (auto) 0.56 K/uL (1.20-3.40); Lymphocytes % (auto) 12.7 %; Mean Corpuscular Hemoglobin 31.1 pg (25.0-34.0); Mean Corpuscular Hgb Conc 32.5 g/dL (32.0-36.0); Mean Corpuscular Volume 95.6 fL (80.0-100.0); Mean Platelet Volume 11.8 fL (9.4-12.4); Monocytes # (auto) 0.43 K/uL (0.11-0.59); Monocytes % (auto) 9.8 %; Neutrophils # (auto) 3.32 K/uL (1.40-6.50); Neutrophils % (auto) 75.2 %; Platelet Count 188 K/uL (130-400); RDW Coefficient of Variation 12.2 % (11.5-14.5); RDW Standard Deviation 42.6 fL (36.4-46.3); Red Blood Count 4.34 M/uL (4.70-6.10); White Blood Count 4.41 K/ul (4.8-10.8)
[2024-06-30 22:40] LABS: Alanine Aminotransferase 20 U/L (7-52); Albumin Level 3.8 gm/dl (3.4-5.0); Alkaline Phosphatase 113 U/L (34-104); Anion Gap 8 (3-11); Aspartate Aminotransferase 21 U/L (13-39); BUN Creatinine Ratio 19.4 (10-20); Bilirubin Direct 0.1 mg/dl (0-0.2); Bilirubin,Total 0.4 mg/dl (0.2-1.0); Blood Urea Nitrogen 13 mg/dl (6-23); Calcium 9.6 mg/dl (8.6-10.3); Carbon Dioxide 28 mmol/L (21-32); Chloride 104 mmol/L (98-107); Glucose 86 mg/dl (70-99(Fasting)); Magnesium 2.1 mg/dl (1.7-2.4); Potassium 3.8 mmol/L (3.5-5.1); Sodium 140 mmol/L (136-145); Total Protein 6.8 gm/dl (6.0-8.3)
[2024-06-30] MEDS: KETOROLAC TROMETHAMINE 15 MG/ML VIAL IV STA (22:42)
[2024-06-30] MEDS: SODIUM CHLORIDE 0.9% 1,000 ML IV SCH (22:45)
[2024-06-30 22:46] LABS: Troponin I High Sensitivity 2.8 pg/ml (0-20)
[2024-06-30] MEDS: ACETAMINOPHEN 1,000 MG/100 ML VIAL IV STA (22:47)
[2024-06-30 23:22] LABS: Adenovirus PCR Not Detected (NotDetected); Bordetella parapertussis PCR Not Detected (NotDetected); Bordetella pertussis PCR Not Detected (NotDetected); Chlamydia pneumoniae PCR Not Detected (NotDetected); Coronavirus 229E PCR Not Detected (NotDetected); Coronavirus CoV-2 (COVID19)PCR Not Detected (NotDetected); Coronavirus HKU1 PCR Not Detected (NotDetected); Coronavirus NL63 PCR DETECTED (NotDetected); Coronavirus OC43PCR Not Detected (NotDetected); Human Metapneumovirus PCR Not Detected (NotDetected); Influenza A (H1 2009) PCR DETECTED (NotDetected); Influenza B PCR Not Detected (NotDetected); Mycoplasma pneumoniae PCR Not Detected (NotDetected); Parainfluenza Virus 1 PCR Not Detected (NotDetected); Parainfluenza Virus 2 PCR Not Detected (NotDetected); Parainfluenza Virus 3 PCR Not Detected (NotDetected); Parainfluenza Virus 4 PCR Not Detected (NotDetected); Respiratory Syncytial VirusPCR DETECTED (NotDetected); Rhinovirus/Enterovirus PCR Not Detected (NotDetected)
--- NOTE | 2024-06-30 23:31 | XRay Report ---
Exam(s): XR CXR 1 VIEW EXAM: XR Chest, 1 View CLINICAL HISTORY: Sepsis. TECHNIQUE: Frontal view of the chest. COMPARISON: Portable chest single view 02/04/2023 FINDINGS: Lungs: Subsegmental right perihilar changes extending into the central right midlung zone with reticulonodular interstitial findings are more prominent from the previous examination. Pleural space: Unremarkable. No pneumothorax. No large pleural effusion. Heart: Unremarkable. No cardiomegaly. Mediastinum: No significant abnormality identified. The trachea is midline. Bones/joints: Extensive surgical hardware throughout the thoracic spine, stable. No acute osseous abnormality. Tubes, lines and devices: A stimulator generator overlies the left heart border. The stimulator lead extends to the left cervical region consistent with neurostimulator. IMPRESSION: Subsegmental right perihilar changes extending into the central right midlung zone with reticulonodular interstitial findings are more prominent from the previous examination. Differential consideration includes reactive airways disease with atelectasis; however, favor subsegmental pneumonia, to include viral etiologies. No pleural effusion or pneumothorax. Electronically signed by: Ruben Morejon MD 06/30/24 23:30 PM
[2024-06-30] MEDS: SODIUM CHLORIDE 0.9% 500 ML IV ONE (23:35)
[2024-07-01] MEDS: PIPERACILLIN/TAZOBACTAM 4.5 GM/100 ML BAG IV ONE (00:17)
[2024-07-01] MEDS: SODIUM CHLORIDE 0.9% 500 ML IV ONE ×2 (00:18→00:59)
[2024-07-01] MEDS: DOXYCYCLINE HYCLATE 100 MG in DEXTROSE 5% MINI-B 100 ML IV STA (00:33)
[2024-07-01] MEDS ORDERED: STAT IV Infusion **Titration per Protocol STA (00:50)
--- NOTE | 2024-07-01 01:05 | Emergency Department Note ---
Impression & Plan Sepsis, Quadriplegic cerebral palsy, Influenza A (H1N1), RSV infection, Coronavirus infection, Pneumonia ED Provider Note I was consulted by the Advanced Practice Provider, Rob Bowden PA-C. I personally made/approved the management plan and take responsibility for the patient management. I performed a substantive portion of the visit. This includes the aspects of: -History/Physical/Personally seeing the patient. Patient is debilitated secondary to his quadriplegia and CP. Patient is quite febrile. Blood pressure borderline low. Responded well to nasal cannula oxygen. Family is present. Concerning that the patient had an episode of vomiting several days ago. Aspiration possible. Patient was covered with fluid boluses, Zosyn and doxycycline. Patient has influenza H1 as well as RSV and non-COVID coronavirus on [employer] testing. -MDM -I independently interpreted the following studies: Chest x-ray concerning for right sided pneumonia -I consulted with the [facility], Dr. Ortiz. Case discussed and diagnostics were reviewed. Patient was evaluated in the ER and admitted for further management. He agreed with antibiotics and additional fluids. He did consult with critical care. We also initiated low-dose Levophed given the patient's hypotension. Lactate normal. - >50% time spent by physician I have personally spent 35 minutes of critical care time in the direct management of this patient. This includes bedside care, interpretation of diagnostic studies, and testing, discussion with consultants, and family members, and other required patient management activities. These minutes are in excess of all separately billable procedures. Past Med/Surg History Problem List (Updated 07/01/24 @ 01:04 by Glenn Soria MD) Pneumonia (Acute) Coronavirus infection (Acute) RSV infection (Acute) Influenza A (H1N1) (Acute) Sepsis (Acute) Epilepsy Infection/inflammation-neural device Gram-positive cocci bacteremia Bronchopneumonia Abscess Sepsis Postoperative infection (Acute) Cellulitis (Acute) Encounter for pre-operative examination Status post placement of VNS (vagus nerve stimulation) device (2016) Battery change, Dr. Obrien Status post VNS (vagus nerve stimulator) placement Colitis (Acute) Hydronephrosis (Acute) Constipation (Acute) Poor appetite Status post VNS (vagus nerve stimulator) placement (Chronic 2004) Cerebral palsy (Chronic) Chronic constipation Seizures (Chronic) Most recent 05/24/23, Per records- "small seizures" couple times a week (consist of blinking and downward turning of the head); intermittent generalized jerking type seizures less frequent MR (mental retardation), severe (Chronic) Quadriplegic cerebral palsy (Acute) Medical History Hx of sepsis [place] admission 01/2023, vagus nerve stimulator removed d/t infection Kolton-Gastaut syndrome Sialorrhea Osteoporosis Adopted Back problem Surgical History Status post VNS (vagus nerve stimulator) placement (06/13/23) Vagal Nerve Stimulator Placement - Patel Obrien MD, FACS H/O oral surgery Gum surgery and teeth cleaned under anesthesia History of surgery Removal of Vagus Nerve Stimulator and leads (01/29/23): Grade 2 view with Glidescope #3, ETT 7.0 at [facility] Status post VNS (vagus nerve stimulator) placement Left Vagus Nerve Stimulator Generator Replacement (11/2022) Hx of myringotomy w/tubes, multiple times S/P cholecystectomy History of orchiectomy Left Family History Other Family history unknown Social History Smoking Status: Never smoker Second Hand Exposure: No; Do You Dip or Chew Tobacco: No; Hx Alcohol Use: No Hx Substance Use: No Preferred Language: Serbian Communication Ability: Impaired Communication Ability Comment: unable to speak Manager Ambulatory Required: No Beliefs That Will Affect Care: None marital status: Single Current Living Situation: Family Current Living Situation Comment: adopted current occupational status: disabled How many Children do You have: 0 Feels Safe at Home: Yes Diet: regular Diet Comment: Pureed Assistive Devices: Walker Allergies Allergies Allergy/AdvReac Type Severity Reaction Status Date / Time fentanyl AdvReac Intermediate Difficult Verified 07/01/24 00:07 to awaken Home Meds Home Medications Medication Instructions Recorded Confirmed glycopyrrolate 1 mg tablet 1 mg PO BID Secretions #60 tabs 01/08/19 07/01/24 (Robinul) nutritional supplements 0.09 1 ea PO QID 11/07/22 07/01/24 gram-0.5 kcal/mL oral liquid (Boost Max) polyethylene glycol 3350 17 4.25 g PO UD PRN Constipation 11/07/22 07/01/24 gram/dose oral powder (Miralax) sennosides 8.8 mg/5 mL oral syrup 8.8 mg PO BID PRN Constipation 11/07/22 07/01/24 (senna) Previous Rx's Medication Instructions Recorded clobazam 2.5 mg/mL oral suspension 2.5 mg PO UD #120 mL 02/20/24 divalproex 125 mg capsule,delayed See Rx Instructions .Route 02/20/24 release sprinkle .COMPLEX #180 caps rufinamide 40 mg/mL oral 1,400 mg (35 mL) PO BID #2,100 mL 02/20/24 suspension (Banzel) Results & Data (ED) Vital Signs Vital Signs - 24 hr 06/30/24 21:10 06/30/24 21:54 06/30/24 22:25 Temperature 36.9 C 39.5 C H Temperature Source Temporal Artery Scan Rectal Pulse Rate 128 H 127 H Pulse Rate [Apical] 130 H Pulse Rhythm [Apical] Pulse Strength [Apical] Respiratory Rate 19 23 Respiratory Effort / Characteristics Non-Labored Spontaneous Spontaneous Respiratory Depth Normal Respiratory Pattern Regular Blood Pressure 86/56 L Blood Pressure [Right Arm] 91/64 L Blood Pressure Mean 66 Blood Pressure Mean [Right Arm] 73 Blood Pressure Position [Right Arm] Pulse Oximetry 100 96 Oxygen Delivery Method Room Air Room Air Oxygen Flow Rate Sepsis Recent Fever Within 48 Hours Yes Sepsis New/Unexplained Change in Mental Status N/A Sepsis Action Taken by Nursing No Action Required Oxygen Flow Rate - Titration Pulse Oximetry Post Tiitration 06/30/24 22:27 06/30/24 23:30 06/30/24 23:39 Temperature Temperature Source Pulse Rate 130 H Pulse Rate [Apical] 119 H Pulse Rhythm [Apical] Regular Pulse Strength [Apical] Normal Respiratory Rate 18 Respiratory Effort / Characteristics Non-Labored Spontaneous Respiratory Depth Normal Respiratory Pattern Regular Blood Pressure Blood Pressure [Right Arm] 84/40 L Blood Pressure Mean Blood Pressure Mean [Right Arm] 54 Blood Pressure Position [Right Arm] Semi-fowlers Pulse Oximetry 96 94 88 L Oxygen Delivery Method Room Air Nasal Cannula Room Air Oxygen Flow Rate 2 Sepsis Recent Fever Within 48 Hours Sepsis New/Unexplained Change in Mental Status Sepsis Action Taken by Nursing Oxygen Flow Rate - Titration 2 Pulse Oximetry Post Tiitration 94 07/01/24 00:03 07/01/24 00:03 07/01/24 00:52 Temperature 39 C H 39 C H Temperature Source Rectal Rectal Pulse Rate Pulse Rate [Apical] 94 H Pulse Rhythm [Apical] Regular Pulse Strength [Apical] Normal Respiratory Rate 20 Respiratory Effort / Characteristics Non-Labored Spontaneous Respiratory Depth Normal Respiratory Pattern Regular Blood Pressure Blood Pressure [Right Arm] 90/45 L Blood Pressure Mean Blood Pressure Mean [Right Arm] 60 Blood Pressure Position [Right Arm] Semi-fowlers Pulse Oximetry 92 Oxygen Delivery Method Nasal Cannula Oxygen Flow Rate 2 Sepsis Recent Fever Within 48 Hours Sepsis New/Unexplained Change in Mental Status Sepsis Action Taken by Nursing Oxygen Flow Rate - Titration Pulse Oximetry Post Tiitration 07/01/24 01:08 07/01/24 01:18 Temperature Temperature Source Pulse Rate Pulse Rate [Apical] 101 H 99 H Pulse Rhythm [Apical] Regular Regular Pulse Strength [Apical] Normal Normal Respiratory Rate 18 26 H Respiratory Effort / Characteristics Non-Labored Spontaneous Non-Labored Spontaneous Respiratory Depth Normal Normal Respiratory Pattern Regular Regular Blood Pressure Blood Pressure [Right Arm] 82/35 L 95/40 L Blood Pressure Mean Blood Pressure Mean [Right Arm] 50 58 Blood Pressure Position [Right Arm] Semi-fowlers Semi-fowlers Pulse Oximetry 90 92 Oxygen Delivery Method Nasal Cannula Nasal Cannula Oxygen Flow Rate 2 Sepsis Recent Fever Within 48 Hours Sepsis New/Unexplained Change in Mental Status Sepsis Action Taken by Nursing Oxygen Flow Rate - Titration Pulse Oximetry Post Tiitration Laboratory Data 06/30/24 22:08 06/30/24 22:08 Lab Results 06/30/24 06/30/24 Range/Units 21:56 22:08 WBC 4.41 L (4.8-10.8) K/ul RBC 4.34 L (4.70-6.10) M/uL Hgb 13.5 L (14.0-18.0) g/dl Hct 41.5 L (42.0-52.0) % MCV 95.6 (80.0-100.0) fL MCH 31.1 (25.0-34.0) pg MCHC 32.5 (32.0-36.0) g/dL RDW Std Deviation 42.6 (36.4-46.3) fL RDW Coeff of Leo 12.2 (11.5-14.5) % Plt Count 188 (130-400) K/uL MPV 11.8 (9.4-12.4) fL Immature Gran % (Auto) 0.7 % Neut % (Auto) 75.2 % Lymph % (Auto) 12.7 % Gove % (Auto) 9.8 % Eos % (Auto) 1.1 % Baso % (Auto) 0.5 % Neut # (Auto) 3.32 (1.40-6.50) K/uL Lymph # (Auto) 0.56 L (1.20-3.40) K/uL Gove # (Auto) 0.43 (0.11-0.59) K/uL Eos # (Auto) 0.05 (0.00-0.50) K/uL Baso # (Auto) 0.02 (0.00-0.20) K/uL Immature Gran # (Auto) 0.03 (0.01-0.20) K/uL VBG pH 7.43 H (7.36-7.41) VBG pCO2 45 (38-50) mmHg VBG pO2 29 mmHg VBG HCO3 30 mmol/L VBG O2 Saturation < 60.0 % VBG Base Excess 4.8 mEq/L Sodium 140 (136-145) mmol/L Potassium 3.8 (3.5-5.1) mmol/L Chloride 104 (98-107) mmol/L Carbon Dioxide 28 (21-32) mmol/L Anion Gap 8 (3-11) BUN 13 (6-23) mg/dl Creatinine 0.67 (0.6-1.4) mg/dl Est Cr Clr Drug Dosing Not Reportable eGFR 127.22 BUN/Creatinine Ratio 19.4 (10-20) Glucose 86 (70-99(Fasting)) mg/dl Lactate 1.8 (0.4-2.0) mmol/L Calcium 9.6 (8.6-10.3) mg/dl Magnesium 2.1 (1.7-2.4) mg/dl Total Bilirubin 0.4 (0.2-1.0) mg/dl Direct Bilirubin 0.1 (0-0.2) mg/dl AST 21 (13-39) U/L ALT 20 (7-52) U/L Alkaline Phosphatase 113 H (34-104) U/L Troponin I High Sens 2.8 (0-20) pg/ml Total Protein 6.8 (6.0-8.3) gm/dl Albumin 3.8 (3.4-5.0) gm/dl Procalcitonin 0.14 (0-0.5) ng/ml Nasal Influ A H1 2008 PCR DETECTED A (NotDetected) Adenovirus (PCR) Not Detected (NotDetected) B. pertussis DNA (PCR) Not Detected (NotDetected) B.parapertussis DNA PCR Not Detected (NotDetected) C. pneumoniae DNA (PCR) Not Detected (NotDetected) Coronavirus OC43 (PCR) Not Detected (NotDetected) Coronavirus HKU1 (PCR) Not Detected (NotDetected) Coronavirus 229E (PCR) Not Detected (NotDetected) SARS-CoV-2 (PCR) Not Detected (NotDetected) Coronavirus NL63 (PCR) DETECTED A (NotDetected) Human Metapneumovir PCR Not Detected (NotDetected) Influenza Type B (PCR) Not Detected (NotDetected) M. pneumoniae (PCR) Not Detected (NotDetected) Parainfluenza 1 (PCR) Not Detected (NotDetected) Parainfluenza 2 (PCR) Not Detected (NotDetected) Parainfluenza 3 (PCR) Not Detected (NotDetected) Parainfluenza 4 (PCR) Not Detected (NotDetected) RSV (PCR) DETECTED A (NotDetected) Entero/Rhino (PCR) Not Detected (NotDetected) Administered Medications Doxycycline Hyclate 100 mg/ (Dextrose) 100 mls @ 50 mls/hr IV NOW STA Stop: 07/01/24 02:02 Last Admin: 07/01/24 00:33 Dose: 50 mls/hr Documented By: IDD Sodium Chloride (Nss) 500 mls @ 999 mls/hr IV .Q31M ONE Stop: 07/01/24 01:20 Last Admin: 07/01/24 00:59 Dose: 999 mls/hr Documented By: IDD Norepinephrine Bitartrate (Levophed/D5w) 4 mg in 250 mls @ 8.119 mls/hr IV .Q24H SHAHIDA; Protocol Stop: 07/31/24 00:59 Last Admin: 07/01/24 01:06 Dose: 0.05 mcg/kg/min, 8.1 mls/hr Documented By: IDD Co-signed By: SUSIE Discontinued Medications Sodium Chloride (Nss) 1,000 mls @ 999 mls/hr IV .Q1H1M SHAHIDA Stop: 06/30/24 22:45 Last Infusion: 06/30/24 23:47 Dose: Infused Documented By: Admin: 06/30/24 22:45 Dose: 999 mls/hr Documented By: MED Acetaminophen (Ofirmev) 1,000 mg in 100 mls @ 400 mls/hr IV NOW STA Stop: 06/30/24 22:36 Last Infusion: 06/30/24 23:35 Dose: Infused Documented By: Admin: 06/30/24 22:47 Dose: 400 mls/hr Documented By: MED Sodium Chloride (Nss) 500 mls @ 999 mls/hr IV .Q31M ONE Stop: 06/30/24 23:42 Last Infusion: 07/01/24 00:23 Dose: Infused Documented By: Admin: 06/30/24 23:35 Dose: 999 mls/hr Documented By: IDD Piperacillin Sod/Tazobactam Sod (Zosyn) 4.5 gm in 100 mls @ 200 mls/hr IV NOW ONE; Protocol Stop: 06/30/24 23:49 Last Infusion: 07/01/24 00:52 Dose: Infused Documented By: Admin: 07/01/24 00:17 Dose: 200 mls/hr Documented By: IDD Sodium Chloride (Nss) 500 mls @ 999 mls/hr IV .Q31M ONE Stop: 07/01/24 00:32 Last Infusion: 07/01/24 00:52 Dose: Infused Documented By: Admin: 07/01/24 00:18 Dose: 999 mls/hr Documented By: IDD Ketorolac Tromethamine (Ketorolac Tromethamine 15 Mg/Ml Vial) 15 mg IV NOW STA Stop: 06/30/24 22:23 Last Admin: 06/30/24 22:42 Dose: 15 mg Documented By: MED Imaging Data Radiologist's Impression: Chest X-Ray 06/30/24 21:36 Exam(s): XR CXR 1 VIEW EXAM: XR Chest, 1 View CLINICAL HISTORY: Sepsis. TECHNIQUE: Frontal view of the chest. COMPARISON: Portable chest single view 02/04/2023 FINDINGS: Lungs: Subsegmental right perihilar changes extending into the central right midlung zone with reticulonodular interstitial findings are more prominent from the previous examination. Pleural space: Unremarkable. No pneumothorax. No large pleural effusion. Heart: Unremarkable. No cardiomegaly. Mediastinum: No significant abnormality identified. The trachea is midline. Bones/joints: Extensive surgical hardware throughout the thoracic spine, stable. No acute osseous abnormality. Tubes, lines and devices: A stimulator generator overlies the left heart border. The stimulator lead extends to the left cervical region consistent with neurostimulator. IMPRESSION: Subsegmental right perihilar changes extending into the central right midlung zone with reticulonodular interstitial findings are more prominent from the previous examination. Differential consideration includes reactive airways disease with atelectasis; however, favor subsegmental pneumonia, to include viral etiologies. No pleural effusion or pneumothorax. Electronically signed by: Ruben Morejon MD 06/30/24 23:30 PM Discharge Plan Visit Data Chief Complaint: Cough Stated Complaint: TIGHT COUGH, FEVER ED Provider: Glenn Soria ED Midlevel Provider: Rob Bowden Discharge Problem: Sepsis, Quadriplegic cerebral palsy, Influenza A (H1N1), RSV infection, Coronavirus infection, Pneumonia Forms Stand Alone Forms: [facility] Prescriptions Prescriptions: No Action glycopyrrolate [Robinul] 1 mg tablet 1 mg PO BID Qty: 60 rufinamide [Banzel] 40 mg/mL suspension 1,400 mg PO BID Qty: 2100 5RF divalproex 125 mg capsule, delayed rel sprinkle See Rx Instructions .ROUTE .COMPLEX Qty: 180 5RF Rx Instructions: 2 caps in am and 4 caps in pm; clobazam 2.5 mg/mL suspension 2.5 mg PO UD Qty: 120 5RF Rx Instructions: 2.5 mg orally; GIVE 2.5MG/1ML in the morning and 5 MG/2 mL in the evening. sennosides [senna] 8.8 mg/5 mL Syrup 8.8 mg PO BID PRN (Reason: Constipation) polyethylene glycol 3350 [Miralax] 17 gram/dose Powder 4.25 g PO UD PRN (Reason: Constipation) Rx Instructions: PER PT'S MOTHER "TAKES ALMOST EVERY DAY, 1/4 OF CAP". Boost Max 0.09 gram- 0.5 kcal/mL Liquid 1 ea PO QID Rx Instructions: Boost High Calorie. 3-4 times daily Referrals Referrals: Jen Verdugo, [Primary Care Provider] -
[2024-07-01] MEDS: NOREPINEPHRINE/D5W 4 MG/250 ML PLCT IV SCH (01:06)
--- NOTE | 2024-07-01 01:41 | Critical Care Consultation ---
Date of Consultation July 01, 2024 Assessment & Plan (1) Influenza A (H1N1): (2) RSV infection: (3) Coronavirus infection: (4) Epilepsy: (5) Hypovolemia: (6) Sepsis: (7) Quadriplegic cerebral palsy: Plan Reason Critically Ill: 34 YOM with CP intellectual disability, seizure with Vagus Nerve stimulator. Noted to have H1 2009 Influenza A, Coronavirus NL63, RSV. He has been initiated on vasopressors in the ER for concern for sepsis and hypotension. Neuro - no acute needs CAM ICU: [facility] - Patient is at baseline status, no concern for seizures - Hopeful to be able to continue PO seizure/antispasmodics/antianxiety medications without vomitus Cardiac - shock unspecified, - Hypovolemic shock vs. sepsis or combination of these- Patient currently hypotensive in setting of high fevers, increased respiratory work, and vomiting- technically meets sirs criteria presumed source at this time is viral infection with multiple agents - Will continue with crystalloid support- patient still with evidence of hypovolemia, with dry mucous membranes has not voided, and poor skin turgor- - will attempt bedside POCUS on arrival to ICU however will be limited by body position - Wean Levophed as able to keep MAPS >65 - With his small arms and moving of extremities- please perform manual BP Respiratory - Viral pneumonitis/pneumonia, RSV, Coronavirus NL63, H1 2009 Influenza A - At this time has right Middle/upper lobe haziness/opacity- at this time cant exclude a concomitant infectious cause- however with 3 viruses this is likely viral in etiology with possible pneumonitis following aspiration as well - He is with increased oxygen need, and fevers, no sputum reported- continue with Rocephin, doxy - ANNA nebulizers as needed - if cough ineffective at clearing secretions will add hypertonic, cough assist or vest therapy - NC 2L wean as able, if increased support will use HFNC GI - No acute needs - vomiting likely secondary to viral illness- reported formed BM in the ER so at this time doubt secondary to obstruction RENAL/LYTES - No acute needs - replete lytes as able - maintain maps > 65 - bladder scans and cath as needed ENDO - no acute needs - follow glucose levels HEME - no acute needs ID - sepsis- viral vs. bacterial pneumonia or combination of both - Continue Rocephin/Doxy- de-escalate as appropriate - Tamiflu - Sepsis without organ dysfunction or lactate- Continue with crystalloid infusion as patient has currently been volume responsive LINES/IV ACCESS - PIV x3 Continue use of these lines DVT PROPHYLAXIS - SCDS, DISPO: ICU until hemodynamics are at patient baseline I have personally spent 35 minutes of critical care time in the direct management of this patient. This is a life/limb threatening event. This includes time spent evaluating patient, direct bedside care, chart review, placing orders, interpretation of diagnostic studies, discussion with consultants, patient, and family members, as well as other required patient management activities. This time is exclusive of all separately billable procedures, separate from and in addition to any other critical care service time. Thank you for allowing us to participate in the care of this patient. Please refer to my attending physician's documentation for any further recommendations. Supervising Physician Co-Signing Physician Notes Patient seen and examined. EMR reviewed. Discussed with critical care overnight VIRIDIANA and agree with assessment and plan as noted. Patient this morning is on a minimal amount of oxygen. He is hemodynamically stable. His lactate is normal. Pressor agents are off. He appears to be at his baseline mental status. Chest x-ray was independently reviewed. There is a patchy parenchymal density noted consistent with potential pneumonia. Unclear if this is viral or bacterial. Recommend completing course of Rocephin and doxycycline. Complete course of Tamiflu as well. Patient appears to be responding well currently. No indication for continued critical care management. The patient is stable to downgrade out of the ICU to the care of the hospitalist. Critical care services will sign off. Feel free to contact us with questions or concerns History of Present Illness Reason for Consultation: shock unspecified Requesting Physician: Marcell Ortiz MD Attending Physician: Marcell Ortiz MD History of Present Illness 34 YOM wit TBI, cerebral palsy, seizures, vagal nerve implant. Patient was brought to the ER today for concerns of fevers, cough, and vomiting. Mom reports that he has been ill for 24 hours with fevers, decreased PO intake. She also reports that she heard him coughing about 3 days ago and he was lying on his back and had vomited. He has refused food or drink for most of the day today, but was able to get his medications in him this morning. ICU was consulted for initiation of vasopressors in the ER for hypotension, his baseline blood pressures are low 100s/60s-70s. He had a VBG in the ER, CXR completed, routine labs to include blood cultures and lactate, and respiratory biofire. He was noted to have [id number] Influenza A, RSV, and Cornavirus NL63. He was given 2L of crystalloid with the remaining bolus finishing as I evaluated him in the ER. Patient is without any organ dysfunction and is also without an elevated lactate level. He is noted to remain febrile, and requiring 2LNC. Patient will be brought to the ICU to continue to replace volume and wean down vasopressors as able. CODE: FULL Allergies Allergy/AdvReac Type Severity Reaction Status Date / Time fentanyl AdvReac Intermediate Difficult Verified 07/01/24 00:07 to awaken Home Medications Medication Instructions Recorded Confirmed Type glycopyrrolate 1 mg tablet 1 mg PO BID Secretions #60 tabs 01/08/19 07/01/24 History (Robinul) nutritional supplements 0.09 1 ea PO QID 11/07/22 07/01/24 History gram-0.5 kcal/mL oral liquid (Boost Max) polyethylene glycol 3350 17 4.25 g PO UD PRN Constipation 11/07/22 07/01/24 History gram/dose oral powder (Miralax) sennosides 8.8 mg/5 mL oral syrup 8.8 mg PO BID PRN Constipation 11/07/22 07/01/24 History (senna) clobazam 2.5 mg/mL oral suspension 2.5 mg PO UD #120 mL 02/20/24 07/01/24 Rx divalproex 125 mg capsule,delayed See Rx Instructions .Route 02/20/24 07/01/24 Rx release sprinkle .COMPLEX #180 caps rufinamide 40 mg/mL oral 1,400 mg (35 mL) PO BID #2,100 mL 02/20/24 07/01/24 Rx suspension (Banzel) Patient History Medical History Hx of sepsis [place] admission 01/2023, 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 Sialorrhea Osteoporosis Adopted Back problem Surgical History Status post VNS (vagus nerve stimulator) placement (06/13/23) Vagal Nerve Stimulator Placement - Patel Obrien MD, FACS H/O oral surgery Gum surgery and teeth cleaned under anesthesia History of surgery Removal of Vagus Nerve Stimulator and leads (01/29/23): Grade 2 view with Glidescope #3, ETT 7.0 at [facility] Status post VNS (vagus nerve stimulator) placement Left Vagus Nerve Stimulator Generator Replacement (11/2022) Hx of myringotomy w/tubes, multiple times S/P cholecystectomy History of orchiectomy Left Family History Other Family history unknown Social History Smoking Status: Never smoker Second Hand Exposure: No; Do You Dip or Chew Tobacco: No; Hx Alcohol Use: No Hx Substance Use: No Preferred Language: Swiss Communication Ability: Impaired Communication Ability Comment: unable to speak Threading Machine Tender Required: No Beliefs That Will Affect Care: None marital status: Single Current Living Situation: Parent Current Living Situation Comment: adopted current occupational status: disabled How many Children do You have: 0 Feels Safe at Home: Yes Safety Concerns: Feels Safe At This Time Diet: regular Diet Comment: Pureed Assistive Devices: Hospital Bed, Mechanical Lift and Wheelchair Review of Systems Review of Systems: unable to perform secondary to patient's intellectual level and disability- family not at bedside on initial evaluation Physical Exam Physical Exam: PHYSICAL EXAM: General: awake, alert, nonverbal ENT: PERRL, EOMI, mucous membranes dry Neuro: Awake and Alert looking around the room, yawning, contracted upper and lower extremities Chest: equal rise and fall of the chest, no accessory muscle use, insp and exp wheeze, on 2LNC Cardiac: Regular rate and rhythm, telemetry reviewed- NSR no ectopy, skin warm dry, cap refill <3 seconds, pulses palpable GI: NABS x 4 quadrants, soft throughout, and not distended : Has not voided Results & Data Results & Data Vital Signs (Past 12 Hours) Vital Signs Temp Pulse Pulse Resp BP BP Pulse Ox 07/01/24 01:18 99 H 26 H 95/40 L 92 07/01/24 01:08 101 H 18 82/35 L 90 07/01/24 00:52 94 H 20 90/45 L 92 07/01/24 00:03 39 C H 07/01/24 00:03 39 C H 06/30/24 23:39 88 L 06/30/24 23:30 119 H 18 84/40 L 94 06/30/24 22:27 130 H 96 06/30/24 22:25 39.5 C H 130 H 23 91/64 L 96 06/30/24 21:54 127 H 06/30/24 21:10 36.9 C 128 H 19 86/56 L 100 O2 Del Method O2 Flow Rate 07/01/24 01:18 Nasal Cannula 07/01/24 01:08 Nasal Cannula 2 07/01/24 00:52 Nasal Cannula 2 07/01/24 00:03 07/01/24 00:03 06/30/24 23:39 Room Air 06/30/24 23:30 Nasal Cannula 2 06/30/24 22:27 Room Air 06/30/24 22:25 Room Air 06/30/24 21:54 06/30/24 21:10 Room Air Laboratory Results Abnormal lab results 06/30/24 06/30/24 Range/Units 21:56 22:08 WBC 4.41 L (4.8-10.8) K/ul RBC 4.34 L (4.70-6.10) M/uL Hgb 13.5 L (14.0-18.0) g/dl Hct 41.5 L (42.0-52.0) % Lymph # (Auto) 0.56 L (1.20-3.40) K/uL VBG pH 7.43 H (7.36-7.41) Alkaline Phosphatase 113 H (34-104) U/L Nasal Influ A H1 2008 PCR DETECTED A (NotDetected) Coronavirus NL63 (PCR) DETECTED A (NotDetected) RSV (PCR) DETECTED A (NotDetected) Diagnostic Findings Chest X-Ray 06/30/24 21:36 Exam(s): XR CXR 1 VIEW EXAM: XR Chest, 1 View CLINICAL HISTORY: Sepsis. TECHNIQUE: Frontal view of the chest. COMPARISON: Portable chest single view 02/04/2023 FINDINGS: Lungs: Subsegmental right perihilar changes extending into the central right midlung zone with reticulonodular interstitial findings are more prominent from the previous examination. Pleural space: Unremarkable. No pneumothorax. No large pleural effusion. Heart: Unremarkable. No cardiomegaly. Mediastinum: No significant abnormality identified. The trachea is midline. Bones/joints: Extensive surgical hardware throughout the thoracic spine, stable. No acute osseous abnormality. Tubes, lines and devices: A stimulator generator overlies the left heart border. The stimulator lead extends to the left cervical region consistent with neurostimulator. IMPRESSION: Subsegmental right perihilar changes extending into the central right midlung zone with reticulonodular interstitial findings are more prominent from the previous examination. Differential consideration includes reactive airways disease with atelectasis; however, favor subsegmental pneumonia, to include viral etiologies. No pleural effusion or pneumothorax. Electronically signed by: Ruben Morejon MD 06/30/24 23:30 PM Medications Administered Doxycycline Hyclate 100 mg/ (Dextrose) 100 mls @ 50 mls/hr IV NOW STA Stop: 07/01/24 02:02 Last Admin: 07/01/24 00:33 Dose: 50 mls/hr Documented By: DAVID Norepinephrine Bitartrate (Levophed/D5w) 4 mg in 250 mls @ 8.119 mls/hr IV .Q24H SHAHIDA; Protocol Stop: 07/31/24 00:59 Last Titration: 07/01/24 01:22 Dose: 0.07 mcg/kg/min, 11.4 mls/hr Documented By: DAVID Co-signed By: RADW Admin: 07/01/24 01:06 Dose: 0.05 mcg/kg/min, 8.1 mls/hr Documented By: IDD Co-signed By: SUSIE Discontinued Medications Sodium Chloride (Nss) 1,000 mls @ 999 mls/hr IV .Q1H1M SHAHIDA Stop: 06/30/24 22:45 Last Infusion: 06/30/24 23:47 Dose: Infused Documented By: Admin: 06/30/24 22:45 Dose: 999 mls/hr Documented By: ANSELMO Acetaminophen (Ofirmev) 1,000 mg in 100 mls @ 400 mls/hr IV NOW STA Stop: 06/30/24 22:36 Last Infusion: 06/30/24 23:35 Dose: Infused Documented By: Admin: 06/30/24 22:47 Dose: 400 mls/hr Documented By: MED Sodium Chloride (Nss) 500 mls @ 999 mls/hr IV .Q31M ONE Stop: 06/30/24 23:42 Last Infusion: 07/01/24 00:23 Dose: Infused Documented By: Admin: 06/30/24 23:35 Dose: 999 mls/hr Documented By: IDD Piperacillin Sod/Tazobactam Sod (Zosyn) 4.5 gm in 100 mls @ 200 mls/hr IV NOW ONE; Protocol Stop: 06/30/24 23:49 Last Infusion: 07/01/24 00:52 Dose: Infused Documented By: Admin: 07/01/24 00:17 Dose: 200 mls/hr Documented By: IDD Sodium Chloride (Nss) 500 mls @ 999 mls/hr IV .Q31M ONE Stop: 07/01/24 00:32 Last Infusion: 07/01/24 00:52 Dose: Infused Documented By: Admin: 07/01/24 00:18 Dose: 999 mls/hr Documented By: IDD Sodium Chloride (Nss) 500 mls @ 999 mls/hr IV .Q31M ONE Stop: 07/01/24 01:20 Last Admin: 07/01/24 00:59 Dose: 999 mls/hr Documented By: IDD Ketorolac Tromethamine (Ketorolac Tromethamine 15 Mg/Ml Vial) 15 mg IV NOW STA Stop: 06/30/24 22:23 Last Admin: 06/30/24 22:42 Dose: 15 mg Documented By: MED Coding Level of Care Code 67190 CRITICAL CARE 1ST 30-74M Diagnoses Influenza A (H1N1) J10.1 RSV infection B33.8 Coronavirus infection B34.2 Epilepsy G40.909 Hypovolemia E86.1 Sepsis A41.9 Quadriplegic cerebral palsy G80.8
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
[2024-07-01] MEDS ORDERED: SENNOSIDES 8.8 MG/5 ML UDC PO PRN (03:00)
[2024-07-01] MEDS ORDERED: POLYETHYLENE (MIRALAX) 17 GM PACK PO PRN (03:00)
[2024-07-01] MEDS ORDERED: ALBUTEROL 0.083% NEBU SOLN 3 ML VIAL NEB PRN (03:09)
[2024-07-01] MEDS ORDERED: GLUCAGON FOR INJ 1 MG VIAL SQ PRN (03:11)
[2024-07-01] MEDS ORDERED: GLUCOSE 10 TAB/TUBE PO PRN (03:11)
[2024-07-01] MEDS ORDERED: CARBOHYDRATES FOR HYPOGLYCEMIA PO PRN (03:11)
[2024-07-01] MEDS ORDERED: GLUCOSE 40% GEL 15 GM TUBE PO PRN (03:11)
[2024-07-01] MEDS: SODIUM CHLORIDE 0.9% 1,000 ML IV SCH (03:19)
[2024-07-01] MEDS ORDERED: ACETAMINOPHEN IV PRN (03:33)
[2024-07-01] MEDS: OSELTAMIVIR PHOSPHATE 75 MG CAP PO STA (04:32)
[2024-07-01] MEDS: cefTRIAXone SODIUM 1,000 MG/50 ML BAG IV SCH (04:49)
[2024-07-01 05:18] LABS: Basophils # (auto) 0.02 K/uL (0.00-0.20); Basophils % (auto) 0.5 %; Eosinophils # (auto) 0.02 K/uL (0.00-0.50); Eosinophils % (auto) 0.5 %; Hematocrit (blood only) 38.4 % (42.0-52.0); Hemoglobin 12.5 g/dl (14.0-18.0); Immature Granulocytes # (auto) 0.04 K/uL (0.01-0.20); Immature Granulocytes % (auto) 1.1 %; Lymphocytes # (auto) 0.85 K/uL (1.20-3.40); Lymphocytes % (auto) 22.4 %; Mean Corpuscular Hemoglobin 31.4 pg (25.0-34.0); Mean Corpuscular Hgb Conc 32.6 g/dL (32.0-36.0); Mean Corpuscular Volume 96.5 fL (80.0-100.0); Mean Platelet Volume 11.4 fL (9.4-12.4); Monocytes # (auto) 0.37 K/uL (0.11-0.59); Monocytes % (auto) 9.7 %; Neutrophils % (auto) 65.8 %; Platelet Count 167 K/uL (130-400); RDW Coefficient of Variation 12.3 % (11.5-14.5); RDW Standard Deviation 43.5 fL (36.4-46.3); Red Blood Count 3.98 M/uL (4.70-6.10)
[2024-07-01 05:30] LABS: BUN Creatinine Ratio 18.4 (10-20); Calcium 8.1 mg/dl (8.6-10.3); Creatinine Clr Calc Pharmacy 123.7 ml/min; Magnesium 1.8 mg/dl (1.7-2.4); Phosphorus 3.7 mg/dl (2.5-4.9); Potassium 3.8 mmol/L (3.5-5.1)
[2024-07-01] MEDS ORDERED: PIPERACILLIN/TAZOBACTAM 4.5 GM/100 ML BAG IV SCH (08:00)
[2024-07-01] MEDS: ICU Protocol for HYPERglycemia SCH (08:49)
[2024-07-01] MEDS: GLYCOPYRROLATE 1 MG TAB PO SCH (08:51)
[2024-07-01] MEDS: DIVALPROEX SODIUM SPRINKLE/DEL-REL 125 MG CAP PO SCH ×2 (08:51→20:06)
[2024-07-01] MEDS: DOXYCYCLINE HYCLATE 100 MG in DEXTROSE 5% MINI-B 100 ML IV SCH (08:51)
[2024-07-01] MEDS: HEPARIN SOD 5,000 UNIT/0.5 ML VIAL SQ SCH (08:55)
[2024-07-01] MEDS: ACETAMINOPHEN 10MG/ML Custom 600 MG in EMPTY BAG 0 ML IV PRN ×2 (11:52→18:22)
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
[2024-07-01] MEDS: KETOROLAC TROMETHAMINE 15 MG/ML VIAL ONE (18:10)
[2024-07-01] MEDS: KETOROLAC TROMETHAMINE 15 MG/ML VIAL IV PRN (18:10)
[2024-07-01] MEDS ORDERED: Nursing to Pharmacy Communication SCH (19:15)
[2024-07-01] MEDS: OSELTAMIVIR PHOSPHATE SUSP 75 MG/12.5 ML UDP PO SCH (20:05)
[2024-07-01] MEDS: RUFINAMIDE 40 MG/ML PO SCH (20:09)
--- NOTE | 2024-07-01 21:48 | Electrocardiogram Report ---
Test Reason : Blood Pressure : */* mmHG Vent. Rate : 125 BPM Atrial Rate : 125 BPM P-R Int : 92 ms QRS Dur : 64 ms QT Int : 284 ms P-R-T Axes : 43 11 23 degrees QTcB Int : 409 ms Poor data quality, interpretation may be adversely affected Sinus tachycardia with short NJ Otherwise normal ECG When compared with ECG of 07-Feb-2023 10:41, NJ interval has decreased Nonspecific T wave abnormality now evident in Inferior leads Confirmed by Severiano Troncoso ([id number]) on 07/01/2024 9:48:28 PM Referred By: REFERRED SELF Confirmed By: Severiano Troncoso
[2024-07-02] MEDS: cefTRIAXone SODIUM 1,000 MG/50 ML BAG IV SCH (05:43)
[2024-07-02 06:50] LABS: Basophils # (auto) 0.02 K/uL (0.00-0.20); Basophils % (auto) 0.5 %; Hematocrit (blood only) 37.2 % (42.0-52.0); Hemoglobin 12.4 g/dl (14.0-18.0); Immature Granulocytes # (auto) 0.03 K/uL (0.01-0.20); Immature Granulocytes % (auto) 0.8 %; Lymphocytes # (auto) 1.52 K/uL (1.20-3.40); Lymphocytes % (auto) 41.2 %; Mean Corpuscular Hemoglobin 31.2 pg (25.0-34.0); Mean Corpuscular Hgb Conc 33.3 g/dL (32.0-36.0); Mean Corpuscular Volume 93.5 fL (80.0-100.0); Mean Platelet Volume 11.2 fL (9.4-12.4); Monocytes # (auto) 0.39 K/uL (0.11-0.59); Monocytes % (auto) 10.6 %; Neutrophils # (auto) 1.73 K/uL (1.40-6.50); Neutrophils % (auto) 46.9 %; Platelet Count 147 K/uL (130-400); RDW Coefficient of Variation 12.2 % (11.5-14.5); RDW Standard Deviation 41.9 fL (36.4-46.3); Red Blood Count 3.98 M/uL (4.70-6.10); White Blood Count 3.69 K/ul (4.8-10.8)
[2024-07-02 07:27] LABS: BUN Creatinine Ratio 18.4 (10-20); Calcium 8.5 mg/dl (8.6-10.3); Creatinine Clr Calc Pharmacy 161.1 ml/min; Magnesium 1.7 mg/dl (1.7-2.4); Phosphorus 3.8 mg/dl (2.5-4.9); Potassium 3.2 mmol/L (3.5-5.1)
[2024-07-02] MEDS: DEXTROSE 50% 50 ML SYRINGE IV PRN (07:56)
[2024-07-02] MEDS: POTASSIUM CHLORIDE / WTR 10 MEQ/100 ML PLCT IV SCH (10:02)
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
[2024-07-02] MEDS ORDERED: POTASSIUM CHLORIDE 20 MEQ/15 ML UDC PO STA (12:18)
[2024-07-02] MEDS: POTASSIUM CHLORIDE 20 MEQ/15 ML UDC PO SCH (14:28)
[2024-07-02] MEDS: D5NSS + 20MEQ KCL 20 MEQ/1,000 ML BAG IV ONE (22:36)
[2024-07-02] MEDS: MAGNESIUM SULFATE / D5W 1 GM/100 ML BAG IV SCH (22:36)
[2024-07-03 02:55] LABS: Appearance Urine Clear (Clear); Bilirubin Urine Negative (Negative); Blood Urine Negative (Negative); Color Urine Yellow; Glucose Urine UA Trace (Negative); Ketones Urine 1+ (Negative); Leukocyte Esterase Urine Negative (Negative); Nitrite Urine Negative (Negative); Protein Urine Negative (Negative); Specific Gravity Urine 1.014 (1.000-1.030); Urobilinogen Urine Negative (Negative)
[2024-07-03 07:38] LABS: Hematocrit (blood only) 37.6 % (42.0-52.0); Hemoglobin 12.4 g/dl (14.0-18.0); Mean Corpuscular Hemoglobin 31.6 pg (25.0-34.0); Mean Corpuscular Volume 95.9 fL (80.0-100.0); Mean Platelet Volume 11.5 fL (9.4-12.4); Platelet Count 159 K/uL (130-400); RDW Coefficient of Variation 12.4 % (11.5-14.5); RDW Standard Deviation 43.6 fL (36.4-46.3); Red Blood Count 3.92 M/uL (4.70-6.10); White Blood Count 2.97 K/ul (4.8-10.8)
[2024-07-03 08:17] LABS: Magnesium 2.1 mg/dl (1.7-2.4); Potassium 3.3 mmol/L (3.5-5.1)
[2024-07-03 08:23] LABS: BUN Creatinine Ratio 7.7 (10-20); Creatinine Clr Calc Pharmacy 156.9 ml/min; Phosphorus 3.2 mg/dl (2.5-4.9)
[2024-07-03 08:31] LABS: Echinocytes 1+
[2024-07-03 08:35] LABS: Basophils # (auto) 0.02 K/uL (0.00-0.20); Basophils % (auto) 0.7 %; Eosinophils # (auto) 0.01 K/uL (0.00-0.50); Eosinophils % (auto) 0.3 %; Immature Granulocytes # (auto) 0.01 K/uL (0.01-0.20); Immature Granulocytes % (auto) 0.3 %; Lymphocytes # (auto) 2.06 K/uL (1.20-3.40); Lymphocytes % (auto) 69.4 %; Monocytes # (auto) 0.31 K/uL (0.11-0.59); Monocytes % (auto) 10.4 %; Neutrophils # (auto) 0.56 K/uL (1.40-6.50); Neutrophils % (auto) 18.9 %
[2024-07-03] MEDS: POTASSIUM CHLORIDE 20 MEQ/15 ML UDC PO STA (09:19)
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
[2024-07-04 08:20] LABS: Hematocrit (blood only) 39.3 % (42.0-52.0); Hemoglobin 13.2 g/dl (14.0-18.0); Mean Corpuscular Hemoglobin 31.6 pg (25.0-34.0); Mean Corpuscular Hgb Conc 33.6 g/dL (32.0-36.0); Mean Platelet Volume 11.1 fL (9.4-12.4); Platelet Count 169 K/uL (130-400); RDW Coefficient of Variation 12.6 % (11.5-14.5); RDW Standard Deviation 43.4 fL (36.4-46.3); Red Blood Count 4.18 M/uL (4.70-6.10); White Blood Count 2.83 K/ul (4.8-10.8)
[2024-07-04 08:36] LABS: Albumin Globulin Ratio 1.4 (0.9-2); Albumin Level 3.2 gm/dl (3.4-5.0); BUN Creatinine Ratio 8.5 (10-20); Bilirubin,Total 0.2 mg/dl (0.2-1.0); Calcium 8.7 mg/dl (8.6-10.3); Creatinine Clr Calc Pharmacy 128.6 ml/min; Globulin 2.3 gm/dl (2.5-4.0); Phosphorus 3.8 mg/dl (2.5-4.9); Potassium 3.3 mmol/L (3.5-5.1); Total Protein 5.5 gm/dl (6.0-8.3)
[2024-07-04 09:08] LABS: Basophils # (auto) 0.01 K/uL (0.00-0.20); Basophils % (auto) 0.4 %; Eosinophils # (auto) 0.01 K/uL (0.00-0.50); Eosinophils % (auto) 0.4 %; Lymphocytes # (auto) 2.03 K/uL (1.20-3.40); Lymphocytes % (auto) 71.7 %; Monocytes # (auto) 0.27 K/uL (0.11-0.59); Monocytes % (auto) 9.5 %; Neutrophils # (auto) 0.51 K/uL (1.40-6.50)
[2024-07-04] MEDS: POTASSIUM CHLORIDE 20 MEQ/15 ML UDC PO SCH (10:18)
[2024-07-04] MEDS: POTASSIUM CHLORIDE / WTR 10 MEQ/100 ML PLCT IV SCH (10:19)
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
--- NOTE | 2024-07-04 12:16 | XRay Report ---
XR elbow RT 2V CLINICAL HISTORY: elbow erythema COMPARISON: None FINDINGS: No fracture or dislocation. No radiopaque foreign body. No osteomyelitis. IMPRESSION: No acute osseous findings. ACT 112: Negative or not required by law. Electronically signed by: Hilton Noel M.D. 07/04/2024 12:15 PM
--- NOTE | 2024-07-04 12:18 | XRay Report ---
KUB HISTORY: r/o SBO COMPARISON STUDY: 11/11/2022 FINDINGS: Stable spinal rods and scoliosis. Stable mild diffuse gaseous distention of large and small bowel. There may be retained stool in the rectum. No significant retained stool seen otherwise. No g ross free air. Stable right upper quadrant surgical clips. IMPRESSION: 1. Possible retained stool in the rectum. 2. Otherwise stable exam with mild gaseous bowel distention. ACT 112: Negative or not required by law. The above report was generated using voice recognition software. It may contain grammatical, syntax o r spelling errors. Electronically signed by: Hilton Noel M.D. 07/04/2024 12:17 PM
[2024-07-04] MEDS ORDERED: GLYCERIN ADULT 12 SUPP/BOX SUPP PR PRN (13:08)
[2024-07-04] MEDS: SODIUM CHLORIDE 0.9% 1,000 ML IV SCH (17:44)
[2024-07-04] MEDS: SODIUM CHLORIDE 0.9% 500 ML IV ONE (19:56)
[2024-07-05] MEDS: SODIUM CHLOR 0.45% + 20MEQ KCL 20 MEQ/1,000 ML BAG IV ONE (05:35)
[2024-07-05 08:02] LABS: Hematocrit (blood only) 38.4 % (42.0-52.0); Hemoglobin 12.9 g/dl (14.0-18.0); Mean Corpuscular Hgb Conc 33.6 g/dL (32.0-36.0); Mean Corpuscular Volume 92.3 fL (80.0-100.0); Mean Platelet Volume 10.9 fL (9.4-12.4); Platelet Count 165 K/uL (130-400); RDW Coefficient of Variation 12.5 % (11.5-14.5); RDW Standard Deviation 42.2 fL (36.4-46.3); Red Blood Count 4.16 M/uL (4.70-6.10)
[2024-07-05 08:07] LABS: Albumin Globulin Ratio 1.5 (0.9-2); Albumin Level 3.2 gm/dl (3.4-5.0); BUN Creatinine Ratio 5.9 (10-20); Bilirubin,Total 0.3 mg/dl (0.2-1.0); Calcium 8.5 mg/dl (8.6-10.3); Globulin 2.2 gm/dl (2.5-4.0); Magnesium 1.7 mg/dl (1.7-2.4); Phosphorus 3.4 mg/dl (2.5-4.9); Potassium 3.2 mmol/L (3.5-5.1); Total Protein 5.4 gm/dl (6.0-8.3)
[2024-07-05 08:42] LABS: Basophils # (auto) 0.02 K/uL (0.00-0.20); Basophils % (auto) 0.6 %; Eosinophils # (auto) 0.01 K/uL (0.00-0.50); Eosinophils % (auto) 0.3 %; Immature Granulocytes # (auto) 0.01 K/uL (0.01-0.20); Immature Granulocytes % (auto) 0.3 %; Lymphocytes # (auto) 2.19 K/uL (1.20-3.40); Lymphocytes % (auto) 66.4 %; Monocytes # (auto) 0.26 K/uL (0.11-0.59); Monocytes % (auto) 7.9 %; Neutrophils # (auto) 0.81 K/uL (1.40-6.50); Neutrophils % (auto) 24.5 %
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
[2024-07-05] MEDS: POTASSIUM CHLORIDE / WTR 10 MEQ/100 ML PLCT IV SCH (20:33)
[2024-07-06 03:41] VITALS: RESP 15
[2024-07-06 07:23] LABS: Hematocrit (blood only) 40.4 % (42.0-52.0); Hemoglobin 13.7 g/dl (14.0-18.0); Mean Corpuscular Hemoglobin 31.1 pg (25.0-34.0); Mean Corpuscular Hgb Conc 33.9 g/dL (32.0-36.0); Mean Corpuscular Volume 91.8 fL (80.0-100.0); Mean Platelet Volume 11.1 fL (9.4-12.4); Platelet Count 188 K/uL (130-400); RDW Coefficient of Variation 12.2 % (11.5-14.5); RDW Standard Deviation 41.3 fL (36.4-46.3); White Blood Count 4.21 K/ul (4.8-10.8)
[2024-07-06 08:07] LABS: Albumin Globulin Ratio 1.4 (0.9-2); Albumin Level 3.3 gm/dl (3.4-5.0); BUN Creatinine Ratio 10.8 (10-20); Bilirubin,Total 0.3 mg/dl (0.2-1.0); Calcium 8.8 mg/dl (8.6-10.3); Creatinine Clr Calc Pharmacy 165.4 ml/min; Globulin 2.3 gm/dl (2.5-4.0); Magnesium 1.9 mg/dl (1.7-2.4); Phosphorus 3.4 mg/dl (2.5-4.9); Potassium 3.6 mmol/L (3.5-5.1); Total Protein 5.6 gm/dl (6.0-8.3)
[2024-07-06 08:17] LABS: Basophils # (auto) 0.02 K/uL (0.00-0.20); Basophils % (auto) 0.5 %; Eosinophils # (auto) 0.01 K/uL (0.00-0.50); Eosinophils % (auto) 0.2 %; Immature Granulocytes # (auto) 0.01 K/uL (0.01-0.20); Immature Granulocytes % (auto) 0.2 %; Lymphocytes # (auto) 2.66 K/uL (1.20-3.40); Lymphocytes % (auto) 63.2 %; Monocytes # (auto) 0.33 K/uL (0.11-0.59); Monocytes % (auto) 7.8 %; Neutrophils # (auto) 1.18 K/uL (1.40-6.50); Neutrophils % (auto) 28.1 %; Polychromasia 1+
[2024-07-06 10:37] VITALS: PULSE 87; TEMP 97.5; O2SAT 94
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
[2024-07-06 15:35] VITALS: BP 102/78
== END 2024-07-06 16:10 | disposition home or self-care (01) | DRG 871 ==
LOC: ED 20:56 → 1E 07-01 01:25 → 2E 07-02 01:29